=== PATIENT | female | born 1940 ===

== ENCOUNTER 2020-01-23 14:57 | Inpatient (IN) | payer MEDICARE, MEDICAID ==
[~2020-01-23] VITALS: Ht 156 cm; Wt 52.6 kg
[2020-01-23] MEDS ORDERED: CYCL10TA9 PO (15:39)
[2020-01-23] MEDS ORDERED: DICY20TA10 PO (15:39)
[2020-01-23] MEDS ORDERED: ACHD5005 PO (15:39)
[2020-01-23] MEDS ORDERED: DOCU100C37 PO (15:39)
[2020-01-23] MEDS ORDERED: LISI10TA2 PO (15:39)
[2020-01-23] MEDS ORDERED: ATOR20TA66 PO (15:39)
--- NOTE | 2020-01-23 15:58 | NUR ---
I ENTERED THE MED REC USING THE DISCHARGE ORDERS FROM [facility] ([facility] 4 STATES)- ONCE MEDICATIONS HAVE BEEN CONTINUED I WILL SPEAK WITH THE PT AND MAKE ANY CHANGES TO THE MED REC/NOTES IF NEEDED Addendum: 02/01/20 at 0833 by CHIARA WHYTE CPhT I WAS ABLE TO SPEAK WITH THE PT AND HER DAUGHTER JANE AND WENT THRU THE EXT MED HISTORY TO COMPLETE THE MED REC MEDICATIONS THAT HAVE BEEN REMOVED DUE TO PT NOT TAKING PRIOR TO [facility]: FLEXERIL 10MG DOCUSATE 100MG HYDROCODONE/APAP 5/325MG MEDICATIONS THAT HAVE BEEN ADDED TO THE MED REC DUE TO PT TAKING PRIOR TO [facility]-BUT WERE DISCONTINUED BY [facility]: TRAMADOL 50MG MEDICATIONS THAT WERE FROM CONTINUED FROM [facility] AND PT DID TAKE PRIOR TO [facility]: ATORVASTATIN 20MG DICYCLOMINE 20MG LISINOPRIL 10MG OMEPRAZOLE 20MG
[2020-01-23] MEDS ORDERED: LACTULOSE SYRUP 10GM/15ML (ENULOSE) 30ML UDC PO PRN (17:15)
[2020-01-23] MEDS ORDERED: guaiFENesin/CODEINE (ROBITUSSIN AC) 10ML UDC PO PRN (17:15)
[2020-01-23] MEDS ORDERED: diphenhydrAMINE 25 MG TAB (BENADRYL) PO PRN (17:15)
[2020-01-23] MEDS ORDERED: BISACODYL 10 MG SUPP (DULCOLAX) PR PRN (17:15)
[2020-01-23] MEDS ORDERED: CALCIUM CARBONATE 500 MG (TUMS) TAB.CHEW PO PRN (17:15)
[2020-01-23] MEDS ORDERED: LOPERAMIDE 2 MG (IMODIUM) TABLET PO PRN (17:15)
[2020-01-23] MEDS ORDERED: DOCUSATE SODIUM 100 MG (COLACE) CAP PO PRN (17:15)
[2020-01-23] MEDS ORDERED: FLEET ENEMA ADULT 1 EA BTL PR PRN (17:15)
[2020-01-23] MEDS ORDERED: CYCLOBENZAPRINE 10 MG (FLEXERIL) TAB PO PRN (17:30)
--- NOTE | 2020-01-23 18:10 | NUR ---
PER ORDER FROM DR. NAIR: DO NOT NEED TO CALL CRITICAL HGB RESULT ON ADMISSION TO HER SINCE PATIENT IS JEHOVAH WITNESS AND WILL NOT ACCEPT BLOOD PRODUCTS. WILL LOOK AT LABS LATER.
--- NOTE | 2020-01-23 18:10 | NUR ---
Layla Abbott, admitted to room 223-1, with an admitting diagnosis of disuse myopathy, on 01/23/20 from [facility], accompanied by EMS and Daughter. LAYLA ABBOTT introduced to surroundings, call light, bed controls, phone, TV, temperature control, lights, meal times, smoking policy, visitor policy, side rail policy, bathrooms and showers. Patient Rights given to patient in the handbook.LAYLA ABBOTT verbalizes understanding that [facility] is not responsible for the loss or damage to any personal effects or valuables that are kept in the patients posession during their hospitalization. The following Patient Care Plans were discussed with the patient: Discharge Planning,activity intolerance,impaired mobility and falls. LAYLA ABBOTT verbalizes understanding of Interdisciplinary Patient Education. Patient and/or family were informed about the Rapid Response Team and its purpose. Patient received Patient Rights Booklet, which includes Privacy Act Statement and Data Collection Information Summary.
[2020-01-23 18:19] VITALS: BP 122/57
--- NOTE | 2020-01-23 18:30 | NUR ---
DR. NAIR NOTIFIED OF TEMP 101.4 AND HR 109. ORDERS RECEIVED FOR BLOOD WORK, CXR, AND IV FLUIDS. DAUGHTER AT BEDSIDE SPEAKS CITIZ[place] OF [place]. PATIENT IS LATVIAN SPEAKING AND SPEAKS A LITTLE CITIZEN OF [place].
--- NOTE | 2020-01-23 19:00 | NUR ---
DR. NAIR NOTIFIED OF UA RESULTS. IV FLUIDS STARTED AND NEW ORDER FOR IV ANTIBIOTICS. 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
[2020-01-23 19:02] LABS: BILIRUBIN,URINE NEGATIVE (NEGATIVE); CLARITY,URINE SL CLOUDY; COLOR,URINE YELLOW; GLUCOSE, URINE (UA) NEGATIVE (NEGATIVE); KETONES,URINE NEGATIVE (NEGATIVE); LEUKOCYTE ESTERASE ,URINE 2+ (NEGATIVE); NITRITE,URINE POSITIVE (NEGATIVE); PROTEIN,URINE NEGATIVE (NEGATIVE)
--- NOTE | 2020-01-23 19:08 | Diagnostic Imaging Report ---
INDICATION: Fever of unknown origin. FINDINGS: There is elevation of the right hemidiaphragm. There is no focal infiltrate or consolidation demonstrated. There is no effusion or evidence of pneumothorax. Heart size within normal limits. Central pulmonary vascularity appears appropriate. There are advanced degenerative features within the right shoulder. There has been prior lumbar spinal fusion. IMPRESSION: No evidence of focal pulmonary infiltrate or consolidation. Dictated by: Dictated on workstation # [id number]
[2020-01-23] MEDS: NS IV 1000 ML 1,000 ML IV SCH (19:10)
[2020-01-23 19:11] LABS: AMORPHOUS SEDIMENT,UR LARGE AMOR PHOSPHATE /LPF; BACTERIA,URINE MODERATE /HPF; RBC,URINE RARE /HPF; SQUAMOUS EPITHELIAL CELL,UR RARE /HPF
[2020-01-23 19:12] LABS: ABSOLUTE RETIC # 65 10e9/L (24-90); BASOPHILS # (AUTO) 0.1 10^3/uL (0.0-0.1); BASOPHILS % (AUTO) 0 % (0-10); EOSINOPHILS # (AUTO) 0.3 10^3/uL (0.0-0.3); EOSINOPHILS % (AUTO) 2 % (0-10); LYMPHOCYTES # (AUTO) 3.1 X 10^3 (1.0-4.0); LYMPHOCYTES % (AUTO) 20 % (12-44); MEAN CORPUSCULAR HEMOGLOBIN 28 PG (25-34); MEAN CORPUSCULAR HGB CONC 31 G/DL (32-36); MEAN CORPUSCULAR VOLUME 90 FL (80-99); MEAN PLATELET VOLUME 9.6 FL (7.4-10.4); MONOCYTES # (AUTO) 1.4 X 10^3 (0.0-1.0); MONOCYTES % (AUTO) 10 % (0-12); NEUTROPHILS # (AUTO) 10.2 X 10^3 (1.8-7.8); NEUTROPHILS % (AUTO) 68 % (42-75); PLATELET COUNT 421 10^3/uL (130-400); RETICULOCYTE % 4.82 % (0.50-2.40); WHITE BLOOD COUNT 15.1 10^3/uL (4.3-11.0)
[2020-01-23 19:15] LABS: HEMOGLOBIN 3.8 G/DL (11.5-16.0)
[2020-01-23 19:16] LABS: HEMATOCRIT 12 % (35-52)
--- NOTE | 2020-01-23 19:29 | PM&R Post Admission Assessment ---
PM&R HP Date of Visit: Jan 23, 2020 Time of Visit: 18:30 History of Present Illness CC: Debility HPI: This is a 79yo female from [place] who presents from [facility] following extensive spine surgery by Dr Rush but complicated by bradycardia and severe anemia of 5.1 at [facility] but 3.8 here at [facility] IRF and refuses blood products due to christianity of JW so she was given 2 doses of IV iron, 1 on Wednesday and 1 on Wednesday, and I have consulted Dr Iglesias and he has ordered retic count along with CBC and CMP and will receive IV Venofer in morning along with EPO. Patient was noted to have fever upon arrival to [facility] so she was pancultured and CXR revealed no infiltrate but UA with rosenthal cath was noted to have abnormalities so she was covered with Cefepime and Vanc broad spectrum coverage for facility acquire resistant gram negative bacteria along with MRSA. Patient met criteria for IRF although she will have a slow recovery along with management of the complexities of her issues stemming from refusing blood products for worship reasons. She is Lithuanian-speaking only so language line will be used. Per my [facility] Consult: Layla Mendez a 79 y.o.femaleadmitted for Lumbar stenosis with neurogenic claudication. I was asked to consult for severe anemia and JW refusal of blood products status. POD# 3 from lumbar spine I am consulted for Jainism status with profound post-op anemia of 5.1 hgb and dural tear with immobile status with post-op ileus and urinary retention I was called on Wednesday with hemoglobin result. I did order IV iron infusion and continue IV fluids Pt did have a large bowel movement today Assessment: Post-op anemia Jainism refuses blood products Dural tear and Lithuanian speaking only PMH: Abdominal pain in female Arthritis ALL OVER AND IN BACK Asthma Diabetes mellitus TX WITH METFORMIN OFF IT LAST 2 MONTHS, BS CONTROLLED Diarrhea ALL THE TIME, GALDING PERIRECTAL AREA GERD (gastroesophageal reflux disease) History of complications due to general anesthesia STATES GOT PNEUMONIA FROM ANESTHESIA WITH TKA HTN (hypertension) Hx of bacterial pneumonia ART ANESTHESIA WITH TKA, BUT GETS RECURRANT PNEUMONIA WITH COLD WEATHER Hyperlipidemia IBS (irritable bowel syndrome) Perianal rash ART DIARRHEA Thromboembolism Uterine cancer > 30 YEARS AGO Varicose veins Mary Grace Nair DO Physician Hospitalist Consults Signed Date of Service: 01/22/2020 12:03 PM Expand All Collapse All Hide copied text Joan for details Template added by Mary Grace Nair DO at 01/22/2020 12:03 PM Template added by Mary Grace Nair, DO at 01/22/2020 12:03 PM Template added by Mary Grace Nair, DO at 01/22/2020 12:03 PM Template added by Mary Grace Nair, DO at 01/22/2020 12:03 PM Template added by Mary Grace Nair, DO at 01/22/2020 12:03 PM Template added by Mary Grace Nair, DO at 01/22/2020 12:03 PM Template added by Mary Grace Nair, DO at 01/22/2020 12:03 PM Template added by Mary Grace Nair DO at 01/22/2020 12:03 PM Template added by Mary Grace Nair, DO at 01/22/2020 12:03 PM Added by Mary Grace Nair, DO at 01/22/2020 8:46 PM Template added by Mary Grace Nair, DO at 01/22/2020 12:03 PM Template added by Mary Grace Nair, at 01/22/2020 12:03 PM Copied by Mary Grace Nair DO at 01/22/2020 8:46 PM from outside the chart Template added by Mary Grace Nair DO at 01/22/2020 12:03 PM Template added by Mary Grace Nair, DO at 01/22/2020 12:03 PM Template added by Mary Grace Nair, DO at 01/22/2020 12:03 PM Template added by Mary Grace Nair, DO at 01/22/2020 12:03 PM Template added by Mary Grace Nair, at 01/22/2020 12:03 PM Template added by Mary Grace Nair, at 01/22/2020 12:03 PM Template added by Mary Grace Nair, at 01/22/2020 12:03 PM Template added by Mary Grace Nair DO at 01/22/2020 12:03 PM Template added by Mary Grace Nair DO at 01/22/2020 12:03 PM Template added by Mary Grace Nair DO at 01/22/2020 12:03 PM Template added by Mary Grace Nair DO at 01/22/2020 12:03 PM Hospitalist Consult PATIENT:Layla Higgins AGE: 79 y.o. CSN: [id number]: [id number] :1940 Date of Consult:01/22/2020Requesting Physician:Sravan Rush DO PCP:Wero Ortega MD Reason for Consult:Medical management post op HPI: Layla Mendez a 79 y.o.femaleadmitted for Lumbar stenosis with neurogenic claudication. I was asked to consult for severe anemia and JW refusal of blood products status. POD# 3 from lumbar spine I am consulted for Jainism status with profound post-op anemia of 5.1 hgb and dural tear with immobile status with post-op ileus and urinary retention I was called on Wednesday with hemoglobin result. I did order IV iron infusion and continue IV fluids Pt did have a large bowel movement today Assessment: Post-op anemia Jainism refuses blood products Dural tear and Lithuanian speaking only Allergies: Allergies Allergen Reactions Other Drug [Unclassified Drug] Nausea and Vomiting Pt to bring name of medication day of surgery. Amoxicillin Diarrhea PMHx: Past Medical History Past Medical History: Diagnosis Date Abdominal pain in female Arthritis ALL OVER AND IN BACK Asthma Diabetes mellitus TX WITH METFORMIN OFF IT LAST 2 MONTHS, BS CONTROLLED Diarrhea ALL THE TIME, GALDING PERIRECTAL AREA GERD (gastroesophageal reflux disease) History of complications due to general anesthesia STATES GOT PNEUMONIA FROM ANESTHESIA WITH TKA HTN (hypertension) Hx of bacterial pneumonia ART ANESTHESIA WITH TKA, BUT GETS RECURRANT PNEUMONIA WITH COLD WEATHER Hyperlipidemia IBS (irritable bowel syndrome) Perianal rash ART DIARRHEA Thromboembolism Uterine cancer > 30 YEARS AGO Varicose veins PSHx: Past Surgical History Past Surgical History: Procedure Laterality Date HX CHOLECYSTECTOMY 3 YRS AGO HX CLUB FOOT RELEASE HX HERNIA REPAIR HX HYSTERECTOMY > 30 YRS AGO TOTAL ABD HX KNEE REPLACEMENT Bilateral HX LUMBAR FUSION N/A 02/16/2019 L3, L4, L5 HX ELISA FUNDOPLICATION ABOUT 3 YRS AGO LAPAROSCOPIC WHEN HAD CHOLECYSTECTOMY HX SPINAL SURGERY N/A 11/04/2018 CERVICAL SPINAL FUSION HX VEIN LIGATION AND STRIPPING Right NH COLONOSCOPY W/BIOPSY SINGLE/MULTIPLE N/A 03/07/2015 COLONOSCOPY WITH BIOPSY performed by Ildefonso Schilling DO at [facility] NH EGD TRANSORAL BIOPSY SINGLE/MULTIPLE N/A 03/12/2015 ESOPHAGOGASTRODUODENOSCOPY WITH BIOPSY performed by Ildefonso Schilling DO at [facility] Home Medications: Prescriptions Prior to Admission Medications Prior to Admission Medication Sig Dispense Refill Last Dose traMADol (ULTRAM) 50 mg tablet Take 1 Tablet (50 mg) by mouth every 4 hours as needed for Pain. 24 Tablet 0 01/18/2020 at Unknown time atorvastatin (LIPITOR) 20 mg tablet Take 1 Tablet by mouth daily after lunch. 01/16/2020 dicyclomine (BENTYL) 20 mg tablet Take 20 mg by mouth 2 times daily. 01/14/2020 lisinopriL (PRINIVIL) 10 mg tablet Take 1 Tablet by mouth daily after lunch. 01/16/2020 multivit-min/iron/folic/lutein (CENTRUM SILVER WOMEN ORAL) Take 1 Tablet by mouth daily. 01/12/2020 Social Hx: Social History Tobacco Use Smoking status: Former Smoker Packs/day: 0.00 Types: Cigarettes Smokeless tobacco: Never Used Tobacco comment: QUIT SMOKING > 30 YRS AGO Substance Use Topics Alcohol use: No Family Hx: Family History Family History Problem Relation Name Age of Onset Unknown Father Unknown Mother Diabetes Brother Diabetes Daughter Diabetes Son Diabetes Brother Depression Brother Healthy Son Healthy Son Review of Systems Constitutional-no fever, sweats, night sweats, change in fatigue level EYE-no blurred vision, double vision ENT-, no difficulty swallowing, no symptoms of oral candidiasis Lungs-no complaint of respiratory distress, no wheezing CV-no chest pain, palpitation GI-no nausea, vomiting, diarrhea, no abdominal pain -no difficulty voiding, no flank pain MS-no significant edema 10 system review is otherwise negative except as discussed above. Physical: Patient Vitals for the past 8 hrs: BP Temp Temp src Pulse Resp SpO2 01/22/20 0633 109/53 99.1 F (37.3 C) Temporal 98 20 100 % 01/22/20 0510 112/52 99.3 F (37.4 C) Temporal 99 15 100 % General appearance: Alert, appropriate, no apparent distress Eyes: conjuctiva pink, sclera white, EOMI without nystagmus Head: normocephalic Throat:mucus membranes moist, no lesions or exudates. Neck: no carotid bruit, no palpable adenopathy or thyromegaly. Lungs:Good air movement, clear without wheezing or rhonchi Heart:- regular rate and rhythm, no murmur Abdomen:bowel sounds active, soft, nontender, nondistended. No appreciable masses or organomegaly. Extremities: No cyanosis or clubbing. No pitting edema. Pulses intact. Skin:Warm, dry. No rash or icterus on exposed areas. Neurologic:Mental status intact. Cranial nerves intact. No focal motor or sensory deficit. Data Review: CBC: Lab Results Component Value Date/Time WBC 10.8 01/20/2020 10:33 AM HEMOGLOBIN 5.1 (LL) 01/20/2020 10:33 AM POC HEMOGLOBIN 5.8 (LL) 01/22/2020 06:31 AM HEMATOCRIT 16.3 (L) 01/20/2020 10:33 AM POC HEMATOCRIT 17 (L) 01/22/2020 06:31 AM PLATELETS 247 01/20/2020 10:33 AM MCV 91.6 01/20/2020 10:33 AM BMP: Lab Results Component Value Date/Time SODIUM 138 01/04/2020 11:25 AM POTASSIUM 4.6 01/04/2020 11:25 AM CHLORIDE 103 01/04/2020 11:25 AM CO2 22 01/04/2020 11:25 AM CALCIUM 9.3 01/04/2020 11:25 AM BUN 23 01/04/2020 11:25 AM CREATININE 0.84 01/04/2020 11:25 AM POC CREATININE 0.50 (L) 01/22/2020 06:31 AM GLUCOSE 102 (H) 01/04/2020 11:25 AM ANION GAP 13 01/04/2020 11:25 AM Assessment: Principal Problem: Lumbar stenosis with neurogenic claudication Active Problems: Lumbar pseudoarthrosis Severe anemia JW christianity Plan: IV iron infusions Gentle IVF Monitor BM regimen May need IRF at [facility] and [facility] Mary Grace Nair DO 01/22/2020,12:04 PM Past Ixquaom-Rwzkiz-Vfahml Hx Past Med/Social Hx: Reviewed Nursing Past Med/Soc Hx, Reviewed and Corrections made Patient Social History Marrital Status: single Employed/Student: retired Alcohol Use: Denies Use Smoking Status: Former Smoker (quit 30 years ago) Past Medical History Surgeries: Orthopedic Cardiac: High Cholesterol, Hypertension Endocrine: Diabetes, Non-Insulin dep PM&R Allergy/Meds/Data Review Allergies Coded Allergies: Penicillins (Verified Allergy, Unknown, 01/23/20) Home Medications Scheduled Atorvastatin Calcium (Atorvastatin Calcium), 20 MG PO 1300, (Reported) Dicyclomine HCl (Dicyclomine HCl), 20 MG PO BID, (Reported) Docusate Sodium (Docusate Sodium), 100 MG PO BID, (Reported) Lisinopril (Lisinopril), 10 MG PO 1300, (Reported) Scheduled PRN Cyclobenzaprine HCl (Cyclobenzaprine HCl), 10 MG PO Q8H PRN for SPASMS, (Reported) Hydrocodone/Acetaminophen (Hydrocodone-Acetamin 5-325 mg), 1 EACH PO Q4H PRN for PAIN-MODERATE (5-7), (Reported) Current Medications Current Medications Reviewed Laboratory Data Laboratory Tests 01/23/20 18:40: Urine Color YELLOW, Urine Clarity SL CLOUDY, Urine pH 8.0, Urine Specific [place] 1.010L, Urine Protein NEGATIVE, Urine Glucose (UA) NEGATIVE, Urine Ketones NEGATIVE, Urine Nitrite POSITIVEH, Urine Bilirubin NEGATIVE, Urine Urobilinogen 0.2, Urine Leukocyte Esterase 2+H, Urine RBC (Auto) 1+H, Urine RBC RARE, Urine WBC 2-5, Urine Squamous Epithelial Cells RARE, Urine Crystals PRESENTH, Urine Amorphous Sediment LARGE PATRICE PHOSPHATEH, Urine Bacteria MODERATEH, Urine Casts NONE, Urine Mucus NEGATIVE, Urine Culture Indicated YES 01/23/20 18:59: White Blood Count 15.1H, Red Blood Count 1.35L, Hemoglobin 3.8*L, Hematocrit 12*L, Mean Corpuscular Volume 90, Mean Corpuscular Hemoglobin 28, Mean Corpuscular Hemoglobin Concent 31L, Red Cell Distribution Width 13.0, Platelet Count 421H, Mean Platelet Volume 9.6, Neutrophils (%) (Auto) 68, Lymphocytes (%) (Auto) 20, Monocytes (%) (Auto) 10, Eosinophils (%) (Auto) 2, Basophils (%) (Auto) 0, Neutrophils # (Auto) 10.2H, Lymphocytes # (Auto) 3.1, Monocytes # (Auto) 1.4H, Eosinophils # (Auto) 0.3, Basophils # (Auto) 0.1, Absolute Reticulocyte Count 65, Percent Reticulocyte Count 4.82H Review of Systems Constitutional: see HPI, dizziness, fever, malaise, weakness EENTM: no symptoms reported Respiratory: no symptoms reported Cardiovascular: no symptoms reported Gastrointestinal: no symptoms reported Genitourinary: other (retention) Musculoskeletal: back pain Skin: no symptoms reported Psychiatric/Neurological: Anxiety, Depressed All Other Systems Reviewed Negative Unless Noted: Yes Physical Exam Physical Exam Vital Signs Vital Signs - First Documented 01/23/20 18:19 Temp 38.6 Pulse 109 Resp 16 B/P (MAP) 122/57 (78) Pulse Ox 98 O2 Delivery Room Air Capillary Refill : Height, Weight, BMI Height: '" Weight: lbs. oz. kg; BMI Method: General Appearance: No Apparent Distress, WD/WN, Chronically ill, Other (pale) Eyes: Bilateral Eye Normal Inspection, Bilateral Eye PERRL HEENT: PERRL/EOMI, Normal ENT Inspection, Pharynx Normal Neck: Full Range of Motion, Normal Inspection, Non Tender, Supple, Carotid Bruit Respiratory: Chest Non Tender, Lungs Clear, Normal Breath Sounds, No Accessory Muscle Use, No Respiratory Distress Cardiovascular: Regular Rate, Rhythm, No Edema, No Gallop, No JVD, No Murmur, Normal Peripheral Pulses Gastrointestinal: Normal Bowel Sounds, No Organomegaly, No Pulsatile Mass, Non Tender, Soft Back: Decreased Range of Motion Extremity: Normal Capillary Refill, Normal Inspection, Normal Range of Motion, Non Tender, No Calf Tenderness, No Pedal Edema Neurologic/Psychiatric: Alert, Oriented x3, No Motor/Sensory Deficits, Normal Mood/Affect, 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 Norm as Tested, Abnormal Gait Skin: Normal Color, Warm/Dry Lymphatic: No Adenopathy PM&R Medical Assessment & Plan REHAB/MEDICAL ASSESSMENT AND PLAN: REHAB IMPAIRMENT GROUP: Lumbar spine stenosis ETIOLOGIC DIAGNOSIS: Lumbar spine stenosis The comorbidities that impact the patients function and/or functional outcome by: refusing blood products with now critical hemoglobin level, fever, debility, advanced age REHAB PLAN: The patient is being admitted to our comprehensive inpatient rehabilitation [facility] and can tolerate the intensity of service consisting of at least: 180 minutes of therapy a day, 5 out of 7 days a week Rehab treatment will consist of: PT OT will focus on regaining spine ROM along with increasing ADL abilities The patient/family has a good understanding of our discharge process and will benefit from an interdisciplinary inpatient rehabilitation program. The patient has potential to make improvement and is in need of at least two of the following multidisciplinary therapies including but not limited to physical, occupational, speech, and prosthetics and orthotics. Additionally the patient will need services from respiratory, nutritional services, wound care, psychology, etc. (Customize this to each patient). Given the patients complex condition and risk of further medical complications, rehabilitation services cannot be safely or effectively provided at a lower level of care such as a residential facility. BARRIERS TO DISCHARGE: Critical anemia and refusal of blood products will place her at risk for decompensation ESTIMATED LOS: 14 days DISPOSITION: Home RELEVANT CHANGES SINCE PREADMISSION SCREENING: I have compared the patients medical and functional status at the time of the preadmission screening and there are: no changes PROGNOSIS: Guarded REHABILITATION GOALS: 1. PT OT will focus on regaining spine ROM along with increasing ADL abilities All the above goals were reviewed with the patient and he/she is in agreement. By signing this document, I acknowledge that I have personally performed a full physical examination on this patient within 24 hours of admission to this inpatient rehabilitation facility and have determined the patient to be able to tolerate the above course of treatment at an intensive level for a reasonable period of time. I will be completing a detailed individualized Plan of Care for this patient by day #4 of the patients stay based upon the Preadmission Screen, the Post-Admission Evaluation, and the therapy evaluations. Admission Dx/Comorbidities: (1) Lumbar stenosis with neurogenic claudication ICD Codes: M48.062 - Spinal stenosis, lumbar region with neurogenic claudication (2) Refusal of blood transfusions as patient is Jainism ICD Codes: Z53.1 - Procedure and treatment not carried out because of patient's decision for reasons of belief and group pressure (3) Anemia due to acute blood loss ICD Codes: D62 - Acute posthemorrhagic anemia (4) Advanced age ICD Codes: R54 - Age-related physical debility (5) Hypertension ICD Codes: I10 - Essential (primary) hypertension (6) Hyperlipemia ICD Codes: E78.5 - Hyperlipidemia, unspecified (7) Fever ICD Codes: R50.9 - Fever, unspecified (8) Bradycardia ICD Codes: R00.1 - Bradycardia, unspecified Assessment/Plan Assessment and Plan Assess & Plan/Chief Complaint Assessment: Lumbar stenosis with neurogenic claudication Severe anemia JW refusal of blood products HTN HLP Fever Rosenthal cath UTI Bradycardia at [place] Plan: Dr Iglesias consult EPO and Venofer tomorrow Gentle IVF PT OT Abx broad spectrum MARY GRACE NAIR DO Jan 23, 2020 19:29
[2020-01-23] MEDS ORDERED: VANCOMYCIN INJECTION 1,000 MG in NS (IVPB) 250 ML IV SCH (19:30)
[2020-01-23 19:49] LABS: BAND NEUTROPHILS 0 %; NEUTROPHILS % (MANUAL) 70 %
[2020-01-23 19:50] LABS: ANISOCYTOSIS SLIGHT; BASOPHILS % (MANUAL) 0 %; ELLIPT/OVALOCYTES SLIGHT; EOSINOPHILS % (MANUAL) 4 %; HYPOCHROMASIA SLIGHT; LYMPHOCYTES % (MANUAL) 21 %; MONOCYTES % (MANUAL) 5 %; POLYCHROMASIA SLIGHT
[2020-01-23 19:56] LABS: ALANINE AMINOTRANSFERASE 30 U/L (0-55); ALBUMIN 2.9 GM/DL (3.2-4.5); ALKALINE PHOSPHATASE 80 U/L (40-136); BILIRUBIN,TOTAL 0.2 MG/DL (0.1-1.0); BUN/CREATININE RATIO 21; CALCIUM 7.9 MG/DL (8.5-10.1); CARBON DIOXIDE 22 MMOL/L (21-32); CHLORIDE 102 MMOL/L (98-107); CREATININE SERUM 0.67 MG/DL (0.60-1.30); GFR ESTIMATED > 60; GLUCOSE 130 MG/DL (70-105); POTASSIUM 3.8 MMOL/L (3.6-5.0); SODIUM 133 MMOL/L (135-145); TOTAL PROTEIN 5.6 GM/DL (6.4-8.2)
[2020-01-23 20:00] VITALS: BP 122/57
[2020-01-23] MEDS ORDERED: CEFEPIME 1 GM (MAXIPIME) VIAL ONE (20:23)
[2020-01-23] MEDS ORDERED: WATER (STERILE) FOR INJECTION 10 ML ONE (20:23)
--- NOTE | 2020-01-23 20:25 | NUR ---
PTD VANCOMYCIN: 58.5KG, SCr 0.67, CrCl 36.3, BMI 24.0 LOADING DOSE 20MG/KG X 58.5 KG = 1170 ~ 1 GRAM; MAINT DOSE 15MG/KG X 58.5 KG = 877.5 ~ 750MG Q24H; VANCOMYCIN TROUGH DUE 01/25 @ 1930. IF TROUGH >20, HOLD DOSE AND NOTIFY PHARMACY FOR ADJUSTMENTS.
[2020-01-23] MEDS ORDERED: VANCOMYCIN 1 GM/NS 250 ML IVPB IV NR ×2 (20:30)
--- NOTE | 2020-01-23 20:30 | NUR ---
PHARMACY STATES AMOXICILLIN ALLERGY IS RELATED TO CEFEPIME. PATIENT STATES ALONG WITH VOMITING AND DIARRHEA, OTHER ALLERGY IS RASH AND EYES SWELL SHUT. DR. NAIR NOTIFIED AND ORDER RECEIVED TO GIVE CEFEPIME.
[2020-01-23] MEDS: HYDROcodone/APAP 5 MG/325 MG (LORTAB) TAB PO PRN (20:36)
[2020-01-23] MEDS: DICYCLOMINE 10 MG (BENTYL) CAP PO SCH (20:38)
[2020-01-23] MEDS ORDERED: DOCUSATE SODIUM 100 MG (COLACE) CAP PO SCH (21:00)
[2020-01-23] MEDS: CEFEPIME INJECTION 1,000 MG in WATER (STERILE) FOR INJECTION 10 ML IV SCH (21:51)
[2020-01-23] MEDS: ACETAMINOPHEN 500 MG TAB (TYLENOL) PO PRN (21:55)
[2020-01-23] MEDS: SENNA W/DOCUSATE (SENOKOT S) TABLET PO SCH (21:56)
[2020-01-23] MEDS: polyethylene glycoL POWDER 17 GM (MIRALAX) PACK PO SCH (21:56)
[2020-01-23] MEDS: DOCUSATE SODIUM 100 MG (COLACE) CAP PO SCH (21:56)
[2020-01-24] MEDS: CEFEPIME INJECTION 1,000 MG in WATER (STERILE) FOR INJECTION 10 ML IV SCH ×3 (04:07→19:53)
[2020-01-24 05:30] LABS: BASOPHILS % (AUTO) 0 % (0-10); EOSINOPHILS # (AUTO) 0.5 10^3/uL (0.0-0.3); EOSINOPHILS % (AUTO) 5 % (0-10); LYMPHOCYTES # (AUTO) 3.1 X 10^3 (1.0-4.0); LYMPHOCYTES % (AUTO) 27 % (12-44); MEAN CORPUSCULAR HEMOGLOBIN 28 PG (25-34); MEAN CORPUSCULAR HGB CONC 32 G/DL (32-36); MEAN CORPUSCULAR VOLUME 89 FL (80-99); MEAN PLATELET VOLUME 9.2 FL (7.4-10.4); MONOCYTES # (AUTO) 1.3 X 10^3 (0.0-1.0); MONOCYTES % (AUTO) 11 % (0-12); NEUTROPHILS # (AUTO) 6.4 X 10^3 (1.8-7.8); NEUTROPHILS % (AUTO) 57 % (42-75); PLATELET COUNT 357 10^3/uL (130-400); WHITE BLOOD COUNT 11.3 10^3/uL (4.3-11.0)
--- NOTE | 2020-01-24 05:46 | PM&R Progress Note ---
Subjective HPI/CC On Admission Date Seen by Provider: Jan 24, 2020 Time Seen by Provider: 09:00 Subjective/Events-last exam Pt had an uneventful might Had a fever this morning at 36.5 Remains tachycardic but sinus type Cefepime and Vanc maintained Preliminary urine culture is E. Coli Bowels moved this morning No drainage at the operative site Hgb up from 3.8 to 4.9 even with gentle IV fluid WBC down to 11.[address] Castellanos and Dr. Caldwell Checked meds and labs Conferred with RN Reviewed therapy notes Review of Systems General: Fatigue, Malaise Neurological: Weakness Focused Exam Lactate Level 01/23/20 18:59: Lactic Acid Level 1.81 Objective Exam Vital Signs Vital Signs Date Time Temp Pulse Resp B/P (MAP) Pulse Ox O2 Delivery O2 Flow Rate FiO2 01/24/20 17:05 36.0 01/24/20 13:00 84 01/24/20 12:57 18 118/58 (78) 99 Nasal Cannula 2.00 Capillary Refill : Less Than 3 Seconds General Appearance: No Apparent Distress, WD/WN, Chronically ill, Other (pale) HEENT: PERRL/EOMI, Normal ENT Inspection, Pharynx Normal Neck: Full Range of Motion, Normal Inspection, Non Tender, Supple, Carotid Bruit Respiratory: Chest Non Tender, Lungs Clear, Normal Breath Sounds, No Accessory Muscle Use, No Respiratory Distress Cardiovascular: Regular Rate, Rhythm, No Edema, No Gallop, No JVD, No Murmur, Normal Peripheral Pulses Gastrointestinal: Normal Bowel Sounds, No Organomegaly, No Pulsatile Mass, Non Tender, Soft Back: Decreased Range of Motion Extremity: Normal Capillary Refill, Normal Inspection, Normal Range of Motion, Non Tender, No Calf Tenderness, No Pedal Edema Neurologic/Psychiatric: Alert, Oriented x3, No Motor/Sensory Deficits, Normal Mood/Affect, picu nurse II-XII Norm as Tested, Abnormal Gait Skin: Normal Color, Warm/Dry Lymphatic: No Adenopathy Results/Procedures Lab Laboratory Tests 01/23/20 18:59 01/24/20 05:00 01/24/20 05:19 Patient resulted labs reviewed. FIM Transfers Therapy Code Descriptions/Definitions Functional [place] Measure: 0=Not Assessed/NA 4=Minimal Assistance 1=Total Assistance 5=Supervision or Setup 2=Maximal Assistance 6=Modified [place] 3=Moderate Assistance 7=Complete IndependenceSCALE: Activities may be completed with or without assistive devices. 8-Csmsikgbrr-dzemgqh completes the activity by him/herself with no assistance from a helper. 5-Set-up or Clean-up Assistance-helper sets up or cleans up; patient completes activity. Dwarf assists only prior to or following the activity. 4-Supervision or Touching Assistance-helper provides verbal cues and/or touching/steadying and/or contact guard assistance as patient completes activity. Assistance may be provided throughout the activity or intermittently. 3-Partial/Moderate Assistance-helper does LESS THAN HALF the effort. Dwarf lifts, holds or supports trunk or limbs, but provides less than half the effort. 2-Substantial/Maximal Assistance-helper does MORE THAN HALF the effort. Dwarf lifts or holds trunk or limbs and provides more than half the effort. 8-Gxjeppbuk-synsis does ALL the effort. Patient does none of the effort to complete the activity. Or, the assistance of 2 or more helpers is required for the patient to complete the activity. If activity was not attempted, code reason: 7-Patient Refused. 9-Not Applicable-not attempted and the patient did not perform the activity before the current illness, exacerbation or injury. 10-Not Attempted due to Environmental Limitations-(lack of equipment, weather restraints, etc.). 88-Not Attempted due to Medical Conditions or Safety Concerns. Assessment/Plan Assessment and Plan Assess & Plan/Chief Complaint Assessment: Lumbar stenosis with neurogenic claudication Severe anemia JW refusal of blood products HTN HLP Fever Goldstein cath UTI Bradycardia at [place] Plan: Dr Iglesias consult EPO and Venofer tomorrow Gentle IVF PT OT Abx broad spectrum 01/24/20: Monitor hemoglobin Appreciate Dr. Castellanos Appreciate Dr. Iglesias Continue antibiotics Monitor closely (1) Lumbar stenosis with neurogenic claudication (2) Refusal of blood transfusions as patient is Islam (3) Anemia due to acute blood loss (4) Advanced age (5) Hypertension (6) Hyperlipemia (7) Fever (8) Bradycardia SAMARIA NAIR DO Jan 24, 2020 05:46
[2020-01-24 05:47] LABS: ALBUMIN 2.6 GM/DL (3.2-4.5); CHLORIDE 110 MMOL/L (98-107); POTASSIUM 3.7 MMOL/L (3.6-5.0); SODIUM 140 MMOL/L (135-145)
[2020-01-24 05:48] LABS: CALCIUM 7.8 MG/DL (8.5-10.1)
[2020-01-24 05:49] LABS: GLUCOSE 111 MG/DL (70-105)
[2020-01-24 05:50] LABS: TOTAL PROTEIN 5.2 GM/DL (6.4-8.2)
[2020-01-24 05:51] LABS: BILIRUBIN,TOTAL 0.3 MG/DL (0.1-1.0); CARBON DIOXIDE 20 MMOL/L (21-32)
[2020-01-24 05:53] LABS: ALKALINE PHOSPHATASE 77 U/L (40-136); CREATININE SERUM 0.64 MG/DL (0.60-1.30); GFR ESTIMATED > 60
[2020-01-24 05:54] LABS: BUN/CREATININE RATIO 19
[2020-01-24 05:54] LABS: HEMATOCRIT 15 % (35-52)
[2020-01-24 05:55] LABS: HEMOGLOBIN 4.9 G/DL (11.5-16.0)
[2020-01-24 05:56] LABS: ALANINE AMINOTRANSFERASE 26 U/L (0-55)
[2020-01-24 06:00] VITALS: BP 104/51
[2020-01-24] MEDS: NS IV 1000 ML 1,000 ML IV SCH ×2 (06:28→17:22)
[2020-01-24] MEDS: HYDROcodone/APAP 5 MG/325 MG (LORTAB) TAB PO PRN ×2 (06:28→20:48)
--- NOTE | 2020-01-24 08:43 | Physical Therapy Evaluation ---
PT Evaluation-General Medical Diagnosis Admission Date Jan 23, 2020 at 18:10 Medical Diagnosis: Lumbar stenosis with neurogenic claudication Onset Date: Jan 23, 2020 Therapy Diagnosis Therapy Diagnosis: impaired mobility, strength, endurance Precautions Precautions/Isolations: Fall Prevention, Standard Precautions, Pressure Ulcer lumbar brace on when OOB Referral Physician: Mary Grace Bojorquez DO Reason for Referral: Evaluation/Treatment Medical History Pertinent Medical History: HTN Reviewed History: Yes Social History Home: Single Level Current Living Status: Alone Entry Into Home: Stairs With Railing PT Steps Into Home: 14 Patient states she lives alone but has some family help from a daughter and son but the son works a lot Prior Prior Level of Function SCALE: Activities may be completed with or without assistive devices. 1-Kdenbhvkyf-qmbmvnf completes the activity by him/herself with no assistance from a helper. 5-Set-up or Clean-up Assistance-helper sets up or cleans up; patient completes activity. [place] assists only prior to or following the activity. 4-Supervision or Touching Assistance-helper provides verbal cues and/or touching/steadying and/or contact guard assistance as patient completes activity. Assistance may be provided throughout the activity or intermittently. 3-Partial/Moderate Assistance-helper does LESS THAN HALF the effort. [place] lifts, holds or supports trunk or limbs, but provides less than half the effort. 2-Substantial/Maximal Assistance-helper does MORE THAN HALF the effort. [place] lifts or holds trunk or limbs and provides more than half the effort. 5-Keldmzbti-orvdqv does ALL the effort. Patient does none of the effort to complete the activity. Or, the assistance of 2 or more helpers is required for the patient to complete the activity. If activity was not attempted, code reason: 7-Patient Refused. 9-Not Applicable-not attempted and the patient did not perform the activity before the current illness, exacerbation or injury. 10-Not Attempted due to Environmental Limitations-(lack of equipment, weather restraints, etc.). 88-Not Attempted due to Medical Conditions or Safety Concerns. Bed Mobility: 6 Transfers (B,C,W/C): 6 Gait: 6 Stairs: 6 Indoor Mobility (Ambulation): Independent Stairs: Independent PT Evaluation-Current Subjective Patient in bed pre tx, agrees to PT, has unrated low back pain. Patient needs to use the restroom. Will be co-treating with OT for part of tx due to poor patient mobility, low HGB, the need to coordinate UE and LE during activity and ADL's Pt/Family Goals none stated Objective Patient Orientation: Person, Unable to Assess (spainish speaking) Attachments: Oxygen, Goldstein Catheter, IV ROM/Strength ROM Lower Extremities WNL Strength Lower Extremities unable to test accurately due to language barrier Sensory Hearing: Functional Sensation Right Lower Extremit: Intact Sensation Left Lower Extremity: Intact Transfers Roll Left to Right (QC): 2 Sit to Lying (QC): 2 Lying to Sitting/Side of Bed(Q: 2 Sit to Stand (QC): 3 Chair/Zob-xf-Ygvhp Xfer(QC): 3 Toilet Transfer (QC): 3 Car Transfer (QC): 3 Patient performs bed mobility and supine <-> sit with max assist, sit <-> stand min assist, transfers min assist, car transfer min assist. Patient needs cues for hand placement and safety. Patient performs a toilet transfer with min assist and is able to wipe herself without assist. Gait Does the Patient Walk?: Yes Mode of Locomotion: Walk Walk 10 feet (QC): 4 Walk 50 ft with 2 Turns(QC): 88 Walk 150 ft (QC): 88 Walking 10ft/uneven surface-QC: 3 Distance: 10', 20' Gait Assistive Device: FWW Comments/Gait Description Patient can ambulate 20' with a rolling walker with CGA (but needs min assist to ambulate 10' over an uneven surface). 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 Wheelchair Training Wheel 50 ft with 2 turns (QC): 9 Wheel 150 ft (QC): 9 Stairs #of Steps: 1 1 Step (curb) (QC): 3 4 Steps (QC): 88 12 Steps (QC): 88 Walking Assistive Device: Walker Patient can go up and down 1 step using a rolling walker with min assist. Needs cues for step placement and assist guiding walker. Balance Sitting Static: Normal Sitting Dynamic: Normal Standing Static: Good Standing Dynamic: Fair Picking up an Object (QC): 88 Treatment Bathing and dressing Assessment/Needs Patient has impaired mobility, strength, endurance. She needs a lot of assist with bed mobility and supine <-> sit but only min assist when out of bed. Patient must wear brace when out of bed. Rehab Potential: Fair PT Short Term Goals Short Term Goals Time Frame: Jan 31, 2020 Roll Left & Right: 3 Sit to lyin Lying to sitting on side of be: 3 Sit to stand: 4 Chair/bag-qp-bdwhn transfer: 4 Walk 10 feet: 4 Walk 50 feet with two turns: 4 PT Prison Goals Prison Goals PT Reclamation Kettle Tender Goals Time Frame: Feb 14, 2020 Roll Left & Right (QC): 4 Sit to Lying (QC): 4 Lying-Sitting on Side/Bed(QC): 4 Sit to Stand (QC): 4 Chair/Qvr-et-Xloqn Xfer(QC): 4 Toilet Transfer (QC): 4 Car Transfer (QC): 4 Does the Patient Walk: Yes Walk 10 feet (QC): 4 Walk 50ft with 2 Turns (QC): 4 Walk 150 ft (QC): 4 Walking 10ft on Uneven Surface: 4 1 Step (curb) (QC): 4 4 Steps (QC): 4 12 Steps (QC): 4 Picking up an Object (QC): 88 Wheel 50 feet with 2 turns (QC: 9 Wheel 150 feet: 9 PT Plan Problem List Problem List: Activity Tolerance, Functional Strength, Safety, Balance, Gait, Transfer, Bed Mobility, ROM Treatment/Plan Treatment Plan: Continue Plan of Care Treatment Plan: Bed Mobility, Education, Functional Activity Kassandra, Functional Strength, Group Therapy, Gait, Safety, Therapeutic Exercise, Transfers Treatment Duration: Feb 14, 2020 Frequency: Modified Program (IRF) Estimated Hrs Per Day: 1.5 hours per day Patient and/or Family Agrees t: Yes Safety Risks/Education Patient Education: Gait Training, Transfer Techniques, Reviewed Precautions, Correct Positioning, Reviewed Don/Doff Brace, Safety Issues Teaching Recipient: Patient Teaching Methods: Demonstration, Discussion Response to Teaching: Reinforcement Needed Discharge Recommendations Plan Patient will perform bed mobility and transfer training, balance and endurance training, functional strengthening, stair training, gait training, and education, to improve functional mobility and independence at home. Therapy Discharge Recommendati: Home & Family Time/GCodes Time In: 0805 Time Out: 0900 Total Billed Treatment Time: 55 Total Billed Treatment 1 visit EVM 10' FA 45' PT performed bed mobility and transfers, ambulation, stairs, assist with balance and positioning during bathing and dressing, OT performed bathing and dressing, toileting, assist with positioning and safety during activity. PT eval from , co-treat from CURTIS STRONG PT Jan 24, 2020 08:43
[2020-01-24] MEDS ORDERED: DARBEPOETIN 100 MCG/ML (ARANESP) 1 ML HOSPITAL SC SCH (09:00)
[2020-01-24] MEDS ORDERED: DARBEPOETIN 25 MCG/ML (ARANESP) 1 ML HOSPITAL SC SCH (09:00)
--- NOTE | 2020-01-24 09:27 | ST Cognitive Linguistic Eval ---
Speech Evaluation-General Medical Diagnosis Lumbar stenosis with neurogenic claudication Onset Date: Jan 24, 2020 Therapy Diagnosis Therapy Diagnosis: Cognitive-communication Referral Referring Physician: Dr. Bojorquez Reason for Referral: Evaluation/Treatment Medical History Pertinent Medical History: HTN Reviewed History: Yes Social History Current Living Status: Alone Speech PLF-Current Status Prior Level of Function Patient lives alone where she has friends who attend appointments with her for translation purposes. Patient is Austrian speaking only. Subjective Patient was pleasant and cooperative with the cognitive assessment. Language Eval: Auditory Comprehends Simple Yes/No Ques: Functional Follows 1-Step Commands: Mild Patient is Austrian speaking only. She requires the services of language [employer] for translation. Language Eval: Verbal Language Completes Spontaneous Greeting: Functional Produces Auto, Serial Info: Functional Patient is Austrian speaking only. She requires the services of [employer] for translation. Objective Formal/Standardized Tests Informal tasks with clinician. Difficult to complete tasks due to patient speaking only Austrian. Clinician did speak with patient's friend who usually attends appts. with her as her green building architect. Patient's friend states there are no cognitive deficits that she is aware of. Results Patient's cognitive status appears to be WNL. Oral Motor/Speech Production Patient is Austrian speaking only. She requires the services of [employer] for translation. Impression Patient is a pleasant 79 y/o female who was admitted to the ARU s/p spine surgery with complications. Patient completed simple tasks without difficulty. Patient's friend who translates for her states the patient does not have any cognitive deficits that would interfere with her progress. At this time ST services are not deemed necessary. Speech Patient Assess Expression of Ideas/Wants: Frequently (2) Understanding Verbal Content: Sometimes Understands(2) Brief Interview-Mental Status: Yes Repetition of Three Words: Two (2) Temporal Orientation: Year: Correct (3) Temporal Orientation: Month: Accurate within 5 days(2) Temporal Orientation: Day: Correct (1) Recall : Wear to say "Sock": No, could not recall (0) Recall : Color: No, could not recall (0) Recall : Bed: No, could not recall (0) Memory/Recall Ability: That he or she is in a hsp/hsp unit Speech-Plan Patient/Family Goals Patient/Family Goals: Patient plans on returning to her home upon rehab discharge. Treatment Plan Speech Therapy Treatment Plan: Discontinue ST Treatment Duration: Jan 24, 2020 Frequency: 1 time per week Estimated Hrs Per Day: .25 hour per day Rehab Potential: Fair Barriers to Learning: Patient is Austrian speaking only. She requires the services of language [employer] for translation. Pt/Family Agrees to Plan: Yes Safety Risks/Education Teaching Recipient: Patient Teaching Methods: Demonstration, Discussion Response to Teaching: Verbalize Understanding, Return Demonstration, Unable to Comprehend, Reinforcement Needed Education Topics Provided: Safety within her room, utiliziation of the call light as needed Time Speech Therapy Time In: 09:00 Speech Therapy Time Out: 09:15 Total Billed Time: 15 Billed Treatment Time 1, SPSNDCOMP MICHELLE Javier Jan 24, 2020 09:27
[2020-01-24] MEDS: SENNA W/DOCUSATE (SENOKOT S) TABLET PO SCH ×2 (09:30→20:53)
[2020-01-24] MEDS: DICYCLOMINE 10 MG (BENTYL) CAP PO SCH ×2 (09:30→20:48)
[2020-01-24] MEDS: IRON SUCROSE 200 MG/10 ML (VENOFER) VIAL IV SCH (09:30)
[2020-01-24] MEDS: ONDANSETRON 4 MG (ZOFRAN) ORAL DISSOLVE TAB PO PRN (09:30)
[2020-01-24] MEDS: polyethylene glycoL POWDER 17 GM (MIRALAX) PACK PO SCH ×2 (09:32→20:53)
[2020-01-24] MEDS: DOCUSATE SODIUM 100 MG (COLACE) CAP PO SCH ×2 (09:32→20:49)
--- NOTE | 2020-01-24 10:27 | Occupational Therapy Eval ---
OT Evaluation-General/PLF Medical Diagnosis Admission Date Jan 23, 2020 at 18:10 Medical Diagnosis: Lumbar stenosis with neurogenic claudication Onset Date: Jan 24, 2020 Therapy Diagnosis Therapy Diagnosis: impaired ADLs/functional mobility Precautions Precautions/Isolations: Fall Prevention, Standard Precautions, Pressure Ulcer Comments Spinal precautions, back brace when up Referral Physician: Mary Grace Bojorquez DO Referral Reason: Evaluation/Treatment Medical History Pertinent Medical History: Arthritis, DM, GERD, HTN Additional Medical History asthma, HLD, post op anemia, urinary retention, IBS Current History 01/19/2020 Revision L2-L5 PSIF Social History Home: Single Level Current Living Status: Alone Entry Into Home: Stairs With Railing Steps Into Home: 14 ADL-Prior Level of Function SCALE: Activities may be completed with or without assistive devices. 0-Bnsahxswcx-zejpcef completes the activity by him/herself with no assistance from a helper. 5-Set-up or Clean-up Assistance-helper sets up or cleans up; patient completes activity. [place] assists only prior to or following the activity. 4-Supervision or Touching Assistance-helper provides verbal cues and/or touching/steadying and/or contact guard assistance as patient completes activity. Assistance may be provided throughout the activity or intermittently. 3-Partial/Moderate Assistance-helper does LESS THAN HALF the effort. [place] lifts, holds or supports trunk or limbs, but provides less than half the effort. 2-Substantial/Maximal Assistance-helper does MORE THAN HALF the effort. [place] lifts or holds trunk or limbs and provides more than half the effort. 8-Uhogcxsci-uibmmm does ALL the effort. Patient does none of the effort to complete the activity. Or, the assistance of 2 or more helpers is required for the patient to complete the activity. If activity was not attempted, code reason: 7-Patient Refused. 9-Not Applicable-not attempted and the patient did not perform the activity before the current illness, exacerbation or injury. 10-Not Attempted due to Environmental Limitations-(lack of equipment, weather restraints, etc.). 88-Not Attempted due to Medical Conditions or Safety Concerns. ADL PLOF Comments Pt independent with all ADLs and functional mobility at PLOF, no AE/AD. Patient states she lives alone but has some family help from a daughter and son but the son works a lot Self Care: Independent Functional Cognition: Independent OT Current Status Subjective Pt in bed, stating she needs to use the restroom. Pt's primary language is Lao but she agreed to communication through translation application and pt understands simple Lithuanian/gestures. Pt denied pain. Pain Numeric Pain Scale: 0-No Pain Mental Status/Objective Patient Orientation: Person, Unable to Assess (Pt Lao speaking) Attachments: Goldstein Catheter, IV, Oxygen (2L), Telemetry Current Glasses/Contacts: Yes Hearing Aids: No Dentures/Partials: Yes Upper Extremity ROM WFL during ADL tx. Upper Extremity Coordination WFL during ADL tx. Upper Extremity Sensation Pt did not report any tingling/numbness BUEs Upper Extremity Strength 3+/5 MMT ADL-Treatment Eating (QC): 5 (pt reports she has some difficulty chewing food and cutting food. No difficulties bringing food to her mouth.) Oral Hygiene (QC): 7 Shower/Bathe Self (QC): 3 (Pt able to wash upper body, assist with lower body due to spinal precautions.) Upper Body Dressing (QC): 2 (Pt requires min A with shirt due to managing clothing with IV pole, mod A with donning/doffing back brace) Lower Body Dressing (QC): 1 (Total assistance due to spinal precautions) On/Off Footwear (QC): 1 (Total assistance due to spinal precautions) Toileting Hygiene (QC): 4 (CGA, pt able to complete hygiene.) Other Treatments OT Evaluation [id number]. OT/PT cotreat [id number]: OT/PT cotreat due to poor patient mobility, low HGB, the need to coordinate UE and LE during activity and ADL's, cues for sequencing and safety. PT performed bed mobility and transfers, ambulation, stairs, assist with balance and positioning during bathing and dressing, OT performed bathing and dressing, toileting, assist with positioning and safety during activity. Pt laying in bed requesting to use toilet, max A supine to sit, then min A sit to stand at FWW. Pt ambulated to the restroom with assistance managing lines. Pt completed toileting, min A for transfer but she is able to complete hygiene herself. Pt then transferred to w/c, and taken to [facility] to perform functional transfers into/out of car simulation, over uneven surface, and 1 step. Pt then to w/c back to her room. Pt completed sponge bath and dressing, requiring assistance with lower body aspects due to spinal precautions, and assistance managing lines with tasks. Education OT Patient Education: Correct positioning, Energy conservation, Modified ADL techniques, Progress toward Goal/Update tx plan, Purpose of tx/functional activities Teaching Recipient: Patient Teaching Methods: Discussion Response to Teaching: Verbalize Understanding OT Manager Contact Goals Group Home Goals Time Frame: Feb 21, 2020 Eating (QC): 6 Oral Hygiene (QC): 6 Toileting Hygiene (QC): 6 Shower/Bathe Self (QC): 6 Upper Body Dressing (QC): 6 Lower Body Dressing (QC): 6 On/Off Footwear (QC): 6 Additional Goals: 1-Demonstrate ADL Tasks, 2-Verbalize Understanding, 3-ImproveStrength/Kassandra 1=Demonstrate adherence to instructed precautions during ADL tasks. 2=Patient will verbalize/demonstrate understanding of assistive devices/modifications for ADL. 3=Patient will improve strength/tolerance for activity to enable patient to perform ADL's. OT Education/Plan Problem List/Assessment Assessment: Decreased Activ Tolerance, Decreased UE Strength, Impaired Bed Mobility, Impaired Funct Balance, Impaired I ADL's, Impaired Self-Care Skills Discharge Recommendations Plan/Recommendations: Continue POC Equpiment Recommendations-D/C: Hip Kit Treatment Plan/Plan of Care Patient would benefit from OT for education, treatment and training to promote independence in ADL's, mobility, safety and/or upper extremity function for ADL's. Plan of Care: ADL Retraining, Functional Mobility, Group Exercise/Act as Ind, UE Funct Exercise/Act Treatment Duration: Feb 21, 2020 Frequency: Modified Program (IRF) (05/12) Estimated Hrs Per Day: 1.5 hours per day Rehab Potential: Fair Time/GCodes Start Time: 07:55 () Stop Time: 09:00 ([id number]) Total Time Billed (hr/min): 55 Billed Treatment Time OT evaluation OT/PT cotreat 1, EVM (10'), FA (15'), ADL 2 (30') TOMMIE BROWN OT Jan 24, 2020 10:27
--- NOTE | 2020-01-24 10:48 | CONSULTATION REPORT ---
DATE OF SERVICE: 01/24/2020 ATTENDING PHYSICIAN: Dr. Bojorquez. SUMMARY: After obtaining all the information from Dr. Bojorquez history and physical that was completely reviewed and also a system administration manager on the phone since the patient speaks only Bahraini. This is a 79-year-old female who was transferred from [facility] after extensive spinal surgery. She came to our institution with a catheter, it was never removed and no trial of voiding performed. The patient, according to the system administration manager, did not have any problem passing urine at home, only incontinence, but no history of retention. Reviewing her medicine, I did not encounter any medication for bladder issue, and she denies taking any medicine at home for bladder. Her urine is clear. IMPRESSION: Overactive bladder with incontinence, rule out retention. PLAN: Trial of voiding. Follow bladder scan and manage accordingly. Job ID: [id number] DocumentID: [id number] Dictated Date: 01/24/2020 10:19:33 Associate Manager Affiliate Marketing Date: 01/24/2020 10:47:33 Dictated By: AMY MUNOZ MD
--- NOTE | 2020-01-24 12:19 | NUR ---
"RD ASSESSMENT PMHx: DM; GERD; HLD; IBS; HTN PT INTERACTION: Pt was awake and pleasant during nutrition assessment. Note pt is a Amharic speaker, and this RD used the language line for translation. Pt states current appetite is poor, and that it has been this way for a while. Note PO intake 100% x1meal, per chart review. Pt states following a regular diet at home, and has no issues with chewing/swallowing food. Note pt has dentures, per visual assessment. Pt states no recent issues with nausea, vomiting, or diarrhea. Pt states some recent issues with constipation d/t pain medications, and that her last BM was 01/23. Note pt currently on bowel regimen of colace BID; senna BID; and miralax BID, per chart review. Pt states some recent wt loss, but unsure of amount/timeframe. Note unable to determine recent wt hx, per chart review. Pt states current DM management is pretty good. Note unable to determine recent HbA1c, per chart review. ABNORMAL NUTRITION-RELATED LAB VALUES LOW: Ca 7.8; Pro 5.2; alb 2.6 HIGH: Cl 110; glu 116 Est. kcal needs: 1475 kcal | 25 kcal/kg Est. Pro needs: 59 g Pro | 1.0 g Pro/kg PES STATEMENT: Inadequate oral intake (NI-2.1) related to loss of appetite | constipation as evidenced by pt interview INTERVENTION: Continue with current diet order of Regular diet. Pt may benefit from consistent CHO restriction if PO intake declines. Did not offer diet education on DM management at this time. Will attempt to offer education with handout in Amharic prior to discharge. Will continue to follow and reassess as pt needs, intake, and status change. MONITOR/EVALUATE: PO Intake; Plan of Care; Hydration Status; Weight Status; Lab Values Tai Bergeron, MS, RD, LD"
[2020-01-24 12:57] VITALS: BP 118/58
--- NOTE | 2020-01-24 13:34 | Consultation-Cardiology ---
HPI-Cardiology Cardiology Consultation: Date of Consultation 01/24/20 Date of Admission Attending Physician Mary Grace Bojorquez DO Admitting Physician Wero Ortega MD Consulting Physician Mc CASTELLANOS MD HPI: Time Seen by a Provider: 09:00 Chief Complaint: Bradycardia This is a 79-year-old lady who has undergone extensive spine surgery in [place]. She was transferred to inpatient rehabilitation for aggressive inpatient rehabilitation. In the hospital in [place], she had bradycardia with heart rate in the 40s. Asymptomatic. Currently she has fever and heart rate is better. The patient is not on any rate controlling agents. She denies active smoking. Pertinent family history is unknown. Very difficult to take complete history due to language barrier. Most of the history is taken from notes and the chart. Review of Systems-Cardiology Review of Systems Constitutional: As described under HPI; No As described under HPI, No no symptoms reported, No chills, No fever, No lightheadedness Eyes: No As described under HPI, No no symptoms reported, No blindness, No blurred vision, No contact lenses, No drainage, No decreased acuity, No foreign body sensation, No pain, No vision change Ears/Nose/Throat: No As described under HPI, No no symptoms reported, No ch ronic hearing loss, No ear discharge, No ear pain, No nasal drainage, No ulcerations Respiratory: No no symptoms reported; As described under HPI; No As described under HPI, No cough, No orthopnea, No shortness of breath, No SOB with excertion Cardiovascular: No no symptoms reported; As described under HPI; No As described under HPI, No chest pain, No edema, No irregular heart rate, No lightheadedness, No palpitations Gastrointestinal: No no symptoms reported, No As described under HPI, No abdomen distended, No abdominal pain, No blood streaked bowels, No constipation, No diarrhea, No nausea, No vomiting, No stool coloration changes Genitourinary: No As described under HPI, No burning, No dysuria, No discharge, No frequency, No flank pain, No hematuria, No urgency : Yes : No Musculoskeletal: As describe under HPI Skin: No rash, No skin related problems, No ulcerations Psychiatric/Neurological: No anxiety, No depression, No seizure, No focal weakness, No syncope Hematologic: No bleeding abnormalities All Other Systems Reviewed Negative Unless Noted: Yes VVL-Egkiqc-Thhlod Hx Patient Social History Marrital Status: single Employed/Student: retired Alcohol Use: Denies Use Recreational Drug Use: No Smoking Status: Former Smoker (quit 30 years ago) Recent Foreign Travel: No Recent Infectious Disease Expo: No Hospitalization with Isolation: Denies Physical Abuse Screen: No Sexual Abuse: No Immunizations Up To Date Date of Pneumonia Vaccine: Feb 21, 2019 Past Medical History PMH As described under Assessment. Allergies and Home Medications Allergies Coded Allergies: Penicillins (Verified Allergy, Unknown, 01/23/20) Home Medications Atorvastatin Calcium 20 Mg Tablet, 20 MG PO 1300, (Reported) TAKES AFTER LUNCH Cyclobenzaprine HCl 10 Mg Tablet, 10 MG PO Q8H PRN for SPASMS, (Reported) Dicyclomine HCl 20 Mg Tablet, 20 MG PO BID, (Reported) Docusate Sodium 100 Mg Capsule, 100 MG PO BID, (Reported) Hydrocodone/Acetaminophen 1 Each Tablet, 1 EACH PO Q4H PRN for PAIN-MODERATE (5- 7), (Reported) Lisinopril 10 Mg Tablet, 10 MG PO 1300, (Reported) TAKES AFTER LUNCH Patient Home Medication List Home Medication List Reviewed: Yes Physical Exam-Cardiology Physical Exam Vital Signs/I&O 01/24/20 01/24/20 01/24/20 01/24/20 06:00 06:37 08:28 10:30 Temp 36.2 35.4 Pulse 85 83 Resp 18 B/P (MAP) 104/51 (68) Pulse Ox 98 O2 Delivery Nasal Cannula Nasal Cannula O2 Flow Rate 2.00 2.00 01/24/20 01/24/20 01/24/20 01/24/20 12:43 12:57 13:00 14:19 Temp 37.2 37.1 Pulse 86 84 Resp 18 B/P (MAP) 118/58 (78) Pulse Ox 99 O2 Delivery Nasal Cannula O2 Flow Rate 2.00 01/23/20 23:59 Intake Total 60 ml Output Total 300 ml Balance -240 ml Capillary Refill : Less Than 3 Seconds Constitutional: appears stated age, AAO x 3; No apparent distress; well- developed, well-nourished HEENT: PERRL; No discharge; hearing is well preserved, oral hygience is good; No ulceration, No xanthelasmas are seen Neck: No carotid bruit; carotid pulses are 2 + bilaterally Respiratory: chest is bilaterally symmetric, lungs clear to auscultation Cardiovascular: regular rate-rhythm, S1 and S2 Gastrointestinal: soft, audible bowel sounds; No spleenomegaly Rectal: deferred Extremities: normal range of motion, non-tender, normal inspection; No clubbing, No cyanosis; no lower extremity edema bilateral; No significant edema Neurologic/Psychiatric: no motor/sensory deficits, alert, normal mood/affect, oriented x 3, power is 5/5 both on sides Skin: normal color, warm/dry; No rash, No ulcerations Data Review Labs Laboratory Tests 01/23/20 18:40: Urine Color YELLOW, Urine Clarity SL CLOUDY, Urine pH 8.0, Urine Specific [place] 1.010L, Urine Protein NEGATIVE, Urine Glucose (UA) NEGATIVE, Urine Ketones NEGATIVE, Urine Nitrite POSITIVEH, Urine Bilirubin NEGATIVE, Urine Urobilinogen 0.2, Urine Leukocyte Esterase 2+H, Urine RBC (Auto) 1+H, Urine RBC RARE, Urine WBC 2-5, Urine Squamous Epithelial Cells RARE, Urine Crystals PRESENTH, Urine Amorphous Sediment LARGE PATRICE PHOSPHATEH, Urine Bacteria MODERATEH, Urine Casts NONE, Urine Mucus NEGATIVE, Urine Culture Indicated YES 01/23/20 18:59: White Blood Count 15.1H, Red Blood Count 1.35L, Hemoglobin 3.8*L, Hematocrit 12*L, Mean Corpuscular Volume 90, Mean Corpuscular Hemoglobin 28, Mean Corpuscular Hemoglobin Concent 31L, Red Cell Distribution Width 13.0, Platelet Count 421H, Mean Platelet Volume 9.6, Neutrophils (%) (Auto) 68, Lymphocytes (%) (Auto) 20, Monocytes (%) (Auto) 10, Eosinophils (%) (Auto) 2, Basophils (%) (Auto) 0, Neutrophils # (Auto) 10.2H, Lymphocytes # (Auto) 3.1, Monocytes # (Auto) 1.4H, Eosinophils # (Auto) 0.3, Basophils # (Auto) 0.1, Neutrophils % (Manual) 70, Lymphocytes % (Manual) 21, Monocytes % (Manual) 5, Eosinophils % (Manual) 4, Basophils % (Manual) 0, Band Neutrophils 0, Polychromasia SLIGHT, Hypochromasia SLIGHT, Anisocytosis SLIGHT, Macrocytosis SLIGHT, Elliptocytes SLIGHT, Absolute Reticulocyte Count 65, Percent Reticulocyte Count 4.82H, Sodium Level 133L, Potassium Level 3.8, Chloride Level 102, Carbon Dioxide Level 22, Anion Gap 9, Blood Urea Nitrogen 14, Creatinine 0.67, Estimat Glomerular Filtration Rate > 60, BUN/Creatinine Ratio 21, Glucose Level 130H, Lactic Acid Level 1.81, Calcium Level 7.9L, Corrected Calcium 8.8, Total Bilirubin 0.2, Aspartate Amino Transf (AST/SGOT) 24, Alanine Aminotransferase (ALT/SGPT) 30, Alkaline Phosphatase 80, Total Protein 5.6L, Albumin 2.9L, Procalcitonin 0.10H 01/24/20 05:00: Sodium Level 140, Potassium Level 3.7, Chloride Level 110H, Carbon Dioxide Level 20L, Anion Gap 10, Blood Urea Nitrogen 12, Creatinine 0.64, Estimat Glomerular Filtration Rate > 60, BUN/Creatinine Ratio 19, Glucose Level 111H, Calcium Level 7.8L, Corrected Calcium 8.9, Total Bilirubin 0.3, Aspartate Amino Transf (AST/SGOT) 19, Alanine Aminotransferase (ALT/SGPT) 26, Alkaline Phosphatase 77, Total Protein 5.2L, Albumin 2.6L 01/24/20 05:19: White Blood Count 11.3H, Red Blood Count 1.73L, Hemoglobin 4.9#*L, Hematocrit 15*L, Mean Corpuscular Volume 89, Mean Corpuscular Hemoglobin 28, Mean Corpuscular Hemoglobin Concent 32, Red Cell Distribution Width 13.2, Platelet Count 357, Mean Platelet Volume 9.2, Neutrophils (%) (Auto) 57, Lymphocytes (%) (Auto) 27, Monocytes (%) (Auto) 11, Eosinophils (%) (Auto) 5, Basophils (%) (Auto) 0, Neutrophils # (Auto) 6.4, Lymphocytes # (Auto) 3.1, Monocytes # (Auto) 1.3H, Eosinophils # (Auto) 0.5H, Basophils # (Auto) 0.0 Microbiology 01/23/20 Urine Culture - Preliminary, Resulted Escherichia coli ECG Impression ECG Initial ECG Rhythm: Normal Sinus A/P-Cardiology Assessment/Admission Diagnosis Sinus bradycardia, Hypertension, Fever, Extensive spine surgery. Yazidi, Severe anemia Plan Sinus bradycardia, currently normal sinus rhythm. Not on any rate controlling agents. We will continue to follow clinically. Hypertension, patient is on lisinopril. Can continue. Fever, defer to Dr. Bojorquez. Extensive spine surgery. Inpatient rehabilitation. Severe anemia, iron infusions) erythropoietin given. Dr. Torre on board. Patient is Yazidi therefore no transfusion. Thank you for your consultation. Please call me if you have any questions. Malinda Castellanos MD, FACP, FACC, FSCAI, FHRS, CCDS Interventional Cardiology Cardiac Electrophysiology Vascular Medicine and Endovascular Interventions Clinical Quality Measures DVT/VTE Risk/Contraindication: Risk Factor Score Per Nursin RFS Level Per Nursing on Admit: 4+=Very High Mc CASTELLANOS MD Jan 24, 2020 13:34
--- NOTE | 2020-01-24 13:54 | Physical Therapy Daily Note ---
PT Daily Note-Current Subjective Pt present for therapy supine in bed; pt agrees to participate in PT. Pt reports no pain now that her medications have kicked in. Appearance Post PT tx pt was returned to bed. Pt has assess to tray, call button, all needs met. Mental Status Patient Orientation: Person (language barrier prevents effective communication), Situation Attachments: Oxygen, Goldstein Catheter, IV Transfers SCALE: Activities may be completed with or without assistive devices. 7-Gdojufxpqc-dpwtvgn completes the activity by him/herself with no assistance from a helper. 5-Set-up or Clean-up Assistance-helper sets up or cleans up; patient completes activity. [place] assists only prior to or following the activity. 4-Supervision or Touching Assistance-helper provides verbal cues and/or touching/steadying and/or contact guard assistance as patient completes activi ty. Assistance may be provided throughout the activity or intermittently. 3-Partial/Moderate Assistance-helper does LESS THAN HALF the effort. [place] lifts, holds or supports trunk or limbs, but provides less than half the effort. 2-Substantial/Maximal Assistance-helper does MORE THAN HALF the effort. [place] lifts or holds trunk or limbs and provides more than half the effort. 1-Tpsgwstgi-ywmxli does ALL the effort. Patient does none of the effort to complete the activity. Or, the assistance of 2 or more helpers is required for the patient to complete the activity. If activity was not attempted, code reason: 7-Patient Refused. 9-Not Applicable-not attempted and the patient did not perform the activity before the current illness, exacerbation or injury. 10-Not Attempted due to Environmental Limitations-(lack of equipment, weather restraints, etc.). 88-Not Attempted due to Medical Conditions or Safety Concerns. Roll Left & Right (QC): 3 Sit to Lying (QC): 3 Lying to Sitting/Side of Bed(Q: 3 Sit to Stand (QC): 3 Min assistance required Gait Training Does the Patient Walk?: Yes Distance: 100' x2 Walk 10 feet (QC): 4 Walk 50 ft with 2 Turns(QC): 4 Walk 150 ft (QC): 4 Gait Assistive Device: FWW CGA and assistance needed to move forward with IV pole and catheter bag. Exercises Seated Therapy Exercises: Ankle pumps, Long arc quads (red theraband; unable to fully extend L knee), Hip flexion, Hamstring Curls (red theraband), Hip abd/add (Pillow squeeze) Seated Reps: 20 Assessment Current Status: Good Progress Pt able to ambulate down the joy without need for rest. Language barrier effected directions and education from PT; pt's junior programmer analyst acted as dispatch lead. PT Short Term Goals Short Term Goals Time Frame: Jan 31, 2020 Roll Left & Right: 3 Sit to lyin Lying to sitting on side of be: 3 Sit to stand: 4 Chair/fjq-xs-hyxsa transfer: 4 Walk 10 feet: 4 Walk 50 feet with two turns: 4 PT Custodial Goals Pipe Covering Molder Goals PT Custodial Goals Time Frame: Feb 14, 2020 Roll Left & Right (QC): 4 Sit to Lying (QC): 4 Lying-Sitting on Side/Bed(QC): 4 Sit to Stand (QC): 4 Chair/Nrq-zn-Fppnh Xfer(QC): 4 Toilet Transfer (QC): 4 Car Transfer (QC): 4 Does the Patient Walk: Yes Walk 10 feet (QC): 4 Walk 50ft with 2 Turns (QC): 4 Walk 150 ft (QC): 4 Walking 10ft on Uneven Surface: 4 1 Step (curb) (QC): 4 4 Steps (QC): 4 12 Steps (QC): 4 Picking up an Object (QC): 88 Wheel 50 feet with 2 turns (QC: 9 Wheel 150 feet: 9 PT Plan Problem List Problem List: Activity Tolerance, Functional Strength, Safety, Balance, Gait, Transfer, Bed Mobility, ROM Treatment/Plan Treatment Plan: Continue Plan of Care Treatment Plan: Bed Mobility, Education, Functional Activity Kassandra, Functional Strength, Group Therapy, Gait, Safety, Therapeutic Exercise, Transfers Treatment Duration: Feb 14, 2020 Frequency: Modified Program (IRF) Estimated Hrs Per Day: 1.5 hours per day Patient and/or Family Agrees t: Yes Safety Risks/Education Patient Education: Gait Training, Transfer Techniques, Correct Positioning, Safety Issues Teaching Recipient: Patient Teaching Methods: Demonstration, Discussion Response to Teaching: Reinforcement Needed Time/GCodes Time In: 1300 Time Out: 1335 Total Billed Treatment Time: 35 Total Billed Treatment 1 visit EX 15' GT 20' CURTIS STRONG PT Jan 24, 2020 13:54
--- NOTE | 2020-01-24 13:55 | Occupational Ther Daily Note ---
OT Current Status-Daily Note Subjective Pt laying in bed, agreeable to OT Tx. Pt agreeable to using translation application due to Slovenian not being pt's primary language. Pt not report any pain. Mental Status/Objective Patient Orientation: Person, Situation Attachments: Goldstein Catheter, IV, Oxygen, Telemetry ADL-Treatment Therapy Code Descriptions/Definitions Functional [place] Measure: 0=Not Assessed/NA 4=Minimal Assistance 1=Total Assistance 5=Supervision or Setup 2=Maximal Assistance 6=Modified [place] 3=Moderate Assistance 7=Complete IndependenceSCALE: Activities may be completed with or without assistive devices. 8-Qxqyenflsa-rbbznph completes the activity by him/herself with no assistance from a helper. 5-Set-up or Clean-up Assistance-helper sets up or cleans up; patient completes activity. [place] assists only prior to or following the activity. 4-Supervision or Touching Assistance-helper provides verbal cues and/or touching/steadying and/or contact guard assistance as patient completes activity. Assistance may be provided throughout the activity or intermittently. 3-Partial/Moderate Assistance-helper does LESS THAN HALF the effort. [place] lifts, holds or supports trunk or limbs, but provides less than half the effort. 2-Substantial/Maximal Assistance-helper does MORE THAN HALF the effort. [place] lifts or holds trunk or limbs and provides more than half the effort. 2-Xxzliavxo-dlxzee does ALL the effort. Patient does none of the effort to complete the activity. Or, the assistance of 2 or more helpers is required for the patient to complete the activity. If activity was not attempted, code reason: 7-Patient Refused. 9-Not Applicable-not attempted and the patient did not perform the activity before the current illness, exacerbation or injury. 10-Not Attempted due to Environmental Limitations-(lack of equipment, weather restraints, etc.). 88-Not Attempted due to Medical Conditions or Safety Concerns. Oral Hygiene (QC): 5 (Pt completed oral care at bed level with set up.) Other Treatment Pt laying in bed, declined OOB activities at this time. OT provided pt with items for oral care, pt able to complete with set up. Pt reports having some difficulty cutting food, OT provided pt with fine motor activity with moderate resistance theraputty. Pt indicates she does not have her glasses so she is unable to complete task at this time, she indicates she will have someone bring them to her when they can. Pt able to brush her hair with set up assistance at bed level, she declines needing to complete toileting. In order to increase fine motor strength and endurance to increase independence with feeding, OT provided pt with moderate resistance application support administrator sponge. Pt completed x20 reps application support administrator squeezes BUEs, then x20 tip to tip pinches BUEs. Pt indicates she is tired. OT assisted pt with positioning for lunch. Post OT Tx, pt laying in bed, HOB elevated, call light in reach and all needs met. Education OT Patient Education: Correct positioning, Modified ADL techniques, Progress toward Goal/Update tx plan, Purpose of tx/functional activities Teaching Recipient: Patient Teaching Methods: Discussion Response to Teaching: Verbalize Understanding OT Fci Goals Fci Goals Time Frame: Feb 21, 2020 Eating (QC): 6 Oral Hygiene (QC): 6 Toileting Hygiene (QC): 6 Shower/Bathe Self (QC): 6 Upper Body Dressing (QC): 6 Lower Body Dressing (QC): 6 On/Off Footwear (QC): 6 Additional Goals: 1-Demonstrate ADL Tasks, 2-Verbalize Understanding, 3- ImproveStrength/Kassandra 1=Demonstrate adherence to instructed precautions during ADL tasks. 2=Patient will verbalize/demonstrate understanding of assistive devices/modifications for ADL. 3=Patient will improve strength/tolerance for activity to enable patient to perform ADL's. OT Education/Plan Problem List/Assessment Assessment: Decreased Activ Tolerance, Decreased UE Strength, Impaired Bed Mobility, Impaired Funct Balance, Impaired I ADL's, Impaired Self-Care Skills Discharge Recommendations Plan/Recommendations: Continue POC Treatment Plan/Plan of Care Patient would benefit from OT for education, treatment and training to promote independence in ADL's, mobility, safety and/or upper extremity function for ADL's. Plan of Care: ADL Retraining, Functional Mobility, Group Exercise/Act as Ind, UE Funct Exercise/Act Treatment Duration: Feb 21, 2020 Frequency: Modified Program (IRF) (05/12) Estimated Hrs Per Day: 1.5 hours per day Rehab Potential: Fair Time/GCodes Start Time: 11:15 Stop Time: 12:00 Total Time Billed (hr/min): 45 Billed Treatment Time 1, ADL (20'), FA 2 (25') TOMMIE BROWN OT Jan 24, 2020 13:55
--- NOTE | 2020-01-24 14:08 | NUR ---
Chad Soler is pt's DPOA. his number is [phone].
[2020-01-24] MEDS: lisINopril 10 MG (PRINIVIL) TABLET PO SCH (14:17)
--- NOTE | 2020-01-24 15:10 | NUR ---
DR. MAE HERE & SPOKE AT LENGTH TO PT & OLIVA, HER PASTORAL CARE SABIANISM LIASION.
[2020-01-24] MEDS ORDERED: CYANOCOBALAMIN INJ 1000 MCG/ML IM NR (15:30)
--- NOTE | 2020-01-24 15:51 | CONSULTATION REPORT ---
DATE OF SERVICE: 01/24/2020 The patient is admitted to room 223. PHYSICIAN REQUESTING CONSULTATION: Mary Grace Bojorquez DO IMPRESSION: 1. A 79-year-old female who is a Oriental orthodox, admitted to the rehabilitation unit after spinal surgery. 2. Significant anemia with hemoglobin level of 3.8 at the time of admission and the patient's refusal to take blood products for evangelical reasons. 3. Inability to tolerate iron in the past. RECOMMENDATIONS: 1. The patient was already started on parenteral iron therapy with Venofer and I will continue this every other day for a total of 1 gram. 2. We will administer vitamin B12 1000 mcg IM x1 and start her on folic acid 1 mg p.o. daily. 3. We will start the patient on darbepoetin 20 mcg today and if she is tolerating this, we will increase the dose to 40 mcg and continue this weekly. 4. Obtain a fecal occult blood test to rule out GI blood loss. 5. The patient understands that if the anemia worsens, she could from this, but still refuses blood transfusion and we will respect her wishes. BRIEF HISTORY: The patient is a 79-year-old female who was transferred from [facility] in [place] to the rehabilitation unit after spinal surgery. Postoperatively, she was noted to have significant anemia and was started on parenteral iron therapy. The patient mentioned that approximately a year ago, she was told that she was anemic and her primary physician tried oral iron therapy, but she could not tolerate this because of GI side effects and discontinued it. She has been complaining of increasing weakness since the past six months or so. Denied any chest pain or palpitations. She denied any obvious hematochezia or melena. No other bleeding or bruising. She did complain of frequent diarrhea, which has been a chronic problem. PAST MEDICAL HISTORY: Essentially unremarkable except for diabetes mellitus type 2, which she has been off medications with reasonable control of blood sugars. PAST SURGICAL HISTORY: Hysterectomy approximately 40 years ago for a tumor, but she is unsure if this was malignant or not. SOCIAL HISTORY: The patient is from her for more than 30 years ago and lives alone in [place], [place]. She has an adult son and daughter, both of whom live close by. 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 Denied any significant exposure to chemicals or radiation that she knows of. FAMILY HISTORY: Only significant for her sister who was diagnosed with liver cancer at an elderly age. PHYSICAL EXAMINATION: GENERAL: Showed an elderly, female, awake and answering questions appropriately, although she does not speak Frisian. Interview was conducted through the language line as well as through her spindle repairer who was present at the room during the time of interview. VITAL SIGNS: Temperature was 37.1, pulse rate of 84, respirations 18, blood pressure 118/58 with oxygen saturation of 99% on 2 liters of oxygen by nasal cannula. HEENT: Normocephalic, extraocular muscles intact. Conjunctivae pale, oral mucosa moist. NECK: Supple, with no JVD. No cervical, supraclavicular or axillary lymphadenopathy palpable. CHEST: Symmetrical. LUNGS: Fairly clear to auscultation without wheezes or rales. CARDIOVASCULAR: Regular in rate and rhythm with a soft grade I to II systolic murmur. ABDOMEN: Soft, nontender with no hepatosplenomegaly or other masses palpable. EXTREMITIES: Showed no edema. NEUROLOGIC: Showed no focal motor deficits. The patient is moving all four extremities. LABORATORY DATA: CBC done yesterday at the time of admission showed WBC 15.1, hemoglobin 3.8, MCV 90, RDW 13, platelet count 421,000 with neutrophil count 10.2, lymphocyte count 3.1 and monocyte count 1.4. Absolute reticulocyte count was 65,000. Chemistry panel showed relatively normal electrolytes except sodium level of 133. BUN was 14 and creatinine 0.67 with GFR more than 60 mL per minute. Nonfasting glucose was 130. Liver function studies were within normal limits except albumin level of 2.9. Corrected calcium was 8.8. Repeat CBC done today morning showed white count of 11.3, hemoglobin 4.9 with platelet count 357,000. Urinalysis done at the time of admission was positive for nitrite, 2+ leukocyte esterase and moderate urine bacteria. Culture was done, which showed more than 100,000 colonies of E. coli. Thank you for allowing me to participate in this patient's care. I will follow the patient with you and make appropriate recommendations. Job ID: [id number] DocumentID: [id number] Dictated Date: 01/24/2020 15:31:20 Top Knitter Date: 01/24/2020 15:50:47 Dictated By: CARY MAE MD [facility]
--- NOTE | 2020-01-24 15:55 | NUR ---
Pt signed authorization for release of info, after elevator worker explained, & translated info. This RN called Justin Fang MD's office number, as pt stated that this is the last primary doctor she saw. She saw him last year. Pt stated that he gave her iron tablets to take, pt stated that she took them, but, "they didn't agree with her, so she stopped taking them." No one answered phone at this office, did leave a message & asked for their fax number so that release could be faxed there so we could get the reports that Dr. Iglesias requested.
[2020-01-24] MEDS: ACETAMINOPHEN 500 MG TAB (TYLENOL) PO PRN (17:13)
--- NOTE | 2020-01-24 17:17 | NUR ---
Pt voided 200cc urine as reported by PCT, Aria. Pt is sitting in chair eating now, PCT to bladder scan pt after pt finishes eating.
[2020-01-24 18:00] VITALS: BP 117/56
--- NOTE | 2020-01-24 19:26 | NUR ---
bedside report received from CHAZ VILLARREAL, assume care of pt
[2020-01-24] MEDS ORDERED: VANCOMYCIN 750 MG/NS 250 ML IVPB IV SCH ×2 (20:30)
[2020-01-24] MEDS: MELATONIN 3 MG TABLET PO PRN (20:48)
--- NOTE | 2020-01-24 20:48 | NUR ---
pt took Colace but refused miralax & SENOKOT, c/o back pain level 5/10 on numeric scale, Lortab 5 1 tab given with melatonin for sleep
--- NOTE | 2020-01-24 21:35 | NUR ---
resting quietly in bed, pain level 0/10 on CNPI SCALE
[2020-01-25] MEDS: CEFEPIME INJECTION 1,000 MG in WATER (STERILE) FOR INJECTION 10 ML IV SCH ×3 (03:40→19:50)
[2020-01-25] MEDS: HYDROcodone/APAP 5 MG/325 MG (LORTAB) TAB PO PRN ×2 (03:44→08:39)
--- NOTE | 2020-01-25 03:44 | NUR ---
c/o back pain level 6/10 on numeric scale, Lortab 5 1 tab given
--- NOTE | 2020-01-25 04:40 | NUR ---
resting quietly in bed, pain level 0/10 on CNPI SCALE
[2020-01-25 05:12] LABS: BASOPHILS % (AUTO) 0 % (0-10); EOSINOPHILS # (AUTO) 0.6 10^3/uL (0.0-0.3); EOSINOPHILS % (AUTO) 5 % (0-10); LYMPHOCYTES # (AUTO) 2.2 X 10^3 (1.0-4.0); LYMPHOCYTES % (AUTO) 20 % (12-44); MEAN CORPUSCULAR HEMOGLOBIN 29 PG (25-34); MEAN CORPUSCULAR HGB CONC 32 G/DL (32-36); MEAN CORPUSCULAR VOLUME 90 FL (80-99); MEAN PLATELET VOLUME 9.4 FL (7.4-10.4); MONOCYTES # (AUTO) 1.1 X 10^3 (0.0-1.0); MONOCYTES % (AUTO) 10 % (0-12); NEUTROPHILS # (AUTO) 7.2 X 10^3 (1.8-7.8); NEUTROPHILS % (AUTO) 65 % (42-75); PLATELET COUNT 382 10^3/uL (130-400); WHITE BLOOD COUNT 11.2 10^3/uL (4.3-11.0)
[2020-01-25 05:16] LABS: HEMATOCRIT 15 % (35-52); HEMOGLOBIN 4.9 G/DL (11.5-16.0)
--- NOTE | 2020-01-25 05:35 | PM&R Progress Note ---
Subjective HPI/CC On Admission Date Seen by Provider: Jan 25, 2020 Time Seen by Provider: 09:00 Subjective/Events-last exam 01/25/20: Hgb 4.9 and stable Vitals stable Midline will be placed due to antibiotics and IV iron infusions Appreciate Dr. Iglesias Pain is only a 4/10 Tmax of 99.5 DC IV fluid and Vancomycin Cefepime maintained E. coli urine culture pending with sensitivity Pt had an uneventful might Had a fever this morning at 36.5 Remains tachycardic but sinus type Cefepime and Vanc maintained Preliminary urine culture is E. Coli Bowels moved this morning No drainage at the operative site Hgb up from 3.8 to 4.9 even with gentle IV fluid WBC down to 11.[address] Castellanos and Dr. Caldwell Checked meds and labs Conferred with RN Reviewed therapy notes Review of Systems General: Fatigue, Malaise Neurological: Weakness Focused Exam Lactate Level 01/23/20 18:59: Lactic Acid Level 1.81 Objective Exam Vital Signs Vital Signs Date Time Temp Pulse Resp B/P (MAP) Pulse Ox O2 Delivery O2 Flow Rate FiO2 01/25/20 21:48 Room Air 01/25/20 19:00 90 01/25/20 16:00 37.8 14 125/58 (80) 95 01/25/20 05:37 2.00 Capillary Refill : Less Than 3 Seconds General Appearance: No Apparent Distress, WD/WN, Chronically ill, Other (pale) HEENT: PERRL/EOMI, Normal ENT Inspection, Pharynx Normal Neck: Full Range of Motion, Normal Inspection, Non Tender, Supple, Carotid Bruit Respiratory: Chest Non Tender, Lungs Clear, Normal Breath Sounds, No Accessory Muscle Use, No Respiratory Distress Cardiovascular: Regular Rate, Rhythm, No Edema, No Gallop, No JVD, No Murmur, Normal Peripheral Pulses Gastrointestinal: Normal Bowel Sounds, No Organomegaly, No Pulsatile Mass, Non Tender, Soft Back: Decreased Range of Motion Extremity: Normal Capillary Refill, Normal Inspection, Normal Range of Motion, Non Tender, No Calf Tenderness, No Pedal Edema Neurologic/Psychiatric: Alert, Oriented x3, No Motor/Sensory Deficits, Normal Mood/Affect, clinical laboratory science 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 FIM Transfers Therapy Code Descriptions/Definitions Functional Mcpherson Measure: 0=Not Assessed/NA 4=Minimal Assistance 1=Total Assistance 5=Supervision or Setup 2=Maximal Assistance 6=Modified Mcpherson 3=Moderate Assistance 7=Complete IndependenceSCALE: Activities may be completed with or without assistive devices. 6-Qqyxhfsnvi-lowuuui completes the activity by him/herself with no assistance f rom a helper. 5-Set-up or Clean-up Assistance-helper sets up or cleans up; patient completes activity. [place] assists only prior to or following the activity. 4-Supervision or Touching Assistance-helper provides verbal cues and/or touching/steadying and/or contact guard assistance as patient completes activity. Assistance may be provided throughout the activity or intermittently. 3-Partial/Moderate Assistance-helper does LESS THAN HALF the effort. [place] lifts, holds or supports trunk or limbs, but provides less than half the effort. 2-Substantial/Maximal Assistance-helper does MORE THAN HALF the effort. [place] lifts or holds trunk or limbs and provides more than half the effort. 4-Jciepqmnp-zsrfna does ALL the effort. Patient does none of the effort to complete the activity. Or, the assistance of 2 or more helpers is required for the patient to complete the activity. If activity was not attempted, code reason: 7-Patient Refused. 9-Not Applicable-not attempted and the patient did not perform the activity before the current illness, exacerbation or injury. 10-Not Attempted due to Environmental Limitations-(lack of equipment, weather restraints, etc.). 88-Not Attempted due to Medical Conditions or Safety Concerns. Roll Left to Right (QC): 3 Sit to Lying (QC): 3 Sit to Stand (QC): 3 Chair/Cnv-us-Iuzdt Xfer(QC): 3 Car Transfer (QC): 3 Gait Training Does the Patient Walk?: Yes Distance: 100' x2 Walk 10 feet (QC): 4 Walk 50 ft with 2 Turns(QC): 4 Walk 150 ft (QC): 4 Walking 10ft/uneven surface-QC: 3 Gait Assistive Device: FWW Wheelchair Training Does the Pt Use a Wheelchair?: No Wheel 50 ft with 2 turns (QC): 9 Wheel 150 ft (QC): 9 Type of Wheelchair: N/A Stair Training #of Steps: 1 1 Step (curb) (QC): 3 4 Steps (QC): 88 12 Steps (QC): 88 Balance Picking up an Object (QC): 88 ADL-Treatment Eating (QC): 5 (pt reports she has some difficulty chewing food and cutting food. No difficulties bringing food to her mouth.) Oral Hygiene (QC): 5 (Pt completed oral care at bed level with set up.) Shower/Bathe Self (QC): 3 (Pt able to wash upper body, assist with lower body d ue to spinal precautions.) Upper Body Dressing (QC): 2 (Pt requires min A with shirt due to managing clothing with IV pole, mod A with donning/doffing back brace) Lower Body Dressing (QC): 1 (Total assistance due to spinal precautions) On/Off Footwear (QC): 1 (Total assistance due to spinal precautions) Toileting Hygiene (QC): 4 (CGA, pt able to complete hygiene.) Assessment/Plan Assessment and Plan Assess & Plan/Chief Complaint Assessment: Lumbar stenosis with neurogenic claudication Severe anemia JW refusal of blood products HTN HLP Fever Goldstein cath UTI Bradycardia at [place] Plan: Dr Iglesias consult EPO and Venofer tomorrow Gentle IVF PT OT Abx broad spectrum 01/24/20: Monitor hemoglobin Appreciate Dr. Castellanos Appreciate Dr. Iglesias Continue antibiotics Monitor closely 01/25/20: Continue Cefepime Discontinue Vanc Monitor fever Place midline for iron infusions and antibiotics Monitor hemoglobin 4.[address] Iglesias (1) Lumbar stenosis with neurogenic claudication (2) Refusal of blood transfusions as patient is Baptist (3) Anemia due to acute blood loss (4) Advanced age (5) Hypertension (6) Hyperlipemia (7) Fever (8) Bradycardia SAMARIA NAIR DO Jan 25, 2020 05:35
--- NOTE | 2020-01-25 05:35 | Individualized Plan of Care ---
Individualized Plan of Care Rehab Nursing IPOC Order Admission Date Jan 23, 2020 at 18:10 Current Orders Orders Admission Order(Inpt,Obs,Sdc) (01/23/20 17:13) Vital Signs: Per Unit Policy ( 08,16,00 (01/23/20 17:13) Carlos Maher 09,21 (01/23/20 17:13) Sequential Compression Device Q4H (01/23/20 17:13) Mica Patcher-Inpt Rehab Con (01/23/20 17:13) Rehab Nursing Orders-Ipoc (01/23/20 17:13) Physical Therapy Rehab Orders (01/23/20 17:13) Occupational Therapy Rehab Ord (01/23/20 17:13) Speech Therapy Rehab Orders (01/23/20 17:13) Cbc With Automated Diff (01/24/20 06:00) Comprehensive Metabolic Panel (01/24/20 06:00) Intake & Output 06,14,22 (01/23/20 17:13) Precautions (Aru) (01/23/20 17:13) Weekly Weight WEEK (01/23/20 17:13) Rehab-Intensity Of Therapy (01/23/20 17:13) Initiate Admission Nursing Pro .admission (01/23/20 17:13) Acetaminophen Tablet (Tylenol Tablet) (01/23/20 17:15) Alprazolam Tablet (Xanax Tablet) (01/23/20 17:15) Calcium Carbonate Chew Tablet (Antacid C (01/23/20 17:15) Diphenhydramine Tablet (Benadryl Tablet) (01/23/20 17:15) Docusate Sodium Capsule (Colace Capsule) (01/23/20 21:00) Docusate Sodium Capsule (Colace Capsule) (01/23/20 17:15) Bisacodyl Suppository (Dulcolax Supposit (01/23/20 17:15) Lactulose Oral Solution (Enulose Oral So (01/23/20 17:15) Na Phos/Na Biphos Enema (Fleet Enema Jason (01/23/20 17:15) Guaifenesin/Codeine Syrup (Robitussin Ac (01/23/20 17:15) Loperamide Tablet (Imodium Tablet) (01/23/20 17:15) Melatonin Tablet (Melatonin Tablet) (01/23/20 17:15) Polyethylene Glycol Powder Pkt (Miralax (01/23/20 21:00) Ondansetron Oral Dissolve Tab (Zofran (01/23/20 17:15) Senna S Tablet (Senokot S Tablet) (01/23/20 21:00) Code/Resuscitation (01/23/20 17:13) Initiate Admission Nursing Pro .admission (01/23/20 17:13) Atorvastatin Tablet (Lipitor Tablet) (01/24/20 13:00) Cyclobenzaprine Tablet (Flexeril Tablet) (01/23/20 17:30) Docusate Sodium Capsule (Colace Capsule) (01/23/20 21:00) Hydrocodone/Apap 5/325 Tablet (Lortab 5 (01/23/20 17:30) Lisinopril Tablet (Zestril Tablet) (01/24/20 13:00) Dicyclomine Capsule (Bentyl Capsule) (01/23/20 21:00) Procalcitonin (Pct) (01/23/20 18:30) Lactic Acid Analyzer (01/23/20 18:30) Urinalysis (01/23/20 18:40) Chest 1 View, Ap/Pa Only (01/23/20 18:30) Blood Culture (01/23/20 18:30) Cbc With Automated Diff (01/23/20 18:30) Ns Iv 1000 Ml (Sodium Chloride 0.9%) (01/23/20 18:45) Incentive Spirometry (Nursing) Q2H (01/23/20 18:36) Comprehensive Metabolic Panel (01/23/20 18:37) Consult Oncology/Hematology (01/23/20 18:59) Consult Cardiology (01/23/20 18:59) Telemetry (01/23/20 18:59) Telemetry Nursing Assessment ( (01/23/20 18:59) Ekg Tracing (01/23/20 18:59) Reticulocyte Count (01/23/20 18:59) Urine Culture (01/23/20 18:40) Cefepime Injection (Maxipime Injection) (01/23/20 19:30) Vancomycin Injection (Vancomycin Injecti (01/23/20 19:30) Iron Sucrose Injection (Venofer Injectio (01/24/20 09:00) Darbepoetin Tuan (Hospital) (Aranesp Non (01/24/20 09:00) Manual Differential (01/23/20 18:59) Vancomycin Injection (Vancomycin Injecti (01/23/20 20:30) Vancomycin Injection (Vancomycin Injecti (01/24/20 20:30) Trough Order (Trough Order-Pharmacy Orde (01/26/20 19:30) Cefepime Injection (Maxipime Injection) (01/23/20 20:23) Water (Sterile) For Injection (Sterile W (01/23/20 20:23) Rt Request For Service (01/23/20 20:29) Ambulate ,, (01/24/20 08:00) Dvt/Vte Risk - Notifiy Physici Q4H (01/24/20 08:00) Darbepoetin Tuan ([facility]) (Aranesp Non (01/24/20 09:00) Consult Urology (01/24/20 09:27) Catheter(Urinary) Discontinue (01/24/20 10:18) Echo W Doppler/Color Flow (01/24/20 ) Patient Visit (01/24/20 ) Speech Sound Lang Comp (01/24/20 ) Patient Visit (01/24/20 ) Pt Eval Moderate Complexity (01/24/20 ) Functional Activities, Ea 15 (01/24/20 ) Exercise Therap, Ea 15 Min (01/24/20 ) Gait Training, Ea 15 Min (01/24/20 ) Occult Blood Stool (01/24/20 15:16) Cbc With Automated Diff (01/25/20 05:00) Folic Acid Tablet (Folic Acid Tablet) (01/25/20 09:00) Cyanocobalamin Injection (Vitamin B-12 I (01/24/20 15:30) Venous Access Request Order (01/25/20 10:45) Amb Us Guide Vascular Access (01/25/20 ) Patient Visit (01/25/20 ) Functional Activities, Ea 15 (01/25/20 ) Exercise Therap, Ea 15 Min (01/25/20 ) Patient Visit (01/25/20 ) Exercise Therap, Ea 15 Min (01/25/20 ) Functional Activities, Ea 15 (01/25/20 ) Cbc With Automated Diff (01/26/20 05:00) Reticulocyte Count (01/26/20 05:00) General/Regular (01/26/20 Breakfast) Rehab Nursing Orders: Ongoing Assess. of Cognitive Status, Ongoing Assess. of Function Status, Bladder Management, Bladder Scan, Bladder Training, Bowel Management, Bowel Training, Disease Management & Educaiton, DVT Prophylaxis, Fall Prevention, Fluid/Electrolyte/Nutrition Mgmt, Infection Prevention, Medication Management & Education, Management of Risks & Complications, Management of Skin Intergrity, Nutrition Management, Pain Management, Patient/Family Support, Safety Management, Weight Bearing Precaution, Wound Management Intensity of Therapy to be met Patient to be seen: 15 hrs over 7 cons. days PT IPOC Problem List: Activity Tolerance, Functional Strength, Safety, Balance, Gait, Transfer, Bed Mobility, ROM Treatment Plan: Continue Plan of Care Bed Mobility, Education, Functional Activity Kassandra, Functional Strength, Group Therapy, Gait, Safety, Therapeutic Exercise, Transfers Treatment Duration: Feb 14, 2020 Frequency: Modified Program (IRF) Estimated Hrs Per Day: 1.5 hours per day OT IPOC Problems: Decreased Activ Tolerance, Decreased UE Strength, Impaired Bed Mobility, Impaired Funct Balance, Impaired I ADL's, Impaired Self-Care Skills OT Treatment, Training and Edu: Yes Plan of Care: ADL Retraining, Functional Mobility, Group Exercise/Act as Ind, UE Funct Exercise/Act Treatment Duration: Feb 21, 2020 Frequency: Modified Program (IRF) (05/12) Estimated Hrs Per Day: 1.[address] IPOC Speech Therapy Treatment Plan: Discontinue ST Treatment Duration: Jan 24, 2020 Frequency: 1 time per week Estimated Hrs Per Day: .25 hour per day Mica Patcher/Case Mgmt Mica Patcher/Case Managemen: Discharge Planning Dietitian/Curriculum Writer Dietitian/Curriculum Writer to monitor nutritional status and make changes and/or recommendations as needed and work with speech pathology on dietary upgrades as the occur. 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 will require cardiology and hematology management at high risk for decompensation with acute UTI and early sepsis Medical Issues: Bowel/Bladder Function, DVT Prophylaxis, Falls Precautions, Fluid/Electrolyte/Nutrition Balance, Infection Protection, Pain Management, Wound Care Brief Synthesis of Preadmission Screen, Post-Admission Evaluation, and Therapy Evaluations: PT and OT will work towards energy conservation due to severe anemia and will require increased independence with ADLs in order to return back to live independently Medical Prognosis: good Anticipated Length of Stay: 14 days SAMARIA NAIR DO Jan 25, 2020 05:35
[2020-01-25 05:37] VITALS: BP 132/60
[2020-01-25] MEDS: FOLIC ACID 1 MG TAB PO SCH (08:39)
[2020-01-25] MEDS: DICYCLOMINE 10 MG (BENTYL) CAP PO SCH ×2 (08:40→19:50)
[2020-01-25] MEDS: SENNA W/DOCUSATE (SENOKOT S) TABLET PO SCH ×2 (08:44→19:50)
[2020-01-25] MEDS: DOCUSATE SODIUM 100 MG (COLACE) CAP PO SCH ×2 (08:45→19:50)
[2020-01-25] MEDS: polyethylene glycoL POWDER 17 GM (MIRALAX) PACK PO SCH ×2 (08:45→20:56)
--- NOTE | 2020-01-25 09:20 | Occupational Ther Daily Note ---
OT Current Status-Daily Note Subjective Pt was alert, sitting at recliner. Agreed to taking shower. Pain reported to nursing, pain meds were given. Pt unable to understand Palestinian, used phone primo for better understanding. Mental Status/Objective Patient Orientation: Person, Place, Time, Situation Attachments: IV, Telemetry ADL-Treatment Pt agreed to taking shower. Pt sit-stand from raised recliner to [facility], with CGA. Pt ambulated to bathroom and transferred to toilet, [facility]. Pt completed toilet hygiene by self, SBA for safety. Sit-stand from toilet to [facility], [facility]. Pt then ambulated to shower bench, [facility]. Pt doffed brief and socks using dressing stick, SBA. Pt doffed upper body dressing with SBA. Pt completed showering. Was able to wash/dry all body parts while using shower bench, hand held shower, long handled sponge and SBA for safety due to pt's weakness. After shower pt donned brief using dressing stick, SBA. Sit-stand from shower bench. Assisted with hiking briefs over hips. After set up pt able to don shirt. Due to shirt being tight, assist to kidney puller head and adjust shirt. Pt was given telemetry rodriguez. After set up, pt donned night gown, OT assisted due to pt's IV. Pt sit-stand from shower bench and [facility], [facility]. Pt was educated with handout to don socks. Unable to use. OT assisted with donning socks due to pt's precautions. Will provide pt with a different sock aid that is easier to use. Sit-stand from commode to [facility], [facility]. Pt then ambulated and transferred to EOB, with CGA. Pt transferred EOB to supine with SBA. After therapy, pt lying in bed. Call light/phone in reach. All needs met. Therapy Code Descriptions/Definitions Functional [place] Measure: 0=Not Assessed/NA 4=Minimal Assistance 1=Total Assistance 5=Supervision or Setup 2=Maximal Assistance 6=Modified [place] 3=Moderate Assistance 7=Complete IndependenceSCALE: Activities may be completed with or without assistive devices. 1-Pwxwknqcep-oyufcwh completes the activity by him/herself with no assistance from a helper. 5-Set-up or Clean-up Assistance-helper sets up or cleans up; patient completes activity. [place] assists only prior to or following the activity. 4-Supervision or Touching Assistance-helper provides verbal cues and/or touching/steadying and/or contact guard assistance as patient completes activity. Assistance may be provided throughout the activity or intermittently. 3-Partial/Moderate Assistance-helper does LESS THAN HALF the effort. [place] lifts, holds or supports trunk or limbs, but provides less than half the effort. 2-Substantial/Maximal Assistance-helper does MORE THAN HALF the effort. [place] lifts or holds trunk or limbs and provides more than half the effort. 7-Nugdydkva-vkiaje does ALL the effort. Patient does none of the effort to complete the activity. Or, the assistance of 2 or more helpers is required for the patient to complete the activity. If activity was not attempted, code reason: 7-Patient Refused. 9-Not Applicable-not attempted and the patient did not perform the activity before the current illness, exacerbation or injury. 10-Not Attempted due to Environmental Limitations-(lack of equipment, weather restraints, etc.). 88-Not Attempted due to Medical Conditions or Safety Concerns. Bathing Location: L Arm, R Arm, L Upper Leg, R Upper Leg, L Lower Leg (including foot), R Lower Leg (including foot), Chest, Abdomen, Buttocks, Perineal Area Shower/Bathe Self (QC): 4 Upper Body Dressing (QC): 3 Lower Body Dressing (QC): 4 On/Off Footwear: 2 Toileting Hygiene (QC): 4 Toilet Transfer (QC): 4 Education OT Patient Education: Modified ADL techniques Teaching Methods: Demonstration, Handout Response to Teaching: Verbalize Understanding, Return Demonstration, Unable to Comprehend OT [place] Goals Se[place] Goals Time Frame: Feb 21, 2020 Eating (QC): 6 Oral Hygiene (QC): 6 Toileting Hygiene (QC): 6 Shower/Bathe Self (QC): 6 Upper Body Dressing (QC): 6 Lower Body Dressing (QC): 6 On/Off Footwear (QC): 6 Additional Goals: 1-Demonstrate ADL Tasks, 2-Verbalize Understanding, 3- ImproveStrength/Kassandra 1=Demonstrate adherence to instructed precautions during ADL tasks. 2=Patient will verbalize/demonstrate understanding of assistive devices/modifications for ADL. 3=Patient will improve strength/tolerance for activity to enable patient to perform ADL's. OT Education/Plan Problem List/Assessment Assessment: Decreased Activ Tolerance, Decreased UE Strength, Impaired Coordination, Impaired Funct Balance, Impaired I ADL's, Impaired Self-Care Skills, Restricted Funct UE ROM Discharge Recommendations Plan/Recommendations: Continue POC Treatment Plan/Plan of Care Patient would benefit from OT for education, treatment and training to promote independence in ADL's, mobility, safety and/or upper extremity function for ADL's. Plan of Care: ADL Retraining, Functional Mobility, Group Exercise/Act as Ind, UE Funct Exercise/Act Treatment Duration: Feb 21, 2020 Frequency: Modified Program (IRF) (05/12) Estimated Hrs Per Day: 1.5 hours per day Rehab Potential: Fair Time/GCodes Start Time: 08:00 Stop Time: 09:15 Total Time Billed (hr/min): 75 Billed Treatment Time 1 visit-ADL 5(75 mins) BRITTNEY HUMPHREYS Jan 25, 2020 09:20
--- NOTE | 2020-01-25 11:00 | Physical Therapy Daily Note ---
PT Daily Note-Current Subjective Pt presents supine in bed with nurse and sewing inspector in room. Pt agrees to therapy; sewing inspector is able to act as hadoop java developer. Pt reports she is in no pain. Appearance After PT treatment, pt is assisted to supine in bed. Pt has access to tray, call button, all needs met and sewing inspector present in room. Mental Status Patient Orientation: Person, Eyes Open, Situation back brace Transfers SCALE: Activities may be completed with or without assistive devices. 5-Qdvizgirge-mbppzrx completes the activity by him/herself with no assistance from a helper. 5-Set-up or Clean-up Assistance-helper sets up or cleans up; patient completes activity. [place] assists only prior to or following the activity. 4-Supervision or Touching Assistance-helper provides verbal cues and/or touching/steadying and/or contact guard assistance as patient completes activity. Assistance may be provided throughout the activity or intermittently. 3-Partial/Moderate Assistance-helper does LESS THAN HALF the effort. [place] li fts, holds or supports trunk or limbs, but provides less than half the effort. 2-Substantial/Maximal Assistance-helper does MORE THAN HALF the effort. [place] lifts or holds trunk or limbs and provides more than half the effort. 6-Lkaiwhnzg-skfaxp does ALL the effort. Patient does none of the effort to complete the activity. Or, the assistance of 2 or more helpers is required for the patient to complete the activity. If activity was not attempted, code reason: 7-Patient Refused. 9-Not Applicable-not attempted and the patient did not perform the activity before the current illness, exacerbation or injury. 10-Not Attempted due to Environmental Limitations-(lack of equipment, weather restraints, etc.). 88-Not Attempted due to Medical Conditions or Safety Concerns. Roll Left & Right (QC): 4 Sit to Lying (QC): 3 Lying to Sitting/Side of Bed(Q: 3 Sit to Stand (QC): 3 Toilet Transfer (QC): 3 Pt cued to push off of stable surface and not walker when standing. Gait Training Does the Patient Walk?: Yes Distance: 100' x2 Walk 10 feet (QC): 4 Gait Assistive Device: FWW slow but steady ambulation, decreased step through with left leg Exercises Seated Therapy Exercises: Long arc quads, Hip flexion Seated Reps: 20 Standing: Sit to Stand Standing Reps: 5 NuStep Minutes: 15 NuStep Workload: 5 Treatments Gait training, LE strengthening, toilet transfer (patient able to clean herself but needed assist with sit <-> stand) Assessment Current Status: Fair Progress Pt struggles with sit to stand and balance. Pt able to ambulate with walker taking small and slow steps. Pt fearful of nustep machine but was able to complete for 15 min. PT Short Term Goals Short Term Goals Time Frame: Jan 31, 2020 Roll Left & Right: 3 Sit to lyin Lying to sitting on side of be: 3 Sit to stand: 4 Chair/cqc-hy-jselg transfer: 4 Walk 10 feet: 4 Walk 50 feet with two turns: 4 PT Spectacle Truer Goals Fdc Goals PT Fdc Goals Time Frame: Feb 14, 2020 Roll Left & Right (QC): 4 Sit to Lying (QC): 4 Lying-Sitting on Side/Bed(QC): 4 Sit to Stand (QC): 4 Chair/Uxj-ss-Lzhnm Xfer(QC): 4 Toilet Transfer (QC): 4 Car Transfer (QC): 4 Does the Patient Walk: Yes Walk 10 feet (QC): 4 Walk 50ft with 2 Turns (QC): 4 Walk 150 ft (QC): 4 Walking 10ft on Uneven Surface: 4 1 Step (curb) (QC): 4 4 Steps (QC): 4 12 Steps (QC): 4 Picking up an Object (QC): 88 Wheel 50 feet with 2 turns (QC: 9 Wheel 150 feet: 9 PT Plan Problem List Problem List: Activity Tolerance, Functional Strength, Safety, Balance, Gait, Transfer, Bed Mobility, ROM Treatment/Plan Treatment Plan: Continue Plan of Care Treatment Plan: Bed Mobility, Education, Functional Activity Kassandra, Functional Strength, Group Therapy, Gait, Safety, Therapeutic Exercise, Transfers Treatment Duration: Feb 14, 2020 Frequency: Modified Program (IRF) Estimated Hrs Per Day: 1.5 hours per day Patient and/or Family Agrees t: Yes Safety Risks/Education Patient Education: Gait Training, Transfer Techniques, Reviewed Precautions, Correct Positioning, Safety Issues Teaching Recipient: Patient Teaching Methods: Demonstration, Discussion Response to Teaching: Reinforcement Needed Time/GCodes Time In: 1000 Time Out: 1100 Total Billed Treatment Time: 60 Total Billed Treatment 1 visit FA 30' EX 30' CURTIS STRONG PT Jan 25, 2020 11:00
--- NOTE | 2020-01-25 11:49 | Progress Note - Urology ---
Progress Note-Urology Progress Notes/Assess & Plan Progress/Assessment & Plan VOIDING ON OWN. OBSERVE PATTERN AND CONTROL Final Diagnosis NEUROGENIC BLADDER AMY MUNOZ MD Jan 25, 2020 11:49
--- NOTE | 2020-01-25 11:58 | Occupational Ther Daily Note ---
OT Current Status-Daily Note Subjective Pt lying in bed when OT entered. No c/o of pain reported. Visitor in room helped with translating Mental Status/Objective Patient Orientation: Person, Place, Time, Situation Attachments: IV, Telemetry ADL-Treatment Pt agreed to complete oral hygiene at sink. Pt supine to EOB with min A due to pt's precautions. Pt sit-stand from EOB with CGA to FWW. Ambulated to bathroom with CGA. Pt then stated that she needed to use the toilet. Pt transferred to toilet with CGA. Completed toilet hygiene, SBA for safety. Pt sit-stand from toilet to FWW, CGA. Ambulated to sink with CGA. Completed oral care standing at sink by self, SBA due to pt's weakness. Pt ambulated to recliner using FWW with CGA. Transferred to recliner, CGA. After treatment, pt sitting in recliner. Call light/phone in reach. All needs met. Therapy Code Descriptions/Definitions Functional [place] Measure: 0=Not Assessed/NA 4=Minimal Assistance 1=Total Assistance 5=Supervision or Setup 2=Maximal Assistance 6=Modified [place] 3=Moderate Assistance 7=Complete IndependenceSCALE: Activities may be completed with or without assistive devices. 0-Adynfgtrwl-vlurbbr completes the activity by him/herself with no assistance from a helper. 5-Set-up or Clean-up Assistance-helper sets up or cleans up; patient completes activity. [place] assists only prior to or following the activity. 4-Supervision or Touching Assistance-helper provides verbal cues and/or touching/steadying and/or contact guard assistance as patient completes activity. Assistance may be provided throughout the activity or intermittently. 3-Partial/Moderate Assistance-helper does LESS THAN HALF the effort. [place] lifts, holds or supports trunk or limbs, but provides less than half the effort. 2-Substantial/Maximal Assistance-helper does MORE THAN HALF the effort. [place] lifts or holds trunk or limbs and provides more than half the effort. 9-Pjlrugoir-mtiiai does ALL the effort. Patient does none of the effort to complete the activity. Or, the assistance of 2 or more helpers is required for the patient to complete the activity. If activity was not attempted, code reason: 7-Patient Refused. 9-Not Applicable-not attempted and the patient did not perform the activity before the current illness, exacerbation or injury. 10-Not Attempted due to Environmental Limitations-(lack of equipment, weather restraints, etc.). 88-Not Attempted due to Medical Conditions or Safety Concerns. Oral Hygiene (QC): 4 Toileting Hygiene (QC): 4 Toilet Transfer (QC): 4 OT [facility] Goals [facility] Goals Time Frame: Feb 21, 2020 Eating (QC): 6 Oral Hygiene (QC): 6 Toileting Hygiene (QC): 6 Shower/Bathe Self (QC): 6 Upper Body Dressing (QC): 6 Lower Body Dressing (QC): 6 On/Off Footwear (QC): 6 Additional Goals: 1-Demonstrate ADL Tasks, 2-Verbalize Understanding, 3- ImproveStrength/Kassandra 1=Demonstrate adherence to instructed precautions during ADL tasks. 2=Patient will verbalize/demonstrate understanding of assistive devices/modifications for ADL. 3=Patient will improve strength/tolerance for activity to enable patient to perform ADL's. OT Education/Plan Problem List/Assessment Assessment: Decreased Activ Tolerance, Decreased UE Strength, Impaired Coordination, Impaired Funct Balance, Impaired I ADL's, Impaired Self-Care Skills, Restricted Funct UE ROM Discharge Recommendations Plan/Recommendations: Continue POC Treatment Plan/Plan of Care Patient would benefit from OT for education, treatment and training to promote independence in ADL's, mobility, safety and/or upper extremity function for ADL's. Plan of Care: ADL Retraining, Functional Mobility, Group Exercise/Act as Ind, UE Funct Exercise/Act Treatment Duration: Feb 21, 2020 Frequency: Modified Program (IRF) (05/12) Estimated Hrs Per Day: 1.5 hours per day Rehab Potential: Fair Time/GCodes Start Time: 11:30 Stop Time: 11:49 Total Time Billed (hr/min): 19 Billed Treatment Time 1 visit-ADL 1(19 mins) BRITTNEY HUMPHREYS Jan 25, 2020 11:58
--- NOTE | 2020-01-25 12:31 | NUR ---
CM/SS ADMISSION and PATIENT CARE CONFERENCE Patient was admitted to ARU from [facility] 01/23/20 post op for lumbar stenosis with neurogenic claudication. Additional diagnoses are, in part, anemia due to acute blood loss/refusal of blood transfusions due to Moravian roman catholic. Advanced age, HTN, HLP, Bradycardia. Met with patient incorporating [employer] services for [place], she does not speak Tajik. Patient resides home alone and plans to return there. She has two children listed as contacts, both Tajik speaking. Patient indicated her children can not stay with her or consistently assist her because of their work. Later spoke with daughter Margaret Cabrera about post hospital care/assist. She indicates patient has talked to her about getting someone to do housekeeping periodically. We visited about agencies and estimated cost per hour vs family/friends/community networking for a flat fee or lower hourly rate. PCP: Dr. Wero Ortega MD, [facility], [address] [place] [address], [place] [address], PH: [phone] PHARMACY: Not confirmed. INSURANCE: Medicare, [place] Medicaid DME: Patient states she has a FWW. She is wearing a post op brace when up at this time. Other assistive devices to be explored during her stay. BARRIERS TO DISCHARGE PLANNING: Family members are supportive but not available for monitor/assistance due to long work hours and their own families. As earlier noted, housekeeping was discussed. Machine Loader encouraged getting a plan in place to get patient groceries and meal provision until she is able to perform on her own. Anticipated assistive devices would seem readily available at this time. CONTACTS: Margaret Cabrera, Daughter [address] [place] [address] Joni Higgins, Son [address] [place] [address] Summary of Patient Care Conference was reviewed with patient and, when asked, it was her preference that her daughter Margaret review/sign. Margaret did come soon thereafter, met with her to discuss overall, provided Summary for her review, signed, charted. Both patient and Margaret understand her next review will be Wednesday, January 31, 2020.
[2020-01-25 13:00] VITALS: BP 119/56
[2020-01-25] MEDS: lisINopril 10 MG (PRINIVIL) TABLET PO SCH (13:51)
--- NOTE | 2020-01-25 14:31 | Occupational Ther Daily Note ---
OT Current Status-Daily Note Subjective Pt alert, laying in bed. Agreed to therapy. No c/o pain reported. Mental Status/Objective Patient Orientation: Person, Place, Time, Situation ADL-Treatment Therapy Code Descriptions/Definitions Functional [place] Measure: 0=Not Assessed/NA 4=Minimal Assistance 1=Total Assistance 5=Supervision or Setup 2=Maximal Assistance 6=Modified [place] 3=Moderate Assistance 7=Complete IndependenceSCALE: Activities may be completed with or without assistive devices. 7-Vkqgpvwvsa-stzrisg completes the activity by him/herself with no assistance from a helper. 5-Set-up or Clean-up Assistance-helper sets up or cleans up; patient completes activity. [place] assists only prior to or following the activity. 4-Supervision or Touching Assistance-helper provides verbal cues and/or touching/steadying and/or contact guard assistance as patient completes activity. Assistance may be provided throughout the activity or intermittently. 3-Partial/Moderate Assistance-helper does LESS THAN HALF the effort. [place] lifts, holds or supports trunk or limbs, but provides less than half the effort. 2-Substantial/Maximal Assistance-helper does MORE THAN HALF the effort. [place] lifts or holds trunk or limbs and provides more than half the effort. 6-Miclgjzww-zcpbdw does ALL the effort. Patient does none of the effort to complete the activity. Or, the assistance of 2 or more helpers is required for the patient to complete the activity. If activity was not attempted, code reason: 7-Patient Refused. 9-Not Applicable-not attempted and the patient did not perform the activity before the current illness, exacerbation or injury. 10-Not Attempted due to Environmental Limitations-(lack of equipment, weather restraints, etc.). 88-Not Attempted due to Medical Conditions or Safety Concerns. Other Treatment Pt was handed UE ROM exercise program handout that was in mongolian. Pt read through it and verbalized understanding. Pt was able to complete 2 sets10 reps for 4 BUE exercises and 3 sets of 5 for BUE exercise for strengthening BUE to be able to functionally complete ADLs. Skilled instruction required for completion and proper technique. After treatment, pt lying in bed. Call light/phone in reach. All needs met. Education OT Patient Education: Exercise program Teaching Recipient: Patient Teaching Methods: Demonstration, Handout Response to Teaching: Verbalize Understanding, Return Demonstration OT Implementation Advisor Goals Care Home Goals Time Frame: Feb 21, 2020 Eating (QC): 6 Oral Hygiene (QC): 6 Toileting Hygiene (QC): 6 Shower/Bathe Self (QC): 6 Upper Body Dressing (QC): 6 Lower Body Dressing (QC): 6 On/Off Footwear (QC): 6 Additional Goals: 1-Demonstrate ADL Tasks, 2-Verbalize Understanding, 3- ImproveStrength/Kassandra 1=Demonstrate adherence to instructed precautions during ADL tasks. 2=Patient will verbalize/demonstrate understanding of assistive devices/modifications for ADL. 3=Patient will improve strength/tolerance for activity to enable patient to perform ADL's. OT Education/Plan Problem List/Assessment Assessment: Decreased Activ Tolerance, Impaired Coordination, Impaired Funct Balance, Impaired I ADL's, Impaired Self-Care Skills, Restricted Funct UE ROM Discharge Recommendations Plan/Recommendations: Continue POC Treatment Plan/Plan of Care Patient would benefit from OT for education, treatment and training to promote independence in ADL's, mobility, safety and/or upper extremity function for ADL's. Plan of Care: ADL Retraining, Functional Mobility, Group Exercise/Act as Ind, UE Funct Exercise/Act Treatment Duration: Feb 21, 2020 Frequency: Modified Program (IRF) (05/12) Estimated Hrs Per Day: 1.5 hours per day Rehab Potential: Fair Time/GCodes Start Time: 14:08 Stop Time: 14:37 Total Time Billed (hr/min): 29 Billed Treatment Time 1 visit- Ex 2 (29 mins) BRITTNEY HUMPHREYS Jan 25, 2020 14:31
--- NOTE | 2020-01-25 14:59 | Physical Therapy Daily Note ---
PT Daily Note-Current Subjective Pt presents reclined in chair in room. Pt agrees to PT. Pt reports 4/10 in left abdominal onset during supine SLRs. Appearance After tx pt is assisted into bed supine. Pt has access to tray, call button, and all needs have been met. Mental Status Patient Orientation: Person, Eyes Open, Situation Attachments: IV Transfers SCALE: Activities may be completed with or without assistive devices. 5-Zkltvpwtke-ojihtiy completes the activity by him/herself with no assistance from a helper. 5-Set-up or Clean-up Assistance-helper sets up or cleans up; patient completes activity. [place] assists only prior to or following the activity. 4-Supervision or Touching Assistance-helper provides verbal cues and/or touching/steadying and/or contact guard assistance as patient completes activity. Assistance may be provided throughout the activity or intermittently. 3-Partial/Moderate Assistance-helper does LESS THAN HALF the effort. [place] lifts, holds or supports trunk or limbs, but provides less than half the effort. 2-Substantial/Maximal Assistance-helper does MORE THAN HALF the effort. [place] lifts or holds trunk or limbs and provides more than half the effort. 6-Igrupizcf-zbsqbb does ALL the effort. Patient does none of the effort to complete the activity. Or, the assistance of 2 or more helpers is required for the patient to complete the activity. If activity was not attempted, code reason: 7-Patient Refused. 9-Not Applicable-not attempted and the patient did not perform the activity before the current illness, exacerbation or injury. 10-Not Attempted due to Environmental Limitations-(lack of equipment, weather restraints, etc.). 88-Not Attempted due to Medical Conditions or Safety Concerns. Sit to Lying (QC): 3 Lying to Sitting/Side of Bed(Q: 3 Sit to Stand (QC): 4 Toilet Transfer (QC): 4 Pt assisted with sit<-> on toilet. Pt is able to undress/dress self standing at toilet and is also able to wipe self. Pt given CGA to ambulate to sink where she is able to wash hands independently without LOB. Gait Training Distance: 120' x2 Walk 10 feet (QC): 4 Walk 50 ft with 2 Turns(QC): 4 Gait Assistive Device: FWW Exercises Supine Ex: Heel Slides, Straight leg raise, Hip abd/add (adductor squeeze with 2s hold) Supine Reps: 20 Seated Therapy Exercises: Long arc quads, Hip flexion, Hamstring Curls Seated Reps: 20 Supine BKFO x20 Treatments LE strengthening, gait training, bed mobility Assessment Current Status: Fair Progress Pt experienced discomfort during supine activity and then had difficulty transferring lying to sitting. Pt educated on log-rolling bed mobility to reduce spine rotation. PT Short Term Goals Short Term Goals Time Frame: Jan 31, 2020 Roll Left & Right: 3 Sit to lyin Lying to sitting on side of be: 3 Sit to stand: 4 Chair/zsj-na-pgunp transfer: 4 Walk 10 feet: 4 Walk 50 feet with two turns: 4 PT It Intern Goals It Intern Goals PT Intermediate Goals Time Frame: Feb 14, 2020 Roll Left & Right (QC): 4 Sit to Lying (QC): 4 Lying-Sitting on Side/Bed(QC): 4 Sit to Stand (QC): 4 Chair/Qyf-rg-Pptkt Xfer(QC): 4 Toilet Transfer (QC): 4 Car Transfer (QC): 4 Does the Patient Walk: Yes Walk 10 feet (QC): 4 Walk 50ft with 2 Turns (QC): 4 Walk 150 ft (QC): 4 Walking 10ft on Uneven Surface: 4 1 Step (curb) (QC): 4 4 Steps (QC): 4 12 Steps (QC): 4 Picking up an Object (QC): 88 Wheel 50 feet with 2 turns (QC: 9 Wheel 150 feet: 9 PT Plan Problem List Problem List: Activity Tolerance, Functional Strength, Safety, Balance, Gait, Transfer, Bed Mobility, ROM Treatment/Plan Treatment Plan: Continue Plan of Care Treatment Plan: Bed Mobility, Education, Functional Activity Kassandra, Functional Strength, Group Therapy, Gait, Safety, Therapeutic Exercise, Transfers Treatment Duration: Feb 14, 2020 Frequency: Modified Program (IRF) Estimated Hrs Per Day: 1.5 hours per day Patient and/or Family Agrees t: Yes Safety Risks/Education Patient Education: Gait Training, Transfer Techniques, Reviewed Precautions, Correct Positioning, Reviewed Don/Doff Brace, Safety Issues Teaching Recipient: Patient Teaching Methods: Demonstration, Discussion Response to Teaching: Reinforcement Needed Time/GCodes Time In: 1300 Time Out: 1345 Total Billed Treatment Time: 45 Total Billed Treatment 1 visit FA 30' EX 15' CURTIS STRONG PT Jan 25, 2020 14:59
[2020-01-25 16:00] VITALS: BP 125/58
--- NOTE | 2020-01-25 17:08 | Cardiology Progress Note ---
Cardiology SOAP Progress Note Subjective: no cardiac complaints. The patient specifically denies chest pain or shortness of breath. Objective: I&O/Vital Signs 01/25/20 01/25/20 01/25/20 05:37 07:00 13:00 Temp 37.4 Pulse 77 95 97 Resp 20 B/P (MAP) 132/60 (84) Pulse Ox 99 O2 Delivery Nasal Cannula O2 Flow Rate 2.00 01/25/20 00:00 Intake Total 2367.5 ml Output Total 3080 ml Balance -712.5 ml Constitutional: appears stated age, AAO x 3; No apparent distress; well- developed, well-nourished Respiratory: chest is bilaterally symmetric, lungs clear to auscultation Cardiovascular: regular rate-rhythm, S1 and S2 Gastrointestional: soft, audible bowel sounds; No spleenomegaly Extremities: normal range of motion, non-tender, normal inspection; No clubbing, No cyanosis; no lower extremity edema bilateral; No significant edema Neurologic/Psychiatric: no motor/sensory deficits, alert, normal mood/affect, oriented x 3, power is 5/5 both on sides Skin: normal color, warm/dry; No rash, No ulcerations Results/Procedures: Labs Laboratory Tests 01/25/20 04:35: White Blood Count 11.2H, Red Blood Count 1.69L, Hemoglobin 4.9*L, Hematocrit 15*L, Mean Corpuscular Volume 90, Mean Corpuscular Hemoglobin 29, Mean Corpuscular Hemoglobin Concent 32, Red Cell Distribution Width 13.3, Platelet Count 382, Mean Platelet Volume 9.4, Neutrophils (%) (Auto) 65, Lymphocytes (%) (Auto) 20, Monocytes (%) (Auto) 10, Eosinophils (%) (Auto) 5, Basophils (%) (Auto) 0, Neutrophils # (Auto) 7.2, Lymphocytes # (Auto) 2.2, Monocytes # (Auto) 1.1H, Eosinophils # (Auto) 0.6H, Basophils # (Auto) 0.0 Microbiology 01/23/20 Blood Culture - Preliminary, Resulted No growth 01/23/20 Urine Culture - Final, Complete Escherichia coli A/P: Assessment/Dx: Sinus bradycardia, Hypertension, Fever, Extensive spine surgery. Catholic, Severe anemia Plan: Sinus bradycardia, currently normal sinus rhythm. Not on any rate controlling agents. We will continue to follow clinically. Hypertension, patient is on lisinopril. Can continue. Fever, defer to Dr. Bojoqruez. Extensive spine surgery. Inpatient rehabilitation. Severe anemia, iron infusions) erythropoietin given. Dr. Torre on board. Patient is Catholic therefore no transfusion. Thank you for your consultation. Please call me if you have any questions. Malinda Mendieta MD, FACP, FACC, FSCAI, FHRS, CCDS Interventional Cardiology Cardiac Electrophysiology Vascular Medicine and Endovascular Interventions Focused Exam Lactate Level 01/23/20 18:59: Lactic Acid Level 1.81 Mc MENDIETA MD Jan 25, 2020 17:08
[2020-01-25] MEDS: MELATONIN 3 MG TABLET PO PRN (19:50)
[2020-01-26] MEDS: CEFEPIME INJECTION 1,000 MG in WATER (STERILE) FOR INJECTION 10 ML IV SCH ×3 (03:39→19:42)
[2020-01-26 05:37] LABS: ABSOLUTE RETIC # 136 10e9/L (24-90); BASOPHILS % (AUTO) 0 % (0-10); EOSINOPHILS # (AUTO) 0.5 10^3/uL (0.0-0.3); EOSINOPHILS % (AUTO) 5 % (0-10); LYMPHOCYTES # (AUTO) 2.1 X 10^3 (1.0-4.0); LYMPHOCYTES % (AUTO) 20 % (12-44); MEAN CORPUSCULAR HEMOGLOBIN 28 PG (25-34); MEAN CORPUSCULAR HGB CONC 31 G/DL (32-36); MEAN CORPUSCULAR VOLUME 91 FL (80-99); MEAN PLATELET VOLUME 9.2 FL (7.4-10.4); MONOCYTES # (AUTO) 1.2 X 10^3 (0.0-1.0); MONOCYTES % (AUTO) 11 % (0-12); NEUTROPHILS # (AUTO) 6.8 X 10^3 (1.8-7.8); NEUTROPHILS % (AUTO) 64 % (42-75); PLATELET COUNT 444 10^3/uL (130-400); RETICULOCYTE % 7.56 % (0.50-2.40); WHITE BLOOD COUNT 10.6 10^3/uL (4.3-11.0)
[2020-01-26 05:40] LABS: HEMATOCRIT 16 % (35-52); HEMOGLOBIN 5.1 G/DL (11.5-16.0)
[2020-01-26 06:00] VITALS: BP 117/55
[2020-01-26] MEDS: HYDROcodone/APAP 5 MG/325 MG (LORTAB) TAB PO PRN ×2 (06:31→15:52)
[2020-01-26 08:13] VITALS: BP 111/52
[2020-01-26] MEDS: FOLIC ACID 1 MG TAB PO SCH (08:21)
[2020-01-26] MEDS: IRON SUCROSE 200 MG/10 ML (VENOFER) VIAL IV SCH (08:21)
[2020-01-26] MEDS: DICYCLOMINE 10 MG (BENTYL) CAP PO SCH ×2 (08:22→19:43)
[2020-01-26] MEDS: polyethylene glycoL POWDER 17 GM (MIRALAX) PACK PO SCH ×2 (08:22→19:32)
--- NOTE | 2020-01-26 10:28 | Physical Therapy Daily Note ---
PT Daily Note-Current Subjective Pt agreeable. Pt in bed upon arrival. Pain rated 4/10 in back. Mental Status Patient Orientation: Person, Place, Situation Transfers SCALE: Activities may be completed with or without assistive devices. 3-Xcgrihgrdv-rrhpmzj completes the activity by him/herself with no assistance from a helper. 5-Set-up or Clean-up Assistance-helper sets up or cleans up; patient completes a ctivity. [place] assists only prior to or following the activity. 4-Supervision or Touching Assistance-helper provides verbal cues and/or touching/steadying and/or contact guard assistance as patient completes activity. Assistance may be provided throughout the activity or intermittently. 3-Partial/Moderate Assistance-helper does LESS THAN HALF the effort. [place] lifts, holds or supports trunk or limbs, but provides less than half the effort. 2-Substantial/Maximal Assistance-helper does MORE THAN HALF the effort. [place] lifts or holds trunk or limbs and provides more than half the effort. 8-Shexwxhuj-khyyhp does ALL the effort. Patient does none of the effort to complete the activity. Or, the assistance of 2 or more helpers is required for the patient to complete the activity. If activity was not attempted, code reason: 7-Patient Refused. 9-Not Applicable-not attempted and the patient did not perform the activity before the current illness, exacerbation or injury. 10-Not Attempted due to Environmental Limitations-(lack of equipment, weather restraints, etc.). 88-Not Attempted due to Medical Conditions or Safety Concerns. Stair Training #of Steps: 8 Stairs: Pattern: Step to Pt CGA-SBA, up and down steps in smooth and steady speed. Exercises Supine Ex: Ankle pumps, Quad Set, Heel Slides, Short Arc Quads, Straight leg raise, Hip abd/add Supine Reps: 20 Seated Therapy Exercises: Long arc quads, Hip flexion Seated Reps: 20 NuStep Minutes: 5 NuStep Workload: 3 Treatments Pt performed supine marching, adductor squeezes x 20 each. Pt toileted with SBA. Pt amb with FWW and slow but steady speed 1 x 150ft. Pt back to bed per request with call light and all needs met. Assessment Current Status: Good Progress Pt functional mobility improving steadily. Pt is SBA-CGA for all mobility. PT Short Term Goals Short Term Goals Time Frame: Jan 31, 2020 Roll Left & Right: 3 Sit to lyin Lying to sitting on side of be: 3 Sit to stand: 4 Chair/pdm-ox-xyzlf transfer: 4 Walk 10 feet: 4 Walk 50 feet with two turns: 4 PT Cerner Analyst Goals Senior Care Goals PT Cerner Analyst Goals Time Frame: Feb 14, 2020 Roll Left & Right (QC): 4 Sit to Lying (QC): 4 Lying-Sitting on Side/Bed(QC): 4 Sit to Stand (QC): 4 Chair/Jqc-xi-Opsks Xfer(QC): 4 Toilet Transfer (QC): 4 Car Transfer (QC): 4 Does the Patient Walk: Yes Walk 10 feet (QC): 4 Walk 50ft with 2 Turns (QC): 4 Walk 150 ft (QC): 4 Walking 10ft on Uneven Surface: 4 1 Step (curb) (QC): 4 4 Steps (QC): 4 12 Steps (QC): 4 Picking up an Object (QC): 88 Wheel 50 feet with 2 turns (QC: 9 Wheel 150 feet: 9 PT Plan Treatment/Plan Treatment Plan: Continue Plan of Care Treatment Plan: Bed Mobility, Education, Functional Activity Kassandra, Functional Strength, Group Therapy, Gait, Safety, Therapeutic Exercise, Transfers Treatment Duration: Feb 14, 2020 Frequency: Modified Program (IRF) Estimated Hrs Per Day: 1.5 hours per day Patient and/or Family Agrees t: Yes Time/GCodes Time In: 920 Time Out: 1020 Total Billed Treatment Time: 60 Total Billed Treatment 1, Ex x 30', FA x 15',gait x 15' EMMANUEL ALVES Jan 26, 2020 10:28
--- NOTE | 2020-01-26 11:37 | Occupational Ther Daily Note ---
OT Current Status-Daily Note Subjective Pt alert, lying in bed when OT entered room. Pt agreed to therapy. No c/o pain reported. Mental Status/Objective Patient Orientation: Person, Place, Time, Situation Attachments: IV, Telemetry ADL-Treatment Pt agreed to complete oral care. Pt supine to EOB, SBA. Pt transferred from EOB to FWW with CGA. Pt then began to ambulate to bathroom, CGA. Pt then stated that she needed to use the restroom. Pt transferred to toilet, CGA. Sit-stand from toilet using grab bars to complete toilet hygiene, SBA. Pt then hiked pants over hips, CGA. Pt then ambulated to sink, CGA. Completed oral hygiene standing at sink with SBA. Pt ambulated to recliner, CGA. Transferred to recliner, SBA. Pt doffed socks using dressing stick. VASQUEZ educated pt on using sock aid to don socks. 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 Therapy Code Descriptions/Definitions Functional [place] Measure: 0=Not Assessed/NA 4=Minimal Assistance 1=Total Assistance 5=Supervision or Setup 2=Maximal Assistance 6=Modified [place] 3=Moderate Assistance 7=Complete IndependenceSCALE: Activities may be completed with or without assistive devices. 7-Wkgmtlsxmj-wggvgdb completes the activity by him/herself with no assistance from a helper. 5-Set-up or Clean-up Assistance-helper sets up or cleans up; patient completes activity. [place] assists only prior to or following the activity. 4-Supervision or Touching Assistance-helper provides verbal cues and/or touching/steadying and/or contact guard assistance as patient completes activity. Assistance may be provided throughout the activity or intermittently. 3-Partial/Moderate Assistance-helper does LESS THAN HALF the effort. [place] lifts, holds or supports trunk or limbs, but provides less than half the effort. 2-Substantial/Maximal Assistance-helper does MORE THAN HALF the effort. [place] lifts or holds trunk or limbs and provides more than half the effort. 4-Dbfqupyow-umveqj does ALL the effort. Patient does none of the effort to complete the activity. Or, the assistance of 2 or more helpers is required for the patient to complete the activity. If activity was not attempted, code reason: 7-Patient Refused. 9-Not Applicable-not attempted and the patient did not perform the activity before the current illness, exacerbation or injury. 10-Not Attempted due to Environmental Limitations-(lack of equipment, weather restraints, etc.). 88-Not Attempted due to Medical Conditions or Safety Concerns. Oral Hygiene (QC): 4 On/Off Footwear: 6 Toileting Hygiene (QC): 4 Toilet Transfer (QC): 4 Other Treatment Tested pt's hand/welding production supervisor strength and pinch strength while seated at recliner in room. Pt completed 3 reps of each welding production supervisor/pinch strengthening test. Her average welding production supervisor strength for R hand was 9 and L was 11. Pinch tip average for the R 9.3 and L 8.6. Pinch 3 point average for R 10 and L 9. Pinch lateral for R 11.5 and L 9.6. After completing welding production supervisor/pinch test, pt participated in 2 sets of 10 reps B UE AROM exercises while seated in recliner to strengthen pt's B UE for safe and functional daily task. After treatment pt seated in room. Call light/phone in reach. All needs met. Daughter in room. Education OT Patient Education: Modified ADL techniques Teaching Recipient: Patient, Family Teaching Methods: Demonstration, Discussion Response to Teaching: Verbalize Understanding OT Senior Living Goals Conductor Freight Goals Time Frame: Feb 21, 2020 Eating (QC): 6 Oral Hygiene (QC): 6 Toileting Hygiene (QC): 6 Shower/Bathe Self (QC): 6 Upper Body Dressing (QC): 6 Lower Body Dressing (QC): 6 On/Off Footwear (QC): 6 Additional Goals: 1-Demonstrate ADL Tasks, 2-Verbalize Understanding, 3- ImproveStrength/Kassandra 1=Demonstrate adherence to instructed precautions during ADL tasks. 2=Patient will verbalize/demonstrate understanding of assistive devices/modifications for ADL. 3=Patient will improve strength/tolerance for activity to enable patient to perform ADL's. OT Education/Plan Problem List/Assessment Assessment: Decreased Activ Tolerance, Decreased UE Strength, Impaired Funct Balance, Impaired I ADL's, Impaired Self-Care Skills, Restricted Funct UE ROM Discharge Recommendations Plan/Recommendations: Continue POC Treatment Plan/Plan of Care Patient would benefit from OT for education, treatment and training to promote independence in ADL's, mobility, safety and/or upper extremity function for ADL's. Plan of Care: ADL Retraining, Functional Mobility, Group Exercise/Act as Ind, UE Funct Exercise/Act Treatment Duration: Feb 21, 2020 Frequency: Modified Program (IRF) (05/12) Estimated Hrs Per Day: 1.5 hours per day Rehab Potential: Fair Time/GCodes Start Time: 10:30 Stop Time: 11:49 Total Time Billed (hr/min): 79 Billed Treatment Time 1 visit-ADL 3 (42 mins) Ex 2 (37 mins) BRITTNEY HUMPHREYS Jan 26, 2020 11:37
--- NOTE | 2020-01-26 12:44 | PM&R Progress Note ---
Subjective HPI/CC On Admission Date Seen by Provider: Jan 26, 2020 Time Seen by Provider: 12:15 Subjective/Events-last exam 01/26/20: Doing well Hgb stable UTI treatment maintained Updated daughter BM+ Lortab maintained 01/25/20: Hgb 4.9 and stable Vitals stable Midline will be placed due to antibiotics and IV iron infusions Appreciate Dr. Iglesias Pain is only a 4/10 Tmax of 99.5 DC IV fluid and Vancomycin Cefepime maintained E. coli urine culture pending with sensitivity Pt had an uneventful might Had a fever this morning at 36.5 Remains tachycardic but sinus type Cefepime and Vanc maintained Preliminary urine culture is E. Coli Bowels moved this morning No drainage at the operative site Hgb up from 3.8 to 4.9 even with gentle IV fluid WBC down to 11.[address] Castellanos and Dr. Caldwell Checked meds and labs Conferred with RN Reviewed therapy notes Review of Systems General: Fatigue, Malaise Focused Exam Lactate Level Objective Exam Vital Signs Vital Signs Date Time Temp Pulse Resp B/P (MAP) Pulse Ox O2 Delivery O2 Flow Rate FiO2 01/27/20 05:11 37.4 98 20 131/75 (93) 98 Room Air 01/26/20 20:00 2.00 Capillary Refill : Less Than 3 Seconds General Appearance: No Apparent Distress, WD/WN, Chronically ill, Other (pale) HEENT: PERRL/EOMI, Normal ENT Inspection, Pharynx Normal Neck: Full Range of Motion, Normal Inspection, Non Tender, Supple, Carotid Bruit Respiratory: Chest Non Tender, Lungs Clear, Normal Breath Sounds, No Accessory Muscle Use, No Respiratory Distress Cardiovascular: Regular Rate, Rhythm, No Edema, No Gallop, No JVD, No Murmur, Normal Peripheral Pulses Gastrointestinal: Normal Bowel Sounds, No Organomegaly, No Pulsatile Mass, Non Tender, Soft Back: Decreased Range of Motion Extremity: Normal Capillary Refill, Normal Inspection, Normal Range of Motion, Non Tender, No Calf Tenderness, No Pedal Edema Neurologic/Psychiatric: Alert, Oriented x3, No Motor/Sensory Deficits, Normal Mood/Affect, horse trekking guide II-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 FIM Transfers Therapy Code Descriptions/Definitions Functional [place] Measure: 0=Not Assessed/NA 4=Minimal Assistance 1=Total Assistance 5=Supervision or Setup 2=Maximal Assistance 6=Modified [place] 3=Moderate Assistance 7=Complete IndependenceSCALE: Activities may be completed with or without assistive devices. 3-Vyizptkhvd-jhtzenq completes the activity by him/herself with no assistance from a helper. 5-Set-up or Clean-up Assistance-helper sets up or cleans up; patient completes activity. [place] assists only prior to or following the activity. 4-Supervision or Touching Assistance-helper provides verbal cues and/or touching/steadying and/or contact guard assistance as patient completes activity. Assistance may be provided throughout the activity or intermittently. 3-Partial/Moderate Assistance-helper does LESS THAN HALF the effort. [place] lifts, holds or supports trunk or limbs, but provides less than half the effort. 2-Substantial/Maximal Assistance-helper does MORE THAN HALF the effort. [place] lifts or holds trunk or limbs and provides more than half the effort. 8-Cpygvyzym-dsioih does ALL the effort. Patient does none of the effort to complete the activity. Or, the assistance of 2 or more helpers is required for the patient to complete the activity. If activity was not attempted, code reason: 7-Patient Refused. 9-Not Applicable-not attempted and the patient did not perform the activity before the current illness, exacerbation or injury. 10-Not Attempted due to Environmental Limitations-(lack of equipment, weather restraints, etc.). 88-Not Attempted due to Medical Conditions or Safety Concerns. Roll Left to Right (QC): 4 Sit to Lying (QC): 3 Sit to Stand (QC): 4 Chair/Uoq-va-Sfyqb Xfer(QC): 3 Car Transfer (QC): 3 Gait Training Does the Patient Walk?: Yes Distance: 120' x2 Walk 10 feet (QC): 4 Walk 50 ft with 2 Turns(QC): 4 Walk 150 ft (QC): 4 Walking 10ft/uneven surface-QC: 3 Gait Assistive Device: FWW Wheelchair Training Does the Pt Use a Wheelchair?: No Wheel 50 ft with 2 turns (QC): 9 Wheel 150 ft (QC): 9 Type of Wheelchair: N/A Stair Training #of Steps: 8 1 Step (curb) (QC): 3 4 Steps (QC): 88 12 Steps (QC): 88 Stairs: Pattern: Step to Balance Picking up an Object (QC): 88 ADL-Treatment Eating (QC): 5 (pt reports she has some difficulty chewing food and cutting food. No difficulties bringing food to her mouth.) Oral Hygiene (QC): 4 Bathing Location: L Arm, R Arm, L Upper Leg, R Upper Leg, L Lower Leg (including foot), R Lower Leg (including foot), Chest, Abdomen, Buttocks, Perineal Area Shower/Bathe Self (QC): 4 Upper Body Dressing (QC): 3 Lower Body Dressing (QC): 4 On/Off Footwear (QC): 6 Toileting Hygiene (QC): 4 Toilet Transfer (QC): 4 Assessment/Plan Assessment and Plan Assess & Plan/Chief Complaint Assessment: Lumbar stenosis with neurogenic claudication Severe anemia JW refusal of blood products HTN HLP Fever Goldstein cath UTI Bradycardia at [place] Plan: Dr Iglesias consult EPO and Venofer tomorrow Gentle IVF PT OT Abx broad spectrum 01/24/20: Monitor hemoglobin Appreciate Dr. Castellanos Appreciate Dr. Iglesias Continue antibiotics Monitor closely 01/25/20: Continue Cefepime Discontinue Vanc Monitor fever Place midline for iron infusions and antibiotics Monitor hemoglobin 4.[address] Iglesias 01/26/20: Maintain Hematology support Continue abx UCx reviewed (1) Lumbar stenosis with neurogenic claudication (2) Refusal of blood transfusions as patient is Sabianist (3) Anemia due to acute blood loss (4) Advanced age (5) Hypertension (6) Hyperlipemia (7) Fever (8) Bradycardia SAMARIA NAIR DO Jan 26, 2020 12:44
--- NOTE | 2020-01-26 12:56 | NUR ---
CM/SS CONCURRENT DOCUMENTATION Discussed the current DPOA-HC with patient through [facility] and later with daughter Margaret Cabrera. Mr. Chad Soler called Acute Rehab Unit x 3 on Wednesday stated he wanted to be sure everyone knew he was her DPOA for healthcare and he requested to speak with the physician. His calls were fielded through Unit staff, copy of the document was obtained from patient. Mr. Soler is the oncology physician assistant of her mormonism, and it has been common practice for those in that position or other mormonism members to become DPOA-HC for other JW members. Seasonal Tax Preparer inquired of patient if she understood that Mr. Soler could make healthcare decisions for her independent of her children/family and she indicated she would WANT her children involved. Spoke also with her daughter Margaret who stated she thought patient did not understand that fully. Seasonal Tax Preparer offered that a new DPOA-HC document could be completed naming the son and daughter as agents as well as Mr. Soler if patient desired. Margaret will speak with patient and update. As it stands at present, Mr. Soler is the sole DPOA-HC if patient is unable to make decisions; however, her children should be contacted for any decisions that patient is not able to participate in should that occur.
--- NOTE | 2020-01-26 14:45 | Therapy Group Daily Note ---
Therapy Daily Group Note Patient Education Topic Home Safety, Exercises Exercises LE Seated Exercise, UE Exercise Session Ratio (pt:therapist): 4:1 Goal of Session: Home Safety Strategies, UE/LE Strengthing Goal Met for this Session: Yes Pt Benefit of Group: Contributions to Others, F/U Use of Strategies @Home, Increased Functional Safety, Increased Functional Strength, Improved Cognition, Recognition of Peers, Socialization Other/Notes Pt was transported via w/c to OT group. Group consisted of introductions (name, place living, fall activity), socialization, seated UE/LE exercises, educational topics on exercising throughout the year and hydration. Pt introduced self appropriately and actively listened to peers. Pt contributed to peer conversations appropriately. Demonstrated understanding of educational topics by answering questions while participating in group activity and giving own personal strategies. After session, pt lying in bed with call light/phone in reach. All needs met in room. Start Time: 13:00 Stop Time: 14:20 Total Billed Treatment Time: 80 Total Billed Treatment 1-GRP BRITTNEY HUMPHREYS Jan 26, 2020 14:45
--- NOTE | 2020-01-26 15:09 | NUR ---
CM/SS CONCURRENT DOCUMENTATION Followed up with daughter Margaret, she states that she did discuss the power of commercial real estate attorney with her mother. Margaret indicates patient is o.k. with Mr. Soler continuing as her power of commercial real estate attorney for health care only, not general power of commercial real estate attorney privileges, and that she DOES want her children involved/notified re any care discussions if patient is unable to speak for herself or participate meaningfully.
[2020-01-26] MEDS: DOCUSATE SODIUM 100 MG (COLACE) CAP PO SCH ×2 (15:34→19:32)
[2020-01-26] MEDS: SENNA W/DOCUSATE (SENOKOT S) TABLET PO SCH ×2 (15:35→19:33)
[2020-01-26] MEDS: lisINopril 10 MG (PRINIVIL) TABLET PO SCH (15:40)
[2020-01-26 16:19] VITALS: BP 114/53
--- NOTE | 2020-01-26 16:21 | Cardiology Progress Note ---
Cardiology SOAP Progress Note Subjective: denies any cardiac complaints when I asked her in [place]. Objective: I&O/Vital Signs 01/26/20 01/26/20 01/26/20 01/26/20 06:00 07:00 08:13 12:28 Temp 37.2 37.4 Pulse 86 88 88 82 Resp 14 18 B/P (MAP) 117/55 (75) 111/52 (71) Pulse Ox 96 99 O2 Delivery Room Air Room Air 01/26/20 16:19 Temp 37.2 Pulse 80 Resp 16 B/P (MAP) 114/53 (73) Pulse Ox 99 O2 Delivery Room Air 01/26/20 00:00 Intake Total 710 ml Output Total 600 ml Balance 110 ml Constitutional: appears stated age, AAO x 3, well-developed, well-nourished Respiratory: chest is bilaterally symmetric, lungs clear to auscultation Cardiovascular: regular rate-rhythm, S1 and S2 Gastrointestional: soft, audible bowel sounds Extremities: normal range of motion, non-tender, normal inspection, no lower extremity edema bilateral Neurologic/Psychiatric: no motor/sensory deficits, alert, normal mood/affect, oriented x 3, power is 5/5 both on sides Skin: normal color, warm/dry Results/Procedures: Labs Laboratory Tests 01/26/20 05:30: White Blood Count 10.6, Red Blood Count 1.80L, Hemoglobin 5.1*L, Hematocrit 16*L , Mean Corpuscular Volume 91, Mean Corpuscular Hemoglobin 28, Mean Corpuscular Hemoglobin Concent 31L, Red Cell Distribution Width 14.2, Platelet Count 444H, Mean Platelet Volume 9.2, Neutrophils (%) (Auto) 64, Lymphocytes (%) (Auto) 20, Monocytes (%) (Auto) 11, Eosinophils (%) (Auto) 5, Basophils (%) (Auto) 0, Neutrophils # (Auto) 6.8, Lymphocytes # (Auto) 2.1, Monocytes # (Auto) 1.2H, Eosinophils # (Auto) 0.5H, Basophils # (Auto) 0.0, Absolute Reticulocyte Count 136H, Percent Reticulocyte Count 7.56H Microbiology 01/23/20 Blood Culture - Preliminary, Resulted No growth 01/23/20 Urine Culture - Final, Complete Escherichia coli A/P: Assessment/Dx: Sinus bradycardia, Hypertension, Fever, Extensive spine surgery. Shinto, Severe anemia Plan: Sinus bradycardia, currently normal sinus rhythm. Not on any rate controlling agents. We will continue to follow clinically. Hypertension, patient is on lisinopril. Can continue. Fever, defer to Dr. Bojorquez. Extensive spine surgery. Inpatient rehabilitation. Severe anemia, iron infusions) erythropoietin given. Dr. Torre on board. Patient is Shinto therefore no transfusion. Thank you for your consultation. Please call me if you have any questions. Malinda Mendieta MD, FACP, FACC, FSCAI, FHRS, CCDS Interventional Cardiology Cardiac Electrophysiology Vascular Medicine and Endovascular Interventions Focused Exam Lactate Level 01/23/20 18:59: Lactic Acid Level 1.81 Mc MENDIETA MD Jan 26, 2020 16:21
[2020-01-26] MEDS ORDERED: TROUGH ORDER-PHARMACY XX NR (19:30)
--- NOTE | 2020-01-26 19:48 | NUR ---
Spoke w daughter, Margaret while she was here this afternoon, regarding pt's PCP. tr states that pt went to Dr. Wero Ortega in [place] before her surgery. Notified that Dr. Iglesias has requested copies of pt's previous med records regarding her anemia. Dgtr states that pt has told her in the past that she has been anemic. Dgtr states that pt , "has jumped from doctor to doctor." States that pt went to an [place] Doctor in the past in [place], but he retired 2 weeks ago.
[2020-01-26] MEDS: MELATONIN 3 MG TABLET PO PRN (20:18)
[2020-01-27] MEDS: CEFEPIME INJECTION 1,000 MG in WATER (STERILE) FOR INJECTION 10 ML IV SCH (04:30)
[2020-01-27 05:11] VITALS: BP 131/75
[2020-01-27] MEDS: HYDROcodone/APAP 5 MG/325 MG (LORTAB) TAB PO PRN (08:16)
--- NOTE | 2020-01-27 08:29 | Physical Therapy Daily Note ---
PT Daily Note-Current Subjective Pt agreeable. Pain rated 4/10. Pt up in bathroom with brace in place. Transfers SCALE: Activities may be completed with or without assistive devices. 8-Wjsieiqwgn-dirnxwp completes the activity by him/herself with no assistance from a helper. 5-Set-up or Clean-up Assistance-helper sets up or cleans up; patient completes activity. [place] assists only prior to or following the activity. 4-Supervision or Touching Assistance-helper provides verbal cues and/or touching/steadying and/or contact guard assistance as patient completes a ctivity. Assistance may be provided throughout the activity or intermittently. 3-Partial/Moderate Assistance-helper does LESS THAN HALF the effort. [place] lifts, holds or supports trunk or limbs, but provides less than half the effort. 2-Substantial/Maximal Assistance-helper does MORE THAN HALF the effort. [place] lifts or holds trunk or limbs and provides more than half the effort. 3-Elztksibe-biiqvn does ALL the effort. Patient does none of the effort to complete the activity. Or, the assistance of 2 or more helpers is required for the patient to complete the activity. If activity was not attempted, code reason: 7-Patient Refused. 9-Not Applicable-not attempted and the patient did not perform the activity before the current illness, exacerbation or injury. 10-Not Attempted due to Environmental Limitations-(lack of equipment, weather restraints, etc.). 88-Not Attempted due to Medical Conditions or Safety Concerns. Exercises NuStep Minutes: 5 NuStep Workload: 3 Treatments Pt seen for ther ex in sitting, supine and ambulation. Gait training with CGA- SBA and FWW 2 x 60ft. Nustep x 5 min Assessment Current Status: Good Progress Pt praneeth above well. Pt functional mobility improving steadily. Pt resting in bed with call light and all needs met post treatment. PT Short Term Goals Short Term Goals Time Frame: Jan 31, 2020 Roll Left & Right: 3 Sit to lyin Lying to sitting on side of be: 3 Sit to stand: 4 Chair/wzq-gl-corbd transfer: 4 Walk 10 feet: 4 Walk 50 feet with two turns: 4 PT Snf Goals Snf Goals PT Merchandise Planning Manager Goals Time Frame: Feb 14, 2020 Roll Left & Right (QC): 4 Sit to Lying (QC): 4 Lying-Sitting on Side/Bed(QC): 4 Sit to Stand (QC): 4 Chair/Tpl-uz-Wkhal Xfer(QC): 4 Toilet Transfer (QC): 4 Car Transfer (QC): 4 Does the Patient Walk: Yes Walk 10 feet (QC): 4 Walk 50ft with 2 Turns (QC): 4 Walk 150 ft (QC): 4 Walking 10ft on Uneven Surface: 4 1 Step (curb) (QC): 4 4 Steps (QC): 4 12 Steps (QC): 4 Picking up an Object (QC): 88 Wheel 50 feet with 2 turns (QC: 9 Wheel 150 feet: 9 PT Plan Treatment/Plan Treatment Plan: Continue Plan of Care Treatment Plan: Bed Mobility, Education, Functional Activity Kassandra, Functional Strength, Group Therapy, Gait, Safety, Therapeutic Exercise, Transfers Treatment Duration: Feb 14, 2020 Frequency: Modified Program (IRF) Estimated Hrs Per Day: 1.5 hours per day Patient and/or Family Agrees t: Yes Time/GCodes Time In: 810 Time Out: 845 Total Billed Treatment Time: 35 Total Billed Treatment 1, gait 15', Ther ex 20' EMMANUEL ALVES CPTA Jan 27, 2020 08:29
[2020-01-27] MEDS: CEFDINIR 300 MG (OMNICEF) CAP PO SCH ×2 (09:13→20:09)
[2020-01-27] MEDS: FOLIC ACID 1 MG TAB PO SCH (09:13)
[2020-01-27] MEDS: SENNA W/DOCUSATE (SENOKOT S) TABLET PO SCH ×2 (09:13→20:09)
[2020-01-27] MEDS: DICYCLOMINE 10 MG (BENTYL) CAP PO SCH ×2 (09:14→20:09)
[2020-01-27] MEDS: polyethylene glycoL POWDER 17 GM (MIRALAX) PACK PO SCH ×2 (09:14→19:43)
[2020-01-27] MEDS: DOCUSATE SODIUM 100 MG (COLACE) CAP PO SCH ×2 (09:14→20:09)
--- NOTE | 2020-01-27 10:57 | Occupational Ther Daily Note ---
OT Current Status-Daily Note Subjective Pt alert, lying in bed. Using gestures and one word, pt agrees to therapy. No c/o pain. Mental Status/Objective Patient Orientation: Person, Place, Time, Situation Attachments: IV (2) ADL-Treatment Agrees to shower. Supine to EOB, by self. Ambulated to toilet then transferred with supervision. Completed toileting by self. Transferred into shower by self . Assist to adjust water then pt able to complete own shower by self using AE to maintain back precautions. Using dressing stick, pt able to doff socks and briefs, assist to guide briefs over toes then pt able to complete rest of lower body dressing. Assist with donning socks. Pt donned/doffed upper body clothing by self after set up. Stood at sink to complete oral care. After session, pt sitting in recliner with call light/phone in reach. All needs met in room. Therapy Code Descriptions/Definitions Functional [place] Measure: 0=Not Assessed/NA 4=Minimal Assistance 1=Total Assistance 5=Supervision or Setup 2=Maximal Assistance 6=Modified [place] 3=Moderate Assistance 7=Complete IndependenceSCALE: Activities may be completed with or without assistive devices. 4-Dhfwhlmvpm-aasxwhg completes the activity by him/herself with no assistance from a helper. 5-Set-up or Clean-up Assistance-helper sets up or cleans up; patient completes activity. [place] assists only prior to or following the activity. 4-Supervision or Touching Assistance-helper provides verbal cues and/or touching/steadying and/or contact guard assistance as patient completes activi ty. Assistance may be provided throughout the activity or intermittently. 3-Partial/Moderate Assistance-helper does LESS THAN HALF the effort. [place] lifts, holds or supports trunk or limbs, but provides less than half the effort. 2-Substantial/Maximal Assistance-helper does MORE THAN HALF the effort. [place] lifts or holds trunk or limbs and provides more than half the effort. 8-Qegyfmoxj-wuiafx does ALL the effort. Patient does none of the effort to complete the activity. Or, the assistance of 2 or more helpers is required for the patient to complete the activity. If activity was not attempted, code reason: 7-Patient Refused. 9-Not Applicable-not attempted and the patient did not perform the activity before the current illness, exacerbation or injury. 10-Not Attempted due to Environmental Limitations-(lack of equipment, weather restraints, etc.). 88-Not Attempted due to Medical Conditions or Safety Concerns. 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 2=Patient will verbalize/demonstrate understanding of assistive devices/modifications for ADL. 3=Patient will improve strength/tolerance for activity to enable patient to perform ADL's. OT Education/Plan Problem List/Assessment Assessment: Impaired Self-Care Skills Discharge Recommendations Plan/Recommendations: Continue POC Treatment Plan/Plan of Care Patient would benefit from OT for education, treatment and training to promote independence in ADL's, mobility, safety and/or upper extremity function for ADL's. Plan of Care: ADL Retraining, Functional Mobility, Group Exercise/Act as Ind, UE Funct Exercise/Act Treatment Duration: Feb 21, 2020 Frequency: Modified Program (IRF) (05/12) Estimated Hrs Per Day: 1.5 hours per day Rehab Potential: Fair Time/GCodes Start Time: 10:10 Stop Time: 10:45 Total Time Billed (hr/min): 35 Billed Treatment Time 1 visit-ADL 2 (35 min) BRITTNEY HUMPHREYS Jan 27, 2020 10:57
--- NOTE | 2020-01-27 12:43 | PM&R Progress Note ---
Subjective HPI/CC On Admission Date Seen by Provider: Jan 27, 2020 Time Seen by Provider: 12:00 Subjective/Events-last exam 01/27/20: Patient doing well BM today Ultram will be ordered since Stuart makes her too sleepy 01/26/20: Doing well Hgb stable UTI treatment maintained Updated daughter BM+ Lortab maintained 01/25/20: Hgb 4.9 and stable Vitals stable Midline will be placed due to antibiotics and IV iron infusions Appreciate Dr. Iglesias Pain is only a 4/10 Tmax of 99.5 DC IV fluid and Vancomycin Cefepime maintained E. coli urine culture pending with sensitivity Pt had an uneventful might Had a fever this morning at 36.5 Remains tachycardic but sinus type Cefepime and Vanc maintained Preliminary urine culture is E. Coli Bowels moved this morning No drainage at the operative site Hgb up from 3.8 to 4.9 even with gentle IV fluid WBC down to 11.[address] Castellanos and Dr. Caldwell Checked meds and labs Conferred with RN Reviewed therapy notes Review of Systems General: Fatigue, Malaise Musculoskeletal: back pain Neurological: Weakness Objective Exam Vital Signs Vital Signs Date Time Temp Pulse Resp B/P (MAP) Pulse Ox O2 Delivery O2 Flow Rate FiO2 01/28/20 05:13 36.4 92 18 154/63 (93) 97 Room Air 01/27/20 23:58 3.00 Capillary Refill : Less Than 3 Seconds General Appearance: No Apparent Distress, WD/WN, Chronically ill, Other (pale) HEENT: PERRL/EOMI, Normal ENT Inspection, Pharynx Normal Neck: Full Range of Motion, Normal Inspection, Non Tender, Supple, Carotid Bruit Respiratory: Chest Non Tender, Lungs Clear, Normal Breath Sounds, No Accessory Muscle Use, No Respiratory Distress Cardiovascular: Regular Rate, Rhythm, No Edema, No Gallop, No JVD, No Murmur, Normal Peripheral Pulses Gastrointestinal: Normal Bowel Sounds, No Organomegaly, No Pulsatile Mass, Non Tender, Soft Back: Decreased Range of Motion Extremity: Normal Capillary Refill, Normal Inspection, Normal Range of Motion, Non Tender, No Calf Tenderness, No Pedal Edema Neurologic/Psychiatric: Alert, Oriented x3, No Motor/Sensory Deficits, Normal Mood/Affect, manager marketing communication II-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 FIM Transfers Therapy Code Descriptions/Definitions Functional [place] Measure: 0=Not Assessed/NA 4=Minimal Assistance 1=Total Assistance 5=Supervision or Setup 2=Maximal Assistance 6=Modified [place] 3=Moderate Assistance 7=Complete IndependenceSCALE: Activities may be completed with or without assistive devices. 9-Jdobfunbez-mraltiw completes the activity by him/herself with no assistance from a helper. 5-Set-up or Clean-up Assistance-helper sets up or cleans up; patient completes activity. [place] assists only prior to or following the activity. 4-Supervision or Touching Assistance-helper provides verbal cues and/or touching/steadying and/or contact guard assistance as patient completes activity. Assistance may be provided throughout the activity or intermittently. 3-Partial/Moderate Assistance-helper does LESS THAN HALF the effort. [place] lifts, holds or supports trunk or limbs, but provides less than half the effort. 2-Substantial/Maximal Assistance-helper does MORE THAN HALF the effort. [place] lifts or holds trunk or limbs and provides more than half the effort. 5-Sfculdlap-bfuwgo does ALL the effort. Patient does none of the effort to complete the activity. Or, the assistance of 2 or more helpers is required for the patient to complete the activity. If activity was not attempted, code reason: 7-Patient Refused. 9-Not Applicable-not attempted and the patient did not perform the activity before the current illness, exacerbation or injury. 10-Not Attempted due to Environmental Limitations-(lack of equipment, weather restraints, etc.). 88-Not Attempted due to Medical Conditions or Safety Concerns. Roll Left to Right (QC): 4 Sit to Lying (QC): 3 Sit to Stand (QC): 4 Chair/Qhb-us-Axeck Xfer(QC): 3 Car Transfer (QC): 3 Gait Training Does the Patient Walk?: Yes Distance: 120' x2 Walk 10 feet (QC): 4 Walk 50 ft with 2 Turns(QC): 4 Walk 150 ft (QC): 4 Walking 10ft/uneven surface-QC: 3 Gait Assistive Device: FWW Wheelchair Training Does the Pt Use a Wheelchair?: No Wheel 50 ft with 2 turns (QC): 9 Wheel 150 ft (QC): 9 Type of Wheelchair: N/A Stair Training #of Steps: 8 1 Step (curb) (QC): 3 4 Steps (QC): 88 12 Steps (QC): 88 Stairs: Pattern: Step to Balance Picking up an Object (QC): 88 ADL-Treatment Eating (QC): 5 (pt reports she has some difficulty chewing food and cutting food. No difficulties bringing food to her mouth.) Oral Hygiene (QC): 6 Bathing Location: L Arm, R Arm, L Upper Leg, R Upper Leg, L Lower Leg (including foot), R Lower Leg (including foot), Chest, Abdomen, Buttocks, Perineal Area Shower/Bathe Self (QC): 5 Upper Body Dressing (QC): 5 Lower Body Dressing (QC): 3 On/Off Footwear (QC): 6 Toileting Hygiene (QC): 6 Toilet Transfer (QC): 4 Assessment/Plan Assessment and Plan Assess & Plan/Chief Complaint Assessment: Lumbar stenosis with neurogenic claudication Severe anemia JW refusal of blood products HTN HLP Fever Goldstein cath UTI Bradycardia at [place] Plan: Dr Iglesias consult EPO and Venofer tomorrow Gentle IVF PT OT Abx broad spectrum 01/24/20: Monitor hemoglobin Appreciate Dr. Castellanos Appreciate Dr. Iglesias Continue antibiotics Monitor closely 01/25/20: Continue Cefepime Discontinue Vanc Monitor fever Place midline for iron infusions and antibiotics Monitor hemoglobin 4.[address] Iglesias 01/26/20: Maintain Hematology support Continue abx UCx reviewed 01/27/20: DC IV abx PO abx for UTI Change pain meds (1) Lumbar stenosis with neurogenic claudication (2) Refusal of blood transfusions as patient is Latter-day (3) Anemia due to acute blood loss (4) Advanced age (5) Hypertension (6) Hyperlipemia (7) Fever (8) Bradycardia SAMARIA NAIR DO Jan 27, 2020 12:43
[2020-01-27 12:45] VITALS: BP 139/63
[2020-01-27] MEDS: lisINopril 10 MG (PRINIVIL) TABLET PO SCH (12:47)
--- NOTE | 2020-01-27 15:07 | Cardiology Progress Note ---
Cardiology SOAP Progress Note Subjective: Denied any cardiac complaints. Objective: I&O/Vital Signs 01/27/20 01/27/20 01/27/20 05:11 09:23 12:45 Temp 37.4 Pulse 98 95 Resp 20 B/P (MAP) 131/75 (93) 139/63 (88) Pulse Ox 98 O2 Delivery Room Air Room Air 01/27/20 00:00 Intake Total 1290 ml Output Total 1200 ml Balance 90 ml Constitutional: appears stated age, AAO x 3, well-developed, well-nourished Respiratory: chest is bilaterally symmetric, lungs clear to auscultation Cardiovascular: regular rate-rhythm, S1 and S2 Gastrointestional: soft, audible bowel sounds Extremities: normal range of motion, non-tender, normal inspection, no lower extremity edema bilateral Neurologic/Psychiatric: no motor/sensory deficits, alert, normal mood/affect, oriented x 3, power is 5/5 both on sides Skin: normal color, warm/dry Results/Procedures: Labs Laboratory Tests 01/26/20 19:00: Stool Occult Blood Immunoassay NEGATIVE Microbiology 01/23/20 Blood Culture - Preliminary, Resulted No growth 01/23/20 Urine Culture - Final, Complete Escherichia coli A/P: Assessment/Dx: Sinus bradycardia, resolved Hypertension, Fever, Extensive spine surgery. Yarsani, Severe anemia Plan: Sinus bradycardia, currently normal sinus rhythm. Not on any rate controlling agents. We will continue to follow clinically. Hypertension, patient is on lisinopril. Can continue. Fever, defer to Dr. Bojorquez. Extensive spine surgery. Inpatient rehabilitation. Severe anemia, iron infusions) erythropoietin given. Dr. Torre on board. Patient is Yarsani therefore no transfusion. Thank you for your consultation. Please call me if you have any questions. Malinda Mendieta MD, FACP, FACC, FSCAI, FHRS, CCDS Interventional Cardiology Cardiac Electrophysiology Vascular Medicine and Endovascular Interventions Mc MENDIETA MD Jan 27, 2020 15:07
[2020-01-27 17:37] VITALS: BP 124/56
[2020-01-27] MEDS: MELATONIN 3 MG TABLET PO PRN (20:09)
[2020-01-28 05:13] VITALS: BP 154/63
[2020-01-28 06:30] LABS: BASOPHILS % (AUTO) 0 % (0-10); EOSINOPHILS # (AUTO) 0.6 10^3/uL (0.0-0.3); EOSINOPHILS % (AUTO) 6 % (0-10); LYMPHOCYTES # (AUTO) 2.5 X 10^3 (1.0-4.0); LYMPHOCYTES % (AUTO) 24 % (12-44); MEAN CORPUSCULAR HEMOGLOBIN 29 PG (25-34); MEAN CORPUSCULAR HGB CONC 31 G/DL (32-36); MEAN CORPUSCULAR VOLUME 94 FL (80-99); MEAN PLATELET VOLUME 8.7 FL (7.4-10.4); MONOCYTES # (AUTO) 1.1 X 10^3 (0.0-1.0); MONOCYTES % (AUTO) 11 % (0-12); NEUTROPHILS # (AUTO) 6.2 X 10^3 (1.8-7.8); NEUTROPHILS % (AUTO) 59 % (42-75); PLATELET COUNT 562 10^3/uL (130-400); WHITE BLOOD COUNT 10.4 10^3/uL (4.3-11.0)
--- NOTE | 2020-01-28 06:34 | PM&R Progress Note ---
Subjective HPI/CC On Admission Date Seen by Provider: Jan 28, 2020 Time Seen by Provider: 11:00 Subjective/Events-last exam 01/28/20: Patient doing well Hgb 6.1 Right leg pain and heaviness but no coldness noted BM++ PO abx for UTI 01/27/20: Patient doing well BM today Ultram will be ordered since [place] makes her too sleepy 01/26/20: Doing well Hgb stable UTI treatment maintained Updated daughter BM+ Lortab maintained 01/25/20: Hgb 4.9 and stable Vitals stable Midline will be placed due to antibiotics and IV iron infusions Appreciate Dr. Iglesias Pain is only a 4/10 Tmax of 99.5 DC IV fluid and Vancomycin Cefepime maintained E. coli urine culture pending with sensitivity Pt had an uneventful might Had a fever this morning at 36.5 Remains tachycardic but sinus type Cefepime and Vanc maintained Preliminary urine culture is E. Coli Bowels moved this morning No drainage at the operative site Hgb up from 3.8 to 4.9 even with gentle IV fluid WBC down to 11.[address] Castellanos and Dr. Caldwell Checked meds and labs Conferred with RN Reviewed therapy notes Review of Systems General: Fatigue, Malaise Musculoskeletal: back pain Objective Exam Vital Signs Vital Signs Date Time Temp Pulse Resp B/P (MAP) Pulse Ox O2 Delivery O2 Flow Rate FiO2 01/28/20 18:03 37.2 94 18 119/55 (76) 97 Room Air 01/27/20 23:58 3.00 Capillary Refill : Less Than 3 Seconds General Appearance: No Apparent Distress, WD/WN, Chronically ill, Other (pale) HEENT: PERRL/EOMI, Normal ENT Inspection, Pharynx Normal Neck: Full Range of Motion, Normal Inspection, Non Tender, Supple, Carotid Bruit Respiratory: Chest Non Tender, Lungs Clear, Normal Breath Sounds, No Accessory Muscle Use, No Respiratory Distress Cardiovascular: Regular Rate, Rhythm, No Edema, No Gallop, No JVD, No Murmur, Normal Peripheral Pulses Gastrointestinal: Normal Bowel Sounds, No Organomegaly, No Pulsatile Mass, Non Tender, Soft Back: Decreased Range of Motion Extremity: Normal Capillary Refill, Normal Inspection, Normal Range of Motion, Non Tender, No Calf Tenderness, No Pedal Edema Neurologic/Psychiatric: Alert, Oriented x3, No Motor/Sensory Deficits, Normal Mood/Affect, automobile appraiser II-XII Norm as Tested, Abnormal Gait Skin: Normal Color, Warm/Dry Lymphatic: No Adenopathy Results/Procedures Lab Laboratory Tests 01/28/20 06:20 Patient resulted labs reviewed. FIM Transfers Therapy Code Descriptions/Definitions Functional [place] Measure: 0=Not Assessed/NA 4=Minimal Assistance 1=Total Assistance 5=Supervision or Setup 2=Maximal Assistance 6=Modified [place] 3=Moderate Assistance 7=Complete IndependenceSCALE: Activities may be completed with or without assistive devices. 4-Ovkgteuohg-ohjzsuy completes the activity by him/herself with no assistance from a helper. 5-Set-up or Clean-up Assistance-helper sets up or cleans up; patient completes activity. [place] assists only prior to or following the activity. 4-Supervision or Touching Assistance-helper provides verbal cues and/or touchi ng/steadying and/or contact guard assistance as patient completes activity. Assistance may be provided throughout the activity or intermittently. 3-Partial/Moderate Assistance-helper does LESS THAN HALF the effort. [place] lifts, holds or supports trunk or limbs, but provides less than half the effort. 2-Substantial/Maximal Assistance-helper does MORE THAN HALF the effort. [place] lifts or holds trunk or limbs and provides more than half the effort. 3-Rqepiihel-viyawi does ALL the effort. Patient does none of the effort to complete the activity. Or, the assistance of 2 or more helpers is required for the patient to complete the activity. If activity was not attempted, code reason: 7-Patient Refused. 9-Not Applicable-not attempted and the patient did not perform the activity befo re the current illness, exacerbation or injury. 10-Not Attempted due to Environmental Limitations-(lack of equipment, weather restraints, etc.). 88-Not Attempted due to Medical Conditions or Safety Concerns. Roll Left to Right (QC): 4 Sit to Lying (QC): 3 Sit to Stand (QC): 4 Chair/Rsz-sw-Bgccs Xfer(QC): 3 Car Transfer (QC): 3 Gait Training Does the Patient Walk?: Yes Distance: 120' x2 Walk 10 feet (QC): 4 Walk 50 ft with 2 Turns(QC): 4 Walk 150 ft (QC): 4 Walking 10ft/uneven surface-QC: 3 Gait Assistive Device: FWW Wheelchair Training Does the Pt Use a Wheelchair?: No Wheel 50 ft with 2 turns (QC): 9 Wheel 150 ft (QC): 9 Type of Wheelchair: N/A Stair Training #of Steps: 8 1 Step (curb) (QC): 3 4 Steps (QC): 88 12 Steps (QC): 88 Stairs: Pattern: Step to Balance Picking up an Object (QC): 88 ADL-Treatment Eating (QC): 5 (pt reports she has some difficulty chewing food and cutting food. No difficulties bringing food to her mouth.) Oral Hygiene (QC): 6 Bathing Location: L Arm, R Arm, L Upper Leg, R Upper Leg, L Lower Leg (including foot), R Lower Leg (including foot), Chest, Abdomen, Buttocks, Perineal Area Shower/Bathe Self (QC): 5 Upper Body Dressing (QC): 5 Lower Body Dressing (QC): 3 On/Off Footwear (QC): 6 Toileting Hygiene (QC): 6 Toilet Transfer (QC): 4 Assessment/Plan Assessment and Plan Assess & Plan/Chief Complaint Assessment: Lumbar stenosis with neurogenic claudication Severe anemia JW refusal of blood products HTN HLP Fever Goldstein cath UTI Bradycardia at [place] Plan: Dr Iglesias consult EPO and Venofer tomorrow Gentle IVF PT OT Abx broad spectrum 01/24/20: Monitor hemoglobin Appreciate Dr. Castellanos Appreciate Dr. Iglesias Continue antibiotics Monitor closely 01/25/20: Continue Cefepime Discontinue Vanc Monitor fever Place midline for iron infusions and antibiotics Monitor hemoglobin 4.[address] Iglesias 01/26/20: Maintain Hematology support Continue abx UCx reviewed 01/27/20: DC IV abx PO abx for UTI Change pain meds 01/28/20: PO abx Hgb good Iron infusions BM regimen Ultram (1) Lumbar stenosis with neurogenic claudication (2) Refusal of blood transfusions as patient is Latter-day (3) Anemia due to acute blood loss (4) Advanced age (5) Hypertension (6) Hyperlipemia (7) Fever (8) Bradycardia SAMARIA NAIR DO Jan 28, 2020 06:34
[2020-01-28 06:36] LABS: HEMATOCRIT 20 % (35-52)
[2020-01-28 06:43] LABS: ALBUMIN 3.2 GM/DL (3.2-4.5); CHLORIDE 102 MMOL/L (98-107); POTASSIUM 4.4 MMOL/L (3.6-5.0); SODIUM 136 MMOL/L (135-145)
[2020-01-28 06:44] LABS: CALCIUM 8.4 MG/DL (8.5-10.1)
[2020-01-28 06:45] LABS: GLUCOSE 104 MG/DL (70-105); TOTAL PROTEIN 6.1 GM/DL (6.4-8.2)
[2020-01-28 06:46] LABS: CARBON DIOXIDE 24 MMOL/L (21-32)
[2020-01-28 06:47] LABS: BILIRUBIN,TOTAL 0.2 MG/DL (0.1-1.0)
[2020-01-28 06:49] LABS: ALKALINE PHOSPHATASE 102 U/L (40-136); CREATININE SERUM 0.66 MG/DL (0.60-1.30); GFR ESTIMATED > 60
[2020-01-28 06:50] LABS: BUN/CREATININE RATIO 17
[2020-01-28 06:52] LABS: ALANINE AMINOTRANSFERASE 26 U/L (0-55)
[2020-01-28] MEDS: SENNA W/DOCUSATE (SENOKOT S) TABLET PO SCH ×2 (09:23→19:42)
[2020-01-28] MEDS: DOCUSATE SODIUM 100 MG (COLACE) CAP PO SCH ×2 (09:23→19:41)
[2020-01-28] MEDS: CEFDINIR 300 MG (OMNICEF) CAP PO SCH ×2 (09:24→20:17)
[2020-01-28] MEDS: DICYCLOMINE 10 MG (BENTYL) CAP PO SCH ×2 (09:24→20:17)
[2020-01-28] MEDS: FOLIC ACID 1 MG TAB PO SCH (09:24)
[2020-01-28] MEDS: polyethylene glycoL POWDER 17 GM (MIRALAX) PACK PO SCH ×2 (09:24→19:41)
[2020-01-28] MEDS: IRON SUCROSE 200 MG/10 ML (VENOFER) VIAL IV SCH (09:26)
--- NOTE | 2020-01-28 12:10 | Cardiology Progress Note ---
Cardiology SOAP Progress Note Subjective: the patient complains of pain in her lower extremities Objective: I&O/Vital Signs 01/28/20 05:13 Temp 36.4 Pulse 92 Resp 18 B/P (MAP) 154/63 (93) Pulse Ox 97 O2 Delivery Room Air 01/28/20 00:00 Intake Total 700 ml Output Total 550 ml Balance 150 ml Constitutional: appears stated age, AAO x 3, well-developed, well-nourished Respiratory: chest is bilaterally symmetric, lungs clear to auscultation Cardiovascular: regular rate-rhythm, S1 and S2 Gastrointestional: soft, audible bowel sounds Extremities: normal range of motion, non-tender, normal inspection, no lower extremity edema bilateral Neurologic/Psychiatric: no motor/sensory deficits, alert, normal mood/affect, oriented x 3, power is 5/5 both on sides Skin: normal color, warm/dry Results/Procedures: Labs Laboratory Tests 01/28/20 06:20: White Blood Count 10.4, Red Blood Count 2.10L, Hemoglobin 6.0*L, Hematocrit 20*L , Mean Corpuscular Volume 94, Mean Corpuscular Hemoglobin 29, Mean Corpuscular Hemoglobin Concent 31L, Red Cell Distribution Width 16.3H, Platelet Count 562H, Mean Platelet Volume 8.7, Neutrophils (%) (Auto) 59, Lymphocytes (%) (Auto) 24, Monocytes (%) (Auto) 11, Eosinophils (%) (Auto) 6, Basophils (%) (Auto) 0, Neutrophils # (Auto) 6.2, Lymphocytes # (Auto) 2.5, Monocytes # (Auto) 1.1H, Eosinophils # (Auto) 0.6H, Basophils # (Auto) 0.0, Sodium Level 136, Potassium Level 4.4, Chloride Level 102, Carbon Dioxide Level 24, Anion Gap 10, Blood Urea Nitrogen 11, Creatinine 0.66, Estimat Glomerular Filtration Rate > 60, BUN/Creatinine Ratio 17, Glucose Level 104, Calcium Level 8.4L, Corrected Calcium 9.0, Total Bilirubin 0.2, Aspartate Amino Transf (AST/SGOT) 16, Alanine Aminotransferase (ALT/SGPT) 26, Alkaline Phosphatase 102, Total Protein 6.1L, Albumin 3.2 Microbiology 01/23/20 Blood Culture - Preliminary, Resulted No growth 01/23/20 Urine Culture - Final, Complete Escherichia coli A/P: Assessment/Dx: Sinus bradycardia, resolved Hypertension, Fever, Extensive spine surgery. Roman Catholic, Severe anemia Plan: Sinus bradycardia, currently normal sinus rhythm. Not on any rate controlling agents. We will continue to follow clinically. Hypertension, patient is on lisinopril. Can continue. Fever, defer to Dr. Bojorquez. Extensive spine surgery. Inpatient rehabilitation. still has pain in the back and lower extremities. Severe anemia, iron infusions) erythropoietin given. Dr. Torre on board. Patient is Roman Catholic therefore no transfusion. Thank you for your consultation. Please call me if you have any questions. Malinda Mendieta MD, FACP, FACC, FSCAI, FHRS, CCDS Interventional Cardiology Cardiac Electrophysiology Vascular Medicine and Endovascular Interventions Mc MENDIETA MD Jan 28, 2020 12:10
[2020-01-28 14:43] VITALS: BP 106/54
[2020-01-28] MEDS: lisINopril 10 MG (PRINIVIL) TABLET PO SCH (14:44)
[2020-01-28 18:03] VITALS: BP 119/55
[2020-01-29 05:33] VITALS: BP 110/54
--- NOTE | 2020-01-29 06:50 | PM&R Progress Note ---
Subjective HPI/CC On Admission Date Seen by Provider: Jan 29, 2020 Time Seen by Provider: 12:00 Subjective/Events-last exam 01/29/20: Patient feels good Ultram works better for her less sedating than the Hydrocodone 01/28/20: Patient doing well Hgb 6.1 Right leg pain and heaviness but no coldness noted BM++ PO abx for UTI 01/27/20: Patient doing well BM today Ultram will be ordered since [place] makes her too sleepy 01/26/20: Doing well Hgb stable UTI treatment maintained Updated daughter BM+ Lortab maintained 01/25/20: Hgb 4.9 and stable Vitals stable Midline will be placed due to antibiotics and IV iron infusions Appreciate Dr. Iglesias Pain is only a 4/10 Tmax of 99.5 DC IV fluid and Vancomycin Cefepime maintained E. coli urine culture pending with sensitivity Pt had an uneventful might Had a fever this morning at 36.5 Remains tachycardic but sinus type Cefepime and Vanc maintained Preliminary urine culture is E. Coli Bowels moved this morning No drainage at the operative site Hgb up from 3.8 to 4.9 even with gentle IV fluid WBC down to 11.[address] Castellanos and Dr. Caldwell Checked meds and labs Conferred with RN Reviewed therapy notes Review of Systems General: Fatigue, Malaise Musculoskeletal: back pain Objective Exam Vital Signs Vital Signs Date Time Temp Pulse Resp B/P (MAP) Pulse Ox O2 Delivery O2 Flow Rate FiO2 01/29/20 08:42 Room Air 01/29/20 05:33 36.7 102 20 110/54 (72) 94 01/28/20 22:12 2.00 Capillary Refill : Less Than 3 Seconds General Appearance: No Apparent Distress, WD/WN, Chronically ill, Other (pale) HEENT: PERRL/EOMI, Normal ENT Inspection, Pharynx Normal Neck: Full Range of Motion, Normal Inspection, Non Tender, Supple, Carotid Bruit Respiratory: Chest Non Tender, Lungs Clear, Normal Breath Sounds, No Accessory Muscle Use, No Respiratory Distress Cardiovascular: Regular Rate, Rhythm, No Edema, No Gallop, No JVD, No Murmur, Normal Peripheral Pulses Gastrointestinal: Normal Bowel Sounds, No Organomegaly, No Pulsatile Mass, Non Tender, Soft Back: Decreased Range of Motion Extremity: Normal Capillary Refill, Normal Inspection, Normal Range of Motion, Non Tender, No Calf Tenderness, No Pedal Edema Neurologic/Psychiatric: Alert, Oriented x3, No Motor/Sensory Deficits, Normal Mood/Affect, 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 FIM Transfers Therapy Code Descriptions/Definitions Functional [place] Measure: 0=Not Assessed/NA 4=Minimal Assistance 1=Total Assistance 5=Supervision or Setup 2=Maximal Assistance 6=Modified [place] 3=Moderate Assistance 7=Complete IndependenceSCALE: Activities may be completed with or without assistive devices. 1-Jffobvzhua-udoaqja completes the activity by him/herself with no assistance from a helper. 5-Set-up or Clean-up Assistance-helper sets up or cleans up; patient completes activity. [place] assists only prior to or following the activity. 4-Supervision or Touching Assistance-helper provides verbal cues and/or touching/steadying and/or contact guard assistance as patient completes activity. Assistance may be provided throughout the activity or intermittently. 3-Partial/Moderate Assistance-helper does LESS THAN HALF the effort. [place] lifts, holds or supports trunk or limbs, but provides less than half the effort. 2-Substantial/Maximal Assistance-helper does MORE THAN HALF the effort. [place] lifts or holds trunk or limbs and provides more than half the effort. 6-Fjqzlozzq-jcfguj does ALL the effort. Patient does none of the effort to complete the activity. Or, the assistance of 2 or more helpers is required for the patient to complete the activity. If activity was not attempted, code reason: 7-Patient Refused. 9-Not Applicable-not attempted and the patient did not perform the activity before the current illness, exacerbation or injury. 10-Not Attempted due to Environmental Limitations-(lack of equipment, weather restraints, etc.). 88-Not Attempted due to Medical Conditions or Safety Concerns. Roll Left to Right (QC): 4 Sit to Lying (QC): 3 Sit to Stand (QC): 4 Chair/Ban-hu-Pjpba Xfer(QC): 3 Car Transfer (QC): 3 Gait Training Does the Patient Walk?: Yes Distance: 120' x2 Walk 10 feet (QC): 4 Walk 50 ft with 2 Turns(QC): 4 Walk 150 ft (QC): 4 Walking 10ft/uneven surface-QC: 3 Gait Assistive Device: FWW Wheelchair Training Does the Pt Use a Wheelchair?: No Wheel 50 ft with 2 turns (QC): 9 Wheel 150 ft (QC): 9 Type of Wheelchair: N/A Stair Training #of Steps: 8 1 Step (curb) (QC): 3 4 Steps (QC): 88 12 Steps (QC): 88 Stairs: Pattern: Step to Balance Picking up an Object (QC): 88 ADL-Treatment Eating (QC): 5 (pt reports she has some difficulty chewing food and cutting food. No difficulties bringing food to her mouth.) Oral Hygiene (QC): 6 Bathing Location: L Arm, R Arm, L Upper Leg, R Upper Leg, L Lower Leg (including foot), R Lower Leg (including foot), Chest, Abdomen, Buttocks, Perineal Area Shower/Bathe Self (QC): 5 Upper Body Dressing (QC): 5 Lower Body Dressing (QC): 3 On/Off Footwear (QC): 6 Toileting Hygiene (QC): 6 Toilet Transfer (QC): 4 Assessment/Plan Assessment and Plan Assess & Plan/Chief Complaint Assessment: Lumbar stenosis with neurogenic claudication Severe anemia JW refusal of blood products HTN HLP Fever Goldstein cath UTI Bradycardia at [place] Plan: Dr Iglesias consult EPO and Venofer tomorrow Gentle IVF PT OT Abx broad spectrum 01/24/20: Monitor hemoglobin Appreciate Dr. Castellanos Appreciate Dr. Iglesias Continue antibiotics Monitor closely 01/25/20: Continue Cefepime Discontinue Vanc Monitor fever Place midline for iron infusions and antibiotics Monitor hemoglobin 4.[address] Iglesias 01/26/20: Maintain Hematology support Continue abx UCx reviewed 01/27/20: DC IV abx PO abx for UTI Change pain meds 01/28/20: PO abx Hgb good Iron infusions BM regimen Ultram 01/29/20: Complete tx for UTI Monitor labs closely but prevent phlebotomy driven anemia (1) Lumbar stenosis with neurogenic claudication (2) Refusal of blood transfusions as patient is Religious (3) Anemia due to acute blood loss (4) Advanced age (5) Hypertension (6) Hyperlipemia (7) Fever (8) Bradycardia SAMARIA NAIR DO Jan 29, 2020 06:50
--- NOTE | 2020-01-29 08:21 | Occupational Ther Daily Note ---
OT Current Status-Daily Note Subjective Pt alert, requesting bathroom. Pt agrees to therapy. Pt stated that pain was at 2, she had pain pills at 0600. Mental Status/Objective Patient Orientation: Person, Place, Time, Situation Attachments: IV (midline) ADL-Treatment Declined shower. Completed toileting, toilet transfer independently using FWW. Completed hand washing and oral care standing at sink, independently. After handing pt back brace pt able to don/doff by self. Therapy Code Descriptions/Definitions Functional [place] Measure: 0=Not Assessed/NA 4=Minimal Assistance 1=Total Assistance 5=Supervision or Setup 2=Maximal Assistance 6=Modified [place] 3=Moderate Assistance 7=Complete IndependenceSCALE: Activities may be completed with or without assistive devices. 4-Okmpblhefb-tvyagde completes the activity by him/herself with no assistance from a helper. 5-Set-up or Clean-up Assistance-helper sets up or cleans up; patient completes activity. [place] assists only prior to or following the activity. 4-Supervision or Touching Assistance-helper provides verbal cues and/or touching/steadying and/or contact guard assistance as patient completes activity. Assistance may be provided throughout the activity or intermittently. 3-Partial/Moderate Assistance-helper does LESS THAN HALF the effort. [place] lifts, holds or supports trunk or limbs, but provides less than half the effort. 2-Substantial/Maximal Assistance-helper does MORE THAN HALF the effort. [place] lifts or holds trunk or limbs and provides more than half the effort. 7-Xwdiqfndi-dyihho does ALL the effort. Patient does none of the effort to complete the activity. Or, the assistance of 2 or more helpers is required for the patient to complete the activity. If activity was not attempted, code reason: 7-Patient Refused. 9-Not Applicable-not attempted and the patient did not perform the activity before the current illness, exacerbation or injury. 10-Not Attempted due to Environmental Limitations-(lack of equipment, weather restraints, etc.). 88-Not Attempted due to Medical Conditions or Safety Concerns. Oral Hygiene (QC): 6 Toileting Hygiene (QC): 6 Toilet Transfer (QC): 6 Other Treatment Pt ambulated to therapy gym with supervision using FWW. Completed arm bike to increase B UE strength for daily functional tasks. 15 min at 15 [place]ole resistance, no breaks. Pt ambulated back to room and was able to go from EOB to supine by self. Call light/phone in hand. All needs met in room. OT Alf Goals Window Trimmer Apprentice Goals Time Frame: Feb 21, 2020 Eating (QC): 6 Oral Hygiene (QC): 6 Toileting Hygiene (QC): 6 Shower/Bathe Self (QC): 6 Upper Body Dressing (QC): 6 Lower Body Dressing (QC): 6 On/Off Footwear (QC): 6 Additional Goals: 1-Demonstrate ADL Tasks, 2-Verbalize Understanding, 3-Im proveStrength/Kassandra 1=Demonstrate adherence to instructed precautions during ADL tasks. 2=Patient will verbalize/demonstrate understanding of assistive devices/modifications for ADL. 3=Patient will improve strength/tolerance for activity to enable patient to perform ADL's. OT Education/Plan Problem List/Assessment Assessment: Decreased Activ Tolerance, Decreased UE Strength, Impaired Self- Care Skills Discharge Recommendations Plan/Recommendations: Continue POC Treatment Plan/Plan of Care Patient would benefit from OT for education, treatment and training to promote independence in ADL's, mobility, safety and/or upper extremity function for ADL's. Plan of Care: ADL Retraining, Functional Mobility, Group Exercise/Act as Ind, UE Funct Exercise/Act Treatment Duration: Feb 21, 2020 Frequency: Modified Program (IRF) (05/12) Estimated Hrs Per Day: 1.5 hours per day Rehab Potential: Fair Time/GCodes Start Time: 07:20 Stop Time: 08:20 Total Time Billed (hr/min): 60 Billed Treatment Time 1 visit-ADL 3 (45 min) EX 1 (15 min) BRITTNEY HUMPHREYS Jan 29, 2020 08:21
[2020-01-29] MEDS: FOLIC ACID 1 MG TAB PO SCH (08:35)
[2020-01-29] MEDS: DICYCLOMINE 10 MG (BENTYL) CAP PO SCH ×2 (08:35→20:48)
[2020-01-29] MEDS: CEFDINIR 300 MG (OMNICEF) CAP PO SCH ×2 (08:35→20:47)
[2020-01-29] MEDS: DOCUSATE SODIUM 100 MG (COLACE) CAP PO SCH ×2 (08:36→20:48)
[2020-01-29] MEDS: polyethylene glycoL POWDER 17 GM (MIRALAX) PACK PO SCH ×2 (08:36→20:48)
[2020-01-29] MEDS: SENNA W/DOCUSATE (SENOKOT S) TABLET PO SCH ×2 (08:37→20:49)
--- NOTE | 2020-01-29 11:56 | Physical Therapy Daily Note ---
PT Daily Note-Current Subjective Patient in bed pre tx, agrees to PT, has no complaints of pain. Appearance Patient in recliner post tx with nurse call, phone, tray, all needs met. Mental Status Patient Orientation: Person, Unable to Assess (spainish speaking) back brace Transfers SCALE: Activities may be completed with or without assistive devices. 0-Buanjjyexh-hbwxfbw completes the activity by him/herself with no assistance from a helper. 5-Set-up or Clean-up Assistance-helper sets up or cleans up; patient completes activity. [place] assists only prior to or following the activity. 4-Supervision or Touching Assistance-helper provides verbal cues and/or touching/steadying and/or contact guard assistance as patient completes activity. Assistance may be provided throughout the activity or intermittently. 3-Partial/Moderate Assistance-helper does LESS THAN HALF the effort. [place] lifts, holds or supports trunk or limbs, but provides less than half the effort. 2-Substantial/Maximal Assistance-helper does MORE THAN HALF the effort. [place] lifts or holds trunk or limbs and provides more than half the effort. 4-Mkkncbroa-mpnfdp does ALL the effort. Patient does none of the effort to complete the activity. Or, the assistance of 2 or more helpers is required for the patient to complete the activity. If activity was not attempted, code reason: 7-Patient Refused. 9-Not Applicable-not attempted and the patient did not perform the activity before the current illness, exacerbation or injury. 10-Not Attempted due to Environmental Limitations-(lack of equipment, weather restraints, etc.). 88-Not Attempted due to Medical Conditions or Safety Concerns. Roll Left & Right (QC): 6 Lying to Sitting/Side of Bed(Q: 3 Sit to Stand (QC): 4 Chair/Nec-es-Jecby Xfer(QC): 4 Gait Training Distance: 120'x2 Walk 10 feet (QC): 4 Walk 50 ft with 2 Turns(QC): 4 Gait Persons Needed: 1 Gait Assistive Device: FWW CGA, slow, antalgic Exercises Seated Therapy Exercises: Hip flexion, Hamstring Curls (RTB), Hip abd/add (with pillow and RTB) Standing: Hip Abduction, Heel/toe raises, Marching, Mini squats Standing Reps: 15 LAQ alternating for 5 min, after a couple of minutes patient indicates that something is wrong with her left knee so just did the right knee after that. NuStep Minutes: 15 NuStep Workload: 4 Treatments bed mobility and transfers, ambulation, functional strengthening Assessment Current Status: Poor Progress slow progress, weak left leg, CGA with activity PT Short Term Goals Short Term Goals Time Frame: Jan 31, 2020 Roll Left & Right: 3 Sit to lyin Lying to sitting on side of be: 3 Sit to stand: 4 Chair/cuk-wk-gzdst transfer: 4 Walk 10 feet: 4 Walk 50 feet with two turns: 4 PT Retirement Goals Retirement Goals PT Retirement Goals Time Frame: Feb 14, 2020 Roll Left & Right (QC): 4 Sit to Lying (QC): 4 Lying-Sitting on Side/Bed(QC): 4 Sit to Stand (QC): 4 Chair/Ngq-pn-Csyxo Xfer(QC): 4 Toilet Transfer (QC): 4 Car Transfer (QC): 4 Does the Patient Walk: Yes Walk 10 feet (QC): 4 Walk 50ft with 2 Turns (QC): 4 Walk 150 ft (QC): 4 Walking 10ft on Uneven Surface: 4 1 Step (curb) (QC): 4 4 Steps (QC): 4 12 Steps (QC): 4 Picking up an Object (QC): 88 Wheel 50 feet with 2 turns (QC: 9 Wheel 150 feet: 9 PT Plan Problem List Problem List: Activity Tolerance, Functional Strength, Safety, Balance, Gait, Transfer, Bed Mobility, ROM Treatment/Plan Treatment Plan: Continue Plan of Care Treatment Plan: Bed Mobility, Education, Functional Activity Kassandra, Functional Strength, Group Therapy, Gait, Safety, Therapeutic Exercise, Transfers Treatment Duration: Feb 14, 2020 Frequency: Modified Program (IRF) Estimated Hrs Per Day: 1.5 hours per day Patient and/or Family Agrees t: Yes Safety Risks/Education Patient Education: Gait Training, Transfer Techniques, Correct Positioning, Reviewed Don/Doff Brace, Safety Issues Teaching Recipient: Patient Teaching Methods: Demonstration, Discussion Response to Teaching: Reinforcement Needed Time/GCodes Time In: 1100 Time Out: 1200 Total Billed Treatment Time: 60 Total Billed Treatment 1 visit GT 20' EX 40' CURTIS STRNOG PT Jan 29, 2020 11:56
[2020-01-29 13:00] VITALS: BP 112/56
[2020-01-29] MEDS: lisINopril 10 MG (PRINIVIL) TABLET PO SCH (13:19)
--- NOTE | 2020-01-29 14:37 | Cardiology Progress Note ---
Cardiology SOAP Progress Note Subjective: No cardiac complaints. Objective: I&O/Vital Signs 01/29/20 01/29/20 05:33 08:42 Temp 36.7 Pulse 102 Resp 20 B/P (MAP) 110/54 (72) Pulse Ox 94 O2 Delivery Room Air Room Air 01/29/20 00:00 Intake Total 1240 ml Output Total 1040 ml Balance 200 ml Constitutional: appears stated age, AAO x 3, well-developed, well-nourished Respiratory: chest is bilaterally symmetric, lungs clear to auscultation Cardiovascular: regular rate-rhythm, S1 and S2 Gastrointestional: soft, audible bowel sounds Extremities: normal range of motion, non-tender, normal inspection, no lower extremity edema bilateral Neurologic/Psychiatric: no motor/sensory deficits, alert, normal mood/affect, oriented x 3, power is 5/5 both on sides Skin: normal color, warm/dry Results/Procedures: Labs Microbiology 01/23/20 Blood Culture - Preliminary, Resulted No growth 01/23/20 Urine Culture - Final, Complete Escherichia coli A/P: Assessment/Dx: Sinus bradycardia, resolved Hypertension, Fever, Extensive spine surgery. Christianity, Severe anemia Plan: Sinus bradycardia, currently normal sinus rhythm. Not on any rate controlling agents. We will continue to follow clinically. Hypertension, patient is on lisinopril. Can continue. Fever, defer to Dr. Bojorquez. Extensive spine surgery. Inpatient rehabilitation. still has pain in the back and lower extremities. Severe anemia, iron infusions) erythropoietin given. Dr. Torre on board. Patient is Christianity therefore no transfusion. Thank you for your consultation. Please call me if you have any questions. Malinda Mendieta MD, FACP, FACC, FSCAI, FHRS, CCDS Interventional Cardiology Cardiac Electrophysiology Vascular Medicine and Endovascular Interventions Mc MENDIETA MD Jan 29, 2020 14:37
--- NOTE | 2020-01-29 14:42 | Therapy Group Daily Note ---
Therapy Daily Group Note Patient Education Topic Home Safety, Fall Prevention, Exercises Exercises LE Seated Exercise, UE Exercise Session Ratio (pt:therapist): 4:1 Goal of Session: Home Safety Strategies, UE/LE Strengthing, Other (list) (fall prevention strategiges) Pt was able to participate in seated UE and LE exercises to benefit transfers and ADLs. She declined to answer questions about her home safety and fall prevention but benefitted from hearing about the experiences of others. Goal Met for this Session: Yes Pt Benefit of Group: F/U Use of Strategies @Home, Increased Functional Strength, Socialization Pt also increased her activity tolerance by walking to grorup and being active for group time. Start Time: 13:00 Stop Time: 14:00 Total Billed Treatment Time: 60 Total Billed Treatment visit, 60 minutes group JACQUES MARRERO OT Jan 29, 2020 14:42
[2020-01-29 18:28] VITALS: BP 122/64
[2020-01-29] MEDS: MELATONIN 3 MG TABLET PO PRN (20:48)
[2020-01-30 06:00] VITALS: BP 122/58
[2020-01-30] MEDS: polyethylene glycoL POWDER 17 GM (MIRALAX) PACK PO SCH ×2 (07:38→20:22)
[2020-01-30] MEDS: SENNA W/DOCUSATE (SENOKOT S) TABLET PO SCH ×2 (07:38→20:22)
[2020-01-30] MEDS: DOCUSATE SODIUM 100 MG (COLACE) CAP PO SCH ×2 (07:38→20:22)
--- NOTE | 2020-01-30 08:27 | PM&R Progress Note ---
Subjective HPI/CC On Admission Date Seen by Provider: Jan 30, 2020 Time Seen by Provider: 09:00 Subjective/Events-last exam 01/30/20: Layla Munoz Hgb 6 on last check UTI treatment completing Ultram handling the pain 01/29/20: Patient feels good Ultram works better for her less sedating than the Hydrocodone 01/28/20: Patient doing well Hgb 6.1 Right leg pain and heaviness but no coldness noted BM++ PO abx for UTI 01/27/20: Patient doing well BM today Ultram will be ordered since [place] makes her too sleepy 01/26/20: Doing well Hgb stable UTI treatment maintained Updated daughter BM+ Lortab maintained 01/25/20: Hgb 4.9 and stable Vitals stable Midline will be placed due to antibiotics and IV iron infusions Appreciate Dr. Iglesias Pain is only a 4/10 Tmax of 99.5 DC IV fluid and Vancomycin Cefepime maintained E. coli urine culture pending with sensitivity Pt had an uneventful might Had a fever this morning at 36.5 Remains tachycardic but sinus type Cefepime and Vanc maintained Preliminary urine culture is E. Coli Bowels moved this morning No drainage at the operative site Hgb up from 3.8 to 4.9 even with gentle IV fluid WBC down to 11.[address] Castellanos and Dr. Caldwell Checked meds and labs Conferred with RN Reviewed therapy notes Review of Systems General: Fatigue, Malaise Neurological: Weakness Objective Exam Vital Signs Vital Signs Date Time Temp Pulse Resp B/P (MAP) Pulse Ox O2 Delivery O2 Flow Rate FiO2 01/30/20 18:00 37.5 94 18 108/69 (82) 96 Nasal Cannula 2.00 Capillary Refill : Less Than 3 Seconds General Appearance: No Apparent Distress, WD/WN, Chronically ill, Other (pale) HEENT: PERRL/EOMI, Normal ENT Inspection, Pharynx Normal Neck: Full Range of Motion, Normal Inspection, Non Tender, Supple, Carotid Bruit Respiratory: Chest Non Tender, Lungs Clear, Normal Breath Sounds, No Accessory Muscle Use, No Respiratory Distress Cardiovascular: Regular Rate, Rhythm, No Edema, No Gallop, No JVD, No Murmur, Normal Peripheral Pulses Gastrointestinal: Normal Bowel Sounds, No Organomegaly, No Pulsatile Mass, Non Tender, Soft Back: Decreased Range of Motion Extremity: Normal Capillary Refill, Normal Inspection, Normal Range of Motion, Non Tender, No Calf Tenderness, No Pedal Edema Neurologic/Psychiatric: Alert, Oriented x3, No Motor/Sensory Deficits, Normal Mood/Affect, 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 FIM Transfers Therapy Code Descriptions/Definitions Functional [place] Measure: 0=Not Assessed/NA 4=Minimal Assistance 1=Total Assistance 5=Supervision or Setup 2=Maximal Assistance 6=Modified [place] 3=Moderate Assistance 7=Complete IndependenceSCALE: Activities may be completed with or without assistive devices. 4-Fqwheqtuhv-jlxffyd completes the activity by him/herself with no assistance from a helper. 5-Set-up or Clean-up Assistance-helper sets up or cleans up; patient completes activity. [place] assists only prior to or following the activity. 4-Supervision or Touching Assistance-helper provides verbal cues and/or touching/steadying and/or contact guard assistance as patient completes activity. Assistance may be provided throughout the activity or intermittently. 3-Partial/Moderate Assistance-helper does LESS THAN HALF the effort. [place] lifts, holds or supports trunk or limbs, but provides less than half the effort. 2-Substantial/Maximal Assistance-helper does MORE THAN HALF the effort. [place] lifts or holds trunk or limbs and provides more than half the effort. 9-Pmzahyjto-orhcqu does ALL the effort. Patient does none of the effort to complete the activity. Or, the assistance of 2 or more helpers is required for the patient to complete the activity. If activity was not attempted, code reason: 7-Patient Refused. 9-Not Applicable-not attempted and the patient did not perform the activity before the current illness, exacerbation or injury. 10-Not Attempted due to Environmental Limitations-(lack of equipment, weather restraints, etc.). 88-Not Attempted due to Medical Conditions or Safety Concerns. Roll Left to Right (QC): 6 Sit to Lying (QC): 3 Sit to Stand (QC): 4 Chair/Cbv-fq-Iryet Xfer(QC): 4 Car Transfer (QC): 3 Gait Training Does the Patient Walk?: Yes Distance: 120'x2 Walk 10 feet (QC): 4 Walk 50 ft with 2 Turns(QC): 4 Walk 150 ft (QC): 4 Walking 10ft/uneven surface-QC: 3 Gait Persons Needed: 1 Gait Assistive Device: FWW Wheelchair Training Does the Pt Use a Wheelchair?: No Wheel 50 ft with 2 turns (QC): 9 Wheel 150 ft (QC): 9 Type of Wheelchair: N/A Stair Training #of Steps: 8 1 Step (curb) (QC): 3 4 Steps (QC): 88 12 Steps (QC): 88 Stairs: Pattern: Step to Balance Picking up an Object (QC): 88 ADL-Treatment Eating (QC): 5 (pt reports she has some difficulty chewing food and cutting food. No difficulties bringing food to her mouth.) Oral Hygiene (QC): 6 Bathing Location: L Arm, R Arm, L Upper Leg, R Upper Leg, L Lower Leg (including foot), R Lower Leg (including foot), Chest, Abdomen, Buttocks, Perineal Area Shower/Bathe Self (QC): 5 Upper Body Dressing (QC): 5 Lower Body Dressing (QC): 3 On/Off Footwear (QC): 6 Toileting Hygiene (QC): 6 Toilet Transfer (QC): 6 Assessment/Plan Assessment and Plan Assess & Plan/Chief Complaint Assessment: Lumbar stenosis with neurogenic claudication Severe anemia JW refusal of blood products HTN HLP Fever [place]stein cath UTI Bradycardia at [place] Plan: Dr Iglesias consult EPO and Venofer tomorrow Gentle IVF PT OT Abx broad spectrum 01/24/20: Monitor hemoglobin Appreciate Dr. Castellanos Appreciate Dr. Iglesias Continue antibiotics Monitor closely 01/25/20: Continue Cefepime Discontinue Vanc Monitor fever Place midline for iron infusions and antibiotics Monitor hemoglobin 4.[address] Iglesias 01/26/20: Maintain Hematology support Continue abx UCx reviewed 01/27/20: DC IV abx PO abx for UTI Change pain meds 01/28/20: PO abx Hgb good Iron infusions BM regimen Ultram 01/29/20: Complete tx for UTI Monitor labs closely but prevent phlebotomy driven anemia 01/30/20: Monitor hemoglobin Complete UTI treatment Ultram maintaining good pain control (1) Lumbar stenosis with neurogenic claudication (2) Refusal of blood transfusions as patient is Sabianist (3) Anemia due to acute blood loss (4) Advanced age (5) Hypertension (6) Hyperlipemia (7) Fever (8) Bradycardia SAMARIA NAIR DO Jan 30, 2020 08:26
[2020-01-30] MEDS: IRON SUCROSE 200 MG/10 ML (VENOFER) VIAL IV SCH (08:28)
[2020-01-30] MEDS: CEFDINIR 300 MG (OMNICEF) CAP PO SCH ×2 (08:28→20:26)
[2020-01-30] MEDS: FOLIC ACID 1 MG TAB PO SCH (08:29)
[2020-01-30] MEDS: DICYCLOMINE 10 MG (BENTYL) CAP PO SCH ×2 (08:29→20:26)
--- NOTE | 2020-01-30 08:33 | Occupational Ther Daily Note ---
OT Current Status-Daily Note Subjective Pt sitting in recliner when OT entered. Pt agreed to taking shower. No c/o pain reported. Mental Status/Objective Patient Orientation: Person, Place, Time, Situation ADL-Treatment Pt agreed to taking shower. After giving pt back brace, donned by self. Pt sit- stand from raised recliner to [facility], with supervision. Pt ambulated to bathroom and stated she needed to use the restroom. Pt transferred to toilet with supervision. Completed toilet hygiene by self while seated. Pt sit-stand from toilet to hike briefs and pants over hips. Pt then ambulated to shower bench using [facility], supervision. Pt doffed back brace by self. Pt doffed upper body dressing and lower body dressing. Pt doffed socks using dressing stick. Assist to turn on water and the temperature of water. Pt was able to wash/dry all body parts while using a shower bench, hand held shower head, long handled sponge, and supervision for safety. After set up pt able to don brief using dressing, assist to thread feet. Pt unable to verbalize she needed to go to the restroom, so she began to ambulate to toilet. Transferred to toilet with SBA. Completed toilet hygiene by sit-stand from toilet using grab bars with SBA. After toilet hygiene, pt ambulated to commode. After set up, pt able to don night gown by self. Pt able to don back brace after handing it to her. Pt donned socks using sock aid. Had trouble threading sock onto sock aid, due to decrease strength in hands. VASQUEZ assisted. Pt was then able to dons sock by self using sock aid. Pt ambulated to sink and completed oral care independently while standing at sink. Pt then ambulated to bed. Transferred to EOB from [facility] with supervison. EOB to supine. After therapy pt lying in bed. Call light/phone in reach. All needs met. Therapy Code Descriptions/Definitions Functional [place] Measure: 0=Not Assessed/NA 4=Minimal Assistance 1=Total Assistance 5=Supervision or Setup 2=Maximal Assistance 6=Modified [place] 3=Moderate Assistance 7=Complete IndependenceSCALE: Activities may be completed with or without assistive devices. 6-Voniyakoro-zgyqlsn completes the activity by him/herself with no assistance from a helper. 5-Set-up or Clean-up Assistance-helper sets up or cleans up; patient completes activity. [place] assists only prior to or following the activity. 4-Supervision or Touching Assistance-helper provides verbal cues and/or touching/steadying and/or contact guard assistance as patient completes activity. Assistance may be provided throughout the activity or intermittently. 3-Partial/Moderate Assistance-helper does LESS THAN HALF the effort. [place] lifts, holds or supports trunk or limbs, but provides less than half the effort. 2-Substantial/Maximal Assistance-helper does MORE THAN HALF the effort. [place] lifts or holds trunk or limbs and provides more than half the effort. 3-Jwyeesrti-kfaueb does ALL the effort. Patient does none of the effort to complete the activity. Or, the assistance of 2 or more helpers is required for the patient to complete the activity. If activity was not attempted, code reason: 7-Patient Refused. 9-Not Applicable-not attempted and the patient did not perform the activity before the current illness, exacerbation or injury. 10-Not Attempted due to Environmental Limitations-(lack of equipment, weather restraints, etc.). 88-Not Attempted due to Medical Conditions or Safety Concerns. Oral Hygiene (QC): 6 Shower/Bathe Self (QC): 4 Upper Body Dressing (QC): 5 Lower Body Dressing (QC): 5 On/Off Footwear: 5 Toileting Hygiene (QC): 4 Toilet Transfer (QC): 4 OT Lead Tinner Goals Residential Goals Time Frame: Feb 21, 2020 Eating (QC): 6 Oral Hygiene (QC): 6 Toileting Hygiene (QC): 6 Shower/Bathe Self (QC): 6 Upper Body Dressing (QC): 6 Lower Body Dressing (QC): 6 On/Off Footwear (QC): 6 Additional Goals: 1-Demonstrate ADL Tasks, 2-Verbalize Understanding, 3-ImproveStrength/Kassandra 1=Demonstrate adherence to instructed precautions during ADL tasks. 2=Patient will verbalize/demonstrate understanding of assistive devices/modifications for ADL. 3=Patient will improve strength/tolerance for activity to enable patient to perform ADL's. OT Education/Plan Problem List/Assessment Assessment: Decreased Activ Tolerance, Decreased UE Strength, Impaired Coordination, Impaired Funct Balance, Impaired I ADL's, Impaired Self-Care Skills Discharge Recommendations Plan/Recommendations: Continue POC Treatment Plan/Plan of Care Patient would benefit from OT for education, treatment and training to promote independence in ADL's, mobility, safety and/or upper extremity function for ADL's. Plan of Care: ADL Retraining, Functional Mobility, Group Exercise/Act as Ind, UE Funct Exercise/Act Treatment Duration: Feb 21, 2020 Frequency: Modified Program (IRF) (05/12) Estimated Hrs Per Day: 1.5 hours per day Rehab Potential: Fair Time/GCodes Start Time: 07:30 Stop Time: 08:30 Total Time Billed (hr/min): 60 Billed Treatment Time 1 visit-ADL 4 (60 mins) BRITTNEY HUMPHREYS Jan 30, 2020 08:33
--- NOTE | 2020-01-30 10:03 | Progress Note - Urology ---
Progress Note-Urology Progress Notes/Assess & Plan Progress/Assessment & Plan DOING WELL MENDOZA. WE WILL SEE PRN Final Diagnosis NEUROGENIC BLADDER AMY MUNOZ MD Jan 30, 2020 10:03
--- NOTE | 2020-01-30 10:59 | Physical Therapy Daily Note ---
PT Daily Note-Current Subjective Pt presents supine in bed. Pt agrees to PT but would first like assistance to bathroom. Pt reports no pain. Appearance After PT tx pt is in recliner with access to tray, call button, and all needs met. Mental Status Patient Orientation: Person, Unable to Assess back brace Transfers SCALE: Activities may be completed with or without assistive devices. 2-Zljlyvodfi-vnlkcxm completes the activity by him/herself with no assistance from a helper. 5-Set-up or Clean-up Assistance-helper sets up or cleans up; patient completes activity. [place] assists only prior to or following the activity. 4-Supervision or Touching Assistance-helper provides verbal cues and/or touching/steadying and/or contact guard assistance as patient completes activity. Assistance may be provided throughout the activity or intermittently. 3-Partial/Moderate Assistance-helper does LESS THAN HALF the effort. [place] lifts, holds or supports trunk or limbs, but provides less than half the effort. 2-Substantial/Maximal Assistance-helper does MORE THAN HALF the effort. [place] lifts or holds trunk or limbs and provides more than half the effort. 0-Lfshffopq-mxjdip does ALL the effort. Patient does none of the effort to complete the activity. Or, the assistance of 2 or more helpers is required for the patient to complete the activity. If activity was not attempted, code reason: 7-Patient Refused. 9-Not Applicable-not attempted and the patient did not perform the activity before the current illness, exacerbation or injury. 10-Not Attempted due to Environmental Limitations-(lack of equipment, weather restraints, etc.). 88-Not Attempted due to Medical Conditions or Safety Concerns. Sit to Lying (QC): 3 Lying to Sitting/Side of Bed(Q: 3 Sit to Stand (QC): 4 Gait Training Distance: 200', 120' Walk 10 feet (QC): 4 Walk 50 ft with 2 Turns(QC): 4 Walk 150 ft (QC): 4 Gait Assistive Device: FWW Antalgic gait with clubfoot and L knee hyperextension Exercises Supine Ex: Bridging, Heel Slides, Short Arc Quads, Straight leg raise, Hip abd/add Supine Reps: 20 Standing: Sit to Stand Standing Reps: 5 NuStep Minutes: 15 NuStep Workload: 4 Treatments Gait training and LE strengthening Assessment Current Status: Good Progress Pt demonstrates good mobility once seated or standing, but struggles with bed mobility. Pt was independent in standing from toilet, pulling up briefs, and washing hands at sink. PT Short Term Goals Short Term Goals Time Frame: Jan 31, 2020 Roll Left & Right: 3 Sit to lyin Lying to sitting on side of be: 3 Sit to stand: 4 Chair/jim-rp-pkyhi transfer: 4 Walk 10 feet: 4 Walk 50 feet with two turns: 4 PT Detention Goals Pharmacy Salesperson Goals PT Detention Goals Time Frame: Feb 14, 2020 Roll Left & Right (QC): 4 Sit to Lying (QC): 4 Lying-Sitting on Side/Bed(QC): 4 Sit to Stand (QC): 4 Chair/Zbf-ua-Xdkwz Xfer(QC): 4 Toilet Transfer (QC): 4 Car Transfer (QC): 4 Does the Patient Walk: Yes Walk 10 feet (QC): 4 Walk 50ft with 2 Turns (QC): 4 Walk 150 ft (QC): 4 Walking 10ft on Uneven Surface: 4 1 Step (curb) (QC): 4 4 Steps (QC): 4 12 Steps (QC): 4 Picking up an Object (QC): 88 Wheel 50 feet with 2 turns (QC: 9 Wheel 150 feet: 9 PT Plan Problem List Problem List: Activity Tolerance, Functional Strength, Safety, Balance, Gait, Transfer, Bed Mobility, ROM Treatment/Plan Treatment Plan: Continue Plan of Care Treatment Plan: Bed Mobility, Education, Functional Activity Kassandra, Functional Strength, Group Therapy, Gait, Safety, Therapeutic Exercise, Transfers Treatment Duration: Feb 14, 2020 Frequency: Modified Program (IRF) Estimated Hrs Per Day: 1.5 hours per day Patient and/or Family Agrees t: Yes Safety Risks/Education Patient Education: Gait Training, Transfer Techniques, Correct Positioning, Reviewed Don/Doff Brace Teaching Recipient: Patient Teaching Methods: Demonstration, Discussion Response to Teaching: Reinforcement Needed Time/GCodes Time In: 1000 Time Out: 1100 Total Billed Treatment Time: 60 Total Billed Treatment 1 visit GT 15' EX 35' FA 10' CURTIS STRONG PT Jan 30, 2020 10:59
[2020-01-30] MEDS: lisINopril 10 MG (PRINIVIL) TABLET PO SCH (13:14)
--- NOTE | 2020-01-30 13:49 | Progress Note ---
Standard Progress Note Progress Notes/Assess & Plan Date Seen by a Provider: Jan 30, 2020 Time Seen by a Provider: 13:46 Progress/Assessment & Plan 79-year-old female who is a Muslim admitted to rehabilitation unit following spinal surgery and significant iron deficiency anemia. Patient is receiving parenteral iron therapy and received darbepoetin a week ago. She is also on folic acid daily and received vitamin B-12 1000 g last week. Reticulocyte count has increased with gradually increasing hemoglobin. Increased diarrhea 0.10-40 g weekly with the first dose tomorrow. Administer iron for a total dose of 1 g. Repeat CBC and reticulocyte count to [place] morning. Will follow patient with you. CARY MAE Jan 30, 2020 13:49
--- NOTE | 2020-01-30 14:18 | Occupational Ther Daily Note ---
OT Current Status-Daily Note Subjective Pt laying in bed when OT entered. Agreed to therapy. No c/o pain reported. ADL-Treatment Pt supine to EOB, supervision. After handing pt back brace, pt able to don by self. Pt transferred from EOB to FWW. Ambulated using FWW to gym, supervision. Pt then completed 2 sets of arch using R UE while standing to increase pt's UE strength and standing balance for daily task. Pt required rest break after each set. Lowered the arch so pt could complete using L UE. Noticed difficulty when she initiated shoulder abduction, stopped the activity. To increase pt finger dexterity and pinch grasp, pt grasped clothes pin ranging from light resistance( yellow, green, red) to hard resistance(blue and black) to different sized poles. Pt was able to grasp all light resistance clothes pin and place them on the thicker pole. Pt was able to grasp the blue clothes pin and place them on skinny pole. Noticed pt would use other hand for support when pinching for clothes pin. Pt reported pain in fingers when participating in activity, so black clothes pin was put away. After placing each clothes pin on the pole, pt requested rest break. When asked during her break if there was any pain still, pt said she felt okay and was ready to finish. Pt sit-stand from chair and pinched clothes pin off the pole. Pt then ambulated back to room using FWW with supervision. Pt stated she needed to use the restroom. Therapy Code Descriptions/Definitions Functional [place] Measure: 0=Not Assessed/NA 4=Minimal Assistance 1=Total Assistance 5=Supervision or Setup 2=Maximal Assistance 6=Modified [place] 3=Moderate Assistance 7=Complete IndependenceSCALE: Activities may be completed with or without assistive devices. 4-Stqmbijorv-cqtbdqf completes the activity by him/herself with no assistance from a helper. 5-Set-up or Clean-up Assistance-helper sets up or cleans up; patient completes activity. [place] assists only prior to or following the activity. 4-Supervision or Touching Assistance-helper provides verbal cues and/or touching/steadying and/or contact guard assistance as patient completes activity. Assistance may be provided throughout the activity or intermittently. 3-Partial/Moderate Assistance-helper does LESS THAN HALF the effort. [place] lifts, holds or supports trunk or limbs, but provides less than half the effort. 2-Substantial/Maximal Assistance-helper does MORE THAN HALF the effort. [place] lifts or holds trunk or limbs and provides more than half the effort. 0-Ititwwcqc-uybbyi does ALL the effort. Patient does none of the effort to complete the activity. Or, the assistance of 2 or more helpers is required for the patient to complete the activity. If activity was not attempted, code reason: 7-Patient Refused. 9-Not Applicable-not attempted and the patient did not perform the activity before the current illness, exacerbation or injury. 10-Not Attempted due to Environmental Limitations-(lack of equipment, weather restraints, etc.). 88-Not Attempted due to Medical Conditions or Safety Concerns. Toileting Hygiene (QC): 4 (Sit-stand for toilet hygiene using grab bars, assist holding gown.) Toilet Transfer (QC): 4 (Transferred from FWW to toilet with supervision. ) OT Testboard Operator Goals Testboard Operator Goals Time Frame: Feb 21, 2020 Eating (QC): 6 Oral Hygiene (QC): 6 Toileting Hygiene (QC): 6 Shower/Bathe Self (QC): 6 Upper Body Dressing (QC): 6 Lower Body Dressing (QC): 6 On/Off Footwear (QC): 6 Additional Goals: 1-Demonstrate ADL Tasks, 2-Verbalize Understanding, 3- ImproveStrength/Kassandra 1=Demonstrate adherence to instructed precautions during ADL tasks. 2=Patient will verbalize/demonstrate understanding of assistive devices/modifications for ADL. 3=Patient will improve strength/tolerance for activity to enable patient to perform ADL's. OT Education/Plan Problem List/Assessment Assessment: Decreased Activ Tolerance, Decreased UE Strength, Impaired Funct Balance, Impaired I ADL's, Impaired Self-Care Skills Discharge Recommendations Plan/Recommendations: Continue POC Treatment Plan/Plan of Care Patient would benefit from OT for education, treatment and training to promote independence in ADL's, mobility, safety and/or upper extremity function for ADL's. Plan of Care: ADL Retraining, Functional Mobility, Group Exercise/Act as Ind, UE Funct Exercise/Act Treatment Duration: Feb 21, 2020 Frequency: Modified Program (IRF) (05/12) Estimated Hrs Per Day: 1.5 hours per day Rehab Potential: Fair Time/GCodes Start Time: 13:00 Stop Time: 13:30 Total Time Billed (hr/min): 30 Billed Treatment Time 1 visit -FA 2 (30) BRITTNEY HUMPHREYS Jan 30, 2020 14:17
--- NOTE | 2020-01-30 14:48 | Cardiology Progress Note ---
Cardiology SOAP Progress Note Subjective: No cardiac complaints. Objective: I&O/Vital Signs 01/30/20 01/30/20 06:00 09:00 Temp 36.8 Pulse 85 Resp 18 B/P (MAP) 122/58 (79) Pulse Ox 98 O2 Delivery Nasal Cannula Room Air O2 Flow Rate 2.00 01/30/20 00:00 Intake Total 1300 ml Output Total 800 ml Balance 500 ml Constitutional: appears stated age, AAO x 3, well-developed, well-nourished Respiratory: chest is bilaterally symmetric, lungs clear to auscultation Cardiovascular: regular rate-rhythm, S1 and S2 Gastrointestional: soft, audible bowel sounds Extremities: normal range of motion, non-tender, normal inspection, no lower extremity edema bilateral Neurologic/Psychiatric: no motor/sensory deficits, alert, normal mood/affect, oriented x 3, power is 5/5 both on sides Skin: normal color, warm/dry Results/Procedures: Labs Microbiology 01/23/20 Blood Culture - Final, Complete No growth 01/23/20 Urine Culture - Final, Complete Escherichia coli A/P: Assessment/Dx: Sinus bradycardia, resolved Hypertension, Fever, Extensive spine surgery. Uatsdin, Severe anemia Plan: Sinus bradycardia, currently normal sinus rhythm. Not on any rate controlling agents. We will continue to follow clinically. Hypertension, patient is on lisinopril. Can continue. Fever, defer to Dr. Bojorquez. Extensive spine surgery. Inpatient rehabilitation. still has pain in the back and lower extremities. Severe anemia, iron infusions) erythropoietin given. Dr. Torre on board. Patient is Uatsdin therefore no transfusion. Thank you for your consultation. Please call me if you have any questions. Malinda Mendieta MD, FACP, FACC, FSCAI, FHRS, CCDS Interventional Cardiology Cardiac Electrophysiology Vascular Medicine and Endovascular Interventions Mc MENDIETA MD Jan 30, 2020 14:48
--- NOTE | 2020-01-30 14:48 | Physical Therapy Daily Note ---
PT Daily Note-Current Subjective Pt presents supine in bed and consents to PT. Pt reports no pain. Appearance After PT tx pt returned to bed with access to call button, tray, all needs met and visitor in room. Mental Status Patient Orientation: Person, Unable to Assess, Eyes Open Language barrier between PT and pt. Transfers SCALE: Activities may be completed with or without assistive devices. 2-Rcpspexklj-jjipaiu completes the activity by him/herself with no assistance from a helper. 5-Set-up or Clean-up Assistance-helper sets up or cleans up; patient completes activity. [place] assists only prior to or following the activity. 4-Supervision or Touching Assistance-helper provides verbal cues and/or touching/steadying and/or contact guard assistance as patient completes activity. Assistance may be provided throughout the activity or intermittently. 3-Partial/Moderate Assistance-helper does LESS THAN HALF the effort. [place] lifts, holds or supports trunk or limbs, but provides less than half the effort. 2-Substantial/Maximal Assistance-helper does MORE THAN HALF the effort. [place] lifts or holds trunk or limbs and provides more than half the effort. 8-Rycanarqm-rrsheu does ALL the effort. Patient does none of the effort to complete the activity. Or, the assistance of 2 or more helpers is required for the patient to complete the activity. If activity was not attempted, code reason: 7-Patient Refused. 9-Not Applicable-not attempted and the patient did not perform the activity before the current illness, exacerbation or injury. 10-Not Attempted due to Environmental Limitations-(lack of equipment, weather restraints, etc.). 88-Not Attempted due to Medical Conditions or Safety Concerns. Roll Left & Right (QC): 4 Sit to Lying (QC): 4 Lying to Sitting/Side of Bed(Q: 4 Sit to Stand (QC): 4 Toilet Transfer (QC): 4 Gait Training Distance: 100' x2 Walk 10 feet (QC): 4 Walk 50 ft with 2 Turns(QC): 4 Walk 150 ft (QC): 4 Gait Assistive Device: FWW Stand-by assist with ambulation Exercises NuStep Minutes: 15 NuStep Workload: 4 Treatments Nustep plus toilet transfer Assessment Current Status: Fair Progress Pt has improved her bed mobility; she now moves faster and with less irritation. PT Short Term Goals Short Term Goals Time Frame: Jan 31, 2020 Roll Left & Right: 3 Sit to lyin Lying to sitting on side of be: 3 Sit to stand: 4 Chair/akv-ol-ukmnf transfer: 4 Walk 10 feet: 4 Walk 50 feet with two turns: 4 PT [facility] Goals Sales Ledger Administrator Goals PT [facility] Goals Time Frame: Feb 14, 2020 Roll Left & Right (QC): 4 Sit to Lying (QC): 4 Lying-Sitting on Side/Bed(QC): 4 Sit to Stand (QC): 4 Chair/Szf-dp-Vrsnf Xfer(QC): 4 Toilet Transfer (QC): 4 Car Transfer (QC): 4 Does the Patient Walk: Yes Walk 10 feet (QC): 4 Walk 50ft with 2 Turns (QC): 4 Walk 150 ft (QC): 4 Walking 10ft on Uneven Surface: 4 1 Step (curb) (QC): 4 4 Steps (QC): 4 12 Steps (QC): 4 Picking up an Object (QC): 88 Wheel 50 feet with 2 turns (QC: 9 Wheel 150 feet: 9 PT Plan Problem List Problem List: Activity Tolerance, Functional Strength, Safety, Balance, Gait, Transfer, Bed Mobility, ROM Treatment/Plan Treatment Plan: Continue Plan of Care Treatment Plan: Bed Mobility, Education, Functional Activity Kassandra, Functional Strength, Group Therapy, Gait, Safety, Therapeutic Exercise, Transfers Treatment Duration: Feb 14, 2020 Frequency: Modified Program (IRF) Estimated Hrs Per Day: 1.5 hours per day Patient and/or Family Agrees t: Yes Safety Risks/Education Patient Education: Gait Training, Transfer Techniques, Correct Positioning, Safety Issues Teaching Recipient: Patient Teaching Methods: Demonstration, Discussion Response to Teaching: Reinforcement Needed Time/GCodes Time In: 1400 Time Out: 1430 Total Billed Treatment Time: 30 Total Billed Treatment 1 visit EX 15' FA 15' CURTIS STRONG PT Jan 30, 2020 14:48
[2020-01-30 18:00] VITALS: BP 108/69
[2020-01-30] MEDS: HYDROcodone/APAP 5 MG/325 MG (LORTAB) TAB PO PRN (19:23)
[2020-01-30] MEDS: MELATONIN 3 MG TABLET PO PRN (20:26)
[2020-01-31 05:41] LABS: ABSOLUTE RETIC # 222 10e9/L (24-90); BASOPHILS % (AUTO) 0 % (0-10); EOSINOPHILS # (AUTO) 0.6 10^3/uL (0.0-0.3); EOSINOPHILS % (AUTO) 6 % (0-10); HEMATOCRIT 22 % (35-52); LYMPHOCYTES # (AUTO) 2.5 X 10^3 (1.0-4.0); LYMPHOCYTES % (AUTO) 22 % (12-44); MEAN CORPUSCULAR HEMOGLOBIN 29 PG (25-34); MEAN CORPUSCULAR HGB CONC 31 G/DL (32-36); MEAN CORPUSCULAR VOLUME 96 FL (80-99); MEAN PLATELET VOLUME 8.5 FL (7.4-10.4); MONOCYTES # (AUTO) 1.1 X 10^3 (0.0-1.0); MONOCYTES % (AUTO) 10 % (0-12); NEUTROPHILS # (AUTO) 6.7 X 10^3 (1.8-7.8); NEUTROPHILS % (AUTO) 62 % (42-75); PLATELET COUNT 670 10^3/uL (130-400); RETICULOCYTE % 9.82 % (0.50-2.40); WHITE BLOOD COUNT 10.9 10^3/uL (4.3-11.0)
[2020-01-31 05:43] LABS: HEMOGLOBIN 6.6 G/DL (11.5-16.0)
[2020-01-31 05:55] VITALS: BP 105/59
[2020-01-31 06:05] LABS: ALANINE AMINOTRANSFERASE 18 U/L (0-55); ALBUMIN 3.3 GM/DL (3.2-4.5); ALKALINE PHOSPHATASE 122 U/L (40-136); BILIRUBIN,TOTAL 0.2 MG/DL (0.1-1.0); BUN/CREATININE RATIO 24; CALCIUM 8.5 MG/DL (8.5-10.1); CARBON DIOXIDE 23 MMOL/L (21-32); CHLORIDE 106 MMOL/L (98-107); CREATININE SERUM 0.79 MG/DL (0.60-1.30); GFR ESTIMATED > 60; GLUCOSE 109 MG/DL (70-105); POTASSIUM 4.6 MMOL/L (3.6-5.0); SODIUM 137 MMOL/L (135-145); TOTAL PROTEIN 6.3 GM/DL (6.4-8.2)
[2020-01-31] MEDS: polyethylene glycoL POWDER 17 GM (MIRALAX) PACK PO SCH ×2 (07:47→19:39)
[2020-01-31] MEDS: CEFDINIR 300 MG (OMNICEF) CAP PO SCH ×2 (08:15→19:45)
[2020-01-31] MEDS: DICYCLOMINE 10 MG (BENTYL) CAP PO SCH ×2 (08:15→19:45)
[2020-01-31] MEDS: SENNA W/DOCUSATE (SENOKOT S) TABLET PO SCH ×2 (08:15→19:40)
[2020-01-31] MEDS: FOLIC ACID 1 MG TAB PO SCH (08:15)
[2020-01-31] MEDS: DOCUSATE SODIUM 100 MG (COLACE) CAP PO SCH ×2 (08:16→19:39)
--- NOTE | 2020-01-31 08:26 | PM&R Progress Note ---
Subjective HPI/CC On Admission Date Seen by Provider: Jan 31, 2020 Time Seen by Provider: 08:30 Subjective/Events-last exam 01/31/20: Hgb 6.6 today Ultram for pain is very effective Bowels are moving Pain is tolerated Participating in therapy 01/30/20: Layla Munoz Hgb 6 on last check UTI treatment completing Ultram handling the pain 01/29/20: Patient feels good Ultram works better for her less sedating than the Hydrocodone 01/28/20: Patient doing well Hgb 6.1 Right leg pain and heaviness but no coldness noted BM++ PO abx for UTI 01/27/20: Patient doing well BM today Ultram will be ordered since [place] makes her too sleepy 01/26/20: Doing well Hgb stable UTI treatment maintained Updated daughter BM+ Lortab maintained 01/25/20: Hgb 4.9 and stable Vitals stable Midline will be placed due to antibiotics and IV iron infusions Appreciate Dr. Iglesias Pain is only a 4/10 Tmax of 99.5 DC IV fluid and Vancomycin Cefepime maintained E. coli urine culture pending with sensitivity Pt had an uneventful might Had a fever this morning at 36.5 Remains tachycardic but sinus type Cefepime and Vanc maintained Preliminary urine culture is E. Coli Bowels moved this morning No drainage at the operative site Hgb up from 3.8 to 4.9 even with gentle IV fluid WBC down to 11.[address] Castellanos and Dr. Caldwell Checked meds and labs Conferred with RN Reviewed therapy notes Review of Systems General: Fatigue, Malaise Musculoskeletal: back pain Objective Exam Vital Signs Vital Signs Date Time Temp Pulse Resp B/P (MAP) Pulse Ox O2 Delivery O2 Flow Rate FiO2 01/31/20 18:08 37.2 90 18 123/59 (80) 99 Nasal Cannula 2.00 Capillary Refill : Less Than 3 Seconds General Appearance: No Apparent Distress, WD/WN, Chronically ill, Other (pale) HEENT: PERRL/EOMI, Normal ENT Inspection, Pharynx Normal Neck: Full Range of Motion, Normal Inspection, Non Tender, Supple, Carotid Bruit Respiratory: Chest Non Tender, Lungs Clear, Normal Breath Sounds, No Accessory Muscle Use, No Respiratory Distress Cardiovascular: Regular Rate, Rhythm, No Edema, No Gallop, No JVD, No Murmur, Normal Peripheral Pulses Gastrointestinal: Normal Bowel Sounds, No Organomegaly, No Pulsatile Mass, Non Tender, Soft Back: Decreased Range of Motion Extremity: Normal Capillary Refill, Normal Inspection, Normal Range of Motion, Non Tender, No Calf Tenderness, No Pedal Edema Neurologic/Psychiatric: Alert, Oriented x3, No Motor/Sensory Deficits, Normal Mood/Affect, fishing hand II-XII Norm as Tested, Abnormal Gait Skin: Normal Color, Warm/Dry Lymphatic: No Adenopathy Results/Procedures Lab Laboratory Tests 01/31/20 05:25 Patient resulted labs reviewed. FIM Transfers Therapy Code Descriptions/Definitions Functional [place] Measure: 0=Not Assessed/NA 4=Minimal Assistance 1=Total Assistance 5=Supervision or Setup 2=Maximal Assistance 6=Modified [place] 3=Moderate Assistance 7=Complete IndependenceSCALE: Activities may be completed with or without assistive devices. 7-Cklbtnjuxa-odejoqi completes the activity by him/herself with no assistance from a helper. 5-Set-up or Clean-up Assistance-helper sets up or cleans up; patient completes activity. [place] assists only prior to or following the activity. 4-Supervision or Touching Assistance-helper provides verbal cues and/or touching/steadying and/or contact guard assistance as patient completes activity. Assistance may be provided throughout the activity or intermittently. 3-Partial/Moderate Assistance-helper does LESS THAN HALF the effort. [place] lifts, holds or supports trunk or limbs, but provides less than half the effort. 2-Substantial/Maximal Assistance-helper does MORE THAN HALF the effort. [place] lifts or holds trunk or limbs and provides more than half the effort. 0-Boqgpyzna-nzrbhe does ALL the effort. Patient does none of the effort to complete the activity. Or, the assistance of 2 or more helpers is required for the patient to complete the activity. If activity was not attempted, code reason: 7-Patient Refused. 9-Not Applicable-not attempted and the patient did not perform the activity before the current illness, exacerbation or injury. 10-Not Attempted due to Environmental Limitations-(lack of equipment, weather restraints, etc.). 88-Not Attempted due to Medical Conditions or Safety Concerns. Roll Left to Right (QC): 4 Sit to Lying (QC): 4 Sit to Stand (QC): 4 Chair/Kgc-gt-Kgltc Xfer(QC): 4 Car Transfer (QC): 3 Gait Training Does the Patient Walk?: Yes Distance: 100' x2 Walk 10 feet (QC): 4 Walk 50 ft with 2 Turns(QC): 4 Walk 150 ft (QC): 4 Walking 10ft/uneven surface-QC: 3 Gait Persons Needed: 1 Gait Assistive Device: FWW Wheelchair Training Does the Pt Use a Wheelchair?: No Wheel 50 ft with 2 turns (QC): 9 Wheel 150 ft (QC): 9 Type of Wheelchair: N/A Stair Training #of Steps: 8 1 Step (curb) (QC): 3 4 Steps (QC): 88 12 Steps (QC): 88 Stairs: Pattern: Step to Balance Picking up an Object (QC): 88 ADL-Treatment Eating (QC): 5 (pt reports she has some difficulty chewing food and cutting coy d. No difficulties bringing food to her mouth.) Oral Hygiene (QC): 6 Bathing Location: L Arm, R Arm, L Upper Leg, R Upper Leg, L Lower Leg (including foot), R Lower Leg (including foot), Chest, Abdomen, Buttocks, Perineal Area Shower/Bathe Self (QC): 4 Upper Body Dressing (QC): 5 Lower Body Dressing (QC): 5 On/Off Footwear (QC): 5 Toileting Hygiene (QC): 4 Toilet Transfer (QC): 4 Assessment/Plan Assessment and Plan Assess & Plan/Chief Complaint Assessment: Lumbar stenosis with neurogenic claudication Severe anemia JW refusal of blood products HTN HLP Fever Goldstein cath UTI Bradycardia at [place] Plan: Dr Iglesias consult EPO and Venofer tomorrow Gentle IVF PT OT Abx broad spectrum 01/24/20: Monitor hemoglobin Appreciate Dr. Castellanos Appreciate Dr. Iglesias Continue antibiotics Monitor closely 01/25/20: Continue Cefepime Discontinue Vanc Monitor fever Place midline for iron infusions and antibiotics Monitor hemoglobin 4.[address] Iglesias 01/26/20: Maintain Hematology support Continue abx UCx reviewed 01/27/20: DC IV abx PO abx for UTI Change pain meds 01/28/20: PO abx Hgb good Iron infusions BM regimen Ultram 01/29/20: Complete tx for UTI Monitor labs closely but prevent phlebotomy driven anemia 01/30/20: Monitor hemoglobin Complete UTI treatment Ultram maintaining good pain control 01/31/20: Appreciate Dr Iglesias Monitor pain Monitor hgb (1) Lumbar stenosis with neurogenic claudication (2) Refusal of blood transfusions as patient is Religious (3) Anemia due to acute blood loss (4) Advanced age (5) Hypertension (6) Hyperlipemia (7) Fever (8) Bradycardia SAAMRIA NAIR DO Jan 31, 2020 08:26
--- NOTE | 2020-01-31 08:29 | Occupational Ther Daily Note ---
OT Current Status-Daily Note Subjective Pt sitting in recliner when OT entered. Agreed to therapy. No c/o pain reported Mental Status/Objective Patient Orientation: Person, Place, Time, Situation Attachments: IV ADL-Treatment Pt sit-stand from raised recliner to FWW, independently. Pt ambulated to bathroom using FWW, independently. Pt requested to use restroom. Transferred to toilet, independently. Extra time added due to pt making BM. Pt sit-stand from toilet using grab bars to complete hygiene, supervision. Pt then ambulated to sink to wash hands and complete oral care independently while standing at sink,. Pt then ambulated to kitchen area in the commons. VASQUEZ placed holloway bags in drawers, counter tops, and in fridge. VASQUEZ demonstrated activity to pt. Pt was able to understand and located all hidden items. VASQUEZ tried explaining to pt to set walker aside and use counter as grab rail, pt unable to understand and stayed within FWW. Pt then ambulated to gym using FWW, supervision. Therapy Code Descriptions/Definitions Functional [place] Measure: 0=Not Assessed/NA 4=Minimal Assistance 1=Total Assistance 5=Supervision or Setup 2=Maximal Assistance 6=Modified [place] 3=Moderate Assistance 7=Complete IndependenceSCALE: Activities may be completed with or without assistive devices. 9-Plzvjccrmy-hqnjfai completes the activity by him/herself with no assistance from a helper. 5-Set-up or Clean-up Assistance-helper sets up or cleans up; patient completes activity. [place] assists only prior to or following the activity. 4-Supervision or Touching Assistance-helper provides verbal cues and/or touching/steadying and/or contact guard assistance as patient completes activity. Assistance may be provided throughout the activity or intermittently. 3-Partial/Moderate Assistance-helper does LESS THAN HALF the effort. [place] lifts, holds or supports trunk or limbs, but provides less than half the effort. 2-Substantial/Maximal Assistance-helper does MORE THAN HALF the effort. [place] lifts or holds trunk or limbs and provides more than half the effort. 7-Ubewtsgzb-mylage does ALL the effort. Patient does none of the effort to complete the activity. Or, the assistance of 2 or more helpers is required for the patient to complete the activity. If activity was not attempted, code reason: 7-Patient Refused. 9-Not Applicable-not attempted and the patient did not perform the activity before the current illness, exacerbation or injury. 10-Not Attempted due to Environmental Limitations-(lack of equipment, weather restraints, etc.). 88-Not Attempted due to Medical Conditions or Safety Concerns. Oral Hygiene (QC): 6 Toileting Hygiene (QC): 4 Toilet Transfer (QC): 4 Other Treatment Pt pinched and grasped beads out of medium resistance therapy putty to increase pt's deployment manager/pinch strength and finger manipulation for completion of daily task. After all beads were found, pt placed beads back into putty. Pt was introduced to hand exercises using therapy with skilled instruction and hand out. Pt was able to return demonstration. Pt then ambulated back to room using FWW, supervision. Pt on toilet when OT left, nursing notified of position. Call light in reach. All needs met. Education OT Patient Education: Exercise program, Home exercise program Teaching Recipient: Patient Teaching Methods: Demonstration, Handout Response to Teaching: Verbalize Understanding, Return Demonstration OT Senior Living Goals Assistant Prosecuting Attorney Goals Time Frame: Feb 21, 2020 Eating (QC): 6 Oral Hygiene (QC): 6 Toileting Hygiene (QC): 6 Shower/Bathe Self (QC): 6 Upper Body Dressing (QC): 6 Lower Body Dressing (QC): 6 On/Off Footwear (QC): 6 Additional Goals: 1-Demonstrate ADL Tasks, 2-Verbalize Understanding, 3-Impr oveStrength/Kassandra 1=Demonstrate adherence to instructed precautions during ADL tasks. 2=Patient will verbalize/demonstrate understanding of assistive devices/modifications for ADL. 3=Patient will improve strength/tolerance for activity to enable patient to perform ADL's. OT Education/Plan Problem List/Assessment Assessment: Decreased Activ Tolerance, Decreased UE Strength, Impaired Funct Balance, Impaired I ADL's, Impaired Self-Care Skills Discharge Recommendations Plan/Recommendations: Continue POC Treatment Plan/Plan of Care Patient would benefit from OT for education, treatment and training to promote independence in ADL's, mobility, safety and/or upper extremity function for ADL's. Plan of Care: ADL Retraining, Functional Mobility, Group Exercise/Act as Ind, UE Funct Exercise/Act Treatment Duration: Feb 21, 2020 Frequency: Modified Program (IRF) (05/12) Estimated Hrs Per Day: 1.5 hours per day Rehab Potential: Fair Time/GCodes Start Time: 07:30 Stop Time: 08:30 Total Time Billed (hr/min): 60 Billed Treatment Time 1 visit-ADL 1 (20 mins) FA 2 (23 mins) EX 1 (17 mins) BRITTNEY HUMPHREYS Jan 31, 2020 08:29
[2020-01-31] MEDS ORDERED: DARBEPOETIN 40 MCG/ML (ARANESP) HOSPITAL SC NR (09:00)
--- NOTE | 2020-01-31 09:14 | Cardiology Progress Note ---
Subjective Date Seen by Provider: Jan 31, 2020 Time Seen by Provider: 14:54 Subjective/Events-last exam Patient was seen and evaluated, laying down in bed. No new complaint. Heart rate is better Review of Systems General: No Chills, No Night Sweats, No Fatigue, No Malaise, No Appetite, No Other HEENT: No Head Aches, No Visual Changes, No Eye Pain, No Ear Pain, No D ysphasia, No Sinus Congestion, No Post Nasal Drip, No Sore Throat, No Other Pulmonary: No Dyspnea, No Cough, No Pleuritic Chest Pain, No Other Cardiovascular: No: Chest Pain, Palpitations, Orthopnea, Paroxysmal Noc. Dyspnea, Edema, Lt Headedness, Other Objective-Cardiology Exam Last Set of Vital Signs Vital Signs 01/31/20 01/31/20 05:55 09:00 Temp 36.5 Pulse 93 Resp 18 B/P (MAP) 105/59 (74) Pulse Ox 96 O2 Delivery Room Air O2 Flow Rate 2.00 Capillary Refill : Less Than 3 Seconds I&O Intake and Output 01/31/20 00:00 Intake Total 1200 ml Balance 1200 ml Intake Oral 1200 ml # Voids 9 # Bowel Movements 1 General: Alert, Oriented X3, Cooperative HEENT: Atraumatic, PERRLA Neck: Supple, No JVD, No Thyromegaly Lungs: Clear to Auscultation, Normal Air Movement Heart: Regular Rate, Normal S1, Normal S2, No Murmurs Abdomen: Normal Bowel Sounds, Soft, No Tenderness, No Hepatosplenomegaly, No Masses Extremities: No Clubbing, No Cyanosis, No Edema, Normal Pulses, No Tenderness/Swelling Skin: No Rashes, No Breakdown, No Significant Lesion Neuro: Normal Gait, Normal Speech, Strength at 5/5 X4 Ext, Normal Tone, Sensation Intact Psych/Mental Status: Mental Status NL, Mood NL Results Lab Laboratory Tests 01/31/20 05:25 A/P-Cardiology Admission Diagnosis sinus bradycardia HTN anemia Assessment/Plan History of Sinus bradycardia, currently mildly tachycardic likely secondary to anemia. Continue to monitor. Hypertension, patient is on lisinopril. Continue to monitor. Extensive spine surgery. Inpatient rehabilitation. still has pain in the back and lower extremities. Severe anemia, iron infusions erythropoietin given. Dr. Torre following. Patient is [place] therefore no transfusion. UTI, management per PCP Patient was seen and evaluated with Donna, examination performed, management plan was discussed, agree with the current scribed note, I made few changes to the note using Italic font Heart rate is better, laying down in bed, comfortable, continue to monitor H&H, monitor blood pressure Clinical Quality Measures DVT/VTE Risk/Contraindication: Risk Factor Score Per Nursin RFS Level Per Nursing on Admit: 4+=Very High DONNA CARRERO Jan 31, 2020 9:14 am EL BORRERO MD Jan 31, 2020 2:56 pm
--- NOTE | 2020-01-31 09:45 | Physical Therapy Daily Note ---
PT Daily Note-Current Subjective Pt agreeable to PT. Pt in bed upon arrival. Pain rated 2/10 in LB. Mental Status Patient Orientation: Person, Place, Situation Transfers SCALE: Activities may be completed with or without assistive devices. 3-Mxkkxfnteh-soivwyv completes the activity by him/herself with no assistance from a helper. 5-Set-up or Clean-up Assistance-helper sets up or cleans up; patient completes activity. [place] assists only prior to or following the activity. 4-Supervision or Touching Assistance-helper provides verbal cues and/or touching/steadying and/or contact guard assistance as patient completes activity. Assistance may be provided throughout the activity or intermittently. 3-Partial/Moderate Assistance-helper does LESS THAN HALF the effort. [place] li fts, holds or supports trunk or limbs, but provides less than half the effort. 2-Substantial/Maximal Assistance-helper does MORE THAN HALF the effort. [place] lifts or holds trunk or limbs and provides more than half the effort. 8-Qnqjkwqav-owticz does ALL the effort. Patient does none of the effort to complete the activity. Or, the assistance of 2 or more helpers is required for the patient to complete the activity. If activity was not attempted, code reason: 7-Patient Refused. 9-Not Applicable-not attempted and the patient did not perform the activity before the current illness, exacerbation or injury. 10-Not Attempted due to Environmental Limitations-(lack of equipment, weather restraints, etc.). 88-Not Attempted due to Medical Conditions or Safety Concerns. Exercises Supine Ex: Ankle pumps, Quad Set, Heel Slides, Short Arc Quads, Straight leg raise, Hip abd/add Supine Reps: 20 Seated Therapy Exercises: Ankle pumps, Long arc quads, Hip flexion, Hip abd/add Seated Reps: 20 NuStep Minutes: 15 NuStep Workload: 4 Treatments BR privileges SBA. Transfers SBA all levels. Gait training with FWW and CGA- SBA 1 x 100ft, 2x 150ft. Assessment Current Status: Good Progress Pt functional mobility, strength and endurance is progressing appropriately. Pt praneeth above well. PT Short Term Goals Short Term Goals Time Frame: Jan 31, 2020 Roll Left & Right: 3 Sit to lyin Lying to sitting on side of be: 3 Sit to stand: 4 Chair/dky-ff-tlajt transfer: 4 Walk 10 feet: 4 Walk 50 feet with two turns: 4 PT Assistant Superintendent Goals Assistant Superintendent Goals PT Assistant Superintendent Goals Time Frame: Feb 14, 2020 Roll Left & Right (QC): 4 Sit to Lying (QC): 4 Lying-Sitting on Side/Bed(QC): 4 Sit to Stand (QC): 4 Chair/Mdk-dk-Jqabx Xfer(QC): 4 Toilet Transfer (QC): 4 Car Transfer (QC): 4 Does the Patient Walk: Yes Walk 10 feet (QC): 4 Walk 50ft with 2 Turns (QC): 4 Walk 150 ft (QC): 4 Walking 10ft on Uneven Surface: 4 1 Step (curb) (QC): 4 4 Steps (QC): 4 12 Steps (QC): 4 Picking up an Object (QC): 88 Wheel 50 feet with 2 turns (QC: 9 Wheel 150 feet: 9 PT Plan Treatment/Plan Treatment Plan: Continue Plan of Care Treatment Plan: Bed Mobility, Education, Functional Activity Kassandra, Functional Strength, Group Therapy, Gait, Safety, Therapeutic Exercise, Transfers Treatment Duration: Feb 14, 2020 Frequency: Modified Program (IRF) Estimated Hrs Per Day: 1.5 hours per day Patient and/or Family Agrees t: Yes Time/GCodes Time In: 915 Time Out: 1015 Total Billed Treatment Time: 60 Total Billed Treatment 1, ther ex 30', gait 15', FA 15' EMMANUEL ALVES Jan 31, 2020 09:45
[2020-01-31] MEDS: lisINopril 10 MG (PRINIVIL) TABLET PO SCH (12:11)
--- NOTE | 2020-01-31 14:21 | Therapy Group Daily Note ---
Therapy Daily Group Note Patient Education Topic Exercises, Other List Below (Short term memory and purpose of rehab meeting) Exercises LE Seated Exercise, ROM, UE Exercise Session Ratio (pt:therapist): 3:1 Goal of Session: Memory Strategies, UE/LE Strengthing Goal Met for this Session: Yes Pt Benefit of Group: Contributions to Others, F/U Use of Strategies @Home, Increased Functional Strength, Improved Cognition, Recognition of Peers, Socialization Other/Notes Pt ambulated from room to gym using FWW. Group consisted of introduction (name, where you are from, and random fact), socialization, seated UE/LE exercises, memory strategies, and purpose of rehab meeting. Pt introduced self appropriately and listened to peers. Pt actively participated in seated UE/LE exercises and in memory activity. Due to pt knowing very little [place]an, CHRISTINA used google translate to help communicate. Pt was able to acknowledge understanding of educational topics through the use of google translation. Pt ambulated back to room. Pt laying in bed, call light/phone in reach. All needs met. Start Time: 13:00 Stop Time: 14:10 Total Billed Treatment Time: 70 Total Billed Treatment 1-GRP BRITTNEY HUMPHREYS Jan 31, 2020 14:21
--- NOTE | 2020-01-31 16:08 | NUR ---
CM/SS PATIENT CARE CONFERENCE Reviewed Summary with patient's daughter, patient's preference. Margaret is in agreement with target discharge 02/06/20. She is working that day until 1729, she will try to find someone at her work who will fill in for her so she can leave earlier to pick up worker patient. [facility]: Margaret states that patient has history with a Home Health agency and she will try to find the name at her mother's home. Otherwise she understands that mortgage or loan underwriter will seek first available agency starting with [facility], then other free standing options. Orders anticipated are for RN (incisions, lab draws) and PT. DME: Patient has FWW. OT recommended sock aid and dressing stick. Regarding support/assistance at home, mortgage or loan underwriter stressed that patient will need groceries and ready food items so that she doesn't have to prepare meals. Margaret has continued to try to find someone to do housekeeping for patient. Patient's children will not be available to spend large blocks of time with her, Margaret indicates she will get a safety plan worked out.
[2020-01-31 18:08] VITALS: BP 123/59
[2020-01-31] MEDS: HYDROcodone/APAP 5 MG/325 MG (LORTAB) TAB PO PRN (19:45)
[2020-01-31] MEDS: MELATONIN 3 MG TABLET PO PRN (19:45)
[2020-02-01 05:42] VITALS: BP 107/54
--- NOTE | 2020-02-01 08:22 | PM&R Progress Note ---
Subjective HPI/CC On Admission Date Seen by Provider: Feb 01, 2020 Time Seen by Provider: 08:30 Subjective/Events-last exam 02/01/20: Pt having a good day Refusing to put back brace on today Last dose of IV iron today DC is planned for the first of the week 01/31/20: Hgb 6.6 today Ultram for pain is very effective Bowels are moving Pain is tolerated Participating in therapy 01/30/20: Layla Munoz Hgb 6 on last check UTI treatment completing Ultram handling the pain 01/29/20: Patient feels good Ultram works better for her less sedating than the Hydrocodone 01/28/20: Patient doing well Hgb 6.1 Right leg pain and heaviness but no coldness noted BM++ PO abx for UTI 01/27/20: Patient doing well BM today Ultram will be ordered since [place] makes her too sleepy 01/26/20: Doing well Hgb stable UTI treatment maintained Updated daughter BM+ Lortab maintained 01/25/20: Hgb 4.9 and stable Vitals stable Midline will be placed due to antibiotics and IV iron infusions Appreciate Dr. Iglesias Pain is only a 4/10 Tmax of 99.5 DC IV fluid and Vancomycin Cefepime maintained E. coli urine culture pending with sensitivity Pt had an uneventful might Had a fever this morning at 36.5 Remains tachycardic but sinus type Cefepime and Vanc maintained Preliminary urine culture is E. Coli Bowels moved this morning No drainage at the operative site Hgb up from 3.8 to 4.9 even with gentle IV fluid WBC down to 11.[address] Castellanos and Dr. Caldwell Checked meds and labs Conferred with RN Reviewed therapy notes Review of Systems General: Fatigue, Malaise Neurological: Weakness Objective Exam Vital Signs Vital Signs Date Time Temp Pulse Resp B/P (MAP) Pulse Ox O2 Delivery O2 Flow Rate FiO2 02/01/20 20:00 Nasal Cannula 2.00 02/01/20 18:00 89 126/58 (80) 02/01/20 17:00 37.4 16 01/31/20 18:08 99 Capillary Refill : Less Than 3 Seconds General Appearance: No Apparent Distress, WD/WN, Chronically ill, Other (pale) HEENT: PERRL/EOMI, Normal ENT Inspection, Pharynx Normal Neck: Full Range of Motion, Normal Inspection, Non Tender, Supple, Carotid Bruit Respiratory: Chest Non Tender, Lungs Clear, Normal Breath Sounds, No Accessory Muscle Use, No Respiratory Distress Cardiovascular: Regular Rate, Rhythm, No Edema, No Gallop, No JVD, No Murmur, Normal Peripheral Pulses Gastrointestinal: Normal Bowel Sounds, No Organomegaly, No Pulsatile Mass, Non Tender, Soft Back: Decreased Range of Motion Extremity: Normal Capillary Refill, Normal Inspection, Normal Range of Motion, Non Tender, No Calf Tenderness, No Pedal Edema Neurologic/Psychiatric: Alert, Oriented x3, No Motor/Sensory Deficits, Normal Mood/Affect, sand shoveler II-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 FIM Transfers Therapy Code Descriptions/Definitions Functional [place] Measure: 0=Not Assessed/NA 4=Minimal Assistance 1=Total Assistance 5=Supervision or Setup 2=Maximal Assistance 6=Modified [place] 3=Moderate Assistance 7=Complete IndependenceSCALE: Activities may be completed with or without assistive devices. 5-Ojizibeylb-umkdzzk completes the activity by him/herself with no assistance from a helper. 5-Set-up or Clean-up Assistance-helper sets up or cleans up; patient completes activity. [place] assists only prior to or following the activity. 4-Supervision or Touching Assistance-helper provides verbal cues and/or touching/steadying and/or contact guard assistance as patient completes activity. Assistance may be provided throughout the activity or intermittently. 3-Partial/Moderate Assistance-helper does LESS THAN HALF the effort. [place] lifts, holds or supports trunk or limbs, but provides less than half the effort. 2-Substantial/Maximal Assistance-helper does MORE THAN HALF the effort. [place] lifts or holds trunk or limbs and provides more than half the effort. 9-Fjbhkqtgc-dxixsd does ALL the effort. Patient does none of the effort to complete the activity. Or, the assistance of 2 or more helpers is required for the patient to complete the activity. If activity was not attempted, code reason: 7-Patient Refused. 9-Not Applicable-not attempted and the patient did not perform the activity befo re the current illness, exacerbation or injury. 10-Not Attempted due to Environmental Limitations-(lack of equipment, weather re straints, etc.). 88-Not Attempted due to Medical Conditions or Safety Concerns. Roll Left to Right (QC): 4 Sit to Lying (QC): 4 Sit to Stand (QC): 4 Chair/Cvy-cf-Plhym Xfer(QC): 4 Car Transfer (QC): 3 Gait Training Does the Patient Walk?: Yes Distance: 100' x2 Walk 10 feet (QC): 4 Walk 50 ft with 2 Turns(QC): 4 Walk 150 ft (QC): 4 Walking 10ft/uneven surface-QC: 3 Gait Persons Needed: 1 Gait Assistive Device: FWW Wheelchair Training Does the Pt Use a Wheelchair?: No Wheel 50 ft with 2 turns (QC): 9 Wheel 150 ft (QC): 9 Type of Wheelchair: N/A Stair Training #of Steps: 8 1 Step (curb) (QC): 3 4 Steps (QC): 88 12 Steps (QC): 88 Stairs: Pattern: Step to Balance Picking up an Object (QC): 88 ADL-Treatment Eating (QC): 5 (pt reports she has some difficulty chewing food and cutting food. No difficulties bringing food to her mouth.) Oral Hygiene (QC): 6 Bathing Location: L Arm, R Arm, L Upper Leg, R Upper Leg, L Lower Leg (including foot), R Lower Leg (including foot), Chest, Abdomen, Buttocks, Perineal Area Shower/Bathe Self (QC): 4 Upper Body Dressing (QC): 5 Lower Body Dressing (QC): 5 On/Off Footwear (QC): 5 Toileting Hygiene (QC): 4 Toilet Transfer (QC): 4 Assessment/Plan Assessment and Plan Assess & Plan/Chief Complaint Assessment: Lumbar stenosis with neurogenic claudication Severe anemia JW refusal of blood products HTN HLP Fever [place]stein cath UTI Bradycardia at [place] Plan: Dr Iglesias consult EPO and Venofer tomorrow Gentle IVF PT OT Abx broad spectrum 01/24/20: Monitor hemoglobin Appreciate Dr. Castellanos Appreciate Dr. Iglesias Continue antibiotics Monitor closely 01/25/20: Continue Cefepime Discontinue Vanc Monitor fever Place midline for iron infusions and antibiotics Monitor hemoglobin 4.[address] Iglesias 01/26/20: Maintain Hematology support Continue abx UCx reviewed 01/27/20: DC IV abx PO abx for UTI Change pain meds 01/28/20: PO abx Hgb good Iron infusions BM regimen Ultram 01/29/20: Complete tx for UTI Monitor labs closely but prevent phlebotomy driven anemia 01/30/20: Monitor hemoglobin Complete UTI treatment Ultram maintaining good pain control 01/31/20: Appreciate Dr Iglesias Monitor pain Monitor hgb 02/01/20: Encouraged use of back brace Completing IV iron infusion today Monitor hemoglobin (1) Lumbar stenosis with neurogenic claudication (2) Refusal of blood transfusions as patient is Roman Catholic (3) Anemia due to acute blood loss (4) Advanced age (5) Hypertension (6) Hyperlipemia (7) Fever (8) Bradycardia SAMARIA NAIR DO Feb 01, 2020 08:22
[2020-02-01] MEDS ORDERED: TRAM50TA3 PO (08:23)
[2020-02-01] MEDS ORDERED: OMEP20CA18 PO (08:23)
--- NOTE | 2020-02-01 08:35 | Cardiology Progress Note ---
Subjective Date Seen by Provider: Feb 01, 2020 Time Seen by Provider: 08:33 Subjective/Events-last exam Patient is in bathroom doing ADLs, no new complaints. Denies any chest pain Review of Systems General: No Chills, No Night Sweats, No Fatigue, No Malaise, No Appetite, No Other HEENT: No Head Aches, No Visual Changes, No Eye Pain, No Ear Pain, No Dysphasia, No Sinus Congestion, No Post Nasal Drip, No Sore Throat, No Other Pulmonary: No Dyspnea, No Cough, No Pleuritic Chest Pain, No Other Cardiovascular: No: Chest Pain, Palpitations, Orthopnea, Paroxysmal Noc. Dyspnea, Edema, Lt Headedness, Other Objective-Cardiology Exam Last Set of Vital Signs Vital Signs 01/31/20 02/01/20 02/01/20 18:08 05:42 09:00 Temp 36.8 Pulse 90 Resp 16 B/P (MAP) 107/54 (71) Pulse Ox 99 O2 Delivery Room Air O2 Flow Rate 2.00 Capillary Refill : Less Than 3 Seconds I&O Intake and Output 02/01/20 00:00 Intake Total 1700 ml Balance 1700 ml Intake Oral 1700 ml # Voids 9 General: Alert, Oriented X3, Cooperative HEENT: Atraumatic, PERRLA Neck: Supple, No JVD, No Thyromegaly Lungs: Clear to Auscultation, Normal Air Movement Heart: Regular Rate, Normal S1, Normal S2, No Murmurs Abdomen: Normal Bowel Sounds, Soft, No Tenderness, No Hepatosplenomegaly, No Masses Extremities: No Clubbing, No Cyanosis, No Edema, Normal Pulses, No Tenderness/Swelling Skin: No Rashes, No Breakdown, No Significant Lesion Neuro: Normal Gait, Normal Speech, Strength at 5/5 X4 Ext, Normal Tone, Sensation Intact Psych/Mental Status: Mental Status NL, Mood NL A/P-Cardiology Admission Diagnosis sinus bradycardia HTN anemia Assessment/Plan History of Sinus bradycardia, currently mildly tachycardic likely secondary to anemia. Continue to monitor. Hypertension, patient is on lisinopril. Continue to monitor. Extensive spine surgery. Inpatient rehabilitation. still has pain in the back and lower extremities. Severe anemia, iron infusions erythropoietin given. Dr. Torre following. Patient is Sabian[place] therefore no transfusion. UTI, management per PCP Patient was seen and evaluated with Donna, examination performed, management plan was discussed, agree with the current scribed note, I made few changes to the note using Italic font Patient was seen and evaluated, feeling better. Slightly tachycardic Denied any chest pain, no shortness of breath. Continue to monitor heart rate and blood pressure Clinical Quality Measures DVT/VTE Risk/Contraindication: Risk Factor Score Per Nursin RFS Level Per Nursing on Admit: 4+=Very High DONNA CARRERO Feb 01, 2020 8:35 am EL BORRERO MD Feb 01, 2020 12:14 pm
[2020-02-01] MEDS: DOCUSATE SODIUM 100 MG (COLACE) CAP PO SCH ×2 (08:36→20:13)
[2020-02-01] MEDS: SENNA W/DOCUSATE (SENOKOT S) TABLET PO SCH ×2 (08:36→20:04)
[2020-02-01] MEDS: FOLIC ACID 1 MG TAB PO SCH (08:36)
[2020-02-01] MEDS: DICYCLOMINE 10 MG (BENTYL) CAP PO SCH ×2 (08:37→20:05)
[2020-02-01] MEDS: polyethylene glycoL POWDER 17 GM (MIRALAX) PACK PO SCH ×2 (08:52→20:13)
--- NOTE | 2020-02-01 09:14 | Occupational Ther Daily Note ---
OT Current Status-Daily Note Subjective Pt sitting in recliner when OT entered. Pt agreed to taking shower. No c/o pain reported. Mental Status/Objective Patient Orientation: Person, Place, Time, Situation Attachments: IV ADL-Treatment Pt agreed to taking shower. After handing pt back brace, pt was able to don by self. Sit-stand from recliner to FWW, independently. Pt ambulated to bathroom using FWW. Pt then stated she needed to use the toilet. Transferred to toilet independently. Completed toilet hygiene. Pt then ambulated to shower bench using FWW. Doffed briefs and night gown independently. Pt able to doff socks using dressing stick. Pt required assist with turning on water and adjusting temperature. Pt required a shower bench, hand held shower, long handled sponge, and grab bars to complete shower. Was able to wash/dry upper body, upper/lower legs, abdomen, chest, buttocks, and althea. After shower, pt transferred to [facility]. Pt reached for briefs on FWW and donned using dressing. Pt reached for tank top and night gown and was able to don independently. Pt reached for socks and donned using sock aid. Struggled to thread sock onto aid, assist to thread. Pt able to thread L sock onto sock aid and required no assist. Pt ambulated to sink and completed oral care and brushing hair while standing. Pt then ambulated to recliner using FWW. Therapy Code Descriptions/Definitions Functional [place] Measure: 0=Not Assessed/NA 4=Minimal Assistance 1=Total Assistance 5=Supervision or Setup 2=Maximal Assistance 6=Modified [place] 3=Moderate Assistance 7=Complete IndependenceSCALE: Activities may be completed with or without assistive devices. 1-Vobdpobcig-qeunour completes the activity by him/herself with no assistance from a helper. 5-Set-up or Clean-up Assistance-helper sets up or cleans up; patient completes activity. [place] assists only prior to or following the activity. 4-Supervision or Touching Assistance-helper provides verbal cues and/or touching/steadying and/or contact guard assistance as patient completes activity. Assistance may be provided throughout the activity or intermittently. 3-Partial/Moderate Assistance-helper does LESS THAN HALF the effort. [place] l ifts, holds or supports trunk or limbs, but provides less than half the effort. 2-Substantial/Maximal Assistance-helper does MORE THAN HALF the effort. [place] lifts or holds trunk or limbs and provides more than half the effort. 4-Gvrvyuqfc-ohtpip does ALL the effort. Patient does none of the effort to complete the activity. Or, the assistance of 2 or more helpers is required for t he patient to complete the activity. If activity was not attempted, code reason: 7-Patient Refused. 9-Not Applicable-not attempted and the patient did not perform the activity before the current illness, exacerbation or injury. 10-Not Attempted due to Environmental Limitations-(lack of equipment, weather restraints, etc.). 88-Not Attempted due to Medical Conditions or Safety Concerns. Oral Hygiene (QC): 6 Bathing Location: L Arm, R Arm, L Upper Leg, R Upper Leg, L Lower Leg (including foot), R Lower Leg (including foot), Chest, Abdomen, Buttocks, Perineal Area Shower/Bathe Self (QC): 6 Upper Body Dressing (QC): 6 Lower Body Dressing (QC): 6 On/Off Footwear: 5 Toileting Hygiene (QC): 6 Toilet Transfer (QC): 6 Other Treatment Due to decrease in B hand strength pt pinched/grasped bolts and twisted each one off the screw with 1 pound weight on each wrist to increase pt's wrist supination/pronation and pinch/deburr operator strength. Noticed pt struggle lifting L shlder, took 1 pound weight off of L wrist. Pt able to take off all bolts. Only able to put 4 bolts on due to pt fatigue. After therapy, pt sitting in recliner. Call light/phone in reach. All needs met. OT Retirement Goals Upholsterer Inside Goals Time Frame: Feb 21, 2020 Eating (QC): 6 Oral Hygiene (QC): 6 Toileting Hygiene (QC): 6 Shower/Bathe Self (QC): 6 Upper Body Dressing (QC): 6 Lower Body Dressing (QC): 6 On/Off Footwear (QC): 6 Additional Goals: 1-Demonstrate ADL Tasks, 2-Verbalize Understanding, 3- ImproveStrength/Kassandra 1=Demonstrate adherence to instructed precautions during ADL tasks. 2=Patient will verbalize/demonstrate understanding of assistive dev ices/modifications for ADL. 3=Patient will improve strength/tolerance for activity to enable patient to perform ADL's. OT Education/Plan Problem List/Assessment Assessment: Decreased Activ Tolerance, Decreased UE Strength, Impaired Funct Balance, Impaired I ADL's, Impaired Self-Care Skills, Restricted Funct UE ROM Discharge Recommendations Plan/Recommendations: Continue POC Treatment Plan/Plan of Care Patient would benefit from OT for education, treatment and training to promote independence in ADL's, mobility, safety and/or upper extremity function for ADL's. Plan of Care: ADL Retraining, Functional Mobility, Group Exercise/Act as Ind, UE Funct Exercise/Act Treatment Duration: Feb 21, 2020 Frequency: Modified Program (IRF) (05/12) Estimated Hrs Per Day: 1.5 hours per day Rehab Potential: Fair Time/GCodes Start Time: 07:30 Stop Time: 09:00 Total Time Billed (hr/min): 90 Billed Treatment Time 1 visit-ADL 4 (60 mins) EX 2 (30 mins) BRITTNEY HUMPHREYS Feb 01, 2020 09:14
--- NOTE | 2020-02-01 10:00 | NUR ---
DOES NOT LIKE TO WEAR BACK BRACE, BUT INFORMED STILL NEEDS TO WEAR IT - VERIFIED BY THERAPY.
--- NOTE | 2020-02-01 10:18 | Physical Therapy Daily Note ---
PT Daily Note-Current Subjective Pt sitting in recliner upon arrival. Pt agrees to PT. Google translate is used to communicate if needed. Pain Location: No Pain Reported Mental Status Patient Orientation: Person, Place, Situation Attachments: Other-See Comments (Lumbar back brace) Transfers SCALE: Activities may be completed with or without assistive devices. 5-Erjopielxy-qvjidba completes the activity by him/herself with no assistance from a helper. 5-Set-up or Clean-up Assistance-helper sets up or cleans up; patient completes activity. [place] assists only prior to or following the activity. 4-Supervision or Touching Assistance-helper provides verbal cues and/or touching/steadying and/or contact guard assistance as patient completes activity. Assistance may be provided throughout the activity or intermittently. 3-Partial/Moderate Assistance-helper does LESS THAN HALF the effort. [place] lifts, holds or supports trunk or limbs, but provides less than half the effort. 2-Substantial/Maximal Assistance-helper does MORE THAN HALF the effort. [place] lifts or holds trunk or limbs and provides more than half the effort. 1-Ehydzrvsd-efjcpx does ALL the effort. Patient does none of the effort to complete the activity. Or, the assistance of 2 or more helpers is required for the patient to complete the activity. If activity was not attempted, code reason: 7-Patient Refused. 9-Not Applicable-not attempted and the patient did not perform the activity before the current illness, exacerbation or injury. 10-Not Attempted due to Environmental Limitations-(lack of equipment, weather restraints, etc.). 88-Not Attempted due to Medical Conditions or Safety Concerns. Sit to Lying (QC): 5 Sit to Stand (QC): 5 Weight Bearing Full Weight Bearing Full Weight Bearing Gait Training Does the Patient Walk?: Yes Distance: 150' x2 Walk 10 feet (QC): 5 Walk 50 ft with 2 Turns(QC): 5 Walk 150 ft (QC): 5 Gait Persons Needed: 1 Gait Assistive Device: FWW Wheelchair Training Does the Pt Use a Wheelchair?: No Exercises Seated Therapy Exercises: Ankle pumps, Long arc quads, Hip flexion, Kicking activity, Hip abd/add, Glut set Seated Reps: 20 Standing: Hip Abduction, Hamstring curls, Heel/toe raises, Marching, Sit to Stand Standing Reps: 20 NuStep Minutes: 10 NuStep Workload: 4 Treatments TF to standing then amb. in hallway. Completes Seated & Standing Ex at //bars. Uses NuStep for 10m at WL 4. Takes walk & returns to room to rest Supine in bed, all needs met, call light in hand. Assessment Current Status: Good Progress Pt continues to making progress with strength, activity tolerance and safety. PT Short Term Goals Short Term Goals Time Frame: Jan 31, 2020 Roll Left & Right: 3 Sit to lyin Lying to sitting on side of be: 3 Sit to stand: 4 Chair/sqr-yy-frcvk transfer: 4 Walk 10 feet: 4 Walk 50 feet with two turns: 4 PT Custodial Goals Diesel Engine Ii Pipe Fitter Goals PT Custodial Goals Time Frame: Feb 14, 2020 Roll Left & Right (QC): 4 Sit to Lying (QC): 4 Lying-Sitting on Side/Bed(QC): 4 Sit to Stand (QC): 4 Chair/Php-ap-Ozrrc Xfer(QC): 4 Toilet Transfer (QC): 4 Car Transfer (QC): 4 Does the Patient Walk: Yes Walk 10 feet (QC): 4 Walk 50ft with 2 Turns (QC): 4 Walk 150 ft (QC): 4 Walking 10ft on Uneven Surface: 4 1 Step (curb) (QC): 4 4 Steps (QC): 4 12 Steps (QC): 4 Picking up an Object (QC): 88 Wheel 50 feet with 2 turns (QC: 9 Wheel 150 feet: 9 PT Plan Problem List Problem List: Activity Tolerance Treatment/Plan Treatment Plan: Continue Plan of Care Treatment Plan: Bed Mobility, Education, Functional Activity Kassandra, Functional Strength, Group Therapy, Gait, Safety, Therapeutic Exercise, Transfers Treatment Duration: Feb 14, 2020 Frequency: Modified Program (IRF) Estimated Hrs Per Day: 1.5 hours per day Patient and/or Family Agrees t: Yes Safety Risks/Education Patient Education: Correct Positioning, Safety Issues Teaching Recipient: Patient Teaching Methods: Discussion Response to Teaching: Verbalize Understanding Time/GCodes Time In: 900 Time Out: 1000 Total Billed Treatment Time: 60 Total Billed Treatment 1,GT (20m) & EX x3 (40m) NIC MORENO FIELD MARKETING MANAGER Feb 01, 2020 10:18
[2020-02-01] MEDS: IRON SUCROSE 200 MG/10 ML (VENOFER) VIAL IV SCH (11:04)
[2020-02-01 12:00] VITALS: BP 107/55
[2020-02-01] MEDS: lisINopril 10 MG (PRINIVIL) TABLET PO SCH (12:12)
--- NOTE | 2020-02-01 13:21 | NUR ---
"RD ASSESSMENT PMHx: DM; GERD; HLD; IBS; HTN PT INTERACTION: Pt was awake and pleasant during nutrition follow-up. Used Google translate for communication needs. Pt states she has been eating okay since last assessment. Note avg PO intake 98% x4d, per chart review. Pt states no issues with nausea, vomiting, constipation, or diarrhea since last assessment. Note last BM was 01/29, and pt currently on bowel regimen of colace BID; senna BID; and miralax BID, per chart review. ABNORMAL NUTRITION-RELATED LAB VALUES LOW: Pro 6.3 HIGH: BUN 19; glu 109 Est. kcal needs: 1450 kcal | 25 kcal/kg Est. Pro needs: 70 g Pro | 1.2 g Pro/kg PES STATEMENT: Given current PO intake, no nutrition diagnosis at this time (NO-1.1) INTERVENTION: Continue with current diet order of Regular diet, with modifier of Ground Meat. Pt may benefit from consistent CHO restriction if blood glucose levels become elevated. Will continue to follow and reassess as pt needs, intake, and status change. MONITOR/EVALUATE: PO Intake; Plan of Care; Hydration Status; Weight Status; Lab Values Tia Bergeron, MS, RD, LD"
--- NOTE | 2020-02-01 14:00 | NUR ---
DR. DOUGLASS'S OFFICE STATES LABS SENT THIS AM ARE ILLEGIBLE AND WEDNESDAY AND TODAY'S LABS REFAXED BY [facility]. Addendum: 02/01/20 at 1452 by TESSA STEPHENSON RN WRONG PATIENT
--- NOTE | 2020-02-01 15:21 | Physical Therapy Daily Note ---
PT Daily Note-Current Subjective Pt in restroom with Nursing upon arrival. Pt agrees to PT. student life dean accompanies tx and assists with translation. Pain Location: No Pain Reported Mental Status Patient Orientation: Person, Place, Situation Transfers SCALE: Activities may be completed with or without assistive devices. 0-Dwjxinfbfc-ffheutg completes the activity by him/herself with no assistance from a helper. 5-Set-up or Clean-up Assistance-helper sets up or cleans up; patient completes activity. [place] assists only prior to or following the activity. 4-Supervision or Touching Assistance-helper provides verbal cues and/or touching/steadying and/or contact guard assistance as patient completes activity. Assistance may be provided throughout the activity or intermittently. 3-Partial/Moderate Assistance-helper does LESS THAN HALF the effort. [place] lifts, holds or supports trunk or limbs, but provides less than half the effort. 2-Substantial/Maximal Assistance-helper does MORE THAN HALF the effort. [place] lifts or holds trunk or limbs and provides more than half the effort. 1-Nkjugcdbi-spmsql does ALL the effort. Patient does none of the effort to complete the activity. Or, the assistance of 2 or more helpers is required for the patient to complete the activity. If activity was not attempted, code reason: 7-Patient Refused. 9-Not Applicable-not attempted and the patient did not perform the activity before the current illness, exacerbation or injury. 10-Not Attempted due to Environmental Limitations-(lack of equipment, weather restraints, etc.). 88-Not Attempted due to Medical Conditions or Safety Concerns. Sit to Lying (QC): 5 Sit to Stand (QC): 5 Weight Bearing Full Weight Bearing Full Weight Bearing Gait Training Does the Patient Walk?: Yes Distance: 10' Walk 10 feet (QC): 5 Gait Assistive Device: FWW Wheelchair Training Does the Pt Use a Wheelchair?: No Exercises Supine Ex: Ankle pumps, Quad Set, Glut sets, Heel Slides, Straight leg raise, Hip abd/add Supine Reps: 20 Treatments Finishes in restroom and returns to EOB, transferring to Supine in bed. Completes Supine Ex & sit to stands. Resting in bed with all needs met, call light in hand. Assessment Current Status: Good Progress Pt praneeth. tx well. PT Short Term Goals Short Term Goals Time Frame: Jan 31, 2020 Roll Left & Right: 3 Sit to lyin Lying to sitting on side of be: 3 Sit to stand: 4 Chair/oxy-vg-tzplx transfer: 4 Walk 10 feet: 4 Walk 50 feet with two turns: 4 PT Atm Mechanic Goals Atm Mechanic Goals PT Atm Mechanic Goals Time Frame: Feb 14, 2020 Roll Left & Right (QC): 4 Sit to Lying (QC): 4 Lying-Sitting on Side/Bed(QC): 4 Sit to Stand (QC): 4 Chair/Umb-rc-Nabxw Xfer(QC): 4 Toilet Transfer (QC): 4 Car Transfer (QC): 4 Does the Patient Walk: Yes Walk 10 feet (QC): 4 Walk 50ft with 2 Turns (QC): 4 Walk 150 ft (QC): 4 Walking 10ft on Uneven Surface: 4 1 Step (curb) (QC): 4 4 Steps (QC): 4 12 Steps (QC): 4 Picking up an Object (QC): 88 Wheel 50 feet with 2 turns (QC: 9 Wheel 150 feet: 9 PT Plan Problem List Problem List: Activity Tolerance Treatment/Plan Treatment Plan: Continue Plan of Care Treatment Plan: Bed Mobility, Education, Functional Activity Kassandra, Functional Strength, Group Therapy, Gait, Safety, Therapeutic Exercise, Transfers Treatment Duration: Feb 14, 2020 Frequency: Modified Program (IRF) Estimated Hrs Per Day: 1.5 hours per day Patient and/or Family Agrees t: Yes Safety Risks/Education Patient Education: Correct Positioning, Safety Issues Teaching Recipient: Patient Teaching Methods: Discussion Response to Teaching: Verbalize Understanding Time/GCodes Time In: 1300 Time Out: 1330 Total Billed Treatment Time: 30 Total Billed Treatment 1, EX x2 (30m) NIC MORENO SECURITIES SALES ASSOCIATE Feb 01, 2020 15:21
[2020-02-01 17:00] VITALS: BP 93/49
[2020-02-01 18:00] VITALS: BP 126/58
[2020-02-01] MEDS: MELATONIN 3 MG TABLET PO PRN (20:05)
--- NOTE | 2020-02-02 05:29 | PM&R Progress Note ---
Subjective HPI/CC On Admission Date Seen by Provider: Feb 02, 2020 Time Seen by Provider: 10:00 Subjective/Events-last exam 02/02/20: Abdominal cramping noted so Pt was given Bentyl Bowels moved this morning Labs remained stable 02/01/20: Pt having a good day Refusing to put back brace on today Last dose of IV iron today DC is planned for the first of the week 01/31/20: Hgb 6.6 today Ultram for pain is very effective Bowels are moving Pain is tolerated Participating in therapy 01/30/20: Layla Munoz Hgb 6 on last check UTI treatment completing Ultram handling the pain 01/29/20: Patient feels good Ultram works better for her less sedating than the Hydrocodone 01/28/20: Patient doing well Hgb 6.1 Right leg pain and heaviness but no coldness noted BM++ PO abx for UTI 01/27/20: Patient doing well BM today Ultram will be ordered since [place] makes her too sleepy 01/26/20: Doing well Hgb stable UTI treatment maintained Updated daughter BM+ Lortab maintained 01/25/20: Hgb 4.9 and stable Vitals stable Midline will be placed due to antibiotics and IV iron infusions Appreciate Dr. Iglesias Pain is only a 4/10 Tmax of 99.5 DC IV fluid and Vancomycin Cefepime maintained E. coli urine culture pending with sensitivity Pt had an uneventful might Had a fever this morning at 36.5 Remains tachycardic but sinus type Cefepime and Vanc maintained Preliminary urine culture is E. Coli Bowels moved this morning No drainage at the operative site Hgb up from 3.8 to 4.9 even with gentle IV fluid WBC down to 11.[address] Castellanos and Dr. Caldwell Checked meds and labs Conferred with RN Reviewed therapy notes Review of Systems General: Fatigue, Malaise Neurological: Weakness Objective Exam Vital Signs Vital Signs Date Time Temp Pulse Resp B/P (MAP) Pulse Ox O2 Delivery O2 Flow Rate FiO2 02/02/20 21:10 96 Room Air 02/02/20 17:11 36.4 86 16 132/57 (82) 02/02/20 06:06 2.00 Capillary Refill : Less Than 3 Seconds General Appearance: No Apparent Distress, WD/WN, Chronically ill, Other (pale) HEENT: PERRL/EOMI, Normal ENT Inspection, Pharynx Normal Neck: Full Range of Motion, Normal Inspection, Non Tender, Supple, Carotid Bruit Respiratory: Chest Non Tender, Lungs Clear, Normal Breath Sounds, No Accessory Muscle Use, No Respiratory Distress Cardiovascular: Regular Rate, Rhythm, No Edema, No Gallop, No JVD, No Murmur, Normal Peripheral Pulses Gastrointestinal: Normal Bowel Sounds, No Organomegaly, No Pulsatile Mass, Non Tender, Soft Back: Decreased Range of Motion Extremity: Normal Capillary Refill, Normal Inspection, Normal Range of Motion, Non Tender, No Calf Tenderness, No Pedal Edema Neurologic/Psychiatric: Alert, Oriented x3, No Motor/Sensory Deficits, Normal Mood/Affect, blood tester II-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 FIM Transfers Therapy Code Descriptions/Definitions Functional [place] Measure: 0=Not Assessed/NA 4=Minimal Assistance 1=Total Assistance 5=Supervision or Setup 2=Maximal Assistance 6=Modified [place] 3=Moderate Assistance 7=Complete IndependenceSCALE: Activities may be completed with or without assistive devices. 2-Mfgkqknaei-pxiyegm completes the activity by him/herself with no assistance from a helper. 5-Set-up or Clean-up Assistance-helper sets up or cleans up; patient completes activity. [place] assists only prior to or following the activity. 4-Supervision or Touching Assistance-helper provides verbal cues and/or touching/steadying and/or contact guard assistance as patient completes activity. Assistance may be provided throughout the activity or intermittently. 3-Partial/Moderate Assistance-helper does LESS THAN HALF the effort. [place] lifts, holds or supports trunk or limbs, but provides less than half the effort. 2-Substantial/Maximal Assistance-helper does MORE THAN HALF the effort. [place] lifts or holds trunk or limbs and provides more than half the effort. 5-Oylsaqtfn-gjnrha does ALL the effort. Patient does none of the effort to complete the activity. Or, the assistance of 2 or more helpers is required for the patient to complete the activity. If activity was not attempted, code reason: 7-Patient Refused. 9-Not Applicable-not attempted and the patient did not perform the activity before the current illness, exacerbation or injury. 10-Not Attempted due to Environmental Limitations-(lack of equipment, weather restraints, etc.). 88-Not Attempted due to Medical Conditions or Safety Concerns. Roll Left to Right (QC): 4 Sit to Lying (QC): 5 Sit to Stand (QC): 5 Chair/Ccv-ak-Zopdl Xfer(QC): 4 Car Transfer (QC): 3 Gait Training Does the Patient Walk?: Yes Distance: 10' Walk 10 feet (QC): 5 Walk 50 ft with 2 Turns(QC): 5 Walk 150 ft (QC): 5 Walking 10ft/uneven surface-QC: 3 Gait Persons Needed: 1 Gait Assistive Device: FWW Wheelchair Training Does the Pt Use a Wheelchair?: No Wheel 50 ft with 2 turns (QC): 9 Wheel 150 ft (QC): 9 Type of Wheelchair: N/A Stair Training #of Steps: 8 1 Step (curb) (QC): 3 4 Steps (QC): 88 12 Steps (QC): 88 Stairs: Pattern: Step to Balance Picking up an Object (QC): 88 ADL-Treatment Eating (QC): 5 (pt reports she has some difficulty chewing food and cutting food. No difficulties bringing food to her mouth.) Oral Hygiene (QC): 6 Bathing Location: L Arm, R Arm, L Upper Leg, R Upper Leg, L Lower Leg (including foot), R Lower Leg (including foot), Chest, Abdomen, Buttocks, Perineal Area Shower/Bathe Self (QC): 6 Upper Body Dressing (QC): 6 Lower Body Dressing (QC): 6 On/Off Footwear (QC): 5 Toileting Hygiene (QC): 6 Toilet Transfer (QC): 6 Assessment/Plan Assessment and Plan Assess & Plan/Chief Complaint Assessment: Lumbar stenosis with neurogenic claudication Severe anemia JW refusal of blood products HTN HLP Fever Goldstein cath UTI Bradycardia at [place] Plan: Dr Iglesias consult EPO and Venofer tomorrow Gentle IVF PT OT Abx broad spectrum 01/24/20: Monitor hemoglobin Appreciate Dr. Castellanos Appreciate Dr. Iglesias Continue antibiotics Monitor closely 01/25/20: Continue Cefepime Discontinue Vanc Monitor fever Place midline for iron infusions and antibiotics Monitor hemoglobin 4.[address] Iglesias 01/26/20: Maintain Hematology support Continue abx UCx reviewed 01/27/20: DC IV abx PO abx for UTI Change pain meds 01/28/20: PO abx Hgb good Iron infusions BM regimen Ultram 01/29/20: Complete tx for UTI Monitor labs closely but prevent phlebotomy driven anemia 01/30/20: Monitor hemoglobin Complete UTI treatment Ultram maintaining good pain control 01/31/20: Appreciate Dr Iglesias Monitor pain Monitor hgb 02/01/20: Encouraged use of back brace Completing IV iron infusion today Monitor hemoglobin 02/02/20: Monitor abdominal cramping Discharge is planned for Wednesday (1) Lumbar stenosis with neurogenic claudication (2) Refusal of blood transfusions as patient is [place] (3) Anemia due to acute blood loss (4) Advanced age (5) Hypertension (6) Hyperlipemia (7) Fever (8) Bradycardia SAMARIA NAIR DO Feb 02, 2020 05:29
[2020-02-02 06:06] VITALS: BP 118/52
[2020-02-02] MEDS: ONDANSETRON 4 MG (ZOFRAN) ORAL DISSOLVE TAB PO PRN (07:42)
[2020-02-02] MEDS: DOCUSATE SODIUM 100 MG (COLACE) CAP PO SCH ×2 (08:28→21:10)
[2020-02-02] MEDS: DICYCLOMINE 10 MG (BENTYL) CAP PO SCH ×2 (08:28→21:11)
[2020-02-02] MEDS: polyethylene glycoL POWDER 17 GM (MIRALAX) PACK PO SCH ×2 (08:28→21:10)
[2020-02-02] MEDS: FOLIC ACID 1 MG TAB PO SCH (08:28)
[2020-02-02] MEDS: SENNA W/DOCUSATE (SENOKOT S) TABLET PO SCH ×2 (08:28→21:10)
--- NOTE | 2020-02-02 08:34 | Occupational Ther Daily Note ---
OT Current Status-Daily Note Subjective Pt sitting in recliner when OT entered room. Pt reported pain in stomach, nursing notified. Medication was given to pt. Mental Status/Objective Patient Orientation: Person, Place, Time, Situation ADL-Treatment After handing pt back brace, pt donned by self. Pt sit-stand from recliner to FWW. Pt ambulated to bathroom and transferred to the toilet. Pt completed toilet hygiene independently. Pt ambulated to sink, washed hands and completed oral care while standing. Pt then ambulated to gym. Therapy Code Descriptions/Definitions Functional [place] Measure: 0=Not Assessed/NA 4=Minimal Assistance 1=Total Assistance 5=Supervision or Setup 2=Maximal Assistance 6=Modified [place] 3=Moderate Assistance 7=Complete IndependenceSCALE: Activities may be completed with or without assistive devices. 7-Fqnlpbkedw-nskcizz completes the activity by him/herself with no assistance from a helper. 5-Set-up or Clean-up Assistance-helper sets up or cleans up; patient completes activity. [place] assists only prior to or following the activity. 4-Supervision or Touching Assistance-helper provides verbal cues and/or touching/steadying and/or contact guard assistance as patient completes activity. Assistance may be provided throughout the activity or intermittently. 3-Partial/Moderate Assistance-helper does LESS THAN HALF the effort. [place] lifts, holds or supports trunk or limbs, but provides less than half the effort. 2-Substantial/Maximal Assistance-helper does MORE THAN HALF the effort. [place] lifts or holds trunk or limbs and provides more than half the effort. 5-Hdbkrvfho-ezydsd does ALL the effort. Patient does none of the effort to complete the activity. Or, the assistance of 2 or more helpers is required for the patient to complete the activity. If activity was not attempted, code reason: 7-Patient Refused. 9-Not Applicable-not attempted and the patient did not perform the activity before the current illness, exacerbation or injury. 10-Not Attempted due to Environmental Limitations-(lack of equipment, weather restraints, etc.). 88-Not Attempted due to Medical Conditions or Safety Concerns. Oral Hygiene (QC): 6 Toileting Hygiene (QC): 6 Toilet Transfer (QC): 6 Other Treatment Pt sat at chair in gym. To increase pt's hand and pinch/grasp strength, pt grasped clothes pin ranging from light resistance(yellow, green, red) to hard resistance (blue and black) to different sized poles with 1 pound weight around R wrist.Completed this activity 2 times, pt put clothes pin on with R hand off with L hand and then on with L and off with R. Pt was able to grasp all light resistance clothes pin and place them on the thicker pole. Pt was also able to grasp/pinch all hard resistance clothes pin and put them on the skinny pole. When pt was placing clothes pin on pole with L hand, noticed pt would use R hand for support. Pt then completed 1 set of 10 reps of B finger extension/flexion with red theraband around base of fingers. Pt pinched and grasped beads out of medium resistance therapy putty to increase pt's rn dialysis/pinch strength and finger manipulation for completion of daily task. After all beads were found, pt pinched/grasped beads and placed them back into putty. Pt then ambulated back to room using FWW. Stated she needed to use the restroom. Transferred to toilet and completed toilet hygiene independently. Pt then went to sink and washed hands while standing. Pt then ambulated to bed using FWW. Pt transferred to EOB- supine. After therapy pt laying in bed, call light/phone in reach. All needs met. OT Wreath Inspector Goals Wreath Inspector Goals Time Frame: Feb 21, 2020 Eating (QC): 6 Oral Hygiene (QC): 6 Toileting Hygiene (QC): 6 Shower/Bathe Self (QC): 6 Upper Body Dressing (QC): 6 Lower Body Dressing (QC): 6 On/Off Footwear (QC): 6 Additional Goals: 1-Demonstrate ADL Tasks, 2-Verbalize Understanding, 3- ImproveStrength/Kassandra 1=Demonstrate adherence to instructed precautions during ADL tasks. 2=Patient will verbalize/demonstrate understanding of assistive devices/modifications for ADL. 3=Patient will improve strength/tolerance for activity to enable patient to perform ADL's. OT Education/Plan Problem List/Assessment Assessment: Decreased Activ Tolerance, Decreased UE Strength, Impaired Funct Balance, Impaired I ADL's, Impaired Self-Care Skills, Restricted Funct UE ROM Discharge Recommendations Plan/Recommendations: Continue POC Treatment Plan/Plan of Care Patient would benefit from OT for education, treatment and training to promote independence in ADL's, mobility, safety and/or upper extremity function for ADL's. Plan of Care: ADL Retraining, Functional Mobility, Group Exercise/Act as Ind, UE Funct Exercise/Act Treatment Duration: Feb 21, 2020 Frequency: Modified Program (IRF) (05/12) Estimated Hrs Per Day: 1.5 hours per day Rehab Potential: Fair Time/GCodes Start Time: 07:30 Stop Time: 08:30 Total Time Billed (hr/min): 60 Billed Treatment Time 1 visit-ADL 1 (20 mins) EX 3 (40 mins) BRITTNEY HUMPHREYS Feb 02, 2020 08:34
--- NOTE | 2020-02-02 10:35 | Cardiology Progress Note ---
Subjective Date Seen by Provider: Feb 02, 2020 Time Seen by Provider: 10:34 Subjective/Events-last exam Patient is laying down in bed, feeling better. No chest pain or shortness of breath. Excellent complaining of abdominal distention and gas Review of Systems General: No Chills, No Night Sweats, No Fatigue, No Malaise, No Appetite, No Other HEENT: No Head Aches, No Visual Changes, No Eye Pain, No Ear Pain, No Dysphasia, No Sinus Congestion, No Post Nasal Drip, No Sore Throat, No Other Pulmonary: No Dyspnea, No Cough, No Pleuritic Chest Pain, No Other Cardiovascular: No: Chest Pain, Palpitations, Orthopnea, Paroxysmal Noc. Dyspnea, Edema, Lt Headedness, Other Objective-Cardiology Exam Last Set of Vital Signs Vital Signs 02/02/20 02/02/20 06:06 09:59 Temp 36.6 Pulse 90 Resp 18 B/P (MAP) 118/52 (74) Pulse Ox 98 O2 Delivery Room Air O2 Flow Rate 2.00 Capillary Refill : Less Than 3 Seconds I&O Intake and Output 02/02/20 00:00 Intake Total 1220 ml Balance 1220 ml Intake Oral 1220 ml # Voids 8 # Bowel Movements 1 General: Alert, Oriented X3, Cooperative HEENT: Atraumatic, PERRLA Neck: Supple, No JVD, No Thyromegaly Lungs: Clear to Auscultation, Normal Air Movement Heart: Regular Rate, Normal S1, Normal S2, No Murmurs Abdomen: Normal Bowel Sounds, Soft, No Tenderness, No Hepatosplenomegaly, No Masses Extremities: No Clubbing, No Cyanosis, No Edema, Normal Pulses, No Tenderness/Swelling Skin: No Rashes, No Breakdown, No Significant Lesion Neuro: Normal Gait, Normal Speech, Strength at 5/5 X4 Ext, Normal Tone, Sensation Intact Psych/Mental Status: Mental Status NL, Mood NL A/P-Cardiology Admission Diagnosis sinus bradycardia HTN anemia Assessment/Plan History of Sinus bradycardia, currently mildly tachycardic likely secondary to anemia. Continue to monitor. Hypertension, patient is on lisinopril. Continue to monitor. Extensive spine surgery. Inpatient rehabilitation. still has pain in the back and lower extremities. Severe anemia, iron infusions erythropoietin given. Dr. Torre following. Patient is Jehovah's witness therefore no transfusion. Continue to monitor H&H UTI, management per PCP Clinical Quality Measures DVT/VTE Risk/Contraindication: Risk Factor Score Per Nursin RFS Level Per Nursing on Admit: 4+=Very High EL BORRERO MD Feb 02, 2020 10:35 am
--- NOTE | 2020-02-02 11:15 | Physical Therapy Daily Note ---
PT Daily Note-Current Subjective Pt ready to get out of bed upon arrival. Pt rates pain 2/10 in LB upon arrival. Pt requests BR privileges and recliner upon return to room. Mental Status Patient Orientation: Person, Place, Situation Transfers SCALE: Activities may be completed with or without assistive devices. 1-Ufeigynlwq-fjapsnj completes the activity by him/herself with no assistance from a helper. 5-Set-up or Clean-up Assistance-helper sets up or cleans up; patient completes activity. [place] assists only prior to or following the activity. 4-Supervision or Touching Assistance-helper provides verbal cues and/or touching/steadying and/or contact guard assistance as patient completes activity. Assistance may be provided throughout the activity or intermittently. 3-Partial/Moderate Assistance-helper does LESS THAN HALF the effort. [place] lifts, holds or supports trunk or limbs, but provides less than half the effort. 2-Substantial/Maximal Assistance-helper does MORE THAN HALF the effort. [place] lifts or holds trunk or limbs and provides more than half the effort. 8-Sxnbjicjo-xfijdm does ALL the effort. Patient does none of the effort to complete the activity. Or, the assistance of 2 or more helpers is required for the patient to complete the activity. If activity was not attempted, code reason: 7-Patient Refused. 9-Not Applicable-not attempted and the patient did not perform the activity be fore the current illness, exacerbation or injury. 10-Not Attempted due to Environmental Limitations-(lack of equipment, weather restraints, etc.). 88-Not Attempted due to Medical Conditions or Safety Concerns. Weight Bearing Full Weight Bearing Full Weight Bearing Exercises NuStep Minutes: 15 NuStep Workload: 4 Treatments Pt bed mobility and transfers mod (I). Pt handed brace, donned (I). Pt amb with FWW and CGA-SBA 500ft x 2. Pt toileted (I) SBA. Pt performed seated and reclined ther ex: AP, QS, heel slide, hip abd, marching, SLR 2 x 20 each. Pt resting post treatment, all needs met. Call light in reach. Assessment Current Status: Excellent Progress Pt progressing nicely with functional mobility, mod (I) level with transfers and bed mobility. Pt in recliner with call light. Pt needs met post treatment. PT Short Term Goals Short Term Goals Time Frame: Jan 31, 2020 Roll Left & Right: 3 Sit to lyin Lying to sitting on side of be: 3 Sit to stand: 4 Chair/pct-qz-mfari transfer: 4 Walk 10 feet: 4 Walk 50 feet with two turns: 4 PT Utility Aide Goals Utility Aide Goals PT Utility Aide Goals Time Frame: Feb 14, 2020 Roll Left & Right (QC): 4 Sit to Lying (QC): 4 Lying-Sitting on Side/Bed(QC): 4 Sit to Stand (QC): 4 Chair/Vhc-ua-Wgmeq Xfer(QC): 4 Toilet Transfer (QC): 4 Car Transfer (QC): 4 Does the Patient Walk: Yes Walk 10 feet (QC): 4 Walk 50ft with 2 Turns (QC): 4 Walk 150 ft (QC): 4 Walking 10ft on Uneven Surface: 4 1 Step (curb) (QC): 4 4 Steps (QC): 4 12 Steps (QC): 4 Picking up an Object (QC): 88 Wheel 50 feet with 2 turns (QC: 9 Wheel 150 feet: 9 PT Plan Treatment/Plan Treatment Plan: Continue Plan of Care Treatment Plan: Bed Mobility, Education, Functional Activity Kassandra, Functional Strength, Group Therapy, Gait, Safety, Therapeutic Exercise, Transfers Treatment Duration: Feb 14, 2020 Frequency: Modified Program (IRF) Estimated Hrs Per Day: 1.5 hours per day Patient and/or Family Agrees t: Yes Time/GCodes Time In: 1045 Time Out: 1145 Total Billed Treatment Time: 60 Total Billed Treatment 1, Ex x 30', Gait x 30' EMMANUEL ALVES Feb 02, 2020 11:15
[2020-02-02] MEDS: lisINopril 10 MG (PRINIVIL) TABLET PO SCH (12:09)
[2020-02-02 12:12] VITALS: BP 121/57
--- NOTE | 2020-02-02 14:15 | Therapy Group Daily Note ---
Therapy Daily Group Note Patient Education Topic Exercises Exercises LE Seated Exercise, Balance (Sitting balance), UE Exercise Session Ratio (pt:therapist): 4:1 Goal of Session: UE/LE Strengthing Goal Met for this Session: Yes Pt Benefit of Group: Contributions to Others, F/U Use of Strategies @Home, Increased Functional Strength, Recognition of Peers, Socialization Other/Notes Pt ambulated from room to ARU common for PT/OT group. Group consisted of introduction(name, where you are from, and where you were on 02/01), LE/UE seated resistive exercises with balloon, hitting balloon over net, kicking balloon under net, and benefits of exercising. Pt introduced self appropriately and actively listened to peer introductions. Pt participated in seated UE/LE exercises and acknowledged understanding of educational topic by giving own idea. Due to pt knowing very little Dominican, CHRISTINA used [employer] translate to help communicate. Pt ambulated back to room. Pt laying in bed, call light/phone in reach. All needs met. Start Time: 13:00 Stop Time: 14:00 Total Billed Treatment Time: 60 Total Billed Treatment 1, GRP BRITTNEY HUMPHREYS Feb 02, 2020 14:15
[2020-02-02 17:11] VITALS: BP 132/57
[2020-02-02] MEDS: MELATONIN 3 MG TABLET PO PRN (21:11)
[2020-02-02] MEDS: CATHETER FLUSH 10 ML SYR IV SCH (21:12)
[2020-02-03] MEDS: CATHETER FLUSH 10 ML SYR IV SCH ×3 (05:56→22:00)
--- NOTE | 2020-02-03 05:57 | PM&R Progress Note ---
Subjective HPI/CC On Admission Date Seen by Provider: Feb 03, 2020 Time Seen by Provider: 12:15 Subjective/Events-last exam 02/03/20: Patient denies pain O2 study overnight will be performed DC planned for Wednesday02/02/20: Abdominal cramping noted so Pt was given Bentyl Bowels moved this morning Labs remained stable 02/01/20: Pt having a good day Refusing to put back brace on today Last dose of IV iron today DC is planned for the first of the week 01/31/20: Hgb 6.6 today Ultram for pain is very effective Bowels are moving Pain is tolerated Participating in therapy 01/30/20: Layla Munoz Hgb 6 on last check UTI treatment completing Ultram handling the pain 01/29/20: Patient feels good Ultram works better for her less sedating than the Hydrocodone 01/28/20: Patient doing well Hgb 6.1 Right leg pain and heaviness but no coldness noted BM++ PO abx for UTI 01/27/20: Patient doing well BM today Ultram will be ordered since [place] makes her too sleepy 01/26/20: Doing well Hgb stable UTI treatment maintained Updated daughter BM+ Lortab maintained 01/25/20: Hgb 4.9 and stable Vitals stable Midline will be placed due to antibiotics and IV iron infusions Appreciate Dr. Iglesias Pain is only a 4/10 Tmax of 99.5 DC IV fluid and Vancomycin Cefepime maintained E. coli urine culture pending with sensitivity Pt had an uneventful might Had a fever this morning at 36.5 Remains tachycardic but sinus type Cefepime and Vanc maintained Preliminary urine culture is E. Coli Bowels moved this morning No drainage at the operative site Hgb up from 3.8 to 4.9 even with gentle IV fluid WBC down to 11.[address] Castellanos and Dr. Caldwell Checked meds and labs Conferred with RN Reviewed therapy notes Review of Systems General: Fatigue, Malaise Musculoskeletal: back pain Objective Exam Vital Signs Vital Signs Date Time Temp Pulse Resp B/P (MAP) Pulse Ox O2 Delivery O2 Flow Rate FiO2 02/03/20 16:09 37.4 91 16 126/56 (79) 96 Room Air 02/02/20 06:06 2.00 Capillary Refill : Less Than 3 Seconds General Appearance: No Apparent Distress, WD/WN, Chronically ill, Other (pale) HEENT: PERRL/EOMI, Normal ENT Inspection, Pharynx Normal Neck: Full Range of Motion, Normal Inspection, Non Tender, Supple, Carotid Bruit Respiratory: Chest Non Tender, Lungs Clear, Normal Breath Sounds, No Accessory Muscle Use, No Respiratory Distress Cardiovascular: Regular Rate, Rhythm, No Edema, No Gallop, No JVD, No Murmur, Normal Peripheral Pulses Gastrointestinal: Normal Bowel Sounds, No Organomegaly, No Pulsatile Mass, Non Tender, Soft Back: Decreased Range of Motion Extremity: Normal Capillary Refill, Normal Inspection, Normal Range of Motion, Non Tender, No Calf Tenderness, No Pedal Edema Neurologic/Psychiatric: Alert, Oriented x3, No Motor/Sensory Deficits, Normal Mood/Affect, testing analyst II-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 FIM Transfers Therapy Code Descriptions/Definitions Functional Grant Measure: 0=Not Assessed/NA 4=Minimal Assistance 1=Total Assistance 5=Supervision or Setup 2=Maximal Assistance 6=Modified Grant 3=Moderate Assistance 7=Complete IndependenceSCALE: Activities may be completed with or without assistive devices. 6-Pmbvrofbco-utkrhjb completes the activity by him/herself with no assistance from a helper. 5-Set-up or Clean-up Assistance-helper sets up or cleans up; patient completes activity. [place] assists only prior to or following the activity. 4-Supervision or Touching Assistance-helper provides verbal cues and/or touching/steadying and/or contact guard assistance as patient completes activity. Assistance may be provided throughout the activity or intermittently. 3-Partial/Moderate Assistance-helper does LESS THAN HALF the effort. [place] lifts, holds or supports trunk or limbs, but provides less than half the effort. 2-Substantial/Maximal Assistance-helper does MORE THAN HALF the effort. [place] lifts or holds trunk or limbs and provides more than half the effort. 6-Wvibquxgy-tgotdl does ALL the effort. Patient does none of the effort to complete the activity. Or, the assistance of 2 or more helpers is required for the patient to complete the activity. If activity was not attempted, code reason: 7-Patient Refused. 9-Not Applicable-not attempted and the patient did not perform the activity before the current illness, exacerbation or injury. 10-Not Attempted due to Environmental Limitations-(lack of equipment, weather restraints, etc.). 88-Not Attempted due to Medical Conditions or Safety Concerns. Roll Left to Right (QC): 4 Sit to Lying (QC): 5 Sit to Stand (QC): 5 Chair/Wnj-ni-Dmizu Xfer(QC): 4 Car Transfer (QC): 3 Gait Training Does the Patient Walk?: Yes Distance: 10' Walk 10 feet (QC): 5 Walk 50 ft with 2 Turns(QC): 5 Walk 150 ft (QC): 5 Walking 10ft/uneven surface-QC: 3 Gait Persons Needed: 1 Gait Assistive Device: FWW Wheelchair Training Does the Pt Use a Wheelchair?: No Wheel 50 ft with 2 turns (QC): 9 Wheel 150 ft (QC): 9 Type of Wheelchair: N/A Stair Training #of Steps: 8 1 Step (curb) (QC): 3 4 Steps (QC): 88 12 Steps (QC): 88 Stairs: Pattern: Step to Balance Picking up an Object (QC): 88 ADL-Treatment Eating (QC): 5 (pt reports she has some difficulty chewing food and cutting food. No difficulties bringing food to her mouth.) Oral Hygiene (QC): 6 Bathing Location: L Arm, R Arm, L Upper Leg, R Upper Leg, L Lower Leg (including foot), R Lower Leg (including foot), Chest, Abdomen, Buttocks, Perineal Area Shower/Bathe Self (QC): 6 Upper Body Dressing (QC): 6 Lower Body Dressing (QC): 6 On/Off Footwear (QC): 5 Toileting Hygiene (QC): 6 Toilet Transfer (QC): 6 Assessment/Plan Assessment and Plan Assess & Plan/Chief Complaint Assessment: Lumbar stenosis with neurogenic claudication Severe anemia JW refusal of blood products HTN HLP Fever Goldstein cath UTI Bradycardia at [place] Plan: Dr Iglesias consult EPO and Venofer tomorrow Gentle IVF PT OT Abx broad spectrum 01/24/20: Monitor hemoglobin Appreciate Dr. Castellanos Appreciate Dr. Iglesias Continue antibiotics Monitor closely 01/25/20: Continue Cefepime Discontinue Vanc Monitor fever Place midline for iron infusions and antibiotics Monitor hemoglobin 4.[address] Iglesias 01/26/20: Maintain Hematology support Continue abx UCx reviewed 01/27/20: DC IV abx PO abx for UTI Change pain meds 01/28/20: PO abx Hgb good Iron infusions BM regimen Ultram 01/29/20: Complete tx for UTI Monitor labs closely but prevent phlebotomy driven anemia 01/30/20: Monitor hemoglobin Complete UTI treatment Ultram maintaining good pain control 01/31/20: Appreciate Dr Iglesias Monitor pain Monitor hgb 02/01/20: Encouraged use of back brace Completing IV iron infusion today Monitor hemoglobin 02/02/20: Monitor abdominal cramping Discharge is planned for Wednesday02/03/20: Overnight O2 study Monitor hgb (1) Lumbar stenosis with neurogenic claudication (2) 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
[2020-02-03 06:15] VITALS: BP 123/63
[2020-02-03] MEDS: DOCUSATE SODIUM 100 MG (COLACE) CAP PO SCH ×2 (08:40→21:13)
[2020-02-03] MEDS: FOLIC ACID 1 MG TAB PO SCH (08:40)
[2020-02-03] MEDS: HYDROcodone/APAP 5 MG/325 MG (LORTAB) TAB PO PRN ×2 (08:40→19:29)
--- NOTE | 2020-02-03 08:40 | NUR ---
COMPLAIN RIGHT LEG PAIN AND MEDICATED WITH LORTAB REQUESTED. NO OTHER COMPLAINTS. EVEN THOUGH SOUTH AFRICAN-SPEAKING, MAKES HER NEEDS KNOWN WELL.
[2020-02-03] MEDS: DICYCLOMINE 10 MG (BENTYL) CAP PO SCH ×2 (08:41→21:12)
[2020-02-03] MEDS: SENNA W/DOCUSATE (SENOKOT S) TABLET PO SCH ×2 (08:44→21:12)
[2020-02-03] MEDS: polyethylene glycoL POWDER 17 GM (MIRALAX) PACK PO SCH ×2 (08:45→21:10)
--- NOTE | 2020-02-03 10:40 | Physical Therapy Daily Note ---
PT Daily Note-Current Subjective Pt in bed upon arrival. C/o pain previously but received medication and feels better. Pt rates pain 3-4/10 after receiving pain medication. Pt agrees to PT tx. Pain Numeric Pain Scale: 3 Location: Right Pain Description: Ache Comment: Pt c/o pain being on the right side from above the hip, down leg Mental Status Patient Orientation: Person, Place, Time, Situation Attachments: [place] Lock Pt mexican speaking w/ minimal kyrgyz. Transfers SCALE: Activities may be completed with or without assistive devices. 0-Cyyzyhfhku-zsoehlh completes the activity by him/herself with no assistance from a helper. 5-Set-up or Clean-up Assistance-helper sets up or cleans up; patient completes activity. [place] assists only prior to or following the activity. 4-Supervision or Touching Assistance-helper provides verbal cues and/or touching/steadying and/or contact guard assistance as patient completes activity. Assistance may be provided throughout the activity or intermittently. 3-Partial/Moderate Assistance-helper does LESS THAN HALF the effort. [place] lifts, holds or supports trunk or limbs, but provides less than half the effort. 2-Substantial/Maximal Assistance-helper does MORE THAN HALF the effort. [place] lifts or holds trunk or limbs and provides more than half the effort. 2-Zszrbjfuk-zjvlxd does ALL the effort. Patient does none of the effort to complete the activity. Or, the assistance of 2 or more helpers is required for the patient to complete the activity. If activity was not attempted, code reason: 7-Patient Refused. 9-Not Applicable-not attempted and the patient did not perform the activity before the current illness, exacerbation or injury. 10-Not Attempted due to Environmental Limitations-(lack of equipment, weather restraints, etc.). 88-Not Attempted due to Medical Conditions or Safety Concerns. Roll Left & Right (QC): 5 Sit to Lying (QC): 5 Lying to Sitting/Side of Bed(Q: 5 Sit to Stand (QC): 5 Toilet Transfer (QC): 5 Weight Bearing Full Weight Bearing Full Weight Bearing Gait Training Does the Patient Walk?: Yes Distance: 250'+ Gait Persons Needed: 1 Gait Assistive Device: FWW Pt ambulates w/ FWW at [facility] and Office Employee following w/ w/c in case rest breaks are needed. Treatments GT training in room and throughout unit. Pt requests toilet upon return. Pt supervision w/ toileting. Pt in bed w/ call light and bedside table w/in reach and all needs met at end of tx. Assessment Current Status: Fair Progress D/t language barrier, communication is difficult. FIBER LOCKING SUPERVISOR knows minimal mexican and uses [employer] translate for remaining communication. Pt motivated to ambulate w/ FIBER LOCKING SUPERVISOR. PT Short Term Goals Short Term Goals Time Frame: Jan 31, 2020 Roll Left & Right: 3 Sit to lyin Lying to sitting on side of be: 3 Sit to stand: 4 Chair/bve-cv-tsvjp transfer: 4 Walk 10 feet: 4 Walk 50 feet with two turns: 4 PT Shelter Goals Shelter Goals PT Hvac Project Engineer Goals Time Frame: Feb 14, 2020 Roll Left & Right (QC): 4 Sit to Lying (QC): 4 Lying-Sitting on Side/Bed(QC): 4 Sit to Stand (QC): 4 Chair/Lgl-xq-Iutwo Xfer(QC): 4 Toilet Transfer (QC): 4 Car Transfer (QC): 4 Does the Patient Walk: Yes Walk 10 feet (QC): 4 Walk 50ft with 2 Turns (QC): 4 Walk 150 ft (QC): 4 Walking 10ft on Uneven Surface: 4 1 Step (curb) (QC): 4 4 Steps (QC): 4 12 Steps (QC): 4 Picking up an Object (QC): 88 Wheel 50 feet with 2 turns (QC: 9 Wheel 150 feet: 9 PT Plan Problem List Problem List: Functional Strength, Safety, Gait Treatment/Plan Treatment Plan: Continue Plan of Care Treatment Plan: Bed Mobility, Education, Functional Activity Kassandra, Functional Strength, Group Therapy, Gait, Safety, Therapeutic Exercise, Transfers Treatment Duration: Feb 14, 2020 Frequency: Modified Program (IRF) Estimated Hrs Per Day: 1.5 hours per day Patient and/or Family Agrees t: Yes Safety Risks/Education Patient Education: Gait Training, Safety Issues Teaching Recipient: Patient Teaching Methods: Discussion Response to Teaching: Verbalize Understanding Time/GCodes Time In: 1015 Time Out: 1030 Total Billed Treatment Time: 15 Total Billed Treatment 1, GT (15m) SHANTA RODRIGUEZ FIBER LOCKING SUPERVISOR Feb 03, 2020 10:40
--- NOTE | 2020-02-03 11:40 | Cardiology Progress Note ---
Subjective Date Seen by Provider: Feb 03, 2020 Time Seen by Provider: 11:39 Subjective/Events-last exam Patient was seen and evaluated. Lying down in bed. No new complaint Review of Systems General: No Chills, No Night Sweats, No Fatigue, No Malaise, No Appetite, No Other HEENT: No Head Aches, No Visual Changes, No Eye Pain, No Ear Pain, No Dysphasia, No Sinus Congestion, No Post Nasal Drip, No Sore Throat, No Other Pulmonary: No Dyspnea, No Cough, No Pleuritic Chest Pain, No Other Cardiovascular: No: Chest Pain, Palpitations, Orthopnea, Paroxysmal Noc. Dyspnea, Edema, Lt Headedness, Other Objective-Cardiology Exam Last Set of Vital Signs Vital Signs 02/02/20 02/03/20 02/03/20 06:06 06:15 09:00 Temp 36.4 Pulse 93 Resp 20 B/P (MAP) 123/63 (83) Pulse Ox 96 O2 Delivery Room Air O2 Flow Rate 2.00 Capillary Refill : Less Than 3 Seconds I&O Intake and Output 02/03/20 00:00 Intake Total 1200 ml Balance 1200 ml Intake Oral 1200 ml # Voids 9 # Bowel Movements 1 General: Alert, Oriented X3, Cooperative HEENT: Atraumatic, PERRLA Neck: Supple, No JVD, No Thyromegaly Lungs: Clear to Auscultation, Normal Air Movement Heart: Regular Rate, Normal S1, Normal S2, No Murmurs Abdomen: Normal Bowel Sounds, Soft, No Tenderness, No Hepatosplenomegaly, No Masses Extremities: No Clubbing, No Cyanosis, No Edema, Normal Pulses, No Tenderness/Swelling Skin: No Rashes, No Breakdown, No Significant Lesion Neuro: Normal Gait, Normal Speech, Strength at 5/5 X4 Ext, Normal Tone, Sensation Intact Psych/Mental Status: Mental Status NL, Mood NL A/P-Cardiology Admission Diagnosis sinus bradycardia HTN anemia Assessment/Plan History of Sinus bradycardia, currently mildly tachycardic likely secondary to anemia. Continue to monitor. Hypertension, patient is on lisinopril. Continue to monitor. Extensive spine surgery. Inpatient rehabilitation. still has pain in the back and lower extremities. Severe anemia, iron infusions erythropoietin given. Dr. Torre following. Patient is Muslim therefore no transfusion. Continue to monitor H&H Clinical Quality Measures DVT/VTE Risk/Contraindication: Risk Factor Score Per Nursin RFS Level Per Nursing on Admit: 4+=Very High EL BORRERO MD Feb 03, 2020 11:40
[2020-02-03] MEDS: lisINopril 10 MG (PRINIVIL) TABLET PO SCH (12:58)
--- NOTE | 2020-02-03 13:00 | NUR ---
[facility] TO CONTIN[facility] O2 AT 2L AT HS. WAS NOT ON OXYGEN AT HOME PRIOR TO THAT. DR. NAIR INFORMED AND WILL HAVE NOCTURNAL OXIMETRY TOMORROW NIGHT IN PREP FOR DISCHARGE ON WEDNESDAY.
[2020-02-03 16:09] VITALS: BP 126/56
--- NOTE | 2020-02-03 18:00 | NUR ---
DAUGHTER STATES PATIENT HAS FOLLOW UP APPOINTMENT WITH DR. MILADYS MATHIS ON AT 1430. DISCHARGE DATE IS PLANNED FOR . WILL RESCHEDULE APPOINTMENT ON WEDNESDAY.
[2020-02-03] MEDS: MELATONIN 3 MG TABLET PO PRN (21:12)
[2020-02-03] MEDS: ALPRAZolam 0.25 MG (XANAX) TAB PO PRN (21:12)
[2020-02-04] MEDS: CATHETER FLUSH 10 ML SYR IV SCH ×3 (05:58→20:15)
[2020-02-04 06:00] VITALS: BP 116/57
[2020-02-04 06:31] LABS: BASOPHILS # (AUTO) 0.1 10^3/uL (0.0-0.1); BASOPHILS % (AUTO) 1 % (0-10); EOSINOPHILS # (AUTO) 0.5 10^3/uL (0.0-0.3); EOSINOPHILS % (AUTO) 6 % (0-10); HEMATOCRIT 25 % (35-52); HEMOGLOBIN 7.7 G/DL (11.5-16.0); LYMPHOCYTES # (AUTO) 2.3 X 10^3 (1.0-4.0); LYMPHOCYTES % (AUTO) 27 % (12-44); MEAN CORPUSCULAR HEMOGLOBIN 30 PG (25-34); MEAN CORPUSCULAR HGB CONC 31 G/DL (32-36); MEAN CORPUSCULAR VOLUME 96 FL (80-99); MONOCYTES # (AUTO) 0.9 X 10^3 (0.0-1.0); MONOCYTES % (AUTO) 11 % (0-12); NEUTROPHILS # (AUTO) 4.8 X 10^3 (1.8-7.8); NEUTROPHILS % (AUTO) 56 % (42-75); PLATELET COUNT 654 10^3/uL (130-400); WHITE BLOOD COUNT 8.6 10^3/uL (4.3-11.0)
[2020-02-04 06:53] LABS: ALBUMIN 3.4 GM/DL (3.2-4.5)
[2020-02-04 06:54] LABS: CHLORIDE 105 MMOL/L (98-107); POTASSIUM 4.4 MMOL/L (3.6-5.0); SODIUM 137 MMOL/L (135-145)
[2020-02-04 06:55] LABS: CALCIUM 8.5 MG/DL (8.5-10.1)
[2020-02-04 06:56] LABS: GLUCOSE 98 MG/DL (70-105); TOTAL PROTEIN 6.4 GM/DL (6.4-8.2)
[2020-02-04 06:57] LABS: CARBON DIOXIDE 23 MMOL/L (21-32)
[2020-02-04 06:58] LABS: BILIRUBIN,TOTAL 0.3 MG/DL (0.1-1.0)
--- NOTE | 2020-02-04 06:58 | PM&R Progress Note ---
Subjective HPI/CC On Admission Date Seen by Provider: Feb 04, 2020 Time Seen by Provider: 12:00 Subjective/Events-last exam 02/04/20: Hgb 7.[address] Iglesias wants folic acid at dc and he gave her Vit B12 injection today Needs iron deficiency evaluation from PCP with scopes 02/03/20: Patient denies pain O2 study overnight will be performed DC planned for Wednesday02/02/20: Abdominal cramping noted so Pt was given Bentyl Bowels moved this morning Labs remained stable 02/01/20: Pt having a good day Refusing to put back brace on today Last dose of IV iron today DC is planned for the first of the week 01/31/20: Hgb 6.6 today Ultram for pain is very effective Bowels are moving Pain is tolerated Participating in therapy 01/30/20: Layla Munoz Hgb 6 on last check UTI treatment completing Ultram handling the pain 01/29/20: Patient feels good Ultram works better for her less sedating than the Hydrocodone 01/28/20: Patient doing well Hgb 6.1 Right leg pain and heaviness but no coldness noted BM++ PO abx for UTI 01/27/20: Patient doing well BM today Ultram will be ordered since [place] makes her too sleepy 01/26/20: Doing well Hgb stable UTI treatment maintained Updated daughter BM+ Lortab maintained 01/25/20: Hgb 4.9 and stable Vitals stable Midline will be placed due to antibiotics and IV iron infusions Appreciate Dr. Iglesias Pain is only a 4/10 Tmax of 99.5 DC IV fluid and Vancomycin Cefepime maintained E. coli urine culture pending with sensitivity Pt had an uneventful might Had a fever this morning at 36.5 Remains tachycardic but sinus type Cefepime and Vanc maintained Preliminary urine culture is E. Coli Bowels moved this morning No drainage at the operative site Hgb up from 3.8 to 4.9 even with gentle IV fluid WBC down to 11.[address] Castellanos and Dr. Caldwell Checked meds and labs Conferred with RN Reviewed therapy notes Review of Systems General: Fatigue, Malaise Musculoskeletal: back pain Objective Exam Vital Signs Vital Signs Date Time Temp Pulse Resp B/P (MAP) Pulse Ox O2 Delivery O2 Flow Rate FiO2 02/04/20 17:01 37.0 90 16 110/55 (73) 97 Room Air 02/02/20 06:06 2.00 Capillary Refill : Less Than 3 Seconds General Appearance: No Apparent Distress, WD/WN, Chronically ill, Other (pale) HEENT: PERRL/EOMI, Normal ENT Inspection, Pharynx Normal Neck: Full Range of Motion, Normal Inspection, Non Tender, Supple, Carotid Bruit Respiratory: Chest Non Tender, Lungs Clear, Normal Breath Sounds, No Accessory Muscle Use, No Respiratory Distress Cardiovascular: Regular Rate, Rhythm, No Edema, No Gallop, No JVD, No Murmur, Normal Peripheral Pulses Gastrointestinal: Normal Bowel Sounds, No Organomegaly, No Pulsatile Mass, Non Tender, Soft Back: Decreased Range of Motion Extremity: Normal Capillary Refill, Normal Inspection, Normal Range of Motion, Non Tender, No Calf Tenderness, No Pedal Edema Neurologic/Psychiatric: Alert, Oriented x3, No Motor/Sensory Deficits, Normal Mood/Affect, dry boss II-XII Norm as Tested, Abnormal Gait Skin: Normal Color, Warm/Dry Lymphatic: No Adenopathy Results/Procedures Lab Laboratory Tests 02/04/20 06:00 Patient resulted labs reviewed. FIM Transfers Therapy Code Descriptions/Definitions Functional [place] Measure: 0=Not Assessed/NA 4=Minimal Assistance 1=Total Assistance 5=Supervision or Setup 2=Maximal Assistance 6=Modified [place] 3=Moderate Assistance 7=Complete IndependenceSCALE: Activities may be completed with or without assistive devices. 4-Ckvqgdhewy-sjollbb completes the activity by him/herself with no assistance from a helper. 5-Set-up or Clean-up Assistance-helper sets up or cleans up; patient completes activity. [place] assists only prior to or following the activity. 4-Supervision or Touching Assistance-helper provides verbal cues and/or touchin g/steadying and/or contact guard assistance as patient completes activity. Assistance may be provided throughout the activity or intermittently. 3-Partial/Moderate Assistance-helper does LESS THAN HALF the effort. [place] lifts, holds or supports trunk or limbs, but provides less than half the effort. 2-Substantial/Maximal Assistance-helper does MORE THAN HALF the effort. [place] lifts or holds trunk or limbs and provides more than half the effort. 1-Gloojttlg-kytzts does ALL the effort. Patient does none of the effort to complete the activity. Or, the assistance of 2 or more helpers is required for the patient to complete the activity. If activity was not attempted, code reason: 7-Patient Refused. 9-Not Applicable-not attempted and the patient did not perform the activity before the current illness, exacerbation or injury. 10-Not Attempted due to Environmental Limitations-(lack of equipment, weather restraints, etc.). 88-Not Attempted due to Medical Conditions or Safety Concerns. Roll Left to Right (QC): 5 Sit to Lying (QC): 5 Sit to Stand (QC): 5 Chair/Dxv-mc-Fwavo Xfer(QC): 4 Car Transfer (QC): 3 Gait Training Does the Patient Walk?: Yes Distance: 250'+ Walk 10 feet (QC): 5 Walk 50 ft with 2 Turns(QC): 5 Walk 150 ft (QC): 5 Walking 10ft/uneven surface-QC: 3 Gait Persons Needed: 1 Gait Assistive Device: FWW Wheelchair Training Does the Pt Use a Wheelchair?: No Wheel 50 ft with 2 turns (QC): 9 Wheel 150 ft (QC): 9 Type of Wheelchair: N/A Stair Training #of Steps: 8 1 Step (curb) (QC): 3 4 Steps (QC): 88 12 Steps (QC): 88 Stairs: Pattern: Step to Balance Picking up an Object (QC): 88 ADL-Treatment Eating (QC): 5 (pt reports she has some difficulty chewing food and cutting food. No difficulties bringing food to her mouth.) Oral Hygiene (QC): 6 Bathing Location: L Arm, R Arm, L Upper Leg, R Upper Leg, L Lower Leg (including foot), R Lower Leg (including foot), Chest, Abdomen, Buttocks, Perineal Area Shower/Bathe Self (QC): 6 Upper Body Dressing (QC): 6 Lower Body Dressing (QC): 6 On/Off Footwear (QC): 5 Toileting Hygiene (QC): 6 Toilet Transfer (QC): 6 Assessment/Plan Assessment and Plan Assess & Plan/Chief Complaint Assessment: Lumbar stenosis with neurogenic claudication Severe anemia JW refusal of blood products HTN HLP Fever Goldstein cath UTI Bradycardia at [place] Plan: Dr Iglesias consult EPO and Venofer tomorrow Gentle IVF PT OT Abx broad spectrum 01/24/20: Monitor hemoglobin Appreciate Dr. Castellanos Appreciate Dr. Iglesias Continue antibiotics Monitor closely 01/25/20: Continue Cefepime Discontinue Vanc Monitor fever Place midline for iron infusions and antibiotics Monitor hemoglobin 4.[address] Iglesias 01/26/20: Maintain Hematology support Continue abx UCx reviewed 01/27/20: DC IV abx PO abx for UTI Change pain meds 01/28/20: PO abx Hgb good Iron infusions BM regimen Ultram 01/29/20: Complete tx for UTI Monitor labs closely but prevent phlebotomy driven anemia 01/30/20: Monitor hemoglobin Complete UTI treatment Ultram maintaining good pain control 01/31/20: Appreciate Dr Iglesias Monitor pain Monitor hgb 02/01/20: Encouraged use of back brace Completing IV iron infusion today Monitor hemoglobin 02/02/20: Monitor abdominal cramping Discharge is planned for Wednesday02/03/20: Overnight O2 study Monitor hgb 02/04/20: Overnight O2 study today Hgb good today Vit B12 given today Folic acid at DC Needs iron def anemia w/u as outpatient by PCP (1) Lumbar stenosis with neurogenic claudication (2) Refusal of blood transfusions as patient is [employer] (3) Anemia due to acute blood loss (4) Advanced age (5) Hypertension (6) Hyperlipemia (7) Fever (8) Bradycardia SAMARIA NAIR DO Feb 04, 2020 06:58
[2020-02-04 06:59] LABS: ALKALINE PHOSPHATASE 124 U/L (40-136)
[2020-02-04 07:00] LABS: CREATININE SERUM 0.78 MG/DL (0.60-1.30); GFR ESTIMATED > 60
[2020-02-04 07:01] LABS: BUN/CREATININE RATIO 23
[2020-02-04 07:02] LABS: ALANINE AMINOTRANSFERASE 12 U/L (0-55)
[2020-02-04] MEDS: DICYCLOMINE 10 MG (BENTYL) CAP PO SCH ×2 (08:20→20:10)
[2020-02-04] MEDS: DOCUSATE SODIUM 100 MG (COLACE) CAP PO SCH ×2 (08:20→20:11)
[2020-02-04] MEDS: FOLIC ACID 1 MG TAB PO SCH (08:20)
[2020-02-04] MEDS: HYDROcodone/APAP 5 MG/325 MG (LORTAB) TAB PO PRN ×2 (08:27→16:50)
[2020-02-04] MEDS: SENNA W/DOCUSATE (SENOKOT S) TABLET PO SCH ×2 (08:29→20:11)
[2020-02-04] MEDS: polyethylene glycoL POWDER 17 GM (MIRALAX) PACK PO SCH ×2 (08:29→20:11)
--- NOTE | 2020-02-04 08:30 | NUR ---
RIGHT HIP AND LEG PAIN AGAIN THIS AM AND MEDICATED WITH LORTAB. HAS URINARY URGENCY AND HAVING LOOSE STOOLS.
[2020-02-04] MEDS ORDERED: CYANOCOBALAMIN INJ 1000 MCG/ML IM ONE (11:00)
--- NOTE | 2020-02-04 11:01 | Progress Note ---
Standard Progress Note Progress Notes/Assess & Plan Date Seen by a Provider: Feb 04, 2020 Time Seen by a Provider: 10:55 Progress/Assessment & Plan 79-year-old female who is a [employer] admitted to rehabilitation unit following spinal surgery and significant iron deficiency ane dee. Patient is receiving parenteral iron therapy and received darbepoetin a week ago. She is also on folic acid daily and received vitamin B-12 1000 g on admission. Hemoglobin level 7.7 today. Recovered from UTI and sepsis. Planning discharge tomorrow. Administer Vitamin B12 1000 mcg IM today. Completed venofer 1 gm. Continue folic acid daily. Once patient has recovered well from spinal surgery, she will need workup for iron deficiency including EGD and colonoscopy. Will sign off for now. CARY MAE Feb 04, 2020 11:01
--- NOTE | 2020-02-04 11:15 | Cardiology Progress Note ---
Subjective Date Seen by Provider: Feb 04, 2020 Time Seen by Provider: 11:15 Subjective/Events-last exam Patient is laying down in bed, feeling better. No new complaint Review of Systems General: No Chills, No Night Sweats, No Fatigue, No Malaise, No Appetite, No Other HEENT: No Head Aches, No Visual Changes, No Eye Pain, No Ear Pain, No Dysphasia, No Sinus Congestion, No Post Nasal Drip, No Sore Throat, No Other Pulmonary: No Dyspnea, No Cough, No Pleuritic Chest Pain, No Other Cardiovascular: No: Chest Pain, Palpitations, Orthopnea, Paroxysmal Noc. Dyspnea, Edema, Lt Headedness, Other Objective-Cardiology Exam Last Set of Vital Signs Vital Signs 02/02/20 02/04/20 02/04/20 06:06 06:00 09:39 Temp 36.4 Pulse 84 Resp 18 B/P (MAP) 116/57 (76) Pulse Ox 98 O2 Delivery Room Air O2 Flow Rate 2.00 Capillary Refill : Less Than 3 Seconds I&O Intake and Output 02/04/20 00:00 Intake Total 1170 ml Balance 1170 ml Intake Oral 1170 ml # Voids 7 # Bowel Movements 2 General: Alert, Oriented X3, Cooperative HEENT: Atraumatic, PERRLA Neck: Supple, No JVD, No Thyromegaly Lungs: Clear to Auscultation, Normal Air Movement Heart: Regular Rate, Normal S1, Normal S2, No Murmurs Abdomen: Normal Bowel Sounds, Soft, No Tenderness, No Hepatosplenomegaly, No Masses Extremities: No Clubbing, No Cyanosis, No Edema, Normal Pulses, No Tenderness/Swelling Skin: No Rashes, No Breakdown, No Significant Lesion Neuro: Normal Gait, Normal Speech, Strength at 5/5 X4 Ext, Normal Tone, Sensation Intact Psych/Mental Status: Mental Status NL, Mood NL Results Lab Laboratory Tests 02/04/20 06:00 A/P-Cardiology Admission Diagnosis sinus bradycardia HTN anemia Assessment/Plan History of Sinus bradycardia, currently mildly tachycardic likely secondary to anemia. Continue to monitor. Hypertension, patient is on lisinopril. Continue to monitor. Extensive spine surgery. Inpatient rehabilitation. still has pain in the back and lower extremities. Severe anemia, iron infusions erythropoietin given. Dr. Torre following. Patient is [employer] therefore no transfusion. Continue to monitor H&H Clinical Quality Measures DVT/VTE Risk/Contraindication: Risk Factor Score Per Nursin RFS Level Per Nursing on Admit: 4+=Very High EL BORRERO MD Feb 04, 2020 11:15 am
--- NOTE | 2020-02-04 11:30 | NUR ---
MEDICATED WITH VITAMIN B12 SHOT ORDERED. NO COMPLAINTS.
[2020-02-04] MEDS: lisINopril 10 MG (PRINIVIL) TABLET PO SCH (12:39)
[2020-02-04 17:01] VITALS: BP 110/55
--- NOTE | 2020-02-04 18:00 | NUR ---
MEDICATED X 2 TODAY FOR RIGHT LEG PAIN. NO OTHER CHANGES.
[2020-02-04] MEDS: ALPRAZolam 0.25 MG (XANAX) TAB PO PRN (20:10)
--- NOTE | 2020-02-05 05:22 | PM&R Progress Note ---
Subjective HPI/CC On Admission Date Seen by Provider: Feb 05, 2020 Time Seen by Provider: 08:30 Subjective/Events-last exam 02/05/20: Pt had a BM today Oxygen study tonight Dr. Rush will have his appointment rescheduled PCP will evaluate EGD and colonoscopy to evaluate the chronic iron deficiency state 02/04/20: Hgb 7.[address] Iglesias wants folic acid at ri and he gave her Vit B12 injection today Needs iron deficiency evaluation from PCP with scopes 02/03/20: Patient denies pain O2 study overnight will be performed DC planned for Wednesday02/02/20: Abdominal cramping noted so Pt was given Bentyl Bowels moved this morning Labs remained stable 02/01/20: Pt having a good day Refusing to put back brace on today Last dose of IV iron today DC is planned for the first of the week 01/31/20: Hgb 6.6 today Ultram for pain is very effective Bowels are moving Pain is tolerated Participating in therapy 01/30/20: Layla Munoz Hgb 6 on last check UTI treatment completing Ultram handling the pain 01/29/20: Patient feels good Ultram works better for her less sedating than the Hydrocodone 01/28/20: Patient doing well Hgb 6.1 Right leg pain and heaviness but no coldness noted BM++ PO abx for UTI 01/27/20: Patient doing well BM today Ultram will be ordered since [place] makes her too sleepy 01/26/20: Doing well Hgb stable UTI treatment maintained Updated daughter BM+ Lortab maintained 01/25/20: Hgb 4.9 and stable Vitals stable Midline will be placed due to antibiotics and IV iron infusions Appreciate Dr. Iglesias Pain is only a 4/10 Tmax of 99.5 DC IV fluid and Vancomycin Cefepime maintained E. coli urine culture pending with sensitivity Pt had an uneventful might Had a fever this morning at 36.5 Remains tachycardic but sinus type Cefepime and Vanc maintained Preliminary urine culture is E. Coli Bowels moved this morning No drainage at the operative site Hgb up from 3.8 to 4.9 even with gentle IV fluid WBC down to 11.[address] Castellanos and Dr. Caldwell Checked meds and labs Conferred with RN Reviewed therapy notes Review of Systems General: Fatigue, Malaise Neurological: Weakness Objective Exam Vital Signs Vital Signs Date Time Temp Pulse Resp B/P (MAP) Pulse Ox O2 Delivery O2 Flow Rate FiO2 02/06/20 05:04 36.8 85 18 117/59 (78) 95 Room Air 02/06/20 01:23 21 02/02/20 06:06 2.00 Capillary Refill : Less Than 3 Seconds General Appearance: No Apparent Distress, WD/WN, Chronically ill, Other (pale) HEENT: PERRL/EOMI, Normal ENT Inspection, Pharynx Normal Neck: Full Range of Motion, Normal Inspection, Non Tender, Supple, Carotid Bruit Respiratory: Chest Non Tender, Lungs Clear, Normal Breath Sounds, No Accessory Muscle Use, No Respiratory Distress Cardiovascular: Regular Rate, Rhythm, No Edema, No Gallop, No JVD, No Murmur, Normal Peripheral Pulses Gastrointestinal: Normal Bowel Sounds, No Organomegaly, No Pulsatile Mass, Non Tender, Soft Back: Decreased Range of Motion Extremity: Normal Capillary Refill, Normal Inspection, Normal Range of Motion, Non Tender, No Calf Tenderness, No Pedal Edema Neurologic/Psychiatric: Alert, Oriented x3, No Motor/Sensory Deficits, Normal Mood/Affect, mailing machine helper II-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 FIM Transfers Therapy Code Descriptions/Definitions Functional [place] Measure: 0=Not Assessed/NA 4=Minimal Assistance 1=Total Assistance 5=Supervision or Setup 2=Maximal Assistance 6=Modified [place] 3=Moderate Assistance 7=Complete IndependenceSCALE: Activities may be completed with or without assistive devices. 2-Bqgzqzmwrl-xenrogj completes the activity by him/herself with no assistance from a helper. 5-Set-up or Clean-up Assistance-helper sets up or cleans up; patient completes activity. [place] assists only prior to or following the activity. 4-Supervision or Touching Assistance-helper provides verbal cues and/or touching/steadying and/or contact guard assistance as patient completes activity. Assistance may be provided throughout the activity or intermittently. 3-Partial/Moderate Assistance-helper does LESS THAN HALF the effort. [place] lifts, holds or supports trunk or limbs, but provides less than half the effort. 2-Substantial/Maximal Assistance-helper does MORE THAN HALF the effort. [place] lifts or holds trunk or limbs and provides more than half the effort. 3-Wqmrjgwzj-wbcfda does ALL the effort. Patient does none of the effort to complete the activity. Or, the assistance of 2 or more helpers is required for the patient to complete the activity. If activity was not attempted, code reason: 7-Patient Refused. 9-Not Applicable-not attempted and the patient did not perform the activity before the current illness, exacerbation or injury. 10-Not Attempted due to Environmental Limitations-(lack of equipment, weather restraints, etc.). 88-Not Attempted due to Medical Conditions or Safety Concerns. Roll Left to Right (QC): 5 Sit to Lying (QC): 5 Sit to Stand (QC): 5 Chair/Jos-zb-Wchhh Xfer(QC): 4 Car Transfer (QC): 3 Gait Training Does the Patient Walk?: Yes Distance: 250'+ Walk 10 feet (QC): 5 Walk 50 ft with 2 Turns(QC): 5 Walk 150 ft (QC): 5 Walking 10ft/uneven surface-QC: 3 Gait Persons Needed: 1 Gait Assistive Device: FWW Wheelchair Training Does the Pt Use a Wheelchair?: No Wheel 50 ft with 2 turns (QC): 9 Wheel 150 ft (QC): 9 Type of Wheelchair: N/A Stair Training #of Steps: 8 1 Step (curb) (QC): 3 4 Steps (QC): 88 12 Steps (QC): 88 Stairs: Pattern: Step to Balance Picking up an Object (QC): 88 ADL-Treatment Eating (QC): 5 (pt reports she has some difficulty chewing food and cutting food. No difficulties bringing food to her mouth.) Oral Hygiene (QC): 6 Bathing Location: L Arm, R Arm, L Upper Leg, R Upper Leg, L Lower Leg (including foot), R Lower Leg (including foot), Chest, Abdomen, Buttocks, Perineal Area Shower/Bathe Self (QC): 6 Upper Body Dressing (QC): 6 Lower Body Dressing (QC): 6 On/Off Footwear (QC): 5 Toileting Hygiene (QC): 6 Toilet Transfer (QC): 6 Assessment/Plan Assessment and Plan Assess & Plan/Chief Complaint Assessment: Lumbar stenosis with neurogenic claudication Severe anemia JW refusal of blood products HTN HLP Fever Goldstein cath UTI Bradycardia at [place] Plan: Dr Iglesias consult EPO and Venofer tomorrow Gentle IVF PT OT Abx broad spectrum 01/24/20: Monitor hemoglobin Appreciate Dr. Castellanos Appreciate Dr. Iglesias Continue antibiotics Monitor closely 01/25/20: Continue Cefepime Discontinue Vanc Monitor fever Place midline for iron infusions and antibiotics Monitor hemoglobin 4.[address] Iglesias 01/26/20: Maintain Hematology support Continue abx UCx reviewed 01/27/20: DC IV abx PO abx for UTI Change pain meds 01/28/20: PO abx Hgb good Iron infusions BM regimen Ultram 01/29/20: Complete tx for UTI Monitor labs closely but prevent phlebotomy driven anemia 01/30/20: Monitor hemoglobin Complete UTI treatment Ultram maintaining good pain control 01/31/20: Appreciate Dr Iglesias Monitor pain Monitor hgb 02/01/20: Encouraged use of back brace Completing IV iron infusion today Monitor hemoglobin 02/02/20: Monitor abdominal cramping Discharge is planned for Wednesday02/03/20: Overnight O2 study Monitor hgb 02/04/20: Overnight O2 study today Hgb good today Vit B12 given today Folic acid at DC Needs iron def anemia w/u as outpatient by PCP 02/05/20: Complete oxygen study tonight Pain management PCP will need to arrange EGD & colonoscopy to evaluate iron deficiency anemia prior to acute blood loss from surgery (1) Lumbar stenosis with neurogenic claudication (2) Refusal of blood transfusions as patient is [employer] (3) Anemia due to acute blood loss (4) Advanced age (5) Hypertension (6) Hyperlipemia (7) Fever (8) Bradycardia SAMARIA NAIR DO Feb 05, 2020 05:22
[2020-02-05 05:54] VITALS: BP 119/59
[2020-02-05] MEDS: CATHETER FLUSH 10 ML SYR IV SCH ×3 (06:55→21:23)
--- NOTE | 2020-02-05 08:24 | Cardiology Progress Note ---
Subjective Date Seen by Provider: Feb 05, 2020 Time Seen by Provider: 08:23 Subjective/Events-last exam Patient is sitting up in bed, denies any chest pain or dyspnea. Objective-Cardiology Exam Last Set of Vital Signs Vital Signs 02/02/20 02/05/20 06:06 15:57 Temp 37.2 Pulse 93 Resp 16 B/P (MAP) 104/59 (74) Pulse Ox 98 O2 Delivery Room Air O2 Flow Rate 2.00 Capillary Refill : Less Than 3 Seconds I&O Intake and Output 02/05/20 00:00 Intake Total 1350 ml Balance 1350 ml Intake Oral 1350 ml # Voids 8 # Bowel Movements 1 General: Alert, Oriented X3, Cooperative HEENT: Atraumatic, PERRLA Neck: Supple, No JVD, No Thyromegaly Lungs: Clear to Auscultation, Normal Air Movement Heart: Normal S1, Normal S2, No Murmurs, Other (tachycardic) Abdomen: Normal Bowel Sounds, Soft, No Tenderness, No Hepatosplenomegaly, No Masses Extremities: No Clubbing, No Cyanosis, No Edema, Normal Pulses, No Tenderness/Swelling Skin: No Rashes, No Breakdown, No Significant Lesion Neuro: Normal Gait, Normal Speech, Strength at 5/5 X4 Ext, Normal Tone, Sensation Intact Psych/Mental Status: Mental Status NL, Mood NL A/P-Cardiology Admission Diagnosis sinus bradycardia HTN anemia Assessment/Plan History of Sinus bradycardia, currently mildly tachycardic likely secondary to anemia. Continue to monitor. Hypertension, patient is on lisinopril. Continue to monitor. Extensive spine surgery. Inpatient rehabilitation. still has pain in the back and lower extremities. Severe anemia, iron infusions erythropoietin given. Dr. Torre following. Patient is [employer] therefore no transfusion. Continue to monitor H&H Patient was seen and evaluated with Donna, examination performed, management plan was discussed, agree with the current scribed note, I made few changes to the note using Italic font Anemia is stable, continue to monitor H&H Heart rate is better. Continue to monitor Clinical Quality Measures DVT/VTE Risk/Contraindication: Risk Factor Score Per Nursin RFS Level Per Nursing on Admit: 4+=Very High DONNA CARRERO Feb 05, 2020 8:24 am EL BORRERO MD Feb 05, 2020 4:29 pm
[2020-02-05] MEDS: FOLIC ACID 1 MG TAB PO SCH (08:27)
[2020-02-05] MEDS: DICYCLOMINE 10 MG (BENTYL) CAP PO SCH ×2 (08:27→20:07)
[2020-02-05] MEDS: DOCUSATE SODIUM 100 MG (COLACE) CAP PO SCH ×2 (08:28→21:19)
[2020-02-05] MEDS: polyethylene glycoL POWDER 17 GM (MIRALAX) PACK PO SCH ×2 (08:28→21:19)
[2020-02-05] MEDS: SENNA W/DOCUSATE (SENOKOT S) TABLET PO SCH ×2 (08:28→21:19)
--- NOTE | 2020-02-05 10:05 | Occupational Ther Daily Note ---
OT Current Status-Daily Note Subjective Pt laying in bed when OT entered. Pt agreed to taking shower. No pain reported. Mental Status/Objective Patient Orientation: Person, Place, Time, Situation Attachments: IV Pt transferred from raised HOB to EOB. After handing pt back brace, pt able to don independently. Pt declined gait belt. Pt sit-stand from EOB to FWW. Pt reached for clean night gown from bed and took it with her to bathroom. Pt then ambulated to bathroom using FWW. Pt transferred to shower bench. Doffed back brace and night gown independently. Doffed brief and socks using dressing stick. Pt required shower bench, long handled sponge, hand held shower head, and grab rails to complete showering. Pt able to wash/rinse/dry UE, upper and lower legs, abdomen, chest, althea, and buttocks. Pt transferred to commode. Reached for briefs on FWW and donned them using dressing stick. Pt able to reach for night gown on FWW and don independently. After handing pt back brace, pt able to don independently. After set up of socks on sock aid, pt able to don by self. Pt sit-stand from commode to FWW. Ambulated to sink and completed oral hygiene independently while standing. Pt then ambulated back to room and transferred to recliner. ADL-Treatment Therapy Code Descriptions/Definitions Functional [place] Measure: 0=Not Assessed/NA 4=Minimal Assistance 1=Total Assistance 5=Supervision or Setup 2=Maximal Assistance 6=Modified [place] 3=Moderate Assistance 7=Complete IndependenceSCALE: Activities may be completed with or without assistive devices. 3-Sgeviqqial-frtkdfx completes the activity by him/herself with no assistance from a helper. 5-Set-up or Clean-up Assistance-helper sets up or cleans up; patient completes activity. [place] assists only prior to or following the activity. 4-Supervision or Touching Assistance-helper provides verbal cues and/or touching/steadying and/or contact guard assistance as patient completes activity. Assistance may be provided throughout the activity or intermittently. 3-Partial/Moderate Assistance-helper does LESS THAN HALF the effort. [place] lifts, holds or supports trunk or limbs, but provides less than half the effort. 2-Substantial/Maximal Assistance-helper does MORE THAN HALF the effort. [place] lifts or holds trunk or limbs and provides more than half the effort. 5-Twnxcjeob-ckptje does ALL the effort. Patient does none of the effort to complete the activity. Or, the assistance of 2 or more helpers is required for the patient to complete the activity. If activity was not attempted, code reason: 7-Patient Refused. 9-Not Applicable-not attempted and the patient did not perform the activity before the current illness, exacerbation or injury. 10-Not Attempted due to Environmental Limitations-(lack of equipment, weather restraints, etc.). 88-Not Attempted due to Medical Conditions or Safety Concerns. Eating (QC): 6 (Per clincal judgement, pt able to complete) Oral Hygiene (QC): 6 Bathing Location: L Arm, R Arm, L Upper Leg, R Upper Leg, L Lower Leg (including foot), R Lower Leg (including foot), Chest, Abdomen, Buttocks, Perineal Area Shower/Bathe Self (QC): 6 Upper Body Dressing (QC): 6 Lower Body Dressing (QC): 6 On/Off Footwear: 5 Toileting Hygiene (QC): 6 (Per clinical judgement, pt able to complete ) Toilet Transfer (QC): 6 (Per clinical judgement, pt able to complete) Other Treatment Tested pt's hand/guest service representative strength and pinch strength while seated at recliner in room. Pt completed 3 reps of each guest service representative/pinch strengthening test. Her average guest service representative strength for R hand was 13.7 and L was 14. ( Last tested R was 9 and L was 11), R hand improved by 4.7 and L hand improved by 3. Pinch tip average for the R 10.7 and L 6.7(last test R 9.3 and L 8.6) pt R improved by 1.4 and L declined by 1.9. Pinch 3 point average for R 9.3 and L 7.7 ( last tested R 10 and L 9)R declined by .7 and L declined by 1.3. Pinch lateral for R was 13.3 and L was 11(last tested R 11.5 and L 9.6) R improved by 1.8 and L improved by 1.4. Due to pt's abnormal pinch, has difficulty with maintaining a functional pinch. After treatment laying in bed. Call light/phone in reach. All needs met. OT Detention Goals Cook Helper Dessert Goals Time Frame: Feb 21, 2020 Eating (QC): 6 (Per clinical judgement, pt able to complete.) Oral Hygiene (QC): 6 (Met) Toileting Hygiene (QC): 6 (Met) Shower/Bathe Self (QC): 6 (Met) Upper Body Dressing (QC): 6 (Met) Lower Body Dressing (QC): 6 (Met) On/Off Footwear (QC): 6 (Not met. Pt able to complete after set up of sock onto sock aid.) Additional Goals: 1-Demonstrate ADL Tasks, 2-Verbalize Understanding, 3- ImproveStrength/Kassandra 1=Demonstrate adherence to instructed precautions during ADL tasks. 2=Patient will verbalize/demonstrate understanding of assistive devices/modifications for ADL. 3=Patient will improve strength/tolerance for activity to enable patient to perform ADL's. OT Education/Plan Problem List/Assessment Assessment: Decreased UE Strength, Impaired I ADL's, Impaired Self-Care Skills Discharge Recommendations Plan/Recommendations: Continue POC Therapy Discharge Recommendati: Post Acute OT (Home health) Equpiment Recommendations-D/C: Sock Aide, Dressing Stick Treatment Plan/Plan of Care Patient would benefit from OT for education, treatment and training to promote independence in ADL's, mobility, safety and/or upper extremity function for ADL's. Plan of Care: ADL Retraining, Functional Mobility, Group Exercise/Act as Ind, UE Funct Exercise/Act Treatment Duration: Feb 21, 2020 Frequency: Modified Program (IRF) (05/12) Estimated Hrs Per Day: 1.5 hours per day Rehab Potential: Fair Time/GCodes Start Time: 08:30 Stop Time: 10:00 Total Time Billed (hr/min): 90 Billed Treatment Time 1 visit-ADL 4(60 mins) EX 2(30 mins) BRITTNEY HUMPHREYS Feb 05, 2020 10:05
--- NOTE | 2020-02-05 10:23 | NUR ---
DR. MATHIS FOLLOW UP APPOINTMENT RESCHEDULED FOR 02/13/20 AT 2:45 PM. F/U UP WITH DR. LOVELL (PCP) ON 02/12/20 AT 11:[address]. [address] LOVELL'S OFFICE THAT PATIENT WILL NEED WORKUP FOR IRON DEFICIENCY INCLUDING EGD AND COLONOSCOPY. DR. MAE'S PROGRESS NOTE STATING THIS FAXED TO OFFICE.
--- NOTE | 2020-02-05 11:58 | Physical Therapy Daily Note ---
PT Daily Note-Current Subjective Pt. agrees to Rx, denies pain. Pain Location: No Pain Reported Mental Status Patient Orientation: Normal For Age Attachments: Other-See Comments (back brace donned indep) Transfers SCALE: Activities may be completed with or without assistive devices. 0-Ubotuqvtwa-oojhoyr completes the activity by him/herself with no assistance from a helper. 5-Set-up or Clean-up Assistance-helper sets up or cleans up; patient completes activity. [place] assists only prior to or following the activity. 4-Supervision or Touching Assistance-helper provides verbal cues and/or touching/steadying and/or contact guard assistance as patient completes activity. Assistance may be provided throughout the activity or intermittently. 3-Partial/Moderate Assistance-helper does LESS THAN HALF the effort. [place] lifts, holds or supports trunk or limbs, but provides less than half the effort. 2-Substantial/Maximal Assistance-helper does MORE THAN HALF the effort. [place] lifts or holds trunk or limbs and provides more than half the effort. 0-Exqbnoywm-jeyutq does ALL the effort. Patient does none of the effort to complete the activity. Or, the assistance of 2 or more helpers is required for the patient to complete the activity. If activity was not attempted, code reason: 7-Patient Refused. 9-Not Applicable-not attempted and the patient did not perform the activity before the current illness, exacerbation or injury. 10-Not Attempted due to Environmental Limitations-(lack of equipment, weather restraints, etc.). 88-Not Attempted due to Medical Conditions or Safety Concerns. Roll Left & Right (QC): 6 Sit to Lying (QC): 6 Lying to Sitting/Side of Bed(Q: 6 Sit to Stand (QC): 6 Chair/Vcd-wi-Cohjg Xfer(QC): 6 Toilet Transfer (QC): 6 Car Transfer (QC): 6 Weight Bearing Full Weight Bearing Full Weight Bearing Gait Training Does the Patient Walk?: Yes Walk 10 feet (QC): 6 Walk 50 ft with 2 Turns(QC): 6 Walk 150 ft (QC): 6 Walking 10ft/uneven surface-QC: 6 Gait Persons Needed: 0 Gait Assistive Device: FWW slow, antalgic (history of club foot etc) no LOB, moderate wt bearing on FWW Stair Training Stair Training: Handrails/: 2 handrails #of Steps: 12 1 Step (curb) (QC): 6 4 Steps (QC): 6 12 Steps (QC): 6 Stairs: Pattern: Step to good use of rails and proper sequence Balance Picking up an Object (QC): 88 Exercises Seated Therapy Exercises: Ankle pumps, Sit to stand, Long arc quads, Hip flexion, Hip abd/add Seated Reps: 12 NuStep Minutes: 10 NuStep Workload: 5 Assessment Current Status: Good Progress PT Short Term Goals Short Term Goals Time Frame: Jan 31, 2020 Roll Left & Right: 3 Sit to lyin Lying to sitting on side of be: 3 Sit to stand: 4 Chair/qxy-wz-pmltx transfer: 4 Walk 10 feet: 4 Walk 50 feet with two turns: 4 PT Skilled Nursing Goals Barn Operator Goals PT Skilled Nursing Goals Time Frame: Feb 14, 2020 Roll Left & Right (QC): 4 Sit to Lying (QC): 4 Lying-Sitting on Side/Bed(QC): 4 Sit to Stand (QC): 4 Chair/Kdz-tq-Rwjxp Xfer(QC): 4 Toilet Transfer (QC): 4 Car Transfer (QC): 4 Does the Patient Walk: Yes Walk 10 feet (QC): 4 Walk 50ft with 2 Turns (QC): 4 Walk 150 ft (QC): 4 Walking 10ft on Uneven Surface: 4 1 Step (curb) (QC): 4 4 Steps (QC): 4 12 Steps (QC): 4 Picking up an Object (QC): 88 Wheel 50 feet with 2 turns (QC: 9 Wheel 150 feet: 9 PT Plan Treatment/Plan Treatment Plan: Continue Plan of Care Treatment Plan: Bed Mobility, Education, Functional Activity Kassandra, Functional Strength, Group Therapy, Gait, Safety, Therapeutic Exercise, Transfers Treatment Duration: Feb 14, 2020 Frequency: Modified Program (IRF) Estimated Hrs Per Day: 1.5 hours per day Patient and/or Family Agrees t: Yes Safety Risks/Education Patient Education: Gait Training, Transfer Techniques, Steps, Correct Positioning, Reviewed Don/Doff Brace, Disease Process, Safety Issues Teaching Recipient: Patient Teaching Methods: Demonstration Response to Teaching: Verbalize Understanding (shakes head, performs as demonstrated ), Unable to Comprehend language barrier but pt performs all tasks by repeating demonstration Time/GCodes Time In: 1100 Time Out: 1200 Total Billed Treatment Time: 60 Total Billed Treatment 1,FA30m,GT15m,EX15m ELA KEVIN CANOE MAKER Feb 05, 2020 11:58
--- NOTE | 2020-02-05 13:06 | NUR ---
CM/SS DISCHARGE PLANNING Patient will discharge home tomorrow. HHC: Referral completed with [facility] for RN and PT, agency understands patient will discharge tomorrow and staff state they can open services timely. DME: No assistive devices needed requiring orders. Daughter has been told about recommendation for a sock aid and dressing stick, private pay items. Unit RN has begun to make post hospital followup appointments in preparation for patient departure.
--- NOTE | 2020-02-05 13:23 | Physical Therapy Daily Note ---
PT Daily Note-Current Subjective Pt. c/o headache at 3-08/31, declines suggestion of meds per nurse and declines out of room activity. Agrees to in room gait ad therex Pain Numeric Pain Scale: 4 Location: Medial (frontal) Location Body Site: Head Pain Description: Ache Appearance eyes squinted, brow furrowed, head down Mental Status Patient Orientation: Normal For Age Transfers SCALE: Activities may be completed with or without assistive devices. 2-Kkkusupesu-thkkyfs completes the activity by him/herself with no assistance from a helper. 5-Set-up or Clean-up Assistance-helper sets up or cleans up; patient completes activity. [place] assists only prior to or following the activity. 4-Supervision or Touching Assistance-helper provides verbal cues and/or touching/steadying and/or contact guard assistance as patient completes activity. Assistance may be provided throughout the activity or intermittently. 3-Partial/Moderate Assistance-helper does LESS THAN HALF the effort. [place] lifts, holds or supports trunk or limbs, but provides less than half the effort. 2-Substantial/Maximal Assistance-helper does MORE THAN HALF the effort. [place] lifts or holds trunk or limbs and provides more than half the effort. 0-Hsbvnkbtd-cnpgkr does ALL the effort. Patient does none of the effort to complete the activity. Or, the assistance of 2 or more helpers is required for the patient to complete the activity. If activity was not attempted, code reason: 7-Patient Refused. 9-Not Applicable-not attempted and the patient did not perform the activity before the current illness, exacerbation or injury. 10-Not Attempted due to Environmental Limitations-(lack of equipment, weather restraints, etc.). 88-Not Attempted due to Medical Conditions or Safety Concerns. in out chair, on off toilet and in our bed all mod I Weight Bearing Full Weight Bearing Full Weight Bearing Gait Training Does the Patient Walk?: Yes Gait Assistive Device: FWW 50 ft x 4 in room , many turns and side steps as well as backing all no LOB, good technique Exercises Supine Ex: Rolling, Heel Slides, Straight leg raise, Hip abd/add Supine Reps: 12 Seated Therapy Exercises: Ankle pumps, Sit to stand, Long arc quads, Hip flexion, Hip abd/add Seated Reps: 12 Assessment Current Status: Good Progress PT Short Term Goals Short Term Goals Time Frame: Jan 31, 2020 Roll Left & Right: 3 Sit to lyin Lying to sitting on side of be: 3 Sit to stand: 4 Chair/skp-mj-tksxq transfer: 4 Walk 10 feet: 4 Walk 50 feet with two turns: 4 PT Nursing Informatics Clinical Analyst Goals Nursing Informatics Clinical Analyst Goals PT Fdc Goals Time Frame: Feb 14, 2020 Roll Left & Right (QC): 4 Sit to Lying (QC): 4 Lying-Sitting on Side/Bed(QC): 4 Sit to Stand (QC): 4 Chair/Waa-vf-Kheew Xfer(QC): 4 Toilet Transfer (QC): 4 Car Transfer (QC): 4 Does the Patient Walk: Yes Walk 10 feet (QC): 4 Walk 50ft with 2 Turns (QC): 4 Walk 150 ft (QC): 4 Walking 10ft on Uneven Surface: 4 1 Step (curb) (QC): 4 4 Steps (QC): 4 12 Steps (QC): 4 Picking up an Object (QC): 88 Wheel 50 feet with 2 turns (QC: 9 Wheel 150 feet: 9 PT Plan Treatment/Plan Treatment Plan: Continue Plan of Care Treatment Plan: Bed Mobility, Education, Functional Activity Kassandra, Functional Strength, Group Therapy, Gait, Safety, Therapeutic Exercise, Transfers Treatment Duration: Feb 14, 2020 Frequency: Modified Program (IRF) Estimated Hrs Per Day: 1.5 hours per day Patient and/or Family Agrees t: Yes Safety Risks/Education Patient Education: Gait Training, Transfer Techniques, Correct Positioning, Safety Issues Time/GCodes Time In: 1255 Time Out: 1325 Total Billed Treatment Time: 30 Total Billed Treatment 1,GT15m,EX15m ELA KEVIN AGENCY MANAGER Feb 05, 2020 13:23
[2020-02-05] MEDS: lisINopril 10 MG (PRINIVIL) TABLET PO SCH (13:47)
[2020-02-05 13:49] VITALS: BP 121/55
--- NOTE | 2020-02-05 14:52 | NUR ---
Communication difficult but pt seemed to want to rest anyhow.
[2020-02-05 15:57] VITALS: BP 104/59
[2020-02-05] MEDS: MELATONIN 3 MG TABLET PO PRN (20:08)
--- NOTE | 2020-02-05 21:00 | NUR ---
NOCTURNAL OXIMETRY HAS BEEN STARTED. PATIENT DENIES PAIN OR COMPLAINTS. WAS MEDICATED WITH MELATONIN FOR SLEEP.
[2020-02-06 05:04] VITALS: BP 117/59
[2020-02-06] MEDS ORDERED: CYCL10TA9 PO (05:54)
[2020-02-06] MEDS ORDERED: FOLI0.8T PO (05:54)
[2020-02-06] MEDS ORDERED: TRM50T PO (05:54)
--- NOTE | 2020-02-06 05:56 | D/C HH Face to Face Order ---
D/C Face to Face Orders Reconcile Patient Problems Problems Reviewed?: Yes Instructions for Patient [facility] Patient Instructions/FollowUp: Dr Ortega in 1 week Physician to follow Patient: Jordan Discharge Diet for Home: No Restrictions Patient Problems: Spinal surgery Severe anemia Jehova's Witness refusal of blood products s/p UTI and SIRS Patient Data-Allergies,Ht & Wt Patient Allergies: Coded Allergies: Penicillins (Verified Allergy, Unknown, 01/23/20) Home Health Need/Face to Face Date of Face to Face: Feb 06, 2020 Clinical Findings: Generalized weakness and fatigue, Instability, Muscle weakness, Pain with ambulation I have seen Pt bikc-rr-ahts: Yes Discharged To: Home Diagnosis/Conditions: Spinal surgery Severe anemia Jehova's Witness refusal of blood products s/p UTI and SIRS Patient is Homebound due to: Saige fall risk due to instabilty, Muscle weakness, Pain w/ambulation Homebound Status Due to the above stated illness, injury or surgical procedure (medical condition or diagnosis) and associated clinical findings, the patient is homebound because of his/her inability to leave home except with aid of a suppo rtive device and/or person AND leaving the home requires a considerable and taxing effort or is medically contraindicated. Pt req the following assistanc: Walker Home Health Nursing Orders Home Health Services Order: Nursing Services, Physical Therapy-Evaluate & Treat Home Health Infusion Therapy Line Start Date: Jan 25, 2020 Certify Stmt I certify that this patient is under my care and that I, a nurse practitioner or a physician; a academic assistant working with me, had a face to face encounter that - meets the physician face to face encounter requirements with this patient as dated. SAMARIA NAIR DO Feb 06, 2020 05:56
[2020-02-06] MEDS: CATHETER FLUSH 10 ML SYR IV SCH ×2 (06:02→14:54)
--- NOTE | 2020-02-06 08:43 | PM&R Progress Note ---
Subjective HPI/CC On Admission Date Seen by Provider: Feb 06, 2020 Time Seen by Provider: 08:45 Subjective/Events-last exam 02/05/20: Pt had a BM today Oxygen study tonight Dr. Rush will have his appointment rescheduled PCP will evaluate EGD and colonoscopy to evaluate the chronic iron deficiency state 02/04/20: Hgb 7.[address] Iglesias wants folic acid at dc and he gave her Vit B12 injection today Needs iron deficiency evaluation from PCP with scopes 02/03/20: Patient denies pain O2 study overnight will be performed DC planned for Wednesday02/02/20: Abdominal cramping noted so Pt was given Bentyl Bowels moved this morning Labs remained stable 02/01/20: Pt having a good day Refusing to put back brace on today Last dose of IV iron today DC is planned for the first of the week 01/31/20: Hgb 6.6 today Ultram for pain is very effective Bowels are moving Pain is tolerated Participating in therapy 01/30/20: Layla Munoz Hgb 6 on last check UTI treatment completing Ultram handling the pain 01/29/20: Patient feels good Ultram works better for her less sedating than the Hydrocodone 01/28/20: Patient doing well Hgb 6.1 Right leg pain and heaviness but no coldness noted BM++ PO abx for UTI 01/27/20: Patient doing well BM today Ultram will be ordered since [place] makes her too sleepy 01/26/20: Doing well Hgb stable UTI treatment maintained Updated daughter BM+ Lortab maintained 01/25/20: Hgb 4.9 and stable Vitals stable Midline will be placed due to antibiotics and IV iron infusions Appreciate Dr. Iglesias Pain is only a 4/10 Tmax of 99.5 DC IV fluid and Vancomycin Cefepime maintained E. coli urine culture pending with sensitivity Pt had an uneventful might Had a fever this morning at 36.5 Remains tachycardic but sinus type Cefepime and Vanc maintained Preliminary urine culture is E. Coli Bowels moved this morning No drainage at the operative site Hgb up from 3.8 to 4.9 even with gentle IV fluid WBC down to 11.[address] Castellanos and Dr. Caldwell Checked meds and labs Conferred with RN Reviewed therapy notes Objective Exam Vital Signs Vital Signs Date Time Temp Pulse Resp B/P (MAP) Pulse Ox O2 Delivery O2 Flow Rate FiO2 02/06/20 05:04 36.8 85 18 117/59 (78) 95 Room Air 02/06/20 01:23 21 02/02/20 06:06 2.00 Capillary Refill : Less Than 3 Seconds General Appearance: No Apparent Distress, WD/WN, Chronically ill, Other (pale) HEENT: PERRL/EOMI, Normal ENT Inspection, Pharynx Normal Neck: Full Range of Motion, Normal Inspection, Non Tender, Supple, Carotid Bruit Respiratory: Chest Non Tender, Lungs Clear, Normal Breath Sounds, No Accessory Muscle Use, No Respiratory Distress Cardiovascular: Regular Rate, Rhythm, No Edema, No Gallop, No JVD, No Murmur, Normal Peripheral Pulses Gastrointestinal: Normal Bowel Sounds, No Organomegaly, No Pulsatile Mass, Non Tender, Soft Back: Decreased Range of Motion Extremity: Normal Capillary Refill, Normal Inspection, Normal Range of Motion, Non Tender, No Calf Tenderness, No Pedal Edema Neurologic/Psychiatric: Alert, Oriented x3, No Motor/Sensory Deficits, Normal Mood/Affect, timber cruiser II-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 [facility] Transfers Therapy Code Descriptions/Definitions Functional [place] Measure: 0=Not Assessed/NA 4=Minimal Assistance 1=Total Assistance 5=Supervision or Setup 2=Maximal Assistance 6=Modified [place] 3=Moderate Assistance 7=Complete IndependenceSCALE: Activities may be completed with or without assistive devices. 1-Sgdoiyrrsi-tddrlgj completes the activity by him/herself with no assistance from a helper. 5-Set-up or Clean-up Assistance-helper sets up or cleans up; patient completes activity. [place] assists only prior to or following the activity. 4-Supervision or Touching Assistance-helper provides verbal cues and/or touching/steadying and/or contact guard assistance as patient completes activity. Assistance may be provided throughout the activity or intermittently. 3-Partial/Moderate Assistance-helper does LESS THAN HALF the effort. [place] lifts, holds or supports trunk or limbs, but provides less than half the effort. 2-Substantial/Maximal Assistance-helper does MORE THAN HALF the effort. [place] lifts or holds trunk or limbs and provides more than half the effort. 4-Rrsoiqgqy-mgoyon does ALL the effort. Patient does none of the effort to complete the activity. Or, the assistance of 2 or more helpers is required for the patient to complete the activity. If activity was not attempted, code reason: 7-Patient Refused. 9-Not Applicable-not attempted and the patient did not perform the activity before the current illness, exacerbation or injury. 10-Not Attempted due to Environmental Limitations-(lack of equipment, weather restraints, etc.). 88-Not Attempted due to Medical Conditions or Safety Concerns. Roll Left to Right (QC): 6 Sit to Lying (QC): 6 Sit to Stand (QC): 6 Chair/Qde-fp-Tmtda Xfer(QC): 6 Car Transfer (QC): 6 Gait Training Does the Patient Walk?: Yes Distance: 250'+ Walk 10 feet (QC): 6 Walk 50 ft with 2 Turns(QC): 6 Walk 150 ft (QC): 6 Walking 10ft/uneven surface-QC: 6 Gait Persons Needed: 0 Gait Assistive Device: FWW Wheelchair Training Does the Pt Use a Wheelchair?: No Wheel 50 ft with 2 turns (QC): 9 Wheel 150 ft (QC): 9 Type of Wheelchair: N/A Stair Training Stair Training: Handrails/: 2 handrails #of Steps: 12 1 Step (curb) (QC): 6 4 Steps (QC): 6 12 Steps (QC): 6 Stairs: Pattern: Step to Balance Picking up an Object (QC): 88 ADL-Treatment Eating (QC): 6 (Per clincal judgement, pt able to complete) Oral Hygiene (QC): 6 Bathing Location: L Arm, R Arm, L Upper Leg, R Upper Leg, L Lower Leg (including foot), R Lower Leg (including foot), Chest, Abdomen, Buttocks, Perineal Area Shower/Bathe Self (QC): 6 Upper Body Dressing (QC): 6 Lower Body Dressing (QC): 6 On/Off Footwear (QC): 5 Toileting Hygiene (QC): 6 (Per clinical judgement, pt able to complete ) Toilet Transfer (QC): 6 (Per clinical judgement, pt able to complete) Assessment/Plan Assessment and Plan Assess & Plan/Chief Complaint Assessment: Lumbar stenosis with neurogenic claudication Severe anemia JW refusal of blood products HTN HLP Fever [place]stein cath UTI Bradycardia at [place] Plan: Dr Iglesias consult EPO and Venofer tomorrow Gentle IVF PT OT Abx broad spectrum 01/24/20: Monitor hemoglobin Appreciate Dr. Castellanos Appreciate Dr. Iglesias Continue antibiotics Monitor closely 01/25/20: Continue Cefepime Discontinue Vanc Monitor fever Place midline for iron infusions and antibiotics Monitor hemoglobin 4.[address] Iglesias 01/26/20: Maintain Hematology support Continue abx UCx reviewed 01/27/20: DC IV abx PO abx for UTI Change pain meds 01/28/20: PO abx Hgb good Iron infusions BM regimen Ultram 01/29/20: Complete tx for UTI Monitor labs closely but prevent phlebotomy driven anemia 01/30/20: Monitor hemoglobin Complete UTI treatment Ultram maintaining good pain control 01/31/20: Appreciate Dr Iglesias Monitor pain Monitor hgb 02/01/20: Encouraged use of back brace Completing IV iron infusion today Monitor hemoglobin 02/02/20: Monitor abdominal cramping Discharge is planned for Wednesday02/03/20: Overnight O2 study Monitor hgb 02/04/20: Overnight O2 study today Hgb good today Vit B12 given today Folic acid at DC Needs iron def anemia w/u as outpatient by PCP 02/05/20: Complete oxygen study tonight Pain management PCP will need to arrange EGD & colonoscopy to evaluate iron deficiency anemia prior to acute blood loss from surgery (1) Lumbar stenosis with neurogenic claudication (2) Refusal of blood transfusions as patient is [employer] (3) Anemia due to acute blood loss (4) Advanced age (5) Hypertension (6) Hyperlipemia (7) Fever (8) Bradycardia SAMARIA NAIR DO Feb 06, 2020 08:43
--- NOTE | 2020-02-06 08:44 | Discharge Summary ---
Diagnosis/Chief Complaint Date of Admission Jan 23, 2020 at 18:10 Date of Discharge Discharge Date: Feb 06, 2020 Discharge Diagnosis Assessment: Lumbar stenosis with neurogenic claudication Severe anemia JW refusal of blood products HTN HLP Fever Goldstein cath UTI Bradycardia at [place] Plan: Dr Iglesias consult EPO and Venofer tomorrow Gentle IVF PT OT Abx broad spectrum 01/24/20: Monitor hemoglobin Appreciate Dr. Castellanos Appreciate Dr. Iglesias Continue antibiotics Monitor closely 01/25/20: Continue Cefepime Discontinue Vanc Monitor fever Place midline for iron infusions and antibiotics Monitor hemoglobin 4.[address] Iglesias 01/26/20: Maintain Hematology support Continue abx UCx reviewed 01/27/20: DC IV abx PO abx for UTI Change pain meds 01/28/20: PO abx Hgb good Iron infusions BM regimen Ultram 01/29/20: Complete tx for UTI Monitor labs closely but prevent phlebotomy driven anemia 01/30/20: Monitor hemoglobin Complete UTI treatment Ultram maintaining good pain control 01/31/20: Appreciate Dr Iglesias Monitor pain Monitor hgb 02/01/20: Encouraged use of back brace Completing IV iron infusion today Monitor hemoglobin 02/02/20: Monitor abdominal cramping Discharge is planned for Wednesday02/03/20: Overnight O2 study Monitor hgb 02/04/20: Overnight O2 study today Hgb good today Vit B12 given today Folic acid at [place] Needs iron def anemia w/u as outpatient by PCP 02/05/20: Complete oxygen study tonight Pain management PCP will need to arrange EGD & colonoscopy to evaluate iron deficiency anemia prior to acute blood loss from surgery Discharge Summary Discharge Physical Examination Allergies: Coded Allergies: Penicillins (Verified Allergy, Unknown, 01/23/20) Vitals & I&Os Vital Signs Date Time Temp Pulse Resp B/P (MAP) Pulse Ox O2 Delivery O2 Flow Rate FiO2 02/06/20 19:15 36.4 82 18 118/61 97 Room Air 02/06/20 01:23 21 02/02/20 06:06 2.00 General Appearance: Alert, Oriented X3 Respiratory: Normal Air Movement Cardiovascular: Regular Rate Neuro: Normal Speech Psych/Mental Status: Mental Status NL Hospital Course Was the Problem List Reviewed?: Yes Hospital course: Pt had an uneventful hospital course for 14 days after she was admitted for severe anemia with Hgb of 3.8 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 She also had SIRS upon admission. Due to UTI Pt had been placed on broad-spectrum antibiotics until final cultures returned. Pt did complete antibiotics for that condition. She tolerated pain medication when switching from Hydrocodone to Ultram, she received Aranesp and IV iron per Dr. Caldwell consultation along with Vitamin B12 and Folic Acid. Overall Pt regained enough function, Hgb returned to 7.7, will need close follow up with PCP for EGD and Colonoscopy to evaluate the source for the chronic iron deficiency exacerbated by the acute blood loss anemia. She was able to walk with a walker, surgical site was healed and Pt was deemed stable for discharge on home health with [facility]. Labs (last 24 hrs) Laboratory Tests 01/23/20 18:10: Lab Scanned Report Referred Lab Report 01/23/20 18:40: Urine Color YELLOW, Urine Clarity SL CLOUDY, Urine pH 8.0, Urine Specific [place] 1.010L, Urine Protein NEGATIVE, Urine Glucose (UA) NEGATIVE, Urine Ketones NEGATIVE, Urine Nitrite POSITIVEH, Urine Bilirubin NEGATIVE, Urine Urobilinogen 0.2, Urine Leukocyte Esterase 2+H, Urine RBC (Auto) 1+H, Urine RBC RARE, Urine WBC 2-5, Urine Squamous Epithelial Cells RARE, Urine Crystals PRESENTH, Urine Amorphous Sediment LARGE PATRICE PHOSPHATEH, Urine Bacteria MODERATEH, Urine Casts NONE, Urine Mucus NEGATIVE, Urine Culture Indicated YES 01/23/20 18:59: White Blood Count 15.1H, Red Blood Count 1.35L, Hemoglobin 3.8*L, Hematocrit 12*L, Mean Corpuscular Volume 90, Mean Corpuscular Hemoglobin 28, Mean Corpuscular Hemoglobin Concent 31L, Red Cell Distribution Width 13.0, Platelet Count 421H, Mean Platelet Volume 9.6, Neutrophils (%) (Auto) 68, Lymphocytes (%) (Auto) 20, Monocytes (%) (Auto) 10, Eosinophils (%) (Auto) 2, Basophils (%) (Auto) 0, Neutrophils # (Auto) 10.2H, Lymphocytes # (Auto) 3.1, Monocytes # (Auto) 1.4H, Eosinophils # (Auto) 0.3, Basophils # (Auto) 0.1, Neutrophils % (Manual) 70, Lymphocytes % (Manual) 21, Monocytes % (Manual) 5, Eosinophils % (Manual) 4, Basophils % (Manual) 0, Band Neutrophils 0, Polychromasia SLIGHT, Hypochromasia SLIGHT, Anisocytosis SLIGHT, Macrocytosis SLIGHT, Elliptocytes SLIGHT, Absolute Reticulocyte Count 65, Percent Reticulocyte Count 4.82H, Sodium Level 133L, Potassium Level 3.8, Chloride Level 102, Carbon Dioxide Level 22, Anion Gap 9, Blood Urea Nitrogen 14, Creatinine 0.67, Estimat Glomerular Filtration Rate > 60, BUN/Creatinine Ratio 21, Glucose Level 130H, Lactic Acid Level 1.81, Calcium Level 7.9L, Corrected Calcium 8.8, Total Bilirubin 0.2, Asp artate Amino Transf (AST/SGOT) 24, Alanine Aminotransferase (ALT/SGPT) 30, Alkaline Phosphatase 80, Total Protein 5.6L, Albumin 2.9L, Procalcitonin 0.10H 01/24/20 05:00: Sodium Level 140, Potassium Level 3.7, Chloride Level 110H, Carbon Dioxide Level 20L, Anion Gap 10, Blood Urea Nitrogen 12, Creatinine 0.64, Estimat Glomerular Filtration Rate > 60, BUN/Creatinine Ratio 19, Glucose Level 111H, Calcium Level 7.8L, Corrected Calcium 8.9, Total Bilirubin 0.3, Aspartate Amino Transf (AST/SGOT) 19, Alanine Aminotransferase (ALT/SGPT) 26, Alkaline Phosphatase 77, Total Protein 5.2L, Albumin 2.6L 01/24/20 05:19: White Blood Count 11.3H, Red Blood Count 1.73L, Hemoglobin 4.9#*L, Hematocrit 15*L, Mean Corpuscular Volume 89, Mean Corpuscular Hemoglobin 28, Mean Corpuscular Hemoglobin Concent 32, Red Cell Distribution Width 13.2, Platelet Count 357, Mean Platelet Volume 9.2, Neutrophils (%) (Auto) 57, Lymphocytes (%) (Auto) 27, Monocytes (%) (Auto) 11, Eosinophils (%) (Auto) 5, Basophils (%) (Auto) 0, Neutrophils # (Auto) 6.4, Lymphocytes # (Auto) 3.1, Monocytes # (Auto) 1.3H, Eosinophils # (Auto) 0.5H, Basophils # (Auto) 0.0 01/25/20 04:35: White Blood Count 11.2H, Red Blood Count 1.69L, Hemoglobin 4.9*L, Hematocrit 15*L, Mean Corpuscular Volume 90, Mean Corpuscular Hemoglobin 29, Mean Corpuscular Hemoglobin Concent 32, Red Cell Distribution Width 13.3, Platelet Count 382, Mean Platelet Volume 9.4, Neutrophils (%) (Auto) 65, Lymphocytes (%) (Auto) 20, Monocytes (%) (Auto) 10, Eosinophils (%) (Auto) 5, Basophils (%) (Auto) 0, Neutrophils # (Auto) 7.2, Lymphocytes # (Auto) 2.2, Monocytes # (Auto) 1.1H, Eosinophils # (Auto) 0.6H, Basophils # (Auto) 0.0 01/26/20 05:30: White Blood Count 10.6, Red Blood Count 1.80L, Hemoglobin 5.1*L, Hematocrit 16*L , Mean Corpuscular Volume 91, Mean Corpuscular Hemoglobin 28, Mean Corpuscular Hemoglobin Concent 31L, Red Cell Distribution Width 14.2, Platelet Count 444H, Mean Platelet Volume 9.2, Neutrophils (%) (Auto) 64, Lymphocytes (%) (Auto) 20, Monocytes (%) (Auto) 11, Eosinophils (%) (Auto) 5, Basophils (%) (Auto) 0, Neutrophils # (Auto) 6.8, Lymphocytes # (Auto) 2.1, Monocytes # (Auto) 1.2H, Eosinophils # (Auto) 0.5H, Basophils # (Auto) 0.0, Absolute Reticulocyte Count 136H, Percent Reticulocyte Count 7.56H 01/26/20 19:00: Stool Occult Blood Immunoassay NEGATIVE 01/28/20 06:20: White Blood Count 10.4, Red Blood Count 2.10L, Hemoglobin 6.0*L, Hematocrit 20*L , Mean Corpuscular Volume 94, Mean Corpuscular Hemoglobin 29, Mean Corpuscular Hemoglobin Concent 31L, Red Cell Distribution Width 16.3H, Platelet Count 562H, Mean Platelet Volume 8.7, Neutrophils (%) (Auto) 59, Lymphocytes (%) (Auto) 24, Monocytes (%) (Auto) 11, Eosinophils (%) (Auto) 6, Basophils (%) (Auto) 0, Neutrophils # (Auto) 6.2, Lymphocytes # (Auto) 2.5, Monocytes # (Auto) 1.1H, Eosinophils # (Auto) 0.6H, Basophils # (Auto) 0.0, Sodium Level 136, Potassium Level 4.4, Chloride Level 102, Carbon Dioxide Level 24, Anion Gap 10, Blood Urea Nitrogen 11, Creatinine 0.66, Estimat Glomerular Filtration Rate > 60, BUN/Creatinine Ratio 17, Glucose Level 104, Calcium Level 8.4L, Corrected Calcium 9.0, Total Bilirubin 0.2, Aspartate Amino Transf (AST/SGOT) 16, Alanine Aminotransferase (ALT/SGPT) 26, Alkaline Phosphatase 102, Total Protein 6.1L, Albumin 3.2 01/31/20 05:25: White Blood Count 10.9, Red Blood Count 2.26L, Hemoglobin 6.6*L, Hematocrit 22L, Mean Corpuscular Volume 96, Mean Corpuscular Hemoglobin 29, Mean Corpuscular Hemoglobin Concent 31L, Red Cell Distribution Width 18.7H, Platelet Count 670H, Mean Platelet Volume 8.5, Neutrophils (%) (Auto) 62, Lymphocytes (%) (Auto) 22, Monocytes (%) (Auto) 10, Eosinophils (%) (Auto) 6, Basophils (%) (Auto) 0, Neutrophils # (Auto) 6.7, Lymphocytes # (Auto) 2.5, Monocytes # (Auto) 1.1H, Eosinophils # (Auto) 0.6H, Basophils # (Auto) 0.0, Sodium Level 137, Potassium Level 4.6, Chloride Level 106, Carbon Dioxide Level 23, Anion Gap 8, Blood Urea Nitrogen 19H, Creatinine 0.79, Estimat Glomerular Filtration Rate > 60, BUN/Creatinine Ratio 24, Glucose Level 109H, Calcium Level 8.5, Corrected Calcium 9.1, Total Bilirubin 0.2, Aspartate Amino Transf (AST/SGOT) 14, Alanine Aminotransferase (ALT/SGPT) 18, Alkaline Phosphatase 122, Total Protein 6.3L, Albumin 3.3, Absolute Reticulocyte Count 222H, Percent Reticulocyte Count 9.82H 02/04/20 06:00: White Blood Count 8.6, Red Blood Count 2.59L, Hemoglobin 7.7L, Hematocrit 25L, Mean Corpuscular Volume 96, Mean Corpuscular Hemoglobin 30, Mean Corpuscular Hemoglobin Concent 31L, Red Cell Distribution Width 18.8H, Platelet Count 654H, Mean Platelet Volume 9.0, Neutrophils (%) (Auto) 56, Lymphocytes (%) (Auto) 27, Monocytes (%) (Auto) 11, Eosinophils (%) (Auto) 6, Basophils (%) (Auto) 1, Neutrophils # (Auto) 4.8, Lymphocytes # (Auto) 2.3, Monocytes # (Auto) 0.9, Eosinophils # (Auto) 0.5H, Basophils # (Auto) 0.1, Sodium Level 137, Potassium Level 4.4, Chloride Level 105, Carbon Dioxide Level 23, Anion Gap 9, Blood Urea Nitrogen 18, Creatinine 0.78, Estimat Glomerular Filtration Rate > 60, BUN/Creatinine Ratio 23, Glucose Level 98, Calcium Level 8.5, Corrected Calcium 9.0, Total Bilirubin 0.3, Aspartate Amino Transf (AST/SGOT) 13, Alanine Aminotransferase (ALT/SGPT) 12, Alkaline Phosphatase 124, Total Protein 6.4, Albumin 3.4 Microbiology 01/23/20 Blood Culture - Final, Complete No growth 01/23/20 Urine Culture - Final, Complete Escherichia coli Pending Labs Microbiology Date/Time Source Procedure Growth Status 01/23/20 18:59 Peripheral Lt Ac Blood Culture - Final No growth Complete 01/23/20 18:50 Peripheral Rt Ac Blood Culture - Final No growth Complete 01/23/20 18:40 Urine Clean Catch Urine Culture - Final Escherichia coli Complete Laboratory Tests 01/23/20 18:10: Lab Scanned Report Referred Lab Report 01/23/20 18:40: Urine Color YELLOW, Urine Clarity SL CLOUDY, Urine pH 8.0, Urine Specific [place] 1.010, Urine Protein NEGATIVE, Urine Glucose (UA) NEGATIVE, Urine Ketones NEGATIVE, Urine Nitrite POSITIVE, Urine Bilirubin NEGATIVE, Urine Urob ilinogen 0.2, Urine Leukocyte Esterase 2+, Urine RBC (Auto) 1+, Urine RBC RARE, Urine WBC 2-5, Urine Squamous Epithelial Cells RARE, Urine Crystals PRESENT, Urine Amorphous Sediment LARGE PATRICE PHOSPHATE, Urine Bacteria MODERATE, Urine Casts NONE, Urine Mucus NEGATIVE, Urine Culture Indicated YES 01/23/20 18:59: White Blood Count 15.1, Red Blood Count 1.35, Hemoglobin 3.8, Hematocrit 12, Mean Corpuscular Volume 90, Mean Corpuscular Hemoglobin 28, Mean Corpuscular Hemoglobin Concent 31, Red Cell Distribution Width 13.0, Platelet Count 421, Mean Platelet Volume 9.6, Neutrophils (%) (Auto) 68, Lymphocytes (%) (Auto) 20, Monocytes (%) (Auto) 10, Eosinophils (%) (Auto) 2, Basophils (%) (Auto) 0, Neutrophils # (Auto) 10.2, Lymphocytes # (Auto) 3.1, Monocytes # (Auto) 1.4, Eosinophils # (Auto) 0.3, Basophils # (Auto) 0.1, Neutrophils % (Manual) 70, Lymphocytes % (Manual) 21, Monocytes % (Manual) 5, Eosinophils % (Manual) 4, Basophils % (Manual) 0, Band Neutrophils 0, Polychromasia SLIGHT, Hypochromasia SLIGHT, Anisocytosis SLIGHT, Macrocytosis SLIGHT, Elliptocytes SLIGHT, Absolute Reticulocyte Count 65, Percent Reticulocyte Count 4.82, Sodium Level 133, Potassium Level 3.8, Chloride Level 102, Carbon Dioxide Level 22, Anion Gap 9, Blood Urea Nitrogen 14, Creatinine 0.67, Estimat Glomerular Filtration Rate > 60, BUN/Creatinine Ratio 21, Glucose Level 130, Lactic Acid Level 1.81, Calcium Level 7.9, Corrected Calcium 8.8, Total Bilirubin 0.2, Aspartate Amino Transf (AST/SGOT) 24, Alanine Aminotransferase (ALT/SGPT) 30, Alkaline Phosphatase 80, Total Protein 5.6, Albumin 2.9, Procalcitonin 0.10 01/24/20 05:00: Sodium Level 140, Potassium Level 3.7, Chloride Level 110, Carbon Dioxide Level 20, Anion Gap 10, Blood Urea Nitrogen 12, Creatinine 0.64, Estimat Glomerular Filtration Rate > 60, BUN/Creatinine Ratio 19, Glucose Level 111, Calcium Level 7.8, Corrected Calcium 8.9, Total Bilirubin 0.3, Aspartate Amino Transf (AST/SGOT) 19, Alanine Aminotransferase (ALT/SGPT) 26, Alkaline Phosphatase 77, Total Protein 5.2, Albumin 2.6 01/24/20 05:19: White Blood Count 11.3, Red Blood Count 1.73, Hemoglobin 4.9, Hematocrit 15, Mean Corpuscular Volume 89, Mean Corpuscular Hemoglobin 28, Mean Corpuscular Hemoglobin Concent 32, Red Cell Distribution Width 13.2, Platelet Count 357, Mean Platelet Volume 9.2, Neutrophils (%) (Auto) 57, Lymphocytes (%) (Auto) 27, Monocytes (%) (Auto) 11, Eosinophils (%) (Auto) 5, Basophils (%) (Auto) 0, Neutrophils # (Auto) 6.4, Lymphocytes # (Auto) 3.1, Monocytes # (Auto) 1.3, Eosinophils # (Auto) 0.5, Basophils # (Auto) 0.0 01/25/20 04:35: White Blood Count 11.2, Red Blood Count 1.69, Hemoglobin 4.9, Hematocrit 15, Mean Corpuscular Volume 90, Mean Corpuscular Hemoglobin 29, Mean Corpuscular Hemoglobin Concent 32, Red Cell Distribution Width 13.3, Platelet Count 382, Mean Platelet Volume 9.4, Neutrophils (%) (Auto) 65, Lymphocytes (%) (Auto) 20, Monocytes (%) (Auto) 10, Eosinophils (%) (Auto) 5, Basophils (%) (Auto) 0, Neutrophils # (Auto) 7.2, Lymphocytes # (Auto) 2.2, Monocytes # (Auto) 1.1, Eosinophils # (Auto) 0.6, Basophils # (Auto) 0.0 01/26/20 05:30: White Blood Count 10.6, Red Blood Count 1.80, Hemoglobin 5.1, Hematocrit 16, Mean Corpuscular Volume 91, Mean Corpuscular Hemoglobin 28, Mean Corpuscular Hemoglobin Concent 31, Red Cell Distribution Width 14.2, Platelet Count 444, Mean Platelet Volume 9.2, Neutrophils (%) (Auto) 64, Lymphocytes (%) (Auto) 20, Monocytes (%) (Auto) 11, Eosinophils (%) (Auto) 5, Basophils (%) (Auto) 0, Neutrophils # (Auto) 6.8, Lymphocytes # (Auto) 2.1, Monocytes # (Auto) 1.2, Eosinophils # (Auto) 0.5, Basophils # (Auto) 0.0, Absolute Reticulocyte Count 136, Percent Reticulocyte Count 7.56 01/26/20 19:00: Stool Occult Blood Immunoassay NEGATIVE 01/28/20 06:20: White Blood Count 10.4, Red Blood Count 2.10, Hemoglobin 6.0, Hematocrit 20, Mean Corpuscular Volume 94, Mean Corpuscular Hemoglobin 29, Mean Corpuscular Hemoglobin Concent 31, Red Cell Distribution Width 16.3, Platelet Count 562, Mean Platelet Volume 8.7, Neutrophils (%) (Auto) 59, Lymphocytes (%) (Auto) 24, Monocytes (%) (Auto) 11, Eosinophils (%) (Auto) 6, Basophils (%) (Auto) 0, Neutrophils # (Auto) 6.2, Lymphocytes # (Auto) 2.5, Monocytes # (Auto) 1.1, Eosinophils # (Auto) 0.6, Basophils # (Auto) 0.0, Sodium Level 136, Potassium Level 4.4, Chloride Level 102, Carbon Dioxide Level 24, Anion Gap 10, Blood Urea Nitrogen 11, Creatinine 0.66, Estimat Glomerular Filtration Rate > 60, BUN/Creatinine Ratio 17, Glucose Level 104, Calcium Level 8.4, Corrected Calcium 9.0, Total Bilirubin 0.2, Aspartate Amino Transf (AST/SGOT) 16, Alanine Aminotransferase (ALT/SGPT) 26, Alkaline Phosphatase 102, Total Protein 6.1, Albumin 3.2 01/31/20 05:25: White Blood Count 10.9, Red Blood Count 2.26, Hemoglobin 6.6, Hematocrit 22, Mean Corpuscular Volume 96, Mean Corpuscular Hemoglobin 29, Mean Corpuscular Hemoglobin Concent 31, Red Cell Distribution Width 18.7, Platelet Count 670, Mean Platelet Volume 8.5, Neutrophils (%) (Auto) 62, Lymphocytes (%) (Auto) 22, Monocytes (%) (Auto) 10, Eosinophils (%) (Auto) 6, Basophils (%) (Auto) 0, Neutrophils # (Auto) 6.7, Lymphocytes # (Auto) 2.5, Monocytes # (Auto) 1.1, Eosinophils # (Auto) 0.6, Basophils # (Auto) 0.0, Sodium Level 137, Potassium Level 4.6, Chloride Level 106, Carbon Dioxide Level 23, Anion Gap 8, Blood Urea Nitrogen 19, Creatinine 0.79, Estimat Glomerular Filtration Rate > 60, BUN/Creatinine Ratio 24, Glucose Level 109, Calcium Level 8.5, Corrected Calcium 9.1, Total Bilirubin 0.2, Aspartate Amino Transf (AST/SGOT) 14, Alanine Aminotransferase (ALT/SGPT) 18, Alkaline Phosphatase 122, Total Protein 6.3, Albumin 3.3, Absolute Reticulocyte Count 222, Percent Reticulocyte Count 9.82 02/04/20 06:00: White Blood Count 8.6, Red Blood Count 2.59, Hemoglobin 7.7, Hematocrit 25, Mean Corpuscular Volume 96, Mean Corpuscular Hemoglobin 30, Mean Corpuscular Hemoglobin Concent 31, Red Cell Distribution Width 18.8, Platelet Count 654, Janet n Platelet Volume 9.0, Neutrophils (%) (Auto) 56, Lymphocytes (%) (Auto) 27, Monocytes (%) (Auto) 11, Eosinophils (%) (Auto) 6, Basophils (%) (Auto) 1, Neutrophils # (Auto) 4.8, Lymphocytes # (Auto) 2.3, Monocytes # (Auto) 0.9, Eosinophils # (Auto) 0.5, Basophils # (Auto) 0.1, Sodium Level 137, Potassium Level 4.4, Chloride Level 105, Carbon Dioxide Level 23, Anion Gap 9, Blood Urea Nitrogen 18, Creatinine 0.78, Estimat Glomerular Filtration Rate > 60, BUN/Creatinine Ratio 23, Glucose Level 98, Calcium Level 8.5, Corrected Calcium 9.0, Total Bilirubin 0.3, Aspartate Amino Transf (AST/SGOT) 13, Alanine Aminotransferase (ALT/SGPT) 12, Alkaline Phosphatase 124, Total Protein 6.4, Albumin 3.4 Discharge Home Medications: Active Scripts Active Folic Acid 0.8 Mg Tablet 0.8 Mg PO DAILY Tramadol HCl 50 Mg Tablet 50 Mg PO Q6HR PRN Cyclobenzaprine HCl 10 Mg Tablet 10 Mg PO Q8H PRN Reported Omeprazole 20 Mg Capsule.dr 20 Mg PO DAILY Lisinopril 10 Mg Tablet 10 Mg PO 1300 TAKES AFTER LUNCH Dicyclomine HCl 20 Mg Tablet 20 Mg PO BID Atorvastatin Calcium 20 Mg Tablet 20 Mg PO 1300 TAKES AFTER LUNCH Instructions to patient/family Please see electronic discharge instructions given to patient. Diagnosis/Problems Diagnosis/Problems (1) Lumbar stenosis with neurogenic claudication (2) Refusal of blood transfusions as patient is [employer] (3) Anemia due to acute blood loss (4) Advanced age (5) Hypertension (6) Hyperlipemia (7) Fever (8) Bradycardia Clinical Quality Measures DVT/VTE Risk/Contraindication: Risk Factor Score Per Nursin RFS Level Per Nursing on Admit: 4+=Very High SAMARIA NAIR DO Feb 06, 2020 08:43
--- NOTE | 2020-02-06 09:06 | Cardiology Progress Note ---
Subjective Date Seen by Provider: Feb 06, 2020 Time Seen by Provider: 09:05 Subjective/Events-last exam Patient is sitting up in bed, no new complaints. Denies any chest pain or d yspnea. Objective-Cardiology Exam Last Set of Vital Signs Vital Signs 02/02/20 02/06/20 02/06/20 06:06 01:23 05:04 Temp 36.8 Pulse 85 Resp 18 B/P (MAP) 117/59 (78) Pulse Ox 95 O2 Delivery Room Air O2 Flow Rate 2.00 FiO2 21 Capillary Refill : Less Than 3 Seconds I&O Intake and Output 02/06/20 00:00 Intake Total 980 ml Balance 980 ml Intake Oral 980 ml # Voids 7 # Bowel Movements 1 General: Alert, Oriented X3, Cooperative HEENT: Atraumatic, PERRLA Neck: Supple, No JVD, No Thyromegaly Lungs: Clear to Auscultation, Normal Air Movement Heart: Normal S1, Normal S2, No Murmurs, Other (tachycardic) Abdomen: Normal Bowel Sounds, Soft, No Tenderness, No Hepatosplenomegaly, No Masses Extremities: No Clubbing, No Cyanosis, No Edema, Normal Pulses, No Tenderness/Swelling Skin: No Rashes, No Breakdown, No Significant Lesion Neuro: Normal Gait, Normal Speech, Strength at 5/5 X4 Ext, Normal Tone, Sens ation Intact Psych/Mental Status: Mental Status NL, Mood NL A/P-Cardiology Admission Diagnosis sinus bradycardia HTN anemia Assessment/Plan History of Sinus bradycardia, improved. Continue to monitor. Hypertension, patient is on lisinopril. Continue to monitor. Extensive spine surgery. Inpatient rehabilitation. still has pain in the back and lower extremities. Severe anemia, iron infusions erythropoietin given. Dr. Torre following. Patient is Tenriism therefore no transfusion. Continue to monitor H&H OK for discharge from cardiology standpoint. Patient was seen and evaluated with Donna, examination performed, management plan was discussed, agree with the current scribed note, I made few changes to the note using Italic font Patient is feeling better, no new complaint, denied any chest pain, possible discharged today Instructed her to follow-up with Dr. Castellanos. Continue to monitor blood pressure Clinical Quality Measures DVT/VTE Risk/Contraindication: Risk Factor Score Per Nursin RFS Level Per Nursing on Admit: 4+=Very High DONNA CARRERO Feb 06, 2020 9:06 am EL BORRERO MD Feb 06, 2020 11:01 am
[2020-02-06] MEDS: FOLIC ACID 1 MG TAB PO SCH (09:51)
[2020-02-06] MEDS: DICYCLOMINE 10 MG (BENTYL) CAP PO SCH (09:52)
[2020-02-06] MEDS: DOCUSATE SODIUM 100 MG (COLACE) CAP PO SCH (09:53)
[2020-02-06] MEDS: polyethylene glycoL POWDER 17 GM (MIRALAX) PACK PO SCH (09:53)
[2020-02-06] MEDS: SENNA W/DOCUSATE (SENOKOT S) TABLET PO SCH (09:53)
--- NOTE | 2020-02-06 10:05 | NUR ---
. Addendum: 02/06/20 at 1005 by ESTELITA CAMARILLO RT Amended: Links added.
--- NOTE | 2020-02-06 10:28 | Therapy Team Discharge Summary ---
Therapy Discharge Summary Discharge Recommendations Date of Discharge Physical Therapy Patient came to rehab with lumbar stenosis with neurogenic claudication. Upon evaluation patient performed bed mobility and supine <-> sit with max assist, sit <-> stand min assist, transfers min assist, car transfer min assist, ambulated 20' with a rolling walker with CGA (but needs min assist to ambulate 10' over an uneven surface), and went up and down 1 step using a rolling walker with min assist. Patient has been performing bed mobility and transfer training, balance and endurance training, functional strengthening, stair training, gait training, and education. Patient has made good progress and has met all of her [facility] goals. Now, patient performs bed mobility and transfers with independence, car transfer independent, ambulates 150' with a rolling walker with independence (including 50' with at least 2 turns of 90 degrees and 10' over an uneven surface), and can go up and down 12 steps using 2 handrails with independence. Patient is discharging from this facility today and will be discharged from PT at this time. Occupational Therapy Decreased UE Strength, Impaired I ADL's, Impaired Self-Care Skills PT Nib Finisher Goals Jail Goals PT Nib Finisher Goals Time Frame: Feb 14, 2020 Roll Left to Right (QC): 4 Sit to Lying (QC): 4 Lying-Sitting on Side/Bed(QC): 4 Sit to Stand (QC): 4 Chair/[id number] Xfer(QC): 4 Car Transfer (QC): 4 Does the Patient Walk: Yes Walk 10 feet (QC): 4 Walk 10ft-Uneven Surface(QC): 4 Walk 50ft with 2 Turns (QC): 4 Walk 150 ft (QC): 4 Wheel 50 feet with 2 turns (QC: 9 1 Step (curb) (QC): 4 4 Steps (QC): 4 12 Steps (QC): 4 Picking up an Object (QC): 88 OT Jail Goals Jail Goals Time Frame: Feb 21, 2020 Eating (FIM): 5 Eating (QC): 6 (Per clinical judgement, pt able to complete.) Oral Hygiene (QC): 6 (Met) Shower/Bathe Self (QC): 6 (Met) Upper Body Dressing (QC): 6 (Met) Lower Body Dressing (QC): 6 (Met) On/Off Footwear (QC): 6 (Not met. Pt able to complete after set up of sock onto sock aid.) Toileting(FIM): 1 Toileting Hygiene (QC): 6 (Met) Toilet/Commode Transfer (QC): 4 Additional Goals: 1-Demonstrate ADL Tasks, 2-Verbalize Understanding, 3- ImproveStrength/Kassandra 1=Demonstrate adherence to instructed precautions during ADL tasks. 2=Patient will verbalize/demonstrate understanding of assistive devices/modifications for ADL. 3=Patient will improve strength/tolerance for activity to enable patient to perform ADL's. CURTIS STRONG PT Feb 06, 2020 10:28
--- NOTE | 2020-02-06 14:07 | NUR ---
CM/SS DISCHARGE Patient discharged home as planned with family monitor and assistance. Daughter Margaret Cabrera stated she would be here about 1830 after she got off work to take patient home. [facility]: Finalized with [facility], confirmation of fax for discharge orders and instructions received. Faxed same clinical discharge information to PCP Dr. Wero Ortega MD, in [facility] office. FX: [phone] and PH: [phone] Alerted office staff fax was coming, confirmation received. IMM2 reviewed with daughter Margaret by phone yesterday, discharge has been planned over approximately 6 days, no intention to appeal.
[2020-02-06] MEDS: lisINopril 10 MG (PRINIVIL) TABLET PO SCH (14:13)
--- NOTE | 2020-02-06 14:38 | Therapy Team Discharge Summary ---
Therapy Discharge Summary Discharge Recommendations Date of Discharge Occupational Therapy Pt admitted to ARU with dx of lumbar stenosis with neurogenic claudication. At PLOF, pt was independent with all ADLs and functional mobility. At evaluation, pt required set up assistance with feeding, set up oral care, min A showering, mod A with upper body dressing, total assist lower body dressing, total assist footwear, and CGA toileting. OT txs with focus on increasing independence with ADLs and functional mobility, increasing UE strength and endurance. At discharge pt was independent with all ADLs except set up assist with footwear. Pt made good progress towards goals, meeting all goals except footwear. AE recommendations include sock aide and dressing stick. Pt discharging from facility at this date, d/c from OT at this time. Decreased UE Strength, Impaired I ADL's, Impaired Self-Care Skills PT Advanced Clinical Specialist Goals Snf Goals PT Advanced Clinical Specialist Goals Time Frame: Feb 14, 2020 Roll Left to Right (QC): 4 Sit to Lying (QC): 4 Lying-Sitting on Side/Bed(QC): 4 Sit to Stand (QC): 4 Chair/Jak-pp-Gjjll Xfer(QC): 4 Car Transfer (QC): 4 Does the Patient Walk: Yes Walk 10 feet (QC): 4 Walk 10ft-Uneven Surface(QC): 4 Walk 50ft with 2 Turns (QC): 4 Walk 150 ft (QC): 4 Wheel 50 feet with 2 turns (QC: 9 1 Step (curb) (QC): 4 4 Steps (QC): 4 12 Steps (QC): 4 Picking up an Object (QC): 88 OT Advanced Clinical Specialist Goals Snf Goals Time Frame: Feb 21, 2020 Eating (FIM): 5 Eating (QC): 6 (Per clinical judgement, pt able to complete.) Oral Hygiene (QC): 6 (Met) Shower/Bathe Self (QC): 6 (Met) Upper Body Dressing (QC): 6 (Met) Lower Body Dressing (QC): 6 (Met) On/Off Footwear (QC): 6 (Not met. Pt able to complete after set up of sock onto sock aid.) Toileting(FIM): 1 Toileting Hygiene (QC): 6 (Met) Toilet/Commode Transfer (QC): 4 Additional Goals: 1-Demonstrate ADL Tasks, 2-Verbalize Understanding, 3- ImproveStrength/Kassandra 1=Demonstrate adherence to instructed precautions during ADL tasks. 2=Patient will verbalize/demonstrate understanding of assistive devices/modifi cations for ADL. 3=Patient will improve strength/tolerance for activity to enable patient to perform ADL's. TOMMIE BROWN OT Feb 06, 2020 14:38
[2020-02-06 17:40] VITALS: BP 118/61
[2020-02-06 19:15] VITALS: BP 118/61
== END 2020-02-06 19:15 | disposition home health service (06) | DRG 560 ==
PROVIDERS: ADMIT Internal Medicine; ATTEND Internal Medicine
DX: Z47.89 Encounter for other orthopedic aftercare (principal); D62 Acute posthemorrhagic anemia; N39.0 Urinary tract infection, site not specified; B96.20 Unspecified Escherichia coli [E. coli] as the cause of diseases classified elsewhere; E11.9 Type 2 diabetes mellitus without complications; K21.9 Gastro-esophageal reflux disease without esophagitis; I10 Essential (primary) hypertension; E78.5 Hyperlipidemia, unspecified; K58.9 Irritable bowel syndrome, unspecified; N32.81 Overactive bladder; R32 Unspecified urinary incontinence; N31.9 Neuromuscular dysfunction of bladder, unspecified; R00.1 Bradycardia, unspecified; Z79.84 Long term (current) use of oral hypoglycemic drugs; Z85.42 Personal history of malignant neoplasm of other parts of uterus
CPT/HCPCS: 36415; 71045; 76937; 80053; 81000; 82274; 83605; 84145; 85007; 85025; 85027; 85045; 87040; 87077; 87088; 87186; 93005; 93306; 94760